=== PATIENT | male | born 2000 | race Caucasian/White ===

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

== ENCOUNTER 2018-03-25 11:08 | Emergency (ER) | END 2018-03-25 14:39 | disposition home or self-care (01) ==

== ENCOUNTER 2018-08-28 08:59 | Emergency (ER) | payer MEDICAID, OTHER ==
[~2018-08-28] VITALS: Wt 58.1 kg
[~2018-08-28 08:59] MED LIST changes: +LEVE750T70 PO
[2018-08-28] MEDS ORDERED: METR500T PO (11:04)
[2018-08-28] MEDS ORDERED: CIPR500T4 PO (11:04)
[2018-08-28] MEDS ORDERED: ACET500C5 PO (11:04)
[2018-08-28 11:38] VITALS: BP 132/75; PULSE 87; RESP 19
--- NOTE | 2018-08-28 14:23 | ERD ---
ER Documentation Chief Complaint Chief Complaint intermittent luq pain, nausea HPI 18-year-old male presenting with intermittent left lower quadrant pain for the last few days. He states it comes and goes however over the last day has progressively gotten worse. He denies any changes to bowel movements or urination. He has no fevers. Patient states the pain is worse with palpation of the area. He is never had this pain before. Medical history of seizures and is currently taking Keppra. Last seizure was May 2018. Denies medical problems. NKDA. Surgical history denies. Social history denies ROS All systems reviewed and are negative except as per history of present illness. Medications Home Meds Active Scripts Acetaminophen* (Tylophen*) 500 Mg Capsule, 1 CAP PO Q6H PRN for PAIN AND OR ELEVATED TEMP, #20 CAP Prov:MATT VIDAL PA-C 08/28/18 Metronidazole* (Flagyl*) 500 Mg Tablet, 500 MG PO TID for 7 Days, TAB Prov:MATT VIDAL PA-C 08/28/18 Ciprofloxacin Hcl* (Ciprofloxacin Hcl*) 500 Mg Tablet, 500 MG PO BID for 7 Days, TAB Prov:MATT VIDAL PA-C 08/28/18 Levetiracetam* (Keppra*) 750 Mg Tablet, 750 MG PO BID, #60 TAB Prov:SPRING BATISTA DO 07/15/16 Levetiracetam* (Keppra*) 500 Mg Tablet, 500 MG PO BID for 60 Days, TAB Prov:ALHAJI SEPULVEDA DO 12/24/15 Allergies Allergies: Coded Allergies: No Known Allergy (Unverified , 07/15/16) PMhx/Soc History of Surgery: No Anesthesia Reaction: No Hx Neurological Disorder: Yes (seizure) Hx Respiratory Disorders: No Hx Cardiac Disorders: No Hx Psychiatric Problems: No Hx Miscellaneous Medical Probl: No Hx Alcohol Use: No Hx Substance Use: No (MARIJUANA ) Hx Tobacco Use: No Smoking Status: Never smoker FmHx Family History: No diabetes, No coronary disease, No other Physical Exam Vitals Vital Signs Date Temp Pulse Resp B/P (MAP) Pulse Ox O2 O2 Flow FiO2 Time Delivery Rate 08/28/18 97.9 87 19 132/75 98 Room Air 11:38 (94) 08/28/18 97.7 96 20 135/59 99 09:03 (84) Physical Exam GENERAL: The patient is well-appearing, well-nourished, in no acute distress HEENT: Atraumatic. Conjunctivae are pink. Pupils equal, round, and reactive to light. There is no scleral icterus. Tympanic membranes clear bilaterally. Oropharynx clear. NECK: C-spine is soft and supple. There is no meningismus. There is no cervical lymphadenopathy. CHEST: Clear to auscultation bilaterally. There are no rales, wheezes or rhonchi. HEART: Regular rate and rhythm. No murmurs, clicks, rubs or gallops. ABDOMEN: Normal active bowel sounds. No distention. No organomegaly. Mild tenderness palpation the left lower quadrant with no rebound tenderness. Result Diagram: 08/28/1895808/28/18958 Results 24 hrs Laboratory Tests Test 08/28/18 09:47 08/28/18 09:59 Urine Color STRAW Urine Clarity CLEAR Urine pH 7.0 Urine Specific [place] 1.002 Urine Ketones NEGATIVE mg/dL Urine Nitrite NEGATIVE mg/dL Urine Bilirubin NEGATIVE mg/dL Urine Urobilinogen NEGATIVE mg/dL Urine Leukocyte Esterase NEGATIVE Manohar/ul Urine Hemoglobin NEGATIVE mg/dL Urine Glucose NEGATIVE mg/dL Urine Total Protein NEGATIVE mg/dl White Blood Count 5.5 10^3/ul Red Blood Count 5.61 10^6/ul Hemoglobin 16.3 g/dl Hematocrit 47.8 % Mean Corpuscular Volume 85.2 fl Mean Corpuscular Hemoglobin 29.1 pg Mean Corpuscular Hemoglobin Concent 34.1 g/dl Red Cell Distribution Width 12.8 % Platelet Count 292 10^3/UL Mean Platelet Volume 8.5 fl Immature Granulocytes % 0.400 % Neutrophils % 73.8 % Lymphocytes % 14.6 % Monocytes % 10.3 % Eosinophils % 0.5 % Basophils % 0.4 % Nucleated Red Blood Cells % 0.0 /100WBC Immature Granulocytes # 0.020 10^3/ul Neutrophils # 4.1 10^3/ul Lymphocytes # 0.8 10^3/ul Monocytes # 0.6 10^3/ul Eosinophils # 0.0 10^3/ul Basophils # 0.0 10^3/ul Nucleated Red Blood Cells # 0.0 10^3/ul Sodium Level 143 mmol/L Potassium Level 3.8 mmol/L Chloride Level 103 mmol/L Carbon Dioxide Level 28 mmol/L Anion Gap 12 Blood Urea Nitrogen 6 mg/dl Creatinine 0.69 mg/dl Est Glomerular Filtrat Rate mL/min > 60 mL/min Glucose Level 95 mg/dl Calcium Level 9.7 mg/dl Total Bilirubin 0.5 mg/dl Direct Bilirubin 0.00 mg/dl Indirect Bilirubin 0.5 mg/dl Aspartate Amino Transf (AST/SGOT) 41 IU/L Alanine Aminotransferase (ALT/SGPT) 55 IU/L Alkaline Phosphatase 89 IU/L Total Protein 8.5 g/dl Albumin 4.9 g/dl Globulin 3.60 g/dl Albumin/Globulin Ratio 1.36 Lipase 48 U/L Monoscreen Negative Procedures/MDM DIAGNOSTIC IMAGING REPORT Patient: JOAN WATSON : 2000 Age: 18 Sex: M MR #: [id number] DOS: 08/28/18 0931 Ordering MD: MEGHANN VIDAL PA-C Location: [facility] Room/Bed: PROCEDURE: CT Abdomen and pelvis without contrast. CLINICAL INDICATION: Left upper quadrant pain and nausea TECHNIQUE: CT scan of the abdomen and pelvis without contrast was performed on a multidetector high-resolution CT scan. . Coronal and sagittal reformatted images were obtained from the axial source images. Standard CT scan of the a bdomen pelvis without contrast protocols were performed. The total exam CTDI equals 4.77 mGy and the total exam DLP equals 269.46 mGy-cm. One or more of the following dose reduction techniques were used: - Automated exposure control. - Adjustment of the mA and/or kV according to patient size. Use of iterative reconstruction technique. Dicom images are available COMPARISON: None. FINDINGS: Moderate to heavy stool burden throughout the colon consistent with constipation. No evidence of diverticulitis or colitis. Prominent fluid filled nondilated mid to distal small bowel may represent ileus or possibly enteritis. Remainder the small bowel is unremarkable. No evidence of bowel obstruction. Stomach and appendix are unremarkable. No evidence of intra-abdominal free air, free fluid, abscesses or lymphadenopathy. Kidneys are normal in size without calcified calculi hydronephrosis or intra renal masses bilaterally. No evidence ureteral calcified calculi or dilatation. Contracted otherwise unremarkable urinary bladder. Prostate unremarkable. Liver spleen pancreas adrenal glands and gallbladder are unremarkable. No evidence biliary ductal dilation. Lung bases unremarkable. Aorta unremarkable. Abdominal pelvic wall unremarkable. Osseous structures unremarkable. IMPRESSION: 1. Moderate to heavy stool burden throughout the colon consistent constipation. No bowel obstruction. 2. Prominent nondilated fluid filled loops of mid to distal small bowel may re present ileus or possible enteritis. No diverticulitis or appendicitis. 3. No calcified urinary calculi or obstructive uropathy. MDM: 18-year-old male presenting with abdominal pain. Patient has findings consistent with colitis and I will treat with antibiotics. I have low suspicion for perforated ulcer formation. Patient's vitals are stable and exam is non- concerning. I have low suspicion for GI abnormality or UTI. Patient is told if symptoms change or worsen to return immediately to the ER. All questions answered at discharge Departure Diagnosis: Primary Impression: Abdominal pain Condition: Stable Patient Instructions: Abdominal Pain Additional Instructions: FOLLOW UP WITH YOUR PRIMARY CARE PHYSICIAN TOMORROW.Return to this facility if you are not improving as expected. MATT VIDAL PA-C Aug 28, 2018 14:23
== END 2018-08-28 11:39 | disposition home or self-care (01) ==
LOC: FTE 08:59
DX: R10.32 Left lower quadrant pain (principal)
CPT/HCPCS: 36415; 74176; 80053; 81003; 83690; 85025; 86308; Z7502

== ENCOUNTER 2018-12-18 13:11 | Inpatient (IN) | payer MEDICAID, OTHER ==
[~2018-12-18] VITALS: Ht 180.3 cm; Wt 57.0 kg
[~2018-12-18 13:11] MED LIST changes: +ACET500C5 PO; +CIPR500T4 PO; +METR500T PO
[2018-12-18] MEDS ORDERED: SULF1TAB31 PO (13:52)
[2018-12-18] MEDS ORDERED: AMOX1TAB10 PO (13:52)
[2018-12-18] MEDS ORDERED: ERYT1OIN6 RIGHT EYE (13:52)
[2018-12-18] MEDS ORDERED: NPH10OT RIGHT EAR (13:52)
[2018-12-18] MEDS ORDERED: SOD CHLORIDE 0.9% 100 ML ONE (15:41)
[2018-12-18] MEDS ORDERED: IOHEXOL 100 ML ONE (15:41)
[2018-12-18] MEDS ORDERED: LEVE-5 PO (15:46)
--- NOTE | 2018-12-18 16:12 | ERD ---
ER Documentation Chief Complaint Chief Complaint night sweats, unable to sleep, losses lots of weights; cough x 1 month HPI This is a very pleasant 18-year-old male with no past mental history. The patient presents to the emergency department with a nonproductive cough for over 1 month. The patient indicates for the past month he has been having night sweats making it difficult for him to sleep. He also indicates since the beg inning of the year roughly August 2018 he started to develop a significant amount of weight loss of roughly 30 pounds. The patient had no recent travel or prolonged immobilization. He does notice that he has had a pinkish color to his cough and sputum over the past several days. He denies any abdominal pain. He has no chest pain. ROS All systems reviewed and are negative except as per history of present illness. Medications Home Meds Reported Medications Levetiracetam* (Keppra*) 500 Mg Tablet, 500 MG PO BID, TAB 12/18/18 Discontinued Scripts Acetaminophen* (Tylophen*) 500 Mg Capsule, 1 CAP PO Q6H PRN for PAIN AND OR ELEVATED TEMP, #20 CAP Prov:MATT VIDAL PA-C 08/28/18 Metronidazole* (Flagyl*) 500 Mg Tablet, 500 MG PO TID for 7 Days, TAB Prov:MATT VIDAL PA-C 08/28/18 Ciprofloxacin Hcl* (Ciprofloxacin Hcl*) 500 Mg Tablet, 500 MG PO BID for 7 Days, TAB Prov:MATT VIDAL PA-C 08/28/18 Levetiracetam* (Keppra*) 750 Mg Tablet, 750 MG PO BID, #60 TAB Prov:SPRING BATISTA DO 07/15/16 Levetiracetam* (Keppra*) 500 Mg Tablet, 500 MG PO BID for 60 Days, TAB Prov:ALHAJI SEPULVEDA DO 12/24/15 Allergies Allergies: Coded Allergies: No Known Allergy (Unverified , 12/18/18) PMhx/Soc History of Surgery: No Anesthesia Reaction: No Hx Neurological Disorder: Yes (seizure) Hx Respiratory Disorders: No Hx Cardiac Disorders: No Hx Psychiatric Problems: No Hx Miscellaneous Medical Probl: No Hx Alcohol Use: No Hx Substance Use: No (MARIJUANA ) Hx Tobacco Use: No Physical Exam Vitals Vital Signs Date Temp Pulse Resp B/P (MAP) Pulse Ox O2 O2 Flow FiO2 Time Delivery Rate 12/18/18 124 16 118/62 99 Room Air 22:00 (80) 12/18/18 122 16 122/64 100 Room Air 20:00 (83) 12/18/18 124 16 118/68 99 Room Air 18:00 (85) 12/18/18 99.2 130 24 145/70 97 13:17 (95) Physical Exam Constitutional:Well-developed. Well-nourished. Very thin HEENT:Normocephalic. Atraumatic.Pupils were equal round reactive to light. Moist mucous membranes.No tonsillar exudates. Neck: No nuchal rigidity. No lymphadenopathy. No posterior cervical spine tenderness or step-offs. Respiratory: Not using accessory muscles of respiration. Diminished breath sounds bilaterally more prominent in the lower lung bases. No rhonchi. No rales. No wheezing. Cardiovascular: Regular rate regular rhythm.No murmurs. No rubs were appreciated.S1, S2 normal. Distal pulses are palpable 2+ bilaterally. GI: Abdomen was soft. Nontender. Non Distended. No pulsatile abdominal masses or bruits. No rebound. No guarding. Bowel sounds were present and normal. Muscle skeletal: Full range of motion of both the upper and lower extremities bilaterally.Normal muscle tone.No assymetrical calf tenderness or swelling. Skin: No petechia, no purpura. No lesions on the palms or the soles of the feet. No maculopapular rash. NEURO: Patient was alert, awake, orientated x3.No facial droop. Gait observed and normal with no ataxia.Speech had regular rate and rhythm. No focal neurological deficits. Result Diagram: 12/19/18 0557 12/19/18 0557 Results 24 hrs Laboratory Tests Test 12/18/18 14:05 12/18/18 14:51 12/18/18 15:15 White Blood Count 17.0 10^3/ul Red Blood Count 4.72 10^6/ul Hemoglobin 12.1 g/dl Hematocrit 38.6 % Mean Corpuscular Volume 81.8 fl Mean Corpuscular 25.6 pg Hemoglobin Mean Corpuscular 31.3 g/dl Hemoglobin Concent Red Cell Distribution 12.4 % Width Platelet Count 888 10^3/UL Mean Platelet Volume 7.8 fl Immature Granulocytes % 1.100 % Neutrophils % 79.3 % Lymphocytes % 11.1 % Monocytes % 8.1 % Eosinophils % 0.2 % Basophils % 0.2 % Nucleated Red Blood 0.0 /100WBC Cells % Immature Granulocytes # 0.190 10^3/ul Neutrophils # 13.5 10^3/ul Lymphocytes # 1.9 10^3/ul Monocytes # 1.4 10^3/ul Eosinophils # 0.0 10^3/ul Basophils # 0.0 10^3/ul Nucleated Red Blood 0.0 10^3/ul Cells # Pathologist YES Review (Hematology) Urine Color YELLOW Urine Clarity CLEAR Urine pH 6.0 Urine Specific [place] 1.010 Urine Ketones NEGATIVE mg/dL Urine Nitrite NEGATIVE mg/dL Urine Bilirubin NEGATIVE mg/dL Urine Urobilinogen 1+ mg/dL Urine Leukocyte NEGATIVE Manohar/ul Esterase Urine Hemoglobin NEGATIVE mg/dL Urine Glucose NEGATIVE mg/dL Urine Total Protein NEGATIVE mg/dl Path Consult JANNY ABEBE MD Signing Pathologist Sodium Level 137 mmol/L Potassium Level 4.3 mmol/L Chloride Level 96 mmol/L Carbon Dioxide Level 29 mmol/L Anion Gap 12 Blood Urea Nitrogen 7 mg/dl Creatinine 0.70 mg/dl Est Glomerular Filtrat > 60 mL/min Rate mL/min Glucose Level 113 mg/dl Calcium Level 8.6 mg/dl Total Bilirubin 0.8 mg/dl Direct Bilirubin 0.00 mg/dl Indirect Bilirubin 0.8 mg/dl Aspartate Amino 28 IU/L Transf (AST/SGOT) Alanine 32 IU/L Aminotransferase (ALT/S GPT) Alkaline Phosphatase 102 IU/L Creatine Kinase 43 IU/L Creatine Kinase Index 1.1 Creatinine Kinase MB 0.47 ng/ml (Mass) Troponin I < 0.012 ng/ml Total Protein 8.0 g/dl Albumin 3.6 g/dl Globulin 4.40 g/dl Albumin/Globulin Ratio 0.81 Free Thyroxine Index 3.14 ug/ml Thyroxine (T4) 7.7 ug/dl Triiodothyronine (T3) 40.8 % Uptake HIV (1&2) Antibody NEGATIVE Blood Gas Specimen Blood arterial Source Arterial Blood Date 12/18/2018 4:20:02 PM Drawn Arterial Blood pH 7.451 (Temp corrected) Arterial Blood pCO2 35.2 mmhg (Temp correct) Arterial Blood pO2 81.9 mmHG (Temp corrected) Arterial Blood HCO3 24.0 mmol/L Arterial Blood Base 0.4 mmol/L Excess Arterial Blood 96.1 mmHG Oxygen Saturation Reed Test N/A Arterial Blood Gas LB Puncture Site Arterial 0.3 % Blood Carboxyhemoglobin Arterial Blood 0.3 % Methemoglobin Blood Gas A-a O2 25.7 mmHg Differential Oxyhemoglobin Percent 95.5 % Blood Gas Temperature 37.0 C Blood Gas Modality ROOM AIR FiO2 21.0 % Blood Gas Notified Whom [place] Blood Gas Notified 12/18/2018 4:27:54 PM Time Prothrombin Time 14.5 Sec Prothrombin Time Ratio 1.1 INR International 1.12 Normalized Ratio Activated 33.4 Sec Partial Thromboplast Time Current Medications Medications Dose Sig/Eduardo Start Time Status Last (Trade) Ordered Route PRN Stop Time Admin Dose Reason Admin IV Flush 10 ml STK-MED 12/18/18 DC 12/18/18 (NS 10 ml) ONCE .ROUTE 15:41 16:10 12/18/18 15:42 Sodium 100 ml @ STK-MED 12/18/18 DC 12/18/18 Chloride ONCE .ROUTE 15:41 16:10 12/18/18 15:42 Iohexol 100 ml @ ud STK-MED 12/18/18 DC 12/18/18 ONCE .ROUTE 15:41 16:10 12/18/18 15:42 Ondansetron 4 mg BRIDGE ORDER 12/18/18 DC HCl (Zofran PRN IV 16:30 Inj) NAUSEA/VOMITI 12/18/18 17:02 NG 650 mg ER BRIDGE 12/18/18 DC Acetaminophen PRN PO 16:30 (Tylenol .MILD PAIN 12/18/18 17:02 Tab) 1-3 OR TEMP IV Flush 3 ml PER 12/18/18 (NS 3 ml) PROTOCOL IV 17:00 Ondansetron 4 mg Q6H PRN 12/18/18 HCl (Zofran IV 17:00 Inj) NAUSEA/VOMITI NG 650 mg Q6H PRN 12/18/18 12/19/18 Acetaminophen PO .PAIN 1-3 17:00 04:54 (Tylenol OR TEMP Tab) 1 tab Q6H PRN 12/18/18 Acetaminophen PO .MOD PAIN 17:00 / 4-6 Hydrocodone Bitart ([place] (5/325)) Morphine 2 mg Q4H PRN 12/18/18 Sulfate IV .SEVERE 17:00 (morphine) PAIN 7-10 Zolpidem 5 mg QHS PRN 12/18/18 Tartrate PO .INSOMNIA 17:00 (Ambien) Vancomycin VANCOMYCIN PER 12/18/18 HCl (Vanco PER PHARMACY PROTOCOL XX 17:00 Iv Per Pharmacy) Piperacillin 100 ml @ Q6 IVPB 12/18/18 12/19/18 Sod/ 200 mls/hr 18:00 13:49 Tazobactam Sod Fluconazole 400 mg DAILY PO 12/18/18 12/19/18 (Diflucan) 17:00 09:29 500 mg BID PO 12/18/18 12/19/18 Levetiracetam 21:00 09:29 (Keppra) Vancomycin 250 ml @ Q8H IVPB 12/18/18 DC 12/19/18 HCl 125 mls/hr 18:00 11:23 12/19/18 11:26 Procedures/MDM This is a very pleasant 19-year-old male with no past medical history that presents to the emergency department with night sweats weight loss and abnormal chest radiograph. The chest radiograph reviewed by myself and the radiologist indicate the following: INTERVAL DEVELOPMENT OF LARGE BULKY BILATERAL MASS LIKE DENSITIES, WHICH MAY REPRESENT MARKED LYMPHADENOPATHY. MALIGNANCY IS NOT EXCLUDED. RECOMMEND FOLLOW- UP CT SCAN OF THE CHEST WITH IV CONTRAST. The patient had leukocytosis of 17,000. The patient's platelet count was 888,000. I did not feel the patient's leukocytosis was a result of sepsis or infectious process. I was more concerned about a neoplastic process however blood cultures were obtained. Antibiotics will be held at this time until foll ow-up with the blood cultures and infectious disease consult. The patient had no TB risk factors but it TB analysis is currently pending with a quantiferon test. I obtained a CT scan of the patient's chest that was reviewed by the radiologist and indicated the followin. Large heterogeneous anterior mediastinal mass. The differential diagnosis includes a germ cell tumor, thymic neoplasm, or lymphoma. 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 Correlation with tissue diagnosis and a PET CT scan is recommended. 2. 7 mm nodule right lower lobe worrisome for pulmonary metastasis. 3. Limited examination for a pulmonary embolus. A large or central filling defect in the pulmonary system. I have obtained a thyroid panel. He will be admitted to the hospitalist in serious condition. The patient did not require supplemental oxygen however did have mild hypoxia. Therefore I obtained an arterial blood gas. There is no evidence of respiratory acidosis. 12 Lead EKG tracing ordered and reviewed by myself showed: Normal sinus rhythm of 66 bpm and no arrhythmia. CO interval normal. QRS duration normal. No ST segment elevation No ST segment depression. No changes consistent with acute ischemia. Critical Care: Time: 45 minutes Treatments/Evaluations: Close monitoring and treatment of unstable vital signs, cardiorespiratory, and neurologic status, while maintaining tight balance of fluid, respiratory, and cardiac interventions. Time does not include performing any of the above billable procedures. Departure Diagnosis: Primary Impression: Lung mass Condition: Serious JAEL CORRAL MD Dec 18, 2018 16:07
[2018-12-18] MEDS ORDERED: ACETAMINOPHEN 325 MG TAB PO PRN (16:30)
[2018-12-18] MEDS ORDERED: ONDANSETRON 4 MG INJ IV PRN ×2 (16:30→17:00)
--- NOTE | 2018-12-18 16:38 | HP ---
Date/Time of Note Date/Time of Note DATE: 12/18/18 TIME: 16:31 Assessment/Plan VTE Prophylaxis Pharmacological prophylaxis: NA/contraindicated Pharm contraindication: low risk/ambulating Lines/Catheters [facility] Saline Lock Assessment/Plan Hospital Course 1. Chronic cough with weight loss Chest x-ray shows large bulky bilateral masslike densities Follow-up on CT chest Pulmonary and ID consultations obtained Follow-up on QuantiFERON, blood cultures and coccidiomycosis antigen HIV is negative Diflucan and antibiotics empirically 2. Leukocytosis secondary to above Antibiotics and antifungals to 3. Seizure disorder Continue home Keppra 4. Thrombocytosis Monitor for now Prophylaxis: Ambulation Result Diagram: 12/18/18 1405 12/18/18 1405 Results 24hrs Laboratory Tests Test 12/18/18 14:05 12/18/18 14:51 12/18/18 15:15 White Blood Count 17.0 #H Red Blood Count 4.72 Hemoglobin 12.1 #L Hematocrit 38.6 L Mean Corpuscular Volume 81.8 Mean Corpuscular Hemoglobin 25.6 L Mean Corpuscular 31.3 L Hemoglobin Concent Red Cell Distribution Width 12.4 Platelet Count 888 #H Mean Platelet Volume 7.8 Immature Granulocytes % 1.100 H Neutrophils % 79.3 H Lymphocytes % 11.1 L Monocytes % 8.1 Eosinophils % 0.2 Basophils % 0.2 Nucleated Red Blood Cells % 0.0 Immature Granulocytes # 0.190 H Neutrophils # 13.5 H Lymphocytes # 1.9 Monocytes # 1.4 H Eosinophils # 0.0 Basophils # 0.0 Nucleated Red Blood Cells # 0.0 Pathologist YES Review (Hematology) Urine Color YELLOW Urine Clarity CLEAR Urine pH 6.0 Urine Specific [place] 1.010 Urine Ketones NEGATIVE Urine Nitrite NEGATIVE Urine Bilirubin NEGATIVE Urine Urobilinogen 1+ H Urine Leukocyte Esterase NEGATIVE Urine Hemoglobin NEGATIVE Urine Glucose NEGATIVE Urine Total Protein NEGATIVE Sodium Level 137 Potassium Level 4.3 Chloride Level 96 L Carbon Dioxide Level 29 Anion Gap 12 Blood Urea Nitrogen 7 Creatinine 0.70 Est Glomerular Filtrat > 60 Rate mL/min Glucose Level 113 Calcium Level 8.6 Total Bilirubin 0.8 Direct Bilirubin 0.00 Indirect Bilirubin 0.8 Aspartate Amino 28 Transf (AST/SGOT) Alanine 32 Aminotransferase (ALT/SGPT) Alkaline Phosphatase 102 Creatine Kinase 43 Creatine Kinase Index 1.1 Creatinine Kinase MB (Mass) 0.47 Troponin I < 0.012 Total Protein 8.0 Albumin 3.6 Globulin 4.40 H Albumin/Globulin Ratio 0.81 HIV (1&2) Antibody NEGATIVE Blood Gas Specimen Source Blood arterial Arterial Blood Date Drawn 12/18/2018 4:20:02 PM Arterial Blood pH 7.451 H (Temp corrected) Arterial Blood pCO2 35.2 (Temp correct) Arterial Blood pO2 81.9 (Temp corrected) Arterial Blood HCO3 24.0 Arterial Blood Base Excess 0.4 Arterial Blood 96.1 Oxygen Saturation Reed Test N/A Arterial Blood Gas LB Puncture Site Arterial 0.3 Blood Carboxyhemoglobin Arterial Blood Methemoglobin 0.3 Blood Gas A-a O2 25.7 H Differential Oxyhemoglobin Percent 95.5 Blood Gas Temperature 37.0 Blood Gas Modality ROOM AIR FiO2 21.0 Blood Gas Notified Whom [place] Blood Gas Notified Time 12/18/2018 4:27:54 PM Prothrombin Time 14.5 Prothrombin Time Ratio 1.1 INR International 1.12 Normalized Ratio Activated 33.4 Partial Thromboplast Time HPI/ROS Admit Date/Time Admit Date/Time December 18, 2018 Hx of Present Illness Patient is a 18-year-old male with history of seizure disorder on Keppra, patient reports fevers and chills with night sweats for the past 4 months, patient also reports 30 pound weight loss during that time. Patient does report recent history of cough with pink sputum, patient denies any history of incarceration, travel outside of the country or TB contacts. Patient is not currently working and has not gone to college but did go to high school locally and denies any travel history to the [facility]. When asked about sexual orientation patient preferred not to answer. In the ER chest x-ray showed large bulky bilateral mass densities. Patient continues to report dry cough otherwise has no complaints. ROS Weight loss Constitutional: chills, febrile, weight change (Weight loss of 30 pounds over 4 months) Eyes: no complaints ENT: no complaints Respiratory: cough Cardiovascular: no complaints Gastrointestinal: no complaints Genitourinary: no complaints Musculoskeletal: no complaints Skin: no complaints Neurologic: no complaints Endocrine: no complaints Lymphatic: no complaints Psychological: no complaints, nl mood/affect Immunologic: no complaints PMH/Family/Social Past Medical History As per HPI Medications Current Medications Ondansetron HCl (Zofran Inj) 4 mg BRIDGE ORDER PRN IV NAUSEA/VOMITING; Start 12/18/18 at 16:30; Stop 12/19/18 at 16:29 Acetaminophen (Tylenol Tab) 650 mg ER BRIDGE PRN PO .MILD PAIN 1-3 OR TEMP; Start 12/18/18 at 16:30; Stop 12/19/18 at 16:29 Coded Allergies: No Known Allergy (Unverified , 12/18/18) Past Surgical History Past Surgical Hx: no surgical history Family History Significant Family History: no pertinent family hx Social History Alcohol Use: rarely Smoking Status: Never smoker Drug Use: marijuana Exam/Review of Systems Vital Signs Vitals Vital Signs Date Temp Pulse Resp B/P (MAP) Pulse Ox O2 O2 Flow FiO2 Time Delivery Rate 12/18/18 99.2 130 24 145/70 97 13:17 (95) Exam Constitutional: alert, oriented Respiratory: clear to auscultation Cardiovascular: regular rate and rhythm Gastrointestinal: soft; No distended Musculoskeletal: nl extremities to inspection JAMIN INFANTE Dec 18, 2018 16:38
[2018-12-18] MEDS ORDERED: VANCOMYCIN IV PER PHARMACY XX SCH (17:00)
[2018-12-18] MEDS ORDERED: morphine 2 MG INJ IV PRN (17:00)
[2018-12-18] MEDS ORDERED: ZOLPIDEM 5 MG TAB PO PRN (17:00)
[2018-12-18] MEDS ORDERED: NACL 0.9% 3 ML SYG IV SCH (17:00)
[2018-12-18] MEDS: VANCOMYCIN 1 GM 250 ML IVPB SCH (18:00)
[2018-12-18] MEDS: PIPER-TAZO 3.375 GM IV (PMX) 100 ML IVPB SCH (19:03)
[2018-12-18] MEDS: FLUCONAZOLE 200 MG TAB PO SCH (19:03)
[2018-12-18] MEDS: LEVETIRACETAM 500 MG TAB PO SCH (20:07)
[2018-12-18] MEDS ORDERED: SOD CHLORIDE 0.9% 1,000 ML IV ONE (22:30)
[2018-12-19] VITALS (11 sets, daily range): BP systolic 94–116; BP diastolic 52–60; PULSE 93–166; RESP 17–19; Ht 180.3 cm; Wt 57.0 kg
[2018-12-19] MEDS: ACETAMINOPHEN 325 MG TAB PO PRN ×2 (04:54→23:05)
[2018-12-19] MEDS: VANCOMYCIN 1 GM 250 ML IVPB SCH ×2 (08:17→11:23)
[2018-12-19] MEDS: PIPER-TAZO 3.375 GM IV (PMX) 100 ML IVPB SCH ×4 (09:28→17:46)
[2018-12-19] MEDS: LEVETIRACETAM 500 MG TAB PO SCH ×2 (09:29→20:54)
[2018-12-19] MEDS: FLUCONAZOLE 200 MG TAB PO SCH (09:29)
--- NOTE | 2018-12-19 11:40 | CONS ---
Assessment/Plan Assessment/Plan Assessment/Plan (Daily) Assessment and recommendations; 1. Patient admitted with history of cough as well as significant weight loss over the last few weeks with a very large anterior mediastinal mass concerning for either lymphoma versus giant cell tumor. Continue current supportive care. Patient will need to have a biopsy done. May likely need mediastinoscopy performed. Findings discussed with primary physician. Consultation Date/Type/Reason Admit Date/Time December 18, 2018 Date of Consultation: Dec 19, 2018 Type of Consult Pulmonary Patient is a pleasant 18-year-old gentleman who came into the hospital with a few weeks history of cough with significant weight loss around 30 to 40 pounds. Upon evaluation a chest x-ray was done which is showing very large bilateral hilar masses. CT chest was done subsequently which is negative for pulmonary embolism but is showing a very large anterior mediastinal mass which is concerning for lymphoma versus germ cell tumor. Patient denies any fever, chills, dysphagia, shortness of breath, complete very scant cough without any sputum production or hemoptysis. Past medical history; 1. History of seizures. Medications; reviewed. Patient uses marijuana as an outpatient. Allergies; none. Socially; marijuana use. Family history; patient is single, has 3 siblings. No show any malignancy in the family. 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 Review of systems; denies any headache, seizures, visual changes. Any dysphagia, chest pain, angina, wheezing, sputum production or hemoptysis. Complains of cough for the last few weeks. Complains of weight loss. Denies any abdominal pain, nausea, vomiting, any lumps in the body. Denies any melena hematochezia urinary symptoms any skin changes or any arthritis symptoms. Denies any orthopnea. General exam; young male, awake alert, currently in no distress. Date/Time of Note DATE: 12/19/18 TIME: 11:36 Past Medical History Home Meds Reported Medications Levetiracetam* (Keppra*) 500 Mg Tablet, 500 MG PO BID, TAB 12/18/18 Discontinued Scripts Acetaminophen* (Tylophen*) 500 Mg Capsule, 1 CAP PO Q6H PRN for PAIN AND OR ELEVATED TEMP, #20 CAP Prov:MATT VIDAL PA-C 08/28/18 Metronidazole* (Flagyl*) 500 Mg Tablet, 500 MG PO TID for 7 Days, TAB Prov:MATT VIDAL PA-C 08/28/18 Ciprofloxacin Hcl* (Ciprofloxacin Hcl*) 500 Mg Tablet, 500 MG PO BID for 7 Days, TAB Prov:MATT VIDAL PA-C 08/28/18 Levetiracetam* (Keppra*) 750 Mg Tablet, 750 MG PO BID, #60 TAB Prov:SPRING BATISTA DO 07/15/16 Levetiracetam* (Keppra*) 500 Mg Tablet, 500 MG PO BID for 60 Days, TAB Prov:ALHAJI SEPULVEDA 12/24/15 Medications Current Medications IV Flush (NS 3 ml) 3 ml PER PROTOCOL IV ; Start 12/18/18 at 17:00 Ondansetron HCl (Zofran Inj) 4 mg Q6H PRN IV NAUSEA/VOMITING; Start 12/18/18 at 17:00 Acetaminophen (Tylenol Tab) 650 mg Q6H PRN PO .PAIN 1-3 OR TEMP Last administered on 12/19/18at 04:54; Admin Dose 650 MG; Start 12/18/18 at 17:00 Acetaminophen/ Hydrocodone Bitart ([place] (5/325)) 1 tab Q6H PRN PO .MOD PAIN 4- 6; Start 12/18/18 at 17:00 Morphine Sulfate (morphine) 2 mg Q4H PRN IV .SEVERE PAIN 7-10; Start 12/18/18 at 17:00 Zolpidem Tartrate (Ambien) 5 mg QHS PRN PO .INSOMNIA; Start 12/18/18 at 17:00 Vancomycin HCl (Vanco Iv Per Pharmacy) VANCOMYCIN PER PHARMACY PER PROTOCOL XX ; Start 12/18/18 at 17:00 Piperacillin Sod/ Tazobactam Sod 100 ml @ 200 mls/hr Q6 IVPB Last administered on 12/19/18at 09:28; Admin Dose 200 MLS/HR; Start 12/18/18 at 18:00 Fluconazole (Diflucan) 400 mg DAILY PO Last administered on 12/19/18at 09:29; Admin Dose 400 MG; Start 12/18/18 at 17:00 Levetiracetam (Keppra) 500 mg BID PO Last administered on 12/19/18at 09:29; Admin Dose 500 MG; Start 12/18/18 at 21:00 Miscellaneous Information (*Rx Drug Level Order Reminder*) VANCOMYCIN TROUGH ONCE ONCE XX ; Start 12/19/18 at 17:00; Stop 12/19/18 at 17:01 Vancomycin HCl 250 ml @ 125 mls/hr Q8H IVPB ; Start 12/19/18 at 22:00; Status UNV Allergies: Coded Allergies: No Known Allergy (Unverified , 12/18/18) Past Surgical History Past Surgical Hx: no surgical history Social History Alcohol Use: rarely Smoking Status: Current some day smoker Drug Use: marijuana Exam/Review of Systems Exam Vitals Vital Signs Date Temp Pulse Resp B/P (MAP) Pulse Ox O2 O2 Flow FiO2 Time Delivery Rate 12/19/18 98.7 106 19 107/57 96 Room Air 11:04 (74) Exam H EENT exam; supple neck, no JVD. No lymphadenopathy. Midline trachea. No thyromegaly. No neck masses. Patient has good dentition. Pupils are midsize. Chest exam; clear to auscultation. S1-S2 audible, no murmurs. Regular rhythm. Abdomen exam; soft, no organomegaly. Bowel sounds audible. No testicular mass. Extremity exam; no peripheral edema clubbing. 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 Results Result Diagram: 12/19/18 0557 12/19/18 0557 Results 24hrs Laboratory Tests Test 12/18/18 14:05 12/18/18 14:51 12/18/18 15:15 12/19/18 05:57 White Blood Count 17.0 #H 17.4 H Red Blood Count 4.72 4.31 L Hemoglobin 12.1 #L 11.1 L Hematocrit 38.6 L 34.6 L Mean Corpuscular 81.8 80.3 Volume Mean Corpuscular 25.6 L 25.8 L Hemoglobin Mean Corpuscular 31.3 L 32.1 Hemoglobin Concen t Red Cell 12.4 12.6 Distribution Width Platelet Count 888 #H 841 H Mean Platelet 7.8 8.0 Volume Immature 1.100 H 0.900 H Granulocytes % Neutrophils % 79.3 H 77.6 H Lymphocytes % 11.1 L 12.9 L Monocytes % 8.1 8.2 Eosinophils % 0.2 0.2 Basophils % 0.2 0.2 Nucleated Red 0.0 0.0 Blood Cells % Immature 0.190 H 0.150 H Granulocytes # Neutrophils # 13.5 H 13.5 H Lymphocytes # 1.9 2.3 Monocytes # 1.4 H 1.4 H Eosinophils # 0.0 0.0 Basophils # 0.0 0.0 Nucleated Red 0.0 0.0 Blood Cells # Pathologist YES Review (Hematolog y) Urine Color YELLOW Urine Clarity CLEAR Urine pH 6.0 Urine Specific 1.010 [place] Urine Ketones NEGATIVE Urine Nitrite NEGATIVE Urine Bilirubin NEGATIVE Urine 1+ H Urobilinogen Urine Leukocyte NEGATIVE Esterase Urine Hemoglobin NEGATIVE Urine Glucose NEGATIVE Urine Total NEGATIVE Protein Sodium Level 137 139 Potassium Level 4.3 3.6 Chloride Level 96 L 102 Carbon Dioxide 29 26 Level Anion Gap 12 11 Blood Urea 7 7 Nitrogen Creatinine 0.70 0.75 Est Glomerular > 60 > 60 Filtrat Rate mL/min Glucose Level 113 121 Calcium Level 8.6 8.2 L Total Bilirubin 0.8 Direct Bilirubin 0.00 Indirect 0.8 Bilirubin Aspartate Amino 28 Transf (AST/SGOT) Alanine 32 Aminotransferase (ALT/SGPT) Alkaline 102 Phosphatase Creatine Kinase 43 Creatine Kinase 1.1 Index Creatinine Kinase 0.47 MB (Mass) Troponin I < 0.012 Total Protein 8.0 Albumin 3.6 Globulin 4.40 H Albumin/Globulin 0.81 Ratio Free Thyroxine 3.14 Index Thyroxine (T4) 7.7 Triiodothyronine 40.8 H (T3) Uptake HIV (1&2) NEGATIVE Antibody Blood Gas Blood arterial Specimen Source Arterial Blood 12/18/2018 4:20:0 Date Drawn 2 PM Arterial Blood pH 7.451 H (Temp corrected) Arterial Blood 35.2 pCO2 (Temp correct) Arterial Blood 81.9 pO2 (Temp corrected) Arterial Blood 24.0 HCO3 Arterial Blood 0.4 Base Excess Arterial Blood 96.1 Oxygen Saturation Reed Test N/A Arterial Blood LB Gas Puncture Site Arterial 0.3 Blood Carboxyhemo globin Arterial Blood 0.3 Methemoglobin Blood Gas A-a O2 25.7 H Differential Oxyhemoglobin 95.5 Percent Blood Gas 37.0 Temperature Blood Gas ROOM AIR Modality FiO2 21.0 Blood Gas MT Notified Whom Blood Gas 12/18/2018 4:27:5 Notified Time 4 PM Prothrombin Time 14.5 Prothrombin Time 1.1 Ratio INR International 1.12 Normalized Ratio Activated 33.4 Partial Thrombopl ast Time Hemoglobin A1c 5.5 Phosphorus Level 4.7 Magnesium Level 2.2 Medications Medication Current Medications IV Flush (NS 3 ml) 3 ml PER PROTOCOL IV ; Start 12/18/18 at 17:00 Ondansetron HCl (Zofran Inj) 4 mg Q6H PRN IV NAUSEA/VOMITING; Start 12/18/18 at 17:00 Acetaminophen (Tylenol Tab) 650 mg Q6H PRN PO .PAIN 1-3 OR TEMP Last administered on 12/19/18at 04:54; Admin Dose 650 MG; Start 12/18/18 at 17:00 Acetaminophen/ Hydrocodone Bitart ([place] (5/325)) 1 tab Q6H PRN PO .MOD PAIN 4- 6; Start 12/18/18 at 17:00 Morphine Sulfate (morphine) 2 mg Q4H PRN IV .SEVERE PAIN 7-10; Start 12/18/18 at 17:00 Zolpidem Tartrate (Ambien) 5 mg QHS PRN PO .INSOMNIA; Start 12/18/18 at 17:00 Vancomycin HCl (Vanco Iv Per Pharmacy) VANCOMYCIN PER PHARMACY PER PROTOCOL XX ; Start 12/18/18 at 17:00 Piperacillin Sod/ Tazobactam Sod 100 ml @ 200 mls/hr Q6 IVPB Last administered on 12/19/18at 09:28; Admin Dose 200 MLS/HR; Start 12/18/18 at 18:00 Fluconazole (Diflucan) 400 mg DAILY PO Last administered on 12/19/18at 09:29; Admin Dose 400 MG; Start 12/18/18 at 17:00 Levetiracetam (Keppra) 500 mg BID PO Last administered on 12/19/18at 09:29; Admin Dose 500 MG; Start 12/18/18 at 21:00 Miscellaneous Information (*Rx Drug Level Order Reminder*) VANCOMYCIN TROUGH ONCE ONCE XX ; Start 12/19/18 at 17:00; Stop 12/19/18 at 17:01 Vancomycin HCl 250 ml @ 125 mls/hr Q8H IVPB ; Start 12/19/18 at 22:00; Status MICA AVITIA Dec 19, 2018 11:40
--- NOTE | 2018-12-19 15:29 | PN ---
Date/Time of Note Date/Time of Note DATE: 12/19/18 TIME: 15:20 Assessment/Plan VTE Prophylaxis SCD applied (from Nsg): Yes Pharmacological prophylaxis: NA/contraindicated Pharm contraindication: low risk/ambulating Lines/Catheters IV Catheter Type (from Nrsg): Saline Lock Assessment/Plan Hospital Course 1. Chronic cough with weight loss Chest x-ray shows large bulky bilateral masslike densities CT chest shows large heterogeneous anterior mediastinal mass. The differential diagnosis includes a germ cell tumor, thymic neoplasm, or lymphoma. 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 Correlation with tissue diagnosis and a PET CT scan is recommended CT surgery consultation with Dr. Sanchez obtained, recommendation is for CT-guided tissue biopsy Oncology consultation with Dr Avelar obtained Pulmonary and ID consultations obtained Follow-up on QuantiFERON, blood cultures and coccidiomycosis antigen HIV is negative Diflucan and antibiotics empirically 2. Leukocytosis likely secondary to underlying malignancy versus infection Antibiotics and antifungals 3. Seizure disorder Continue home Keppra 4. Thrombocytosis Monitor for now Prophylaxis: SCDs Result Diagram: 12/19/18 0557 12/19/18 0557 Results 24hrs Laboratory Tests Test 12/19/18 05:57 White Blood Count 17.4 H Red Blood Count 4.31 L Hemoglobin 11.1 L Hematocrit 34.6 L Mean Corpuscular Volume 80.3 Mean Corpuscular Hemoglobin 25.8 L Mean Corpuscular Hemoglobin Concent 32.1 Red Cell Distribution Width 12.6 Platelet Count 841 H Mean Platelet Volume 8.0 Immature Granulocytes % 0.900 H Neutrophils % 77.6 H Lymphocytes % 12.9 L Monocytes % 8.2 Eosinophils % 0.2 Basophils % 0.2 Nucleated Red Blood Cells % 0.0 Immature Granulocytes # 0.150 H Neutrophils # 13.5 H Lymphocytes # 2.3 Monocytes # 1.4 H Eosinophils # 0.0 Basophils # 0.0 Nucleated Red Blood Cells # 0.0 Sodium Level 139 Potassium Level 3.6 Chloride Level 102 Carbon Dioxide Level 26 Anion Gap 11 Blood Urea Nitrogen 7 Creatinine 0.75 Est Glomerular Filtrat Rate mL/min > 60 Glucose Level 121 Hemoglobin A1c 5.5 Calcium Level 8.2 L Phosphorus Level 4.7 Magnesium Level 2.2 Subjective 24 Hr Interval Summary Constitutional: no complaints Exam/Review of Systems Exam Vitals Vital Signs Date Temp Pulse Resp B/P (MAP) Pulse Ox O2 O2 Flow FiO2 Time Delivery Rate 12/19/18 Room Air 12:30 12/19/18 107 12:00 12/19/18 98.7 19 107/57 96 11:04 (74) Constitutional: alert, oriented Respiratory: clear to auscultation Cardiovascular: regular rate and rhythm Gastrointestinal: soft; No distended Musculoskeletal: nl extremities to inspection Results Results 24hrs Laboratory Tests Test 12/19/18 05:57 White Blood Count 17.4 H Red Blood Count 4.31 L Hemoglobin 11.1 L Hematocrit 34.6 L Mean Corpuscular Volume 80.3 Mean Corpuscular Hemoglobin 25.8 L Mean Corpuscular Hemoglobin Concent 32.1 Red Cell Distribution Width 12.6 Platelet Count 841 H Mean Platelet Volume 8.0 Immature Granulocytes % 0.900 H Neutrophils % 77.6 H Lymphocytes % 12.9 L Monocytes % 8.2 Eosinophils % 0.2 Basophils % 0.2 Nucleated Red Blood Cells % 0.0 Immature Granulocytes # 0.150 H Neutrophils # 13.5 H Lymphocytes # 2.3 Monocytes # 1.4 H Eosinophils # 0.0 Basophils # 0.0 Nucleated Red Blood Cells # 0.0 Sodium Level 139 Potassium Level 3.6 Chloride Level 102 Carbon Dioxide Level 26 Anion Gap 11 Blood Urea Nitrogen 7 Creatinine 0.75 Est Glomerular Filtrat Rate mL/min > 60 Glucose Level 121 Hemoglobin A1c 5.5 Calcium Level 8.2 L Phosphorus Level 4.7 Magnesium Level 2.2 Medications Medication Current Medications IV Flush (NS 3 ml) 3 ml PER PROTOCOL IV ; Start 12/18/18 at 17:00 Ondansetron HCl (Zofran Inj) 4 mg Q6H PRN IV NAUSEA/VOMITING; Start 12/18/18 at 17:00 Acetaminophen (Tylenol Tab) 650 mg Q6H PRN PO .PAIN 1-3 OR TEMP Last administered on 12/19/18at 04:54; Admin Dose 650 MG; Start 12/18/18 at 17:00 Acetaminophen/ Hydrocodone Bitart ([place] (5/325)) 1 tab Q6H PRN PO .MOD PAIN 4- 6; Start 12/18/18 at 17:00 Morphine Sulfate (morphine) 2 mg Q4H PRN IV .SEVERE PAIN 7-10; Start 12/18/18 at 17:00 Zolpidem Tartrate (Ambien) 5 mg QHS PRN PO .INSOMNIA; Start 12/18/18 at 17:00 Vancomycin HCl (Vanco Iv Per Pharmacy) VANCOMYCIN PER PHARMACY PER PROTOCOL XX ; Start 12/18/18 at 17:00 Piperacillin Sod/ Tazobactam Sod 100 ml @ 200 mls/hr Q6 IVPB Last administered on 12/19/18at 13:49; Admin Dose 200 MLS/HR; Start 12/18/18 at 18:00 Fluconazole (Diflucan) 400 mg DAILY PO Last administered on 12/19/18at 09:29; Admin Dose 400 MG; Start 12/18/18 at 17:00 Levetiracetam (Keppra) 500 mg BID PO Last administered on 12/19/18at 09:29; Admin Dose 500 MG; Start 12/18/18 at 21:00 Miscellaneous Information (*Rx Drug Level Order Reminder*) VANCOMYCIN TROUGH ONCE ONCE XX ; Start 12/19/18 at 17:00; Stop 12/19/18 at 17:01 Vancomycin HCl 250 ml @ 125 mls/hr Q8H IVPB ; Start 12/19/18 at 18:00 JAMIN INFANTE Dec 19, 2018 15:28
--- NOTE | 2018-12-19 15:55 | CONS ---
DATE OF ADMISSION: 12/18/2018 DATE OF CONSULTATION: 12/19/2018 TYPE OF CONSULTATION: Infectious disease. REASON FOR CONSULTATION: Antibiotic management. HISTORY OF PRESENT ILLNESS: Good [place] is a 18-year-old male who came to the emergency room on 12/18/2018 with night sweats, loss of weight and cough for 1 month. The patie nt has no past medical history. He presents to the emergency room with nonproductive cough for over a month. He has been having night sweats. He also notes that in the beginning of the year in , he started to develop significant amount of weight loss of roughly 30 pounds. The patient has no recent travel or prolonged immobilization. He does notice that he has had a pinkish color to his co ugh and sputum over the past several days. PAST MEDICAL HISTORY: He has history of seizures in the past. No surgeries. FAMILY HISTORY: Noncontributory. SOCIAL HISTORY: He does not smoke, drink or abuse drugs. He does use actually marijuana. PHYSICAL EXAMINATION: GENERAL: He is a well-developed, well-nourished thin male who is alert, responsive, in no acute dist ress. VITAL SIGNS: Stable. He is afebrile. SKIN: Without generalized rash. HEENT: Within normal limits. NECK: Supple. LYMPH NODES: None palpable. CHEST: Decreased breath sounds at the bases. HEART: Without murmur or gallop. ABDOMEN: Soft, nontender without organosplenomegaly or masses. EXTREMITIES: Without cyanosis, clubbing or edema. RECTAL AND GENITAL: Deferred. NEUROLOGICAL: No focal neurological abnormality. HOSPITAL COURSE: White count 17,000, H and H of 12.1 and 38.6, platelet count 888,000. BUN and crea tinine is 7/0.7, glucose of 113. With 79% neutrophils. Urinalysis: Negative for leukocytes and nit rites. The patient was started on vancomycin and Zosyn. Chest x-ray shows interval development of l arge bulky bilateral mass-like densities which may represent marked lymphadenopathy. Malignancy is n ot excluded. I recommend followup CT scan of the chest with IV contrast. CT scan of the chest shows large heterogeneous anterior mediastinal mass. Differential diagnosis includes germ cell tumor, thy gaby neoplasm or lymphoma. This is suspicious for germ cell tumor. Correlation with tissue diagnosis and PET scan were recommended. A 7 mm nodule in right lower lobe is worrisome for pulmonary metasta sis, limited examination for pulmonary embolus. The patient was seen by Dr. Chang, who notes cough a s well as significant weight loss, very large anterior mediastinal mass with lymphoma or giant cell t umor. He may likely need mediastinoscopy performed. Findings were discussed with primary physician. The patient will need to have a biopsy done. Presently, he is only on vancomycin and Zosyn, but it appears that this does not constitute an infectious disease process. Certainly when you think about fever and weight loss, you think of TB, but with the mediastinal mass that he has, it looks like we are dealing with tumor. I will be happy to follow along in his care. I will dictate to the hospital ist and to Dr. Chang. Dictated By: ALEX SANTANA MD, JD/NTS Conf#: [id number] DID#: [id number] CC: RADHA HEBERT MD;*EndCC*
[2018-12-19] MEDS ORDERED: VANCOMYCIN TROUGH XX ONE (17:00)
[2018-12-19] MEDS: VANCOMYCIN 1 GM (PMX) 250 ML IVPB SCH (19:20)
[2018-12-19] MEDS: HYDROCODONE/APAP (5/325) TAB PO PRN (22:08)
[2018-12-20] VITALS (11 sets, daily range): BP systolic 96–110; BP diastolic 56–60; PULSE 94–156; RESP 18–20
[2018-12-20] MEDS: PIPER-TAZO 3.375 GM IV (PMX) 100 ML IVPB SCH ×4 (00:06→17:53)
[2018-12-20] MEDS: VANCOMYCIN 1 GM (PMX) 250 ML IVPB SCH (05:13)
[2018-12-20] MEDS: LEVETIRACETAM 500 MG TAB PO SCH ×2 (09:45→20:59)
[2018-12-20] MEDS: FLUCONAZOLE 200 MG TAB PO SCH (09:45)
[2018-12-20] MEDS ORDERED: FENTAnyl 50 MCG/ML VIAL ONE (11:18)
[2018-12-20] MEDS ORDERED: LIDOCAINE 1% (MDV) 20 ML INJ ONE (11:18)
[2018-12-20] MEDS ORDERED: MIDAZOLAM 1 MG/ML 2 ML INJ ONE (11:18)
[2018-12-20] MEDS ORDERED: VANCOMYCIN HCL 1.5 GM in SOD CHLORIDE 0.9% 250 ML IVPB SCH (13:00)
--- NOTE | 2018-12-20 13:13 | CONS ---
Assessment/Plan Assessment/Plan Hospital Course (Demo Recall) 18 yo with large anteriod mediastinal mass #mediastinal mass -ddx include thymoma, lymphoblastic lymphoma, germ cell tumor, primary mediastinal B cell lymphoma -check BHCG, AFP, LDH, CEA -check CT AP -check scrotal US -he had biopsy today, depending on results we will determine if he will need bone marrow biopsy as well #leukocytosis and thrombocytosis suspect this is most likely reactive due to underlying malignancy check iron studies and ferritin Consultation Date/Type/Reason Admit Date/Time December 18, 2018 Date/Time of Note DATE: 12/20/18 TIME: 13:12 Hx of Present Illness Patient is a 18-year-old male with history of seizure disorder on Keppra, patient reports fevers and chills with night sweats for the past 4 months, patient also reports 30 pound weight loss during that time. Patient does report recent history of cough with pink sputum, patient denies any history of incarceration, travel outside of the country or TB contacts. Patient is not currently working and has not gone to college but did go to high school locally and denies any travel history to the [facility]. When asked about s exual orientation patient preferred not to answer. In the ER chest x-ray showed large bulky bilateral mass densities. Patient continues to report dry cough otherwise has no complaints. CT chest: 1. Large heterogeneous anterior mediastinal mass. The differential diagnosis includes a germ cell tumor, thymic neoplasm, or lymphoma. 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 Correlation with tissue diagnosis and a PET CT scan is recommended. 2. 7 mm nodule right lower lobe worrisome for pulmonary metastasis. 3. Limited examination for a pulmonary embolus. A large or central filling defe ct in the pulmonary system. . he is s/p mediastinal mass biopsy Constitutional: no complaints, improved Eyes: no complaints ENT: no complaints Respiratory: no complaints Cardiovascular: no complaints Gastrointestinal: no complaints Genitourinary: no complaints Musculoskeletal: no complaints Skin: no complaints Neurologic: no complaints Endocrine: no complaints Lymphatic: no complaints Psychological: no complaints, nl mood/affect Past Medical History Home Meds Reported Medications Levetiracetam* (Keppra*) 500 Mg Tablet, 500 MG PO BID, TAB 12/18/18 Discontinued Scripts Acetaminophen* (Tylophen*) 500 Mg Capsule, 1 CAP PO Q6H PRN for PAIN AND OR ELEVATED TEMP, #20 CAP Prov:MATT VIDAL PA-C 08/28/18 Metronidazole* (Flagyl*) 500 Mg Tablet, 500 MG PO TID for 7 Days, TAB Prov:MATT VIDAL PA-C 08/28/18 Ciprofloxacin Hcl* (Ciprofloxacin Hcl*) 500 Mg Tablet, 500 MG PO BID for 7 Days, TAB Prov:MATT VIDAL PA-C 08/28/18 Levetiracetam* (Keppra*) 750 Mg Tablet, 750 MG PO BID, #60 TAB Prov:SPRING BATISTA DO 07/15/16 Levetiracetam* (Keppra*) 500 Mg Tablet, 500 MG PO BID for 60 Days, TAB Prov:ALHAJI SEPULVEDA DO 12/24/15 Medications Current Medications IV Flush (NS 3 ml) 3 ml PER PROTOCOL IV ; Start 12/18/18 at 17:00 Ondansetron HCl (Zofran Inj) 4 mg Q6H PRN IV NAUSEA/VOMITING; Start 12/18/18 at 17:00 Acetaminophen (Tylenol Tab) 650 mg Q6H PRN PO .PAIN 1-3 OR TEMP Last administered on 12/19/18at 23:05; Admin Dose 650 MG; Start 12/18/18 at 17:00 Acetaminophen/ Hydrocodone Bitart ([place] (5/325)) 1 tab Q6H PRN PO .MOD PAIN 4- 6 Last administered on 12/19/18at 22:08; Admin Dose 1 TAB; Start 12/18/18 at 17:00 Morphine Sulfate (morphine) 2 mg Q4H PRN IV .SEVERE PAIN 7-10; Start 12/18/18 at 17:00 Zolpidem Tartrate (Ambien) 5 mg QHS PRN PO .INSOMNIA; Start 12/18/18 at 17:00 Vancomycin HCl (Vanco Iv Per Pharmacy) VANCOMYCIN PER PHARMACY PER PROTOCOL XX ; Start 12/18/18 at 17:00 Piperacillin Sod/ Tazobactam Sod 100 ml @ 200 mls/hr Q6 IVPB Last administered on 12/20/18at 12:30; Admin Dose 200 MLS/HR; Start 12/18/18 at 18:00 Fluconazole (Diflucan) 400 mg DAILY PO Last administered on 12/20/18at 09:45; Admin Dose 400 MG; Start 12/18/18 at 17:00 Levetiracetam (Keppra) 500 mg BID PO Last administered on 12/20/18at 09:45; Admin Dose 500 MG; Start 12/18/18 at 21:00 Miscellaneous Information (*Rx Drug Level Order Reminder*) VANCOMYCIN TROUGH LEVEL 1200 ONCE XX ; Start 12/21/18 at 12:00; Stop 12/21/18 at 12:01 Vancomycin HCl 1.25 gm/Sodium Chloride 250 ml @ 83.333 mls/ hr Q8H IVPB ; Start 12/20/18 at 13:00 Allergies: Coded Allergies: No Known Allergy (Unverified , 12/18/18) Past Surgical History Past Surgical Hx: no surgical history Social History Alcohol Use: rarely Smoking Status: Current some day smoker Drug Use: marijuana Exam/Review of Systems Exam Vitals Vital Signs Date Temp Pulse Resp B/P (MAP) Pulse Ox O2 O2 Flow FiO2 Time Delivery Rate 12/20/18 Room Air 13:02 12/20/18 106 12:20 12/20/18 98.8 20 105/ 96 07:28 Intake and Output 12/19/18 12/19/18 12/20/18 1515:00 23:00 07:00 IntakeIntake Total 350 ml 3100 ml 1350 ml OutputOutput Total 800 ml BalanceBalance 350 ml 3100 ml 550 ml Constitutional: alert, oriented, well developed Psych: no complaints, nl mood/affect Head: normocephalic, atraumatic Eyes: nl conjunctiva, EOMI, nl lids, nl sclera, PERRL Neck: supple, non-tender Gastrointestinal: soft, nl liver, spleen, non-tender 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, nl mental status, nl speech, nl strength Results Result Diagram: 12/19/18 0557 12/19/18 0557 Results 24hrs Laboratory Tests Test 12/20/18 04:00 Vancomycin Level Trough < 5.0 L Medications Medication Current Medications IV Flush (NS 3 ml) 3 ml PER PROTOCOL IV ; Start 12/18/18 at 17:00 Ondansetron HCl (Zofran Inj) 4 mg Q6H PRN IV NAUSEA/VOMITING; Start 12/18/18 at 17:00 Acetaminophen (Tylenol Tab) 650 mg Q6H PRN PO .PAIN 1-3 OR TEMP Last administered on 12/19/18at 23:05; Admin Dose 650 MG; Start 12/18/18 at 17:00 Acetaminophen/ Hydrocodone Bitart ([place] (5/325)) 1 tab Q6H PRN PO .MOD PAIN 4- 6 Last administered on 12/19/18at 22:08; Admin Dose 1 TAB; Start 12/18/18 at 17:00 Morphine Sulfate (morphine) 2 mg Q4H PRN IV .SEVERE PAIN 7-10; Start 12/18/18 at 17:00 Zolpidem Tartrate (Ambien) 5 mg QHS PRN PO .INSOMNIA; Start 12/18/18 at 17:00 Vancomycin HCl (Vanco Iv Per Pharmacy) VANCOMYCIN PER PHARMACY PER PROTOCOL XX ; Start 12/18/18 at 17:00 Piperacillin Sod/ Tazobactam Sod 100 ml @ 200 mls/hr Q6 IVPB Last administered on 12/20/18at 12:30; Admin Dose 200 MLS/HR; Start 12/18/18 at 18:00 Fluconazole (Diflucan) 400 mg DAILY PO Last administered on 12/20/18at 09:45; Admin Dose 400 MG; Start 12/18/18 at 17:00 Levetiracetam (Keppra) 500 mg BID PO Last administered on 12/20/18at 09:45; Admin Dose 500 MG; Start 12/18/18 at 21:00 Miscellaneous Information (*Rx Drug Level Order Reminder*) VANCOMYCIN TROUGH LEVEL 1200 ONCE XX ; Start 12/21/18 at 12:00; Stop 12/21/18 at 12:01 Vancomycin HCl 1.25 gm/Sodium Chloride 250 ml @ 83.333 mls/ hr Q8H IVPB ; Start 12/20/18 at 13:00 JESÚS SPICER Dec 20, 2018 13:13
--- NOTE | 2018-12-20 13:25 | CONS ---
Assessment/Plan Assessment/Plan Hospital Course (Demo Recall) Patient is awake eating lunch looks comfortable complaining of pain at the biopsy site no fevers T-max yesterday 100.9 WBCs yesterday was 17.4 no labs this morning Antimicrobials: Vancomycin, Zosyn fluconazole Physical examination: This is a well-developed cachectic young man who is alert in no distress head atraumatic normocephalic neck is supple chest rise symmetrical breath sounds diminished bases heart S1-S2 abdomen soft bowel sounds present extremities without cyanosis Assessment: 1. Large anterior mediastinal mass possible neoplastic QFT neg, HIV neg 2. Cachexia 3. Seizure disorder Plan: Pending final work-up, patient is status post biopsy of the mass, he is being followed by multiple consultants, continue on current antibiotics for now Consultation Date/Type/Reason Admit Date/Time Dec 18, 2018 at 22:05 Initial Consult Date 12/19/18 Type of Consult id Date/Time of Note DATE: 12/20/18 TIME: 13:24 Exam/Review of Systems Exam Vitals Vital Signs Date Temp Pulse Resp B/P (MAP) Pulse Ox O2 O2 Flow FiO2 Time Delivery Rate 12/20/18 Room Air 13:02 12/20/18 106 12:20 12/20/18 98.8 20 105/ 96 07:28 Intake and Output 12/19/18 12/19/18 12/20/18 1515:00 23:00 07:00 IntakeIntake Total 350 ml 3100 ml 1350 ml OutputOutput Total 800 ml BalanceBalance 350 ml 3100 ml 550 ml Results Result Diagram: 12/19/18 0557 12/19/18 0557 Results 24hrs Laboratory Tests Test 12/20/18 04:00 Vancomycin Level Trough < 5.0 L Medications Medication Current Medications IV Flush (NS 3 ml) 3 ml PER PROTOCOL IV ; Start 12/18/18 at 17:00 Ondansetron HCl (Zofran Inj) 4 mg Q6H PRN IV NAUSEA/VOMITING; Start 12/18/18 at 17:00 Acetaminophen (Tylenol Tab) 650 mg Q6H PRN PO .PAIN 1-3 OR TEMP Last administered on 12/19/18at 23:05; Admin Dose 650 MG; Start 12/18/18 at 17:00 Acetaminophen/ Hydrocodone Bitart ([place] (5/325)) 1 tab Q6H PRN PO .MOD PAIN 4- 6 Last administered on 12/19/18at 22:08; Admin Dose 1 TAB; Start 12/18/18 at 17:00 Morphine Sulfate (morphine) 2 mg Q4H PRN IV .SEVERE PAIN 7-10; Start 12/18/18 at 17:00 Zolpidem Tartrate (Ambien) 5 mg QHS PRN PO .INSOMNIA; Start 12/18/18 at 17:00 Vancomycin HCl (Vanco Iv Per Pharmacy) VANCOMYCIN PER PHARMACY PER PROTOCOL XX ; Start 12/18/18 at 17:00 Piperacillin Sod/ Tazobactam Sod 100 ml @ 200 mls/hr Q6 IVPB Last administered on 12/20/18at 12:30; Admin Dose 200 MLS/HR; Start 12/18/18 at 18:00 Fluconazole (Diflucan) 400 mg DAILY PO Last administered on 12/20/18at 09:45; Admin Dose 400 MG; Start 12/18/18 at 17:00 Levetiracetam (Keppra) 500 mg BID PO Last administered on 12/20/18at 09:45; Admin Dose 500 MG; Start 12/18/18 at 21:00 Miscellaneous Information (*Rx Drug Level Order Reminder*) VANCOMYCIN TROUGH LEVEL 1200 ONCE XX ; Start 12/21/18 at 12:00; Stop 12/21/18 at 12:01 Vancomycin HCl 1.25 gm/Sodium Chloride 250 ml @ 83.333 mls/ hr Q8H IVPB ; Start 12/20/18 at 13:00 Barium Sulfate (Readi-Cat 2 ( [employer] )) 900 ml GIVE PRIOR TO CT ONCE PO ; Start 12/20/18 at 13:30; Stop 12/20/18 at 13:31 COSTA ZAZUETA NP Dec 20, 2018 13:25
[2018-12-20] MEDS ORDERED: BARIUM SULF 2% 450 ML BTL (BERRY SMOOTHIE) PO ONE (13:30)
[2018-12-20] MEDS: VANCOMYCIN HCL 1.25 GM in SOD CHLORIDE 0.9% 250 ML IVPB SCH ×2 (13:43→20:59)
--- NOTE | 2018-12-20 16:14 | PN ---
Date/Time of Note Date/Time of Note DATE: 12/20/18 TIME: 16:11 Assessment/Plan VTE Prophylaxis Risk score (from Ns)>0 risk: 1 SCD applied (from Ns): Yes Pharmacological prophylaxis: NA/contraindicated Pharm contraindication: low risk/ambulating Lines/Catheters IV [facility] Saline Lock Assessment/Plan Hospital Course 1. Mediastinal mass with chronic cough and weight loss CT chest shows large heterogeneous anterior mediastinal mass. The differential diagnosis includes a germ cell tumor, thymic neoplasm, or lymphoma. 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 Correlation with tissue diagnosis and a PET CT scan is recommended CT surgery consultation with Dr. Sanchez obtained, recommendation is for CT-guided tissue biopsy which has been done today Oncology consultation with Dr Avelar appreciated, follow-up on path Pulmonary and ID consultations appreciated Negative blood cultures and QuantiFERON, follow-up on coccidiomycosis antigen HIV is negative Diflucan and antibiotics empirically 2. Leukocytosis likely secondary to underlying malignancy versus infection Antibiotics and antifungals for now, consider discontinuation in the coming days 3. Seizure disorder Continue home [place] 4. Thrombocytosis Monitor for now Prophylaxis: SCDs DC planning: Follow-up on pathology from biopsy Result Diagram: 12/19/18 0557 12/19/18 0557 Results 24hrs Laboratory Tests Test 12/20/18 04:00 12/20/18 13:35 Vancomycin Level Trough < 5.0 L Iron Level 27 L Total Iron Binding Capacity Pending Percent Iron Saturation Pending Lactate Dehydrogenase 1334 H Carcinoembryonic Antigen 5.2 H Beta HCG, Quantitative < 2.4 Subjective 24 Hr Interval Summary Constitutional: no complaints Exam/Review of Systems Exam Vitals Vital Signs Date Temp Pulse Resp B/P (MAP) Pulse Ox O2 O2 Flow FiO2 Time Delivery Rate 12/20/18 99.8 117 20 110/60 99 Room Air 15:47 (77) Intake and Output 12/19/18 12/19/18 12/20/18 1515:00 23:00 07:00 IntakeIntake Total 350 ml 3100 ml 1350 ml OutputOutput Total 800 ml BalanceBalance 350 ml 3100 ml 550 ml Constitutional: alert, oriented Respiratory: clear to auscultation Cardiovascular: regular rate and rhythm Gastrointestinal: soft Musculoskeletal: nl extremities to inspection Results Results 24hrs Laboratory Tests Test 12/20/18 04:00 12/20/18 13:35 Vancomycin Level Trough < 5.0 L Iron Level 27 L Total Iron Binding Capacity Pending Percent Iron Saturation Pending Lactate Dehydrogenase 1334 H Carcinoembryonic Antigen 5.2 H Beta HCG, Quantitative < 2.4 Medications Medication Current Medications IV Flush (NS 3 ml) 3 ml PER PROTOCOL IV ; Start 12/18/18 at 17:00 Ondansetron HCl (Zofran Inj) 4 mg Q6H PRN IV NAUSEA/VOMITING; Start 12/18/18 at 17:00 Acetaminophen (Tylenol Tab) 650 mg Q6H PRN PO .PAIN 1-3 OR TEMP Last administered on 12/19/18at 23:05; Admin Dose 650 MG; Start 12/18/18 at 17:00 Acetaminophen/ Hydrocodone Bitart ([place] (5/325)) 1 tab Q6H PRN PO .MOD PAIN 4- 6 Last administered on 12/19/18at 22:08; Admin Dose 1 TAB; Start 12/18/18 at 17:00 Morphine Sulfate (morphine) 2 mg Q4H PRN IV .SEVERE PAIN 7-10; Start 12/18/18 at 17:00 Zolpidem Tartrate (Ambien) 5 mg QHS PRN PO .INSOMNIA; Start 12/18/18 at 17:00 Vancomycin HCl (Vanco Iv Per Pharmacy) VANCOMYCIN PER PHARMACY PER PROTOCOL XX ; Start 12/18/18 at 17:00 Piperacillin Sod/ Tazobactam Sod 100 ml @ 200 mls/hr Q6 IVPB Last administered on 12/20/18at 12:30; Admin Dose 200 MLS/HR; Start 12/18/18 at 18:00 Fluconazole (Diflucan) 400 mg DAILY PO Last administered on 12/20/18at 09:45; A dmin Dose 400 MG; Start 12/18/18 at 17:00 Levetiracetam (Keppra) 500 mg BID PO Last administered on 12/20/18at 09:45; Admin Dose 500 MG; Start 12/18/18 at 21:00 Miscellaneous Information (*Rx Drug Level Order Reminder*) VANCOMYCIN TROUGH LEVEL 1200 ONCE XX ; Start 12/21/18 at 12:00; Stop 12/21/18 at 12:01 Vancomycin HCl 1.25 gm/Sodium Chloride 250 ml @ 83.333 mls/ hr Q8H IVPB Last administered on 12/20/18at 13:43; Admin Dose 83.333 MLS/HR; Start 12/20/18 at 13:00 JAMIN INFANTE Dec 20, 2018 16:14
[2018-12-20] MEDS: ACETAMINOPHEN 325 MG TAB PO PRN (20:59)
[2018-12-20] MEDS ORDERED: SOD CHLORIDE 0.9% 100 ML ONE (21:13)
[2018-12-20] MEDS ORDERED: IOHEXOL 300MG/ML 150 ML BTL ONE (21:13)
[2018-12-21] VITALS (11 sets, daily range): BP systolic 95–114; BP diastolic 50–60; PULSE 96–130; RESP 17–19
[2018-12-21] MEDS: PIPER-TAZO 3.375 GM IV (PMX) 100 ML IVPB SCH ×5 (00:47→23:47)
[2018-12-21] MEDS: VANCOMYCIN HCL 1.25 GM in SOD CHLORIDE 0.9% 250 ML IVPB SCH (05:14)
[2018-12-21] MEDS: ACETAMINOPHEN 325 MG TAB PO PRN ×2 (06:55→21:52)
[2018-12-21] MEDS: FLUCONAZOLE 200 MG TAB PO SCH (09:09)
[2018-12-21] MEDS: LEVETIRACETAM 500 MG TAB PO SCH ×2 (09:09→21:50)
--- NOTE | 2018-12-21 11:04 | CONS ---
Assessment/Plan Assessment/Plan Hospital Course (Demo Recall) ID PROGRESS NOTE CURRENT ABX: DAY # =>Vancomycin, Zosyn fluconazole 12/19/18 0557 12/19/18 0557 24H INTERVAL SUMMARY * 18 yo cachectic M, VSS, (+)low grade temps 99.3 - 99.8, no new issues, nor complaints * POD #1 -> S/P 12/20/[address] guided mediastinal mass biopsy. 2. No complications occurred. * 12/18/18 BCX (-) * QFT neg, HIV neg DIAGNOSTIC IMAGING * 12/20/18 CT A-P: IMPRESSION:No evidence of abdominal or pelvic mass or CT evidence for metastatic disease. Trace pleural fluid. No evidence of bowel obstruction or inflammation. Prominent fecal distension of the colon is kim ggestive for constipation. * 12/20/18 testicular us: 1. Benign cysts in the left epididymis, without concerning features. No evidence of epididymitis. 2. Normal sonographic findings of the bilateral testicles. No evidence of testicular mass or torsion. PHYSICAL EXAMINATION: GENERAL: VSS, NAD HEENT: AT, NC, NECK: Supple, CHEST: Rise symmetrical without dyspnea on observation HEART: Pulse RRR ABDOMEN: Benign EXTREMITIES: Warm, dry SKIN: No rash, no diaphoresis ID ASSESSMENT 18 yo M admit with: 1. SIRS w/fevers, leukocytosis 2. Large anterior mediastinal mass possible neoplastic with chronic cough and weight loss * Elevated tumor markers * CT chest shows large heterogeneous anterior mediastinal mass. The differential diagnosis includes a germ cell tumor, thymic neoplasm, or ly mphoma. 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 Correlation with tissue diagnosis and a PET CT scan is recommended 3. Seizure disorder 4. Fecal constipation 5. Thrombocytosis ABX ALLERGIES: KNDA INVASIVES: PIV CURRENT ABX: DAY # Vancomycin, Zosyn fluconazole ID RECOMMENDATIONS/PLAN: 1. Continue current ABX over the weekend 2. Pending final work-up, patient is status post biopsy of the mass, he is being followed by multiple consultants . Consultation Date/Type/Reason Admit Date/Time Dec 18, 2018 at 22:05 Initial Consult Date 12/19/18 Date/Time of Note DATE: 12/21/18 TIME: 11:03 Exam/Review of Systems Exam Vitals Vital Signs Date Temp Pulse Resp B/P (MAP) Pulse Ox O2 O2 Flow FiO2 Time Delivery Rate 12/21/18 97 08:00 12/21/18 99.4 07:40 12/21/18 17 95/50 (65) 96 07:24 12/20/18 Room Air 20:15 Intake and Output 12/20/18 12/20/18 12/21/18 1515:00 23:00 07:00 IntakeIntake Total 650 ml 2350 ml 450 ml BalanceBalance 650 ml 2350 ml 450 ml Results Result Diagram: 12/19/18 0557 12/19/18 0557 Results 24hrs Laboratory Tests Test 12/20/18 13:35 Iron Level 27 L Total Iron Binding Capacity 184 L Percent Iron Saturation 15 L Ferritin 762.0 H Lactate Dehydrogenase 1334 H Alpha Fetoprotein 18953.00 H Carcinoembryonic Antigen 5.2 H Beta HCG, Quantitative < 2.4 Medications Medication Current Medications IV Flush (NS 3 ml) 3 ml PER PROTOCOL IV ; Start 12/18/18 at 17:00 Ondansetron HCl (Zofran Inj) 4 mg Q6H PRN IV NAUSEA/VOMITING; Start 12/18/18 at 17:00 Acetaminophen (Tylenol Tab) 650 mg Q6H PRN PO .PAIN 1-3 OR TEMP Last administered on 12/21/18at 06:55; Admin Dose 650 MG; Start 12/18/18 at 17:00 Acetaminophen/ Hydrocodone Bitart ([place] (5/325)) 1 tab Q6H PRN PO .MOD PAIN 4- 6 Last administered on 12/19/18at 22:08; Admin Dose 1 TAB; Start 12/18/18 at 17:00 Morphine Sulfate (morphine) 2 mg Q4H PRN IV .SEVERE PAIN 7-10; Start 12/18/18 at 17:00 Zolpidem Tartrate (Ambien) 5 mg QHS PRN PO .INSOMNIA; Start 12/18/18 at 17:00 Vancomycin HCl (Vanco Iv Per Pharmacy) VANCOMYCIN PER PHARMACY PER PROTOCOL XX ; Start 12/18/18 at 17:00 Piperacillin Sod/ Tazobactam Sod 100 ml @ 200 mls/hr Q6 IVPB Last administered on 12/21/18at 06:05; Admin Dose 200 MLS/HR; Start 12/18/18 at 18:00 Fluconazole (Diflucan) 400 mg DAILY PO Last administered on 12/21/18at 09:09; Admin Dose 400 MG; Start 12/18/18 at 17:00 Levetiracetam (Keppra) 500 mg BID PO Last administered on 12/21/18at 09:09; Admin Dose 500 MG; Start 12/18/18 at 21:00 Miscellaneous Information (*Rx Drug Level Order Reminder*) VANCOMYCIN TROUGH LEVEL 1200 ONCE XX ; Start 12/21/18 at 12:00; Stop 12/21/18 at 12:01 Vancomycin HCl 1.25 gm/Sodium Chloride 250 ml @ 83.333 mls/ hr Q8H IVPB Last administered on 12/21/18at 05:14; Admin Dose 83.333 MLS/HR; Start 12/20/18 at 13:00 DELTA TAYLOR NP Dec 21, 2018 11:04
--- NOTE | 2018-12-21 16:37 | PN ---
Date/Time of Note Date/Time of Note DATE: 12/21/18 TIME: 16:35 Assessment/Plan VTE Prophylaxis Risk score (from Nsg)>0 risk: 1 SCD applied (from Nsg): Yes Pharmacological prophylaxis: heparin Lines/Catheters IV Catheter Type (from Nrsg): Saline Lock Urinary Cath still in place: No Assessment/Plan Hospital Course 18 yo male with h/o epilepsy who presents with months of fevers, night sweats, weight loss and cough found to have anterior mediastinal mass with high AFP - Suggests NSGCT - Fevers likely noninfectious - I would favor dc abx and monitor. No need for vanco at least - Management of malignancy per hematology Epilepsy: - Present for years, says had MRI at the time which was normal - Continue kera Result Diagram: 12/19/18 0557 12/19/18 0557 Results 24hrs Laboratory Tests Test 12/21/18 12:03 Vancomycin Level Trough 15.5 Subjective 24 Hr Interval Summary Free Text/Dictation Feels well, requests discharge Fevers asymptomatic Night sweats is major symptoms Exam/Review of Systems Exam Vitals Vital Signs Date Temp Pulse Resp B/P (MAP) Pulse Ox O2 O2 Flow FiO2 Time Delivery Rate 12/21/18 99.6 117 19 112/55 97 15:45 (74) 12/20/18 Room Air 20:15 Intake and Output 12/20/18 12/20/18 12/21/18 1515:00 23:00 07:00 IntakeIntake Total 650 ml 2350 ml 450 ml BalanceBalance 650 ml 2350 ml 450 ml Constitutional: alert, oriented, well developed Psych: no complaints, nl mood/affect Head: normocephalic, atraumatic Eyes: nl conjunctiva, EOMI, nl lids, nl sclera, PERRL ENMT: nl external ears & nose, nl lips & teeth, nl nasal mucosa & septum Neck: supple, non-tender Respiratory: clear to auscultation, normal air movement Cardiovascular: regular rate and rhythm, nl pulses Gastrointestinal: soft, nl liver, spleen, non-tender Musculoskeletal: nl extremities to inspection, nl gait and stance Extremities: normal pulses Neurological: 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, nl mental status, nl speech, nl strength Skin: nl turgor; No rash or lesions Lymph: nl lymph nodes Results Results 24hrs Laboratory Tests Test 12/21/18 12:03 Vancomycin Level Trough 15.5 Medications Medication Current Medications IV Flush (NS 3 ml) 3 ml PER PROTOCOL IV ; Start 12/18/18 at 17:00 Ondansetron HCl (Zofran Inj) 4 mg Q6H PRN IV NAUSEA/VOMITING; Start 12/18/18 at 17:00 Acetaminophen (Tylenol Tab) 650 mg Q6H PRN PO .PAIN 1-3 OR TEMP Last administered on 12/21/18at 06:55; Admin Dose 650 MG; Start 12/18/18 at 17:00 Acetaminophen/ Hydrocodone Bitart ([place] (5/325)) 1 tab Q6H PRN PO .MOD PAIN 4- 6 Last administered on 12/19/18 22:08; Admin Dose 1 TAB; Start 12/18/18 at 17: 00 Morphine Sulfate (morphine) 2 mg Q4H PRN IV .SEVERE PAIN 7-10; Start 12/18/18 at 17:00 Zolpidem Tartrate (Ambien) 5 mg QHS PRN PO .INSOMNIA; Start 12/18/18 at 17:00 Piperacillin Sod/ Tazobactam Sod 100 ml @ 200 mls/hr Q6 IVPB Last administered on 12/21/18 11:44; Admin Dose 200 MLS/HR; Start 12/18/18 at 18:00 Fluconazole (Diflucan) 400 mg DAILY PO Last administered on 12/21/18 09:09; Admin Dose 400 MG; Start 12/18/18 at 17:00 Levetiracetam (Keppra) 500 mg BID PO Last administered on 12/21/18 09:09; Admin Dose 500 MG; Start 12/18/18 at 21:00 BERRY AMBROSE MD Dec 21, 2018 16:37
[2018-12-22] VITALS (11 sets, daily range): BP systolic 102–120; BP diastolic 58–67; PULSE 98–123; RESP 18–20
[2018-12-22] MEDS: PIPER-TAZO 3.375 GM IV (PMX) 100 ML IVPB SCH ×3 (05:31→17:22)
[2018-12-22] MEDS: LEVETIRACETAM 500 MG TAB PO SCH ×2 (08:25→21:14)
[2018-12-22] MEDS: FLUCONAZOLE 200 MG TAB PO SCH (08:25)
--- NOTE | 2018-12-22 14:57 | PN ---
Date/Time of Note Date/Time of Note DATE: 12/22/18 TIME: 14:56 Assessment/Plan VTE Prophylaxis Risk score (from Nsg)>0 risk: 1 SCD applied (from Nsg): Yes Pharmacological prophylaxis: heparin Lines/Catheters IV Catheter Type (from Nrsg): Saline Lock Urinary Cath still in place: No Assessment/Plan Hospital Course 18 yo male with h/o epilepsy who presents with months of fevers, night sweats, weight loss and cough found to have anterior mediastinal mass with high AFP - Suggests NSGCT - Await biopsy results - Fevers likely noninfectious - I would favor dc abx and monitor. No need for vanco at least - Management of malignancy per hematology Epilepsy: - Present for years, says had MRI at the time which was normal - Continue kera Result Diagram: 12/19/18 0557 12/19/18 0557 Subjective 24 Hr Interval Summary Free Text/Dictation No change to status Fevers resolved Exam/Review of Systems Exam Vitals Vital Signs Date Temp Pulse Resp B/P (MAP) Pulse Ox O2 O2 Flow FiO2 Time Delivery Rate 12/22/18 109 12:00 12/22/18 99.6 18 110/67 99 11:36 (81) 12/20/18 Room Air 20:15 Intake and Output 12/21/18 12/21/18 12/22/18 1515:00 23:00 07:00 IntakeIntake Total 240 ml 480 ml 100 ml BalanceBalance 240 ml 480 ml 100 ml Constitutional: alert, oriented, well developed Psych: no complaints, nl mood/affect Head: normocephalic, atraumatic Eyes: nl conjunctiva, EOMI, nl lids, nl sclera, PERRL ENMT: nl external ears & nose, nl lips & teeth, nl nasal mucosa & septum Neck: supple, non-tender Respiratory: clear to auscultation, normal air movement Cardiovascular: regular rate and rhythm, nl pulses Gastrointestinal: soft, nl liver, spleen, non-tender Musculoskeletal: nl extremities to inspection, nl gait and stance Extremities: normal pulses 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, nl mental status, nl speech, nl strength Skin: nl turgor; No rash or lesions Lymph: nl lymph nodes Medications Medication Current Medications IV Flush (NS 3 ml) 3 ml PER PROTOCOL IV ; Start 12/18/18 at 17:00 Ondansetron HCl (Zofran Inj) 4 mg Q6H PRN IV NAUSEA/VOMITING; Start 12/18/18 at 17:00 Acetaminophen (Tylenol Tab) 650 mg Q6H PRN PO .PAIN 1-3 OR TEMP Last administered on 12/21/18 21:52; Admin Dose 650 MG; Start 12/18/18 at 17:00 Acetaminophen/ Hydrocodone Bitart ([place] (5/325)) 1 tab Q6H PRN PO .MOD PAIN 4- 6 Last administered on 12/19/18 22:08; Admin Dose 1 TAB; Start 12/18/18 at 17:00 Morphine Sulfate (morphine) 2 mg Q4H PRN IV .SEVERE PAIN 7-10; Start 12/18/18 a t 17:00 Zolpidem Tartrate (Ambien) 5 mg QHS PRN PO .INSOMNIA; Start 12/18/18 at 17:00 Piperacillin Sod/ Tazobactam Sod 100 ml @ 200 mls/hr Q6 IVPB Last administered on 12/22/18 11:54; Admin Dose 200 MLS/HR; Start 12/18/18 at 18:00 Fluconazole (Diflucan) 400 mg DAILY PO Last administered on 12/22/18 08:25; Admin Dose 400 MG; Start 12/18/18 at 17:00 Levetiracetam (Keppra) 500 mg BID PO Last administered on 12/22/18 08:25; Admin Dose 500 MG; Start 12/18/18 at 21:00 BERRY AMBROSE MD Dec 22, 2018 14:57
--- NOTE | 2018-12-22 19:27 | CONS ---
Assessment/Plan Assessment/Plan Hospital Course (Demo Recall) ID PROGRESS NOTE CURRENT ABX: DAY # => Zosyn fluconazole s/p Vancomycin, 24H INTERVAL SUMMARY * 18 yo cachectic M, VSS, without productive sputum - without dyspnea - -no evidence of hypoxia * (+)low grade temps 99.3 - 99.8, no new issues, nor complaints * POD #2-> S/P 12/20/[address] guided mediastinal mass biopsy. 2. No complications occurred. * 12/18/18 BCX (-) * QFT neg, HIV neg DIAGNOSTIC IMAGING * 12/20/18 CT A-P: IMPRESSION:No evidence of abdominal or pelvic mass or CT evidence for metastatic disease. Trace pleural fluid. No evidence of bowel obstruction or inflammation. Prominent fecal distension of the colon is suggestive for constipation. * 12/20/18 testicular us: 1. Benign cysts in the left epididymis, without concerning features. No evidence of epididymitis. 2. Normal sonographic findings of the bilateral testicles. No evidence of testicular mass or torsion. PHYSICAL EXAMINATION: GENERAL: VSS, NAD HEENT: AT, NC, NECK: Supple, CHEST: Rise symmetrical without dyspnea on observation HEART: Pulse RRR ABDOMEN: Benign EXTREMITIES: Warm, dry SKIN: No rash, no diaphoresis ID ASSESSMENT 18 yo M admit with: 1. SIRS w/fevers, leukocytosis 2. Large anterior mediastinal mass possible neoplastic with chronic cough and weight loss * Elevated tumor markers * CT chest shows large heterogeneous anterior mediastinal mass. The dif ferential diagnosis includes a germ cell tumor, thymic neoplasm, or lymphoma. 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 Correlation with tissue diagnosis and a PET CT scan is recommended 3. Seizure disorder 4. Fecal constipation 5. Thrombocytosis ABX ALLERGIES: KNDA INVASIVES: PIV CURRENT ABX: DAY # Zosyn fluconazole s/p Vancomycin, ID RECOMMENDATIONS/PLAN: 1. No compelling evidence of true obstructive PNA process -- VSS, without productive sputum - without dyspnea - -no evidence of hypoxia * D/W Dr. Peck and Dr. Ruiz == Plan is to DC the ABX * [facility]. Pending final work-up, patient is status post biopsy of the mass, he is being followed by multiple consultants 3. Both Dr. Peck and myself discussed plan to DC ABX with patient who expresses understanding, agreement . Consultation Date/Type/Reason Admit Date/Time Dec 18, 2018 at 22:05 Initial Consult Date 12/19/18 Date/Time of Note DATE: 12/22/18 TIME: :23 Exam/Review of Systems Exam Vitals Vital Signs Date Temp Pulse Resp B/P (MAP) Pulse Ox O2 O2 Flow FiO2 Time Delivery Rate 12/22/18 99.0 106 20 114/66 100 17:00 (82) 12/20/18 Room Air 20:15 Intake and Output 12/21/18 12/21/18 12/22/18 1515:00 23:00 07:00 IntakeIntake Total 240 ml 480 ml 100 ml BalanceBalance 240 ml 480 ml 100 ml Results Result Diagram: 12/19/18 0557 12/19/18 0557 Medications Medication Current Medications IV Flush (NS 3 ml) 3 ml PER PROTOCOL IV ; Start 12/18/18 at 17:00 Ondansetron HCl (Zofran Inj) 4 mg Q6H PRN IV NAUSEA/VOMITING; Start 12/18/18 at 17:00 Acetaminophen (Tylenol Tab) 650 mg Q6H PRN PO .PAIN 1-3 OR TEMP Last administered on 12/21/18at 21:52; Admin Dose 650 MG; Start 12/18/18 at 17:00 Acetaminophen/ Hydrocodone Bitart ([place] (5/325)) 1 tab Q6H PRN PO .MOD PAIN 4- 6 Last administered on 12/19/18at 22:08; Admin Dose 1 TAB; Start 12/18/18 at 17:00 Morphine Sulfate (morphine) 2 mg Q4H PRN IV .SEVERE PAIN 7-10; Start 12/18/18 at 17:00 Zolpidem Tartrate (Ambien) 5 mg QHS PRN PO .INSOMNIA; Start 12/18/18 at 17:00 Piperacillin Sod/ Tazobactam Sod 100 ml @ 200 mls/hr Q6 IVPB Last administered on 12/22/18at 17:22; Admin Dose 200 MLS/HR; Start 12/18/18 at 18:00 Fluconazole (Diflucan) 400 mg DAILY PO Last administered on 12/22/18at 08:25; Admin Dose 400 MG; Start 12/18/18 at 17:00 Levetiracetam (Keppra) 500 mg BID PO Last administered on 12/22/18at 08:25; Admin Dose 500 MG; Start 12/18/18 at 21:00 DELTA TAYLOR NP Dec 22, 2018 19:27
[2018-12-23 02:21] VITALS: BP 108/59; PULSE 109; RESP 16
[2018-12-23 07:52] VITALS: BP 101/58; PULSE 104; RESP 17
[2018-12-23] MEDS: LEVETIRACETAM 500 MG TAB PO SCH ×2 (09:14→20:06)
--- NOTE | 2018-12-23 12:05 | CONS ---
Assessment/Plan Assessment/Plan Hospital Course (Demo Recall) 18 yo with large anterior mediastinal mass, CT chest angio: A large heterogeneous anterior mediastinal mass 13.5 x 15.8 x 9.3 cm in size. A 7 mm nodule in the right lower lobe . Multiple enlarged mediastinal and hilar lymph nodes are seen with the largest seen in the right hilum measuring approximately 1.6 x 8 1.7 cm in size. 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 IF OLDER THAN 3-4 MOS WE WILL DO IN HOSPITAL -in preparation for chemo: 2 D ECHO, mediport and PFTs -given how large this mass is and concern for airway will recommend chemo in hospital, await final path before ordering chemo. ONE CAVEAT IS IF THIS IS NON SEMINOMATOUS GERM CELL TUMOR CHEMO THAT IS RECOMMENDED CARRIES RISK OF STERILITY SO HE WILL NEED SPERM BANKING AND HE HAS TO DO THAT AB OUTPT #leukocytosis and thrombocytosis suspect this is most likely reactive due to underlying malignancy check iron studies and ferritin Consultation Date/Type/Reason Admit Date/Time Dec 18, 2018 at 22:05 Initial Consult Date 12/19/18 Date/Time of Note DATE: 12/23/18 TIME: 11:58 24 HR Interval Summary Free Text/Dictation CT AP and US testicular showed no lesions AFP [address] LDH 1334 CEA 5.2 Bhcg 2.4 Exam/Review of Systems Exam Vitals Vital Signs Date Temp Pulse Resp B/P (MAP) Pulse Ox O2 O2 Flow FiO2 Time Delivery Rate 12/23/18 99.9 104 17 101/58 99 Room Air 07:52 (72) Intake and Output 12/22/18 12/22/18 12/23/18 1515:00 23:00 07:00 IntakeIntake Total 340 ml 500 ml BalanceBalance 340 ml 500 ml Constitutional: alert, oriented, frail Psych: no complaints, nl mood/affect Eyes: nl conjunctiva, EOMI, nl lids, nl sclera, PERRL Respiratory: clear to auscultation, normal air movement Cardiovascular: regular rate and rhythm, nl pulses Gastrointestinal: soft, nl liver, spleen, non-tender Musculoskeletal: nl extremities to inspection, nl gait and stance Results Result Diagram: 12/23/18 0444 12/23/18 0443 Results 24hrs Laboratory Tests Test 12/23/18 04:43 12/23/18 04:44 Sodium Level 141 Potassium Level 4.0 Chloride Level 105 Carbon Dioxide Level 26 Anion Gap 10 Blood Urea Nitrogen 4 L Creatinine 0.68 Est Glomerular Filtrat Rate mL/min > 60 Glucose Level 109 Calcium Level 8.3 L Total Bilirubin 0.4 Direct Bilirubin 0.00 Indirect Bilirubin 0.4 Aspartate Amino Transf (AST/SGOT) 45 Alanine Aminotransferase (ALT/SGPT) 37 Alkaline Phosphatase 82 Total Protein 7.0 Albumin 3.1 L Globulin 3.90 H Albumin/Globulin Ratio 0.79 White Blood Count 14.8 H Red Blood Count 4.35 L Hemoglobin 10.9 L Hematocrit 35.0 L Mean Corpuscular Volume 80.5 Mean Corpuscular Hemoglobin 25.1 L Mean Corpuscular Hemoglobin Concent 31.1 L Red Cell Distribution Width 13.0 Platelet Count 822 H Mean Platelet Volume 8.0 Immature Granulocytes % 1.100 H Neutrophils % 71.7 Lymphocytes % 18.7 Monocytes % 7.3 Eosinophils % 0.9 Basophils % 0.3 Nucleated Red Blood Cells % 0.0 Immature Granulocytes # 0.160 H Neutrophils # 10.6 H Lymphocytes # 2.8 Monocytes # 1.1 H Eosinophils # 0.1 Basophils # 0.1 Nucleated Red Blood Cells # 0.0 Medications Medication Current Medications IV Flush (NS 3 ml) 3 ml PER PROTOCOL IV ; Start 12/18/18 at 17:00 Ondansetron HCl (Zofran Inj) 4 mg Q6H PRN IV NAUSEA/VOMITING; Start 12/18/18 at 17:00 Acetaminophen (Tylenol Tab) 650 mg Q6H PRN PO .PAIN 1-3 OR TEMP Last administered on 12/21/18at 21:52; Admin Dose 650 MG; Start 12/18/18 at 17:00 Acetaminophen/ Hydrocodone Bitart ([place] (5/325)) 1 tab Q6H PRN PO .MOD PAIN 4- 6 Last administered on 12/19/18at 22:08; Admin Dose 1 TAB; Start 12/18/18 at 17:00 Morphine Sulfate (morphine) 2 mg Q4H PRN IV .SEVERE PAIN 7-10; Start 12/18/18 at 17:00 Zolpidem Tartrate (Ambien) 5 mg QHS PRN PO .INSOMNIA; Start 12/18/18 at 17:00 Levetiracetam (Keppra) 500 mg BID PO Last administered on 12/23/18at 09:14; Admin Dose 500 MG; Start 12/18/18 at 21:00 JESÚS SPICER Dec 23, 2018 12:05
--- NOTE | 2018-12-23 12:27 | PN ---
Date/Time of Note Date/Time of Note DATE: 12/23/18 TIME: 12:26 Assessment/Plan VTE Prophylaxis Risk score (from Ns)>0 risk: 1 SCD applied (from Ns): Yes Pharmacological prophylaxis: heparin Lines/Catheters IV C[facility] Type (from [facility]): Saline Lock Urinary Cath still in place: No Assessment/Plan Hospital Course 18 yo male with h/o epilepsy who presents with months of fevers, night sweats, weight loss and cough found to have anterior mediastinal mass with high AFP - Suggests NSGCT - Await biopsy results - Fevers likely noninfectious - I would favor dc abx and monitor - Management of malignancy per hematology -> plan for port placement and chemo initiation as inpatient Thrombocytosis: - Likely reactive in setting of malignancy Epilepsy: - Present for years, says had MRI at the time which was normal - Continue [facility] Result Diagram: 12/23/184 12/23/18 0443 Results 24hrs Laboratory Tests Test 12/23/18 04:43 12/23/18 04:44 Sodium Level 141 Potassium Level 4.0 Chloride Level 105 Carbon Dioxide Level 26 Anion Gap 10 Blood Urea Nitrogen 4 L Creatinine 0.68 Est Glomerular Filtrat Rate mL/min > 60 Glucose Level 109 Calcium Level 8.3 L Total Bilirubin 0.4 Direct Bilirubin 0.00 Indirect Bilirubin 0.4 Aspartate Amino Transf (AST/SGOT) 45 Alanine Aminotransferase (ALT/SGPT) 37 Alkaline Phosphatase 82 Total Protein 7.0 Albumin 3.1 L Globulin 3.90 H Albumin/Globulin Ratio 0.79 White Blood Count 14.8 H Red Blood Count 4.35 L Hemoglobin 10.9 L Hematocrit 35.0 L Mean Corpuscular Volume 80.5 Mean Corpuscular Hemoglobin 25.1 L Mean Corpuscular Hemoglobin Concent 31.1 L Red Cell Distribution Width 13.0 Platelet Count 822 H Mean Platelet Volume 8.0 Immature Granulocytes % 1.100 H Neutrophils % 71.7 Lymphocytes % 18.7 Monocytes % 7.3 Eosinophils % 0.9 Basophils % 0.3 Nucleated Red Blood Cells % 0.0 Immature Granulocytes # 0.160 H Neutrophils # 10.6 H Lymphocytes # 2.8 Monocytes # 1.1 H Eosinophils # 0.1 Basophils # 0.1 Nucleated Red Blood Cells # 0.0 Subjective 24 Hr Interval Summary Free Text/Dictation Doing well No complaints Aware of need for chemo, port placement etc. Eagerly awaiting oncologic plan Exam/Review of Systems Exam Vitals Vital Signs Date Temp Pulse Resp B/P (MAP) Pulse Ox O2 O2 Flow FiO2 Time Delivery Rate 12/23/18 99.9 104 17 101/58 99 Room Air 07:52 (72) Intake and Output 12/22/18 12/22/18 12/23/18 1515:00 23:00 07:00 IntakeIntake Total 340 ml 500 ml BalanceBalance 340 ml 500 ml Constitutional: alert, oriented, well developed Psych: no complaints, nl mood/affect Head: normocephalic, atraumatic Eyes: nl conjunctiva, EOMI, nl lids, nl sclera, PERRL ENMT: nl external ears & nose, nl lips & teeth, nl nasal mucosa & septum Neck: supple, non-tender Respiratory: clear to auscultation, normal air movement Cardiovascular: regular rate and rhythm, nl pulses Gastrointestinal: soft, nl liver, spleen, non-tender Musculoskeletal: nl extremities to inspection, nl gait and stance Extremities: normal pulses 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, nl mental status, nl speech, nl strength Skin: nl turgor; No rash or lesions Lymph: nl lymph nodes Results Results 24hrs Laboratory Tests Test 12/23/18 04:43 12/23/18 04:44 Sodium Level 141 Potassium Level 4.0 Chloride Level 105 Carbon Dioxide Level 26 Anion Gap 10 Blood Urea Nitrogen 4 L Creatinine 0.68 Est Glomerular Filtrat Rate mL/min > 60 Glucose Level 109 Calcium Level 8.3 L Total Bilirubin 0.4 Direct Bilirubin 0.00 Indirect Bilirubin 0.4 Aspartate Amino Transf (AST/SGOT) 45 Alanine Aminotransferase (ALT/SGPT) 37 Alkaline Phosphatase 82 Total Protein 7.0 Albumin 3.1 L Globulin 3.90 H Albumin/Globulin Ratio 0.79 White Blood Count 14.8 H Red Blood Count 4.35 L Hemoglobin 10.9 L Hematocrit 35.0 L Mean Corpuscular Volume 80.5 Mean Corpuscular Hemoglobin 25.1 L Mean Corpuscular Hemoglobin Concent 31.1 L Red Cell Distribution Width 13.0 Platelet Count 822 H Mean Platelet Volume 8.0 Immature Granulocytes % 1.100 H Neutrophils % 71.7 Lymphocytes % 18.7 Monocytes % 7.3 Eosinophils % 0.9 Basophils % 0.3 Nucleated Red Blood Cells % 0.0 Immature Granulocytes # 0.160 H Neutrophils # 10.6 H Lymphocytes # 2.8 Monocytes # 1.1 H Eosinophils # 0.1 Basophils # 0.1 Nucleated Red Blood Cells # 0.0 Medications Medication Current Medications IV Flush (NS 3 ml) 3 ml PER PROTOCOL IV ; Start 12/18/18 at 17:00 Ondansetron HCl (Zofran Inj) 4 mg Q6H PRN IV NAUSEA/VOMITING; Start 12/18/18 at 17:00 Acetaminophen (Tylenol Tab) 650 mg Q6H PRN PO .PAIN 1-3 OR TEMP Last administered on 12/21/18at 21:52; Admin Dose 650 MG; Start 12/18/18 at 17:00 Acetaminophen/ Hydrocodone Bitart ([place] (5/325)) 1 tab Q6H PRN PO .MOD PAIN 4- 6 Last administered on 12/19/18at 22:08; Admin Dose 1 TAB; Start 12/18/18 at 17:00 Morphine Sulfate (morphine) 2 mg Q4H PRN IV .SEVERE PAIN 7-10; Start 12/18/18 at 17:00 Zolpidem Tartrate (Ambien) 5 mg QHS PRN PO .INSOMNIA; Start 12/18/18 at 17:00 Levetiracetam (Keppra) 500 mg BID PO Last administered on 12/23/18at 09:14; Admin Dose 500 MG; Start 12/18/18 at 21:00 BERRY AMBROSE MD Dec 23, 2018 12:27
--- NOTE | 2018-12-23 15:20 | CONS ---
Assessment/Plan Assessment/Plan Hospital Course (Demo Recall) no events Physical examination: This is a well-developed cachectic young man who is alert in no distress head atraumatic normocephalic neck is supple chest rise symmetrical breath sounds diminished bases heart S1-S2 abdomen soft bowel sounds present extremities without cyanosis Assessment: 1. Large anterior mediastinal mass possible neoplastic QFT neg, HIV neg 2. Cachexia 3. Seizure disorder Plan: Pending final work-up, pt is off abx, stable Consultation Date/Type/Reason Admit Date/Time Dec 18, 2018 at 22:05 Initial Consult Date 12/19/18 Type of Consult id Date/Time of Note DATE: 12/23/18 TIME: 15:19 Exam/Review of Systems Exam Vitals Vital Signs Date Temp Pulse Resp B/P (MAP) Pulse Ox O2 O2 Flow FiO2 Time Delivery Rate 12/23/18 99.9 104 17 101/58 99 Room Air 07:52 (72) Intake and Output 12/22/18 12/22/18 12/23/18 1515:00 23:00 07:00 IntakeIntake Total 340 ml 500 ml BalanceBalance 340 ml 500 ml Results Result Diagram: 12/23/18 0444 12/23/18 0443 Results 24hrs Laboratory Tests Test 12/23/18 04:43 12/23/18 04:44 Sodium Level 141 Potassium Level 4.0 Chloride Level 105 Carbon Dioxide Level 26 Anion Gap 10 Blood Urea Nitrogen 4 L Creatinine 0.68 Est Glomerular Filtrat Rate mL/min > 60 Glucose Level 109 Calcium Level 8.3 L Total Bilirubin 0.4 Direct Bilirubin 0.00 Indirect Bilirubin 0.4 Aspartate Amino Transf (AST/SGOT) 45 Alanine Aminotransferase (ALT/SGPT) 37 Alkaline Phosphatase 82 Total Protein 7.0 Albumin 3.1 L Globulin 3.90 H Albumin/Globulin Ratio 0.79 White Blood Count 14.8 H Red Blood Count 4.35 L Hemoglobin 10.9 L Hematocrit 35.0 L Mean Corpuscular Volume 80.5 Mean Corpuscular Hemoglobin 25.1 L Mean Corpuscular Hemoglobin Concent 31.1 L Red Cell Distribution Width 13.0 Platelet Count 822 H Mean Platelet Volume 8.0 Immature Granulocytes % 1.100 H Neutrophils % 71.7 Lymphocytes % 18.7 Monocytes % 7.3 Eosinophils % 0.9 Basophils % 0.3 Nucleated Red Blood Cells % 0.0 Immature Granulocytes # 0.160 H Neutrophils # 10.6 H Lymphocytes # 2.8 Monocytes # 1.1 H Eosinophils # 0.1 Basophils # 0.1 Nucleated Red Blood Cells # 0.0 Medications Medication Current Medications IV Flush (NS 3 ml) 3 ml PER PROTOCOL IV ; Start 12/18/18 at 17:00 Ondansetron HCl (Zofran Inj) 4 mg Q6H PRN IV NAUSEA/VOMITING; Start 12/18/18 at 17:00 Acetaminophen (Tylenol Tab) 650 mg Q6H PRN PO .PAIN 1-3 OR TEMP Last administered on 12/21/18at 21:52; Admin Dose 650 MG; Start 12/18/18 at 17:00 Acetaminophen/ Hydrocodone Bitart ([place] (5/325)) 1 tab Q6H PRN PO .MOD PAIN 4- 6 Last administered on 12/19/18at 22:08; Admin Dose 1 TAB; Start 12/18/18 at 17:00 Morphine Sulfate (morphine) 2 mg Q4H PRN IV .SEVERE PAIN 7-10; Start 12/18/18 at 17:00 Zolpidem Tartrate (Ambien) 5 mg QHS PRN PO .INSOMNIA; Start 12/18/18 at 17:00 Levetiracetam (Keppra) 500 mg BID PO Last administered on 12/23/18at 09:14; Admin Dose 500 MG; Start 12/18/18 at 21:00 COSTA ZAZUETA NP Dec 23, 2018 15:20
--- NOTE | 2018-12-23 17:03 | RADRPT ---
Echocardiogram Report Patient Name: Theodore WATSONnt ID: [id number] : 2000 (18y 6m)Study Date: 12/23/2018 11:24:39 AM Gender: MAccession #: [id number] Tech: Ene Watters [facility] Location: 2247 Ref.Physician: JESÚS SPICER Height(Cm): BSA: Weight(Kg): Quality: AdequateOrder Physician: JESÚS SPICER Account #: Procedures: Echocardiographic Report: Transthoracic echocardiogram with complete 2D, M-Mode, and doppler examination. Indications: Pre chemo eval. Measurements: 2D/M Mode Doppler Measurement Value Normal Range Measurement Value Normal Range LVIDd 2D 4.1 [ 4.2 - 5.8 ] cm AV Peak Kana 1.6 [ 100.0 - 170.0 ] cm/sec LVIDs 2D 2.2 [ 2.5 - 4.0 ] cm AV Peak PG 10.0 [ 2.0 - 9.0 ] mmHg LVPWd 2D 1.0 [ 0.6 - 1.0 ] cm LVOT Peak Kana 1.1 [ 70.0 - 110.0 ] cm/sec IVSd 2D 0.9 [ 0.6 - 1.0 ] cm LVOT Peak PG 5.0 [ 2.0 - 6.0 ] mmHg IVS/LVPW 2D 0.9 ratio Lat E` Kana 0.1 [ 10.0 - 15.0 ] cm/sec AoR Diam 2D 2.6 [ 2.6 - 3.4 ] cm TR Peak Kana 3.7 [ 100.0 - 280.0 ] cm/sec LA/Ao 2D 1 ratio TR Peak PG 54.0 mmHg LA Dimen 2D 2.2 [ 3.0 - 4.0 ] cm PV Peak Kana 2.3 [ 40.0 - 80.0 ] cm/sec PV Peak PG 21.0 mmHg RVSP 57.0 [ 10.0 - 36.0 ] mmHg RA Pressure 3.0 mmHg Findings: Left Ventricle: Normal left ventricular systolic function. Normal left ventricular cavity size. Normal left ventricular wall thickness. Ejection fraction is visually estimated at 55 %. Tissue Doppler/Mitral Doppler indices are within normal limits. Right Ventricle: Normal right ventricular size. Normal right ventricular systolic function. Left Atrium: The left atrium is normal in size. Right Atrium: The right atrium is normal in size. Mitral Valve: Normal appearance and function of the mitral valve with trace physiologic regurgitation. Aortic Valve: Normal appearance of the aortic valve. No significant aortic stenosis or insufficiency. Tricuspid Valve: Normal appearance of the tricuspid valve. The estimated Peak RVSP is 57 mmHg. There is mild to moderate tricuspid regurgitation. Pulmonic Valve: Normal pulmonic valve appearance. Pericardium: Small to moderate pericardial effusion. Pleural effusion seen. Aorta: Normal aortic root. IVC: Normal size and normal respiratory collapse consistent with normal right atrial pressure. Conclusions: Normal left ventricular systolic function. Normal left ventricular cavity size. Normal left ventricular wall thickness. Ejection fraction is visually estimated at 55 %. Tissue Doppler/Mitral Doppler indices are within normal limits. Normal appearance and function of the mitral valve with trace physiologic regurgitation. Normal appearance of the aortic valve. No significant aortic stenosis or insufficiency. Normal appearance of the tricuspid valve. The estimated Peak RVSP is 57 mmHg. There is mild to moderate tricuspid regurgitation. Small to moderate pericardial effusion. Pleural effusion seen. Electronically Signed By: Ean Whyte 2018-12-23 17:03:02 PDT
[2018-12-23 20:00] VITALS: BP 106/58; PULSE 121; RESP 18
[2018-12-23] MEDS: ACETAMINOPHEN 325 MG TAB PO PRN (20:06)
[2018-12-24 02:00] VITALS: BP 107/57; PULSE 101; RESP 18
[2018-12-24 08:48] VITALS: BP 116/62; PULSE 124; RESP 18
[2018-12-24] MEDS: LEVETIRACETAM 500 MG TAB PO SCH (09:45)
[2018-12-24] MEDS ORDERED: POLYMYXIN/BACITRACIN 1L IRRIG ONE (10:39)
[2018-12-24] MEDS ORDERED: MIDAZOLAM 1 MG/ML 2 ML INJ ONE (10:57)
[2018-12-24] MEDS ORDERED: FENTAnyl 50 MCG/ML VIAL ONE (10:57)
[2018-12-24] MEDS ORDERED: CEFAZOLIN 1 GM/50 ML (PMX) 50 ML IVPB ONE (11:12)
[2018-12-24] MEDS ORDERED: LIDOCAINE 1%/EPI 30 ML INJ INJ ONE (11:30)
[2018-12-24] MEDS ORDERED: LIDOCAINE 1% (MDV) 20 ML INJ ONE (12:39)
[2018-12-24] MEDS ORDERED: GUAIFENESIN/CODEINE 5ML CUP PO PRN (14:30)
[2018-12-24 15:06] VITALS: BP 110/64; PULSE 116; RESP 24
--- NOTE | 2018-12-24 15:59 | CONS ---
Assessment/Plan Assessment/Plan Hospital Course (Demo Recall) no events, + low grade temps Patho + germ cell tumor Physical examination: This is a well-developed cachectic young man who is alert in no distress head atraumatic normocephalic neck is supple chest rise symmetrical breath sounds diminished bases heart S1-S2 abdomen soft bowel sounds present extremities without cyanosis Assessment: 1. 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 Cachexia 3. Seizure disorder Plan: Continue present care, f/u oncology rec-s Consultation Date/Type/Reason Admit Date/Time Dec 18, 2018 at 22:05 Initial Consult Date 12/19/18 Type of Consult id Date/Time of Note DATE: 12/24/18 TIME: 15:58 Exam/Review of Systems Exam Vitals Vital Signs Date Temp Pulse Resp B/P (MAP) Pulse Ox O2 O2 Flow FiO2 Time Delivery Rate 12/24/18 98.1 116 24 110/64 98 15:06 (79) 12/23/18 Room Air 07:52 Results Result Diagram: 12/23/18 0444 12/23/183 Results 24hrs Laboratory Tests Test 12/24/18 07:04 Lab Scanned Report REFERENCE LAB Medications Medication Current Medications IV Flush (NS 3 ml) 3 ml PER PROTOCOL IV ; Start 12/18/18 at 17:00 Ondansetron HCl (Zofran Inj) 4 mg Q6H PRN IV NAUSEA/VOMITING; Start 12/18/18 at 17:00 Acetaminophen (Tylenol Tab) 650 mg Q6H PRN PO .PAIN 1-3 OR TEMP Last administered on 12/23/18at 20:06; Admin Dose 650 MG; Start 12/18/18 at 17:00 Acetaminophen/ Hydrocodone Bitart (Mcguffey (5/325)) 1 tab Q6H PRN PO .MOD PAIN 4- 6 Last administered on 12/19/18at 22:08; Admin Dose 1 TAB; Start 12/18/18 at 17:00 Morphine Sulfate (morphine) 2 mg Q4H PRN IV .SEVERE PAIN 7-10; Start 12/18/18 at 17:00 Zolpidem Tartrate (Ambien) 5 mg QHS PRN PO .INSOMNIA; Start 12/18/18 at 17:00 Levetiracetam (Keppra) 500 mg BID PO Last administered on 12/24/18at 09:45; Admin Dose 500 MG; Start 12/18/18 at 21:00 Guaifenesin/ Codeine Phosphate (Robitussin Ac Liquid Cup) 5 ml Q4H PRN PO COUGH Last administered on 12/24/18at 14:47; Admin Dose 5 ML; Start 12/24/18 at 14:30 COSTA ZAZUETA NP Dec 24, 2018 15:59
[2018-12-24] MEDS: HYDROCODONE/APAP (5/325) TAB PO PRN (16:10)
--- NOTE | 2018-12-24 17:25 | PDOCDIS ---
Discharge Instructions DIAGNOSIS Discharge Diagnosis Germ cell tumor CONDITION [id number] Patient Condition: [id number] Stable FOLLOW UP/APPOINTMENTS Follow-up Plan Make an appointment to see Dr Smith to start chemotherapy You also need to make an appointment for sperm banking through Dr Smith's office prior to starting chemo BERRY AMBROSE MD Dec 24, 2018 17:25
--- NOTE | 2018-12-24 17:29 | DS ---
Date/Time of Note Date/Time of Note DATE: 12/24/18 TIME: 17:26 Discharge Summary Admission/Discharge Info Admit Date/Time Dec 18, 2018 at 22:05 Discharge Date/Time Discharge Diagnosis Germ cell tumor Patient Condition: Stable Hospital Course 18 yo male with h/o epilepsy who presented with months of fevers, night sweats, weight loss and cough. He was found on imaging to have anterior mediastinal mass. Labs showed very high AFP. The mass was biopsied and was consistent with a germ cell tumor. A chest port was placed for chemotherapy access. He had recurring fevers which were treated with antibiotics but these were held as fevers were thought to be likely related to cancer rather than infection He was followed by Dr Smith from oncology who recommended the patient be discharged to perform sperm banking prior to initiating chemotherapy as an o utpatinet in her clinic Home Meds Reported Medications Levetiracetam* (Keppra*) 500 Mg Tablet, 500 MG PO BID, TAB 12/18/18 Discontinued Scripts Acetaminophen* (Tylophen*) 500 Mg Capsule, 1 CAP PO Q6H PRN for PAIN AND OR ELEVATED TEMP, #20 CAP Prov:MATT VIDAL PA-C 08/28/18 Metronidazole* (Flagyl*) 500 Mg Tablet, 500 MG PO TID for 7 Days, TAB Prov:MATT VIDAL PA-C 08/28/18 Ciprofloxacin Hcl* (Ciprofloxacin Hcl*) 500 Mg Tablet, 500 MG PO BID for 7 Days, TAB Prov:MATT VIDAL PA-C 08/28/18 Levetiracetam* (Keppra*) 750 Mg Tablet, 750 MG PO BID, #60 TAB Prov:SPRING BATISTA DO 07/15/16 Levetiracetam* (Keppra*) 500 Mg Tablet, 500 MG PO BID for 60 Days, TAB Prov:ALHAJI SEPULVEDA DO 12/24/15 Follow-up Plan Make an appointment to see Dr Smith to start chemotherapy You also need to make an appointment for sperm banking through Dr Smith's office prior to starting chemo Primary Care Provider Viral Ramirez MD Pending Labs Laboratory Tests Test 12/24/18 07:04 Lab Scanned Report REFERENCE LAB [id number] BERRY AMBROSE MD Dec 24, 2018 17:29
--- NOTE | 2018-12-30 10:59 | CONS ---
Assessment/Plan Assessment/Plan Hospital Course (Demo Recall) 18 yo with large anterior mediastinal mass, CT chest angio: A large heterogeneous anterior mediastinal mass 13.5 x 15.8 x 9.3 cm in size. A 7 mm nodule in the right lower lobe . Multiple enlarged mediastinal and hilar lymph nodes are seen with the largest seen in the right hilum measuring approximately 1.6 x 8 1.7 cm in size. 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 - CARRIES RISK OF STERILITY SO HE WILL NEED SPERM BANKING AND HE HAS TO DO THAT AN OUTPT I CALLED PT LAST WEEK AND EMPHASIZED HE DO THIS LOBITO #leukocytosis and thrombocytosis AND FEVERS suspect this is most likely reactive due to underlying malignancy EMPIRIC ABX PER PRIMARY TEAM Consultation Date/Type/Reason Admit Date/Time Dec 18, 2018 at 22:05 Date/Time of Note DATE: 12/30/18 TIME: 10:57 Past Medical History Home Meds Reported Medications Levetiracetam* (Keppra*) 500 Mg Tablet, 500 MG PO BID, TAB 12/18/18 Allergies: Coded Allergies: No Known Allergy (Unverified , 12/18/18) Past Surgical History Past Surgical Hx: no surgical history Social History Alcohol Use: rarely Smoking Status: Current some day smoker Drug Use: marijuana JESÚS SPICER Dec 30, 2018 10:59
== END 2018-12-24 18:48 | disposition home or self-care (01) | DRG 981 ==
LOC: FTE 13:11 → CANRESERV 20:48 → TEL 22:05 → EDBEDREQ 12-19 00:31 → EDBEDREQSVC 12-19 00:31 → PP2 12-22 19:21
PROVIDERS: ADMIT Family Medicine; ATTEND Internal Medicine
PROC: 0WBC3ZX Excision of Mediastinum, Percutaneous Approach, Diagnostic (ICD-10-PCS; principal; 2018-12-20)
PROC: 0JH60WZ Insertion of Totally Implantable Vascular Access Device into Chest Subcutaneous Tissue and Fascia, Open Approach (ICD-10-PCS; 2018-12-24)
PROC: 05HM33Z Insertion of Infusion Device into Right Internal Jugular Vein, Percutaneous Approach (ICD-10-PCS; 2018-12-24)
PROC: B5131ZA Fluoroscopy of Right Jugular Veins using Low Osmolar Contrast, Guidance (ICD-10-PCS; 2018-12-24)
DX: C38.1 Malignant neoplasm of anterior mediastinum (principal); E43 Unspecified severe protein-calorie malnutrition; Z68.1 Body mass index [BMI] 19.9 or less, adult; R64 Cachexia; R65.10 Systemic inflammatory response syndrome (SIRS) of non-infectious origin without acute organ dysfunction; R59.1 Generalized enlarged lymph nodes; G40.909 Epilepsy, unspecified, not intractable, without status epilepticus; D47.3 Essential (hemorrhagic) thrombocythemia; Z72.0 Tobacco use; K59.00 Constipation, unspecified
CPT/HCPCS: 36415; 36561; 36600; 71045; 71275; 74178; 76870; 77012; 80048; 80053; 80202; 81003; 82105; 82378; 82550; 82553; 82728; 82803; 83036; 83540; 83615; 83735; 84100; 84436; 84479; 84484; 84702; 85025; 85610; 85730; 86480; 86635; 86703; 88307; 88313; 88341; 88342; 93005; 93306; 94010; 94726; 94729; C1788; J0690; J1644; J2250; J2543; J3010; J3370; J7030; J7050; Q9967

== ENCOUNTER 2018-12-30 01:43 | Inpatient (IN) | payer OTHER ==
[~2018-12-30] VITALS: Ht 180.3 cm; Wt 68.6 kg
[~2018-12-30 01:43] MED LIST changes: -ACET500C5 PO; -CIPR500T4 PO; -LEVE750T70 PO; -METR500T PO
[2018-12-30] MEDS ORDERED: ALBUTEROL 0.5% (NEB) 2.5 MG/0.5 ML AMP INH STA (01:55)
[2018-12-30] MEDS ORDERED: SODIUM CHLORIDE 0.9% 1L BAG IV* STA (01:56)
--- NOTE | 2018-12-30 01:58 | ERD ---
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 The diagnosis was made a couple of weeks ago and he was having fevers at the time as well and was treated with antibiotics although ultimately fevers were thought to be due to his tumor. He denies chest pain, no vomiting or diarrhea, no headache or blurry vision. He complains of pain to the left chest, severe, not controlled with oral analgesics at home. Patient has yet to begin chemotherapy. ROS All systems reviewed and are negative except as per history of present illness. Medications Home Meds Reported Medications Levetiracetam* (Keppra*) 500 Mg Tablet, 500 MG PO BID, TAB 12/18/18 Allergies Allergies: Coded Allergies: No Known Allergy (Unverified , 12/18/18) PMhx/Soc History of Surgery: No Anesthesia Reaction: No Hx Neurological Disorder: Yes (Seizures) Hx Respiratory Disorders: No Hx Cardiac Disorders: No Hx Psychiatric Problems: No Hx Miscellaneous Medical Probl: No Hx Alcohol Use: No Hx Substance Use: Yes (Marijuana) Hx Tobacco Use: No FmHx Family History: No diabetes Physical Exam Vitals Vital Signs Date Temp Pulse Resp B/P (MAP) Pulse Ox O2 O2 Flow FiO2 Time Delivery Rate 12/30/18 98.7 132 16 105/60 98 Nasal 2.0 03:53 (75) Cannula 12/30/18 141 16 104/60 100 Nasal 02:28 (75) Cannula 12/30/18 Nasal 2.0 02:28 Cannula 12/30/18 Nasal 2 02:28 Cannula 12/30/18 97 2.0 02:18 12/30/18 147 46 98 Nasal 2.0 02:18 Cannula 12/30/18 102.4 163 22 126/68 96 01:48 (87) Physical Exam GENERAL: Well-developed, well-nourished, dyspneic, afebrile HEENT: Positive JVD, moist mucous membranes, pink conjunctiva, no cervical spine tenderness or step-off deformities, no goiter, no jaundice or icterus, extraocular movements intact without pain. NEURO: Alert and oriented 3, cranial nerves II through XII intact bilaterally, pupils equal round reactive to light, no focal deficits or facial asymmetry, sensation intact distally Strength 5/5 in upper and lower extremities bilaterally CARDIAC: Tachycardic and regular, no murmurs rubs or gallops LUNGS: Clear bilaterally no wheezing crackles or stridor SKIN: Warm and dry to touch, no abrasions, contusions, or hematomas, no lacerations, no ecchymosis, no target lesions, and without ulcers EXTREMITIES: No clubbing cyanosis or edema, calves are bilaterally symmetrical, no Homans sign, no popliteal cord sign. Distal pulses equal and bilateral PSYCH: Normal affect without agitation or irritability Result Diagram: 12/30/18 0204 12/30/18 0204 Results 24 hrs Laboratory Tests Test 12/30/18 01:56 12/30/18 02:03 12/30/18 02:04 12/30/18 03:15 Blood Gas Blood arterial Specimen Source Arterial Blood 12/30/2018 3:17:2 Date Drawn 0 AM Arterial Blood 7.441 pH (Temp corrected) Arterial Blood 30.8 mmhg pCO2 (Temp correct) Arterial Blood 85.2 mmHG pO2 (Temp corrected) Arterial Blood 20.5 mmol/L HCO3 Arterial Blood -2.8 mmol/L Base Excess Arterial Blood 96.2 mmHG Oxygen Saturatio n Reed Test ACCEPTAB Arterial Blood Left Radial Gas Puncture Site Arterial 0.1 % Blood Carboxyhem oglobin Arterial Blood 0.5 % Methemoglobin Blood Gas A-a O2 27.6 mmHg Differential Oxyhemoglobin 95.6 % Percent Blood Gas 37.0 C Temperature Blood Gas ROOM AIR Modality FiO2 21.0 % Blood Gas ASURENDRANAT Notified Whom Blood Gas 12/30/2018 3:29:0 Notified Time 4 AM POC Venous 2.0 mmol/L Lactate White Blood 24.3 10^3/ul Count Red Blood Count 4.25 10^6/ul Hemoglobin 10.7 g/dl Hematocrit 33.0 % Mean Corpuscular 77.6 fl Volume Mean Corpuscular 25.2 pg Hemoglobin Mean Corpuscular 32.4 g/dl Hemoglobin Carin nt Red Cell 13.3 % Distribution Width Platelet Count 736 10^3/UL Mean Platelet 7.6 fl Volume Immature 1.000 % Granulocytes % Neutrophils % 85.9 % Lymphocytes % 7.8 % Monocytes % 5.1 % Eosinophils % 0.0 % Basophils % 0.2 % Nucleated Red 0.0 /100WBC Blood Cells % Immature 0.240 10^3/ul Granulocytes # Neutrophils # 20.9 10^3/ul Lymphocytes # 1.9 10^3/ul Monocytes # 1.3 10^3/ul Eosinophils # 0.0 10^3/ul Basophils # 0.0 10^3/ul Nucleated Red 0.0 10^3/ul Blood Cells # Sodium Level 135 mmol/L Potassium Level 4.4 mmol/L Chloride Level 97 mmol/L Carbon Dioxide 24 mmol/L Level Anion Gap 14 Blood Urea 8 mg/dl Nitrogen Creatinine 0.77 mg/dl Est Glomerular > 60 mL/min Filtrat Rate mL/min Glucose Level 145 mg/dl Calcium Level 8.4 mg/dl Total Bilirubin 0.6 mg/dl Direct Bilirubin 0.00 mg/dl Indirect 0.6 mg/dl Bilirubin Aspartate Amino 38 IU/L Transf (AST/SGOT ) Alanine 38 IU/L Aminotransferase (ALT/SGPT) Alkaline 99 IU/L Phosphatase Troponin I < 0.012 ng/ml Total Protein 7.5 g/dl Albumin 3.3 g/dl Globulin 4.20 g/dl Albumin/Globulin 0.78 Ratio Lipase 30 U/L Urine Color STRAW Urine Clarity CLEAR Urine pH 7.0 Urine Specific 1.003 [place] Urine Ketones NEGATIVE mg/dL Urine Nitrite NEGATIVE mg/dL Urine Bilirubin NEGATIVE mg/dL Urine NEGATIVE mg/dL Urobilinogen Urine Leukocyte NEGATIVE Manohar/ul Esterase Urine Hemoglobin NEGATIVE mg/dL Urine Glucose NEGATIVE mg/dL Urine Total NEGATIVE mg/dl Protein Current Medications Medications Dose Sig/Eduardo Start Time Status Last (Trade) Ordered Route PRN Stop Time Admin Dose Reason Admin Albuterol 10 mg ONCE STAT 12/30/18 DC 12/30/18 (Proventil INH 01:55 12/30/18 02:17 0.5% (Neb)) 01:57 Sodium 2,000 ml BOLUS OVER 2 12/30/18 DC 12/30/18 Chloride HOURS STAT 01:56 12/30/18 02:16 (NS) IV* 02:00 Ibuprofen 600 mg ONCE ONCE 12/30/18 DC 12/30/18 (Motrin) PO 02:00 12/30/18 02:14 02:01 Ceftriaxone 50 ml @ ONCE ONCE 12/30/18 DC 12/30/18 Sodium 100 mls/hr IVPB 02:00 12/30/18 02:15 02:29 Azithromycin 250 ml @ ONCE ONCE 12/30/18 DC 12/30/18 250 mls/hr IVPB 03:00 12/30/18 03:15 03:59 Lactated 1,000 ml @ Q1H STAT 12/30/18 12/30/18 Ringer's 1,000 mls/hr IV 03:11 12/30/18 03:46 04:10 1 mg ONCE STAT 12/30/18 DC 12/30/18 Hydromorphone IV 03:11 12/30/18 03:26 HCl 03:12 (Dilaudid) Sodium 1,000 ml @ [id number] IV 12/30/18 Chloride 70 mls/hr 03:44 12/30/18 18:01 IV Flush 3 ml PER 12/30/18 (NS 3 ml) PROTOCOL IV 04:00 Ondansetron 4 mg Q6H PRN 12/30/18 HCl (Zofran IV 04:00 Inj) NAUSEA/VOMITI NG 650 mg Q6H PRN 12/30/18 Acetaminophen PO .PAIN 1-3 04:00 (Tylenol OR TEMP Tab) 1 mg Q4H PRN 12/30/18 Hydromorphone IV .PAIN 04:00 HCl 7-10 (Dilaudid) Docusate 100 mg Q12H PRN 12/30/18 Sodium PO 04:00 (Colace) .CONSTIPATION Bisacodyl 5 mg DAILY PRN 12/30/18 (Dulcolax) PO 04:00 .CONSTIPATION Enoxaparin 40 mg DAILY SC 12/30/18 Sodium 09:00 (Lovenox) Vancomycin VANCOMYCIN PER 12/30/18 UNV HCl (Vanco PER PHARMACY PROTOCOL XX 04:00 Iv Per Pharmacy) Piperacillin 100 ml @ Q6 IVPB 12/30/18 Sod/ 200 mls/hr 06:00 Tazobactam Sod 1.25 mg Q4H RESP 12/30/18 Levalbuterol THERAPY PRN 04:00 (Xopenex HHN Neb) SHORTNESS OF BREATH 500 mg BID PO 12/30/18 Levetiracetam 09:00 (Keppra) Procedures/MDM IV line was established patient was placed on patient monitor rhythm strip revealed a narrow complex tachycardia at 160 bpm with upright P and T waves. Patient was febrile, blood and urine cultures have been ordered results are pending I will follow-up. CTA of the chest performed 10 days ago, IMPRESSION: 1. Large heterogeneous anterior mediastinal mass. The differential diagnosis includes a germ cell tumor, thymic neoplasm, or lymphoma. 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 Correlation with tissue diagnosis and a PET CT scan is recommended. 2. 7 mm nodule right lower lobe worrisome for pulmonary metastasis. 3. Limited examination for a pulmonary embolus. A large or central filling defect in the pulmonary system. EKG performed, read by me revealed a sinus tachycardia at 161 bpm, normal axis, narrow QRS complex, no concerning ST elevations or depressions noted 1 view chest x-ray performed, read by me reveals left lower lobe infiltrate and mediastinal mass, small left pleural effusion is well, no pneumothorax I administered 2 L normal saline IV, ibuprofen 600 mg p.o., ceftriaxone 1 g IV, albuterol 10 mg via nebulizer CBC reveals leukocytosis at 24, electrolytes were normal, liver function test normal, troponin negative, urinalysis negative for infection. ABG revealed a pH of 7.44, PCO2 31, PO2 85. Mild respiratory alkalosis Patient's infectious symptoms have not stabilized and the patient is at risk of rapid decompensation. The patient will be admitted for careful hydration, antibiotic therapy, and infectious source control. SEVERE SEPSIS CRITERIA: Infectious source: Pulmonary (pneumonia) End organ damage indicated by: None SEPSIS MANAGEMENT Time of recognition of sepsis: Upon arrival. Time of recognition of severe sepsis: No severe sepsis at this time. Time of recognition of septic shock: No septic shock at this time. 3 HOUR BUNDLE Blood cultures x 2 before broad-spectrum antibiotics: Yes 30 ml/kg NS bolus completed Initial lactate 2.0 Repeat lactate pending SEPTIC SHOCK ASSESSMENT: No lactic acid > 4.0 No persistent hypotension (SBP < 90 or 40 mmHg drop, MAP < 65) despite 30 mL/kg IV fluid bolus VOLUME REASSESSMENT FOR SEPTIC SHOCK: Reevaluation Time: 3 AM Temp 99 F, BP 140/70, heart rate 120 respiratory rate 30 breaths/min, Heart tachycardic and regular Lungs poor breath sounds bilaterally Skin warm & dry Cap Refill less than 2 seconds Peripheral pulses radially present PERSISTENT HYPOTENSION TREATMENT: Comfort care no Central line not Required Vasopressor started not required I considered further perfusion assessment with CVP measurement, SCVO2, bedside ultrasound volume assessment, passive leg raise, trial of further fluid bolus. And proceeded with 30 ml/kg fluid bolus of NSS, broad spectrum antibiotics, and admission. CRITICAL CARE: Critical care time 35 minutes, this was time separate from other billable procedures. Emergent fluid management while maintaining close respiratory support. Provision of immediate and broad-spectrum antibiotic therapy. Simultaneous assessment for possible sources in order to direct targeted therapy. Consideration for invasive and chemical support to prevent cardiopulmonary collapse. Critical care time is independent of procedures performed. Accepting Care Team: Current data and ongoing care discussed. Time: Time of admission Primary Provider: Hospitalist Consulting: Hematology oncology, infectious disease Outstanding Data: none Departure Diagnosis: Primary Impression: Sepsis Sepsis type: sepsis due to unspecified organism Qualified Codes: A41.9 - Sepsis, unspecified organism Additional Impressions: Carcinoma of anterior mediastinum Pneumonia Pneumonia type: due to unspecified organism Laterality: left Lung location: lower lobe of lung Qualified Codes: J18.1 - Lobar pneumonia, unspecified organism Condition: Serious AUSTIN OLMSTEAD MD Dec 30, 2018 01:58
[2018-12-30] MEDS ORDERED: IBUPROFEN 600 MG TAB PO ONE (02:00)
[2018-12-30] MEDS ORDERED: CEFTRIAXONE 1 GM/50 ML (PMX) 50 ML IVPB ONE (02:00)
[2018-12-30] MEDS ORDERED: AZITHROMYCIN 500MG/NS (PMX) 250 ML IVPB ONE (03:00)
[2018-12-30] MEDS ORDERED: HYDROmorphONE 1 MG/ML SYG IV STA (03:11)
[2018-12-30] MEDS ORDERED: LACTATED RINGER'S 1,000 ML IV STA (03:11)
--- NOTE | 2018-12-30 03:56 | HP ---
Date/Time of Note Date/Time of Note DATE: 12/30/18 TIME: 03:41 Assessment/Plan VTE Prophylaxis Pharmacological prophylaxis: LMWH Lines/Catheters IV [facility]from [facility] Saline Lock Assessment/Plan Hospital Course This is a 18-year-old male being admitted to the telemetry floor for: #1 sepsis: Secondary to underlying healthcare associated pneumonia. Patient was recently hospitalized. He does though have a history of fevers as related likely to his underlying cancer, however on the chest x-ray does appear to be signs of left-sided infiltrates. Broad-spectrum robotics of vancomycin and Zosyn. Cultures are pending. Initial lactate was 2.0. Will repeat lactic acid. Consult infectious disease Dr. Ruiz #2 germ cell tumor: Patient has an anterior mediastinal mass that was positive for germ cell tumor. He is dealing with pain in his chest. Dilaudid 1 mg every 4 hours. Zofran for nausea. 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 PRN Xopenex. #3 protein calorie malnutrition: Secondary to underlying cancer. Encourage diet. Nutrition consult if indicated. #4 Epilepsy: Continue Keppra 500 mg twice daily #5 iron deficiency anemia: No signs of bleeding. Monitor closely. Consider iron supplementation at discharge. #6 DVT GI prophylaxis: Lovenox, GI prophylaxis indicated Further treatment strategy will be implemented as per the clinical course. Result Diagram: 12/30/18 0204 12/30/18 0204 Results 24hrs Laboratory Tests Test 12/30/18 01:56 12/30/18 02:03 12/30/18 02:04 Blood Gas Specimen Source Blood arterial Arterial Blood Date Drawn 12/30/2018 3:17:20 AM Arterial Blood pH 7.441 (Temp corrected) Arterial Blood pCO2 30.8 L (Temp correct) Arterial Blood pO2 85.2 (Temp corrected) Arterial Blood HCO3 20.5 L Arterial Blood Base Excess -2.8 Arterial Blood 96.2 Oxygen Saturation Reed Test ACCEPTAB Arterial Blood Gas Left Radial Puncture Site Arterial 0.1 Blood Carboxyhemoglobin Arterial Blood Methemoglobin 0.5 Blood Gas A-a O2 Differential 27.6 H Oxyhemoglobin Percent 95.6 Blood Gas Temperature 37.0 Blood Gas Modality ROOM AIR FiO2 21.0 Blood Gas Notified Whom ASURENDRANATH Blood Gas Notified Time 12/30/2018 3:29:04 AM POC Venous Lactate 2.0 White Blood Count 24.3 #H Red Blood Count 4.25 L Hemoglobin 10.7 L Hematocrit 33.0 L Mean Corpuscular Volume 77.6 Mean Corpuscular Hemoglobin 25.2 L Mean Corpuscular 32.4 Hemoglobin Concent Red Cell Distribution Width 13.3 Platelet Count 736 H Mean Platelet Volume 7.6 Immature Granulocytes % 1.000 H Neutrophils % 85.9 H Lymphocytes % 7.8 L Monocytes % 5.1 Eosinophils % 0.0 Basophils % 0.2 Nucleated Red Blood Cells % 0.0 Immature Granulocytes # 0.240 H Neutrophils # 20.9 H Lymphocytes # 1.9 Monocytes # 1.3 H Eosinophils # 0.0 Basophils # 0.0 Nucleated Red Blood Cells # 0.0 Sodium Level 135 Potassium Level 4.4 Chloride Level 97 Carbon Dioxide Level 24 Anion Gap 14 H Blood Urea Nitrogen 8 Creatinine 0.77 Est Glomerular Filtrat > 60 Rate mL/min Glucose Level 145 Calcium Level 8.4 Total Bilirubin 0.6 Direct Bilirubin 0.00 Indirect Bilirubin 0.6 Aspartate Amino 38 Transf (AST/SGOT) Alanine 38 Aminotransferase (ALT/SGPT) Alkaline Phosphatase 99 Troponin I < 0.012 Total Protein 7.5 Albumin 3.3 Globulin 4.20 H Albumin/Globulin Ratio 0.78 Lipase 30 HPI/ROS Admit Date/Time Admit Date/Time Hx of Present Illness Chief complaint: Shortness of breath, fevers This is a 18-year-old male who has a history of a anterior mediastinal mass that was biopsied showing germ cell tumor who presents to the emergency department complaining of fever and cough. Patient reports that he has been having on and off fevers for the last few weeks. He does have night sweats. He has been coughing more as of lately. He does report that he has had a 30 pound weight loss since August. He is supposed to follow-up with his oncologist in the coming weeks in regards to further treatment for his cancer. He does report on deep respiration left-sided pleuritic pain. Allergies: NKDA medications: Keppra 500 mg twice daily ROS Const: As per HPI Eyes : No pain discharge or redness or change in visual acuity ENT: No pain, sore throat, congestion, congestion, dysphagia or discharge Respiratory: As per HPI no shortness of breath, cough, sputum, wheezing, or pleuritic pain Cardiovascular: No chest pain, palpitation, PND, or edema GI : no change in appetite, abdominal pain, nausea, vomiting, diarrhea, constipation, or change in the color his stool Genitourinary: No dysuria, hematuria, flank pain , discharge or CVA tenderness Musculoskeletal: As per HPI Skin: No rash, bruising or hives Neuro: No headache, dizziness, syncope, seizure, focal weakness Endocrine: No polyuria, polydipsia, temperature intolerance Psych: No hallucination, depression, anxiety or suicidal ideation PMH/Family/Social Past Medical History Anterior mediastinal mass positive for germ cell tumor biopsy, epilepsy Medications Current Medications Azithromycin 250 ml @ 250 mls/hr ONCE ONCE IVPB Last administered on 12/30/18at 03:15; Admin Dose 250 MLS/HR; Start 12/30/18 at 03:00; Stop 12/30/18 at 03:59 Lactated Ringer's 1,000 ml @ 1,000 mls/hr Q1H STAT IV ; Start 12/30/18 at 03:11; Stop 12/30/18 at 04:10 Coded Allergies: No Known Allergy (Unverified , 12/18/18) Past Surgical History Right-sided Port-A-Cath placement, lung biopsy Family History Significant Family History: no pertinent family hx Social History Alcohol Use: none Smoking Status: Never smoker Drug Use: marijuana Exam/Review of Systems Vital Signs Vitals Vital Signs Date Temp Pulse Resp B/P (MAP) Pulse Ox O2 O2 Flow FiO2 Time Delivery Rate 12/30/18 141 16 104/60 100 Nasal 02:28 (75) Cannula 12/30/18 2.0 02:28 12/30/18 102.4 01:48 Exam Exam General: Patient is a pleasant male currently sitting upright in bed he does appear to be in moderate distress from pain, thin appearing HEENT: Atraumatic, normocephalic. The pupils are equal, round and reactive. Extraocular motor are intact Neck: Supple with full range of motion. No rigidity or meningismus Chest: Tenderness palpation over the left anterior chest wall Lungs: Diminished breath sounds bilaterally Heart: Sinus tachycardia Abdomen: Soft , nontender, nondistended , bowel sounds are present. No guarding no rebound tenderness , No masses or organomegaly. No costovertebral temporal angle mass Extremities: Normal to inspection, no edema no cyanosis Neurologic: Normal mental status, speech normal, cranial nerves II through XII are intact, motor and sensory are intact, Additional Comments PROCEDURE: Chest x-ray CLINICAL INDICATION: Possible sepsis. TECHNIQUE: VIEWS: AP semiupright COMPARISON: CT 12/18/2018; CR CHEST 12/24/2015; CR CHEST 10/28/2015 FINDINGS: SUPPORT DEVICES: A right-sided Port-A-Cath tip overlies the cavoatrial junction. CARDIAC AND MEDIASTINAL SILHOUETTES: Obscured cardiac borders by a known large anterior mediastinal mass . LUNGS AND PLEURAL SPACE: There is interval development of left lower lobe atelectasis / consolidation with a small pleural effusion . The right lung is unchanged. PNEUMOTHORAX: None. OSSEOUS STRUCTURES: Unremarkable. IMPRESSION: 1. Interval development of left lower lobe atelectasis / consolidation with a small pleural effusion. 2. Known large anterior mediastinal mass which obscures the cardiac borders. 3. Stable position of a right Port-A-Cath with tip overlying the cavoatrial junction. RPTAT: HRSR Physician Luis A Date Time Electronically viewed and signed by Amparo Aruajo Physician on 12/30/2018 03:09 RR/ CC: AUSTIN OLMSTEAD MD [id number] RADHA HEBERT Dec 30, 2018 03:55
[2018-12-30] MEDS ORDERED: DOCUSATE SODIUM 100 MG CAP PO PRN (04:00)
[2018-12-30] MEDS ORDERED: VANCOMYCIN IV PER PHARMACY XX SCH (04:00)
[2018-12-30] MEDS ORDERED: BISACODYL (EC) 5 MG TAB PO PRN (04:00)
[2018-12-30] MEDS ORDERED: NACL 0.9% 3 ML SYG IV SCH (04:00)
[2018-12-30] MEDS: SOD CHLORIDE 0.9% 1,000 ML IV SCH ×2 (05:12→17:16)
[2018-12-30] MEDS: VANCOMYCIN HCL 1.25 GM in SOD CHLORIDE 0.9% 250 ML IVPB SCH ×3 (05:40→20:26)
[2018-12-30] MEDS: PIPER-TAZO 3.375 GM IV (PMX) 100 ML IVPB SCH ×3 (06:00→17:15)
[2018-12-30] MEDS: HYDROmorphONE 0.5 MG/0.5 ML SYG IV PRN ×4 (08:50→22:11)
[2018-12-30 09:15] VITALS: BP 112/60; PULSE 209; RESP 17
[2018-12-30] MEDS: LEVETIRACETAM 500 MG TAB PO SCH ×2 (09:31→20:25)
[2018-12-30] MEDS: ENOXAPARIN 40 MG/0.4 ML SYG SC SCH (09:39)
[2018-12-30 11:00] VITALS: Ht 180.3 cm; Wt 68.6 kg
--- NOTE | 2018-12-30 11:02 | QN ---
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 Patient was recently discharged from the hospital. Patient is on empiric abx- Add azithromycin for atypical coverage. Add urine legionella. Follow-up respiratory cultures. Patient's respiratory status is stable. He is supposed to have chemo next Sunday. We will try to optimize his medical status prior to that. ID consult Patient was seen in collaboration with . NAVID RIZVI NP Dec 30, 2018 11:02
[2018-12-30 12:10] VITALS: BP 115/70; PULSE 102; RESP 10
[2018-12-30] MEDS: IPRATROPIUM (NEB) 0.5 MG/2.5 ML AMP HHN SCH ×3 (13:00→20:21)
--- NOTE | 2018-12-30 13:28 | CONS ---
Assessment/Plan Assessment/Plan Hospital Course (Demo Recall) Hospital Course (Demo Recall) 18 yo with large anterior mediastinal mass 13.5 x 15.8 x 9.3 cm in size. 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 there is no standardized staging for yolk sac tumor unfortunately these are more aggressive types of non seminomatous germ cell tumors -given how high AFP will check MRI brain (pt had MRI brain in September 2018 at outside facility for h/o seizures, he is bringing the disc) -HE HAS MEDIPORT AND HAD 2 D ECHO IN PREPARATION FOR CHEMO -given how large this mass is and concern for airway will recommend chemo in hospital - CARRIES RISK OF STERILITY SO HE WILL NEED SPERM BANKING AND HE HAS TO DO THAT AN OUTPT I CALLED PT LAST WEEK AND EMPHASIZED HE DO THIS LOBITO chemo: Cisplatin 20 mg/m2 IV per day Days 1 to 5 Etoposide* 75 mg/m2 IV per day Days 1 to 5 Ifosfamide* 1200 mg/m2 per day IV infusion Days 1 to 5 [place] 120 mg/m2 IV Day 1 [place] 1200 mg/m2 per day continuous IV infusion, Days 1 to 5 GCSF 300mcg daily starting day 6-12 if pt discharged with po abx, he needs to get sperm banking and will request chemo auth LOBITO discussed with pt after 2 cycles chemo, restage. after 4 cycles he will be restaged and referred to tertiary care cardiothoracic surgeon for resection of residual mass #leukocytosis and thrombocytosis AND FEVERS suspect this is most likely reactive due to underlying malignancy EMPIRIC ABX PER PRIMARY TEAM Consultation Date/Type/Reason Admit Date/Time Date/Time of Note DATE: 12/30/18 TIME: 13:28 Hx of Present Illness 18-year-old male who was diagnosed with yolk sac tumor when he presented last week with cough and was found to have a large anterior mediastinal mass. Patient reports that he has been having on and off fevers for the last few weeks. He does have night sweats. I called him last week to emphasize he needs to have sperm banking LOBITO, he has appt tomorrow for thus but unfortunately presented to ER as above and is now admittted for tx of pneumonia Constitutional: chills, febrile, poor po Eyes: no complaints ENT: no complaints Respiratory: cough, pleuritic pain, shortness of breath Cardiovascular: no complaints Gastrointestinal: no complaints Genitourinary: no complaints Musculoskeletal: no complaints Skin: no complaints Neurologic: no complaints Endocrine: no complaints Lymphatic: no complaints Past Medical History Home Meds Reported Medications Levetiracetam* (Keppra*) 500 Mg Tablet, 500 MG PO BID, TAB 12/18/18 Medications Current Medications Sodium Chloride 1,000 ml @ 70 mls/hr [id number] IV Last administered on 12/30/18at 05:12; Admin Dose 70 MLS/HR; Start 12/30/18 at 03:44; Stop 12/30/18 at 18:01 IV Flush (NS 3 ml) 3 ml PER PROTOCOL IV ; Start 12/30/18 at 04:00 Ondansetron HCl (Zofran Inj) 4 mg Q6H PRN IV NAUSEA/VOMITING; Start 12/30/18 at 04:00 Acetaminophen (Tylenol Tab) 650 mg Q6H PRN PO .PAIN 1-3 OR TEMP; Start 12/30/18 at 04:00 Hydromorphone HCl (Dilaudid) 1 mg Q4H PRN IV .PAIN 7-10 Last administered on 12/30/18at 13:25; Admin Dose 1 MG; Start 12/30/18 at 04:00 Docusate Sodium (Colace) 100 mg Q12H PRN PO .CONSTIPATION; Start 12/30/18 at 04:00 Bisacodyl (Dulcolax) 5 mg DAILY PRN PO .CONSTIPATION; Start 12/30/18 at 04:00 Enoxaparin Sodium (Lovenox) 40 mg DAILY SC Last administered on 12/30/18at 09:39; Admin Dose 40 MG; Start 12/30/18 at 09:00 Vancomycin HCl (Vanco Iv Per Pharmacy) VANCOMYCIN PER PHARMACY PER PROTOCOL XX ; Start 12/30/18 at 04:00 Piperacillin Sod/ Tazobactam Sod 100 ml @ 200 mls/hr Q6 IVPB Last administered on 12/30/18at 11:35; Admin Dose 200 MLS/HR; Start 12/30/18 at 06:00 Levalbuterol (Xopenex Neb) 1.25 mg Q4H RESP THERAPY PRN HHN SHORTNESS OF BREATH; Start 12/30/18 at 04:00 Levetiracetam (Keppra) 500 mg BID PO Last administered on 12/30/18at 09:31; Admin Dose 500 MG; Start 12/30/18 at 09:00 Vancomycin HCl 1.25 gm/Sodium Chloride 250 ml @ 83.333 mls/ hr Q8H IVPB Last administered on 12/30/18at 05:40; Admin Dose 83.333 MLS/HR; Start 12/30/18 at 05:00 Miscellaneous Information (*Rx Drug Level Order Reminder*) VANCO TROUGH 0400 ONCE XX ; Start 12/31/18 at 04:00; Stop 12/31/18 at 04:01 Azithromycin 250 ml @ 250 mls/hr Q24H IVPB ; Start 12/31/18 at 03:00 Ipratropium [place] (Atrovent 0.02% (Neb)) 0.5 mg Q4HWA RESP THERAPY HHN ; Start 12/30/18 at 13:00 Allergies: Coded Allergies: No Known Allergy (Unverified , 12/18/18) Social History Alcohol Use: none Smoking Status: Never smoker Drug Use: marijuana Exam/Review of Systems Exam Vitals Vital Signs Date Temp Pulse Resp B/P (MAP) Pulse Ox O2 O2 Flow FiO2 Time Delivery Rate 12/30/18 98.0 102 10 115/70 98 12:10 (85) 12/30/18 Nasal 2.0 07:50 Cannula Constitutional: frail Psych: no complaints, nl mood/affect Head: normocephalic, atraumatic Eyes: nl conjunctiva, EOMI, nl lids, nl sclera, PERRL ENMT: nl external ears & nose, nl lips & teeth, nl nasal mucosa & septum Neck: supple, non-tender Respiratory: congested cough Gastrointestinal: soft, nl liver, spleen, non-tender Results Result Diagram: 12/30/18 0204 12/30/18 0204 Results 24hrs Laboratory Tests Test 12/30/18 01:56 12/30/18 02:03 12/30/18 02:04 12/30/18 03:15 Blood Gas Specimen Blood arterial Source Arterial Blood 12/30/2018 3:17:20 Date Drawn AM Arterial Blood pH 7.441 (Temp corrected) Arterial Blood 30.8 L pCO2 (Temp correct) Arterial Blood pO2 85.2 (Temp corrected) Arterial Blood 20.5 L HCO3 Arterial Blood -2.8 Base Excess Arterial Blood 96.2 Oxygen Saturation Reed Test ACCEPTAB Arterial Blood Gas Left Radial Puncture Site Arterial 0.1 Blood Carboxyhemog lobin Arterial Blood 0.5 Methemoglobin Blood Gas A-a O2 27.6 H Differential Oxyhemoglobin 95.6 Percent Blood Gas 37.0 Temperature Blood Gas Modality ROOM AIR FiO2 21.0 Blood Gas Notified ASALISHA Whom Blood Gas Notified 12/30/2018 3:29:04 Time AM POC Venous Lactate 2.0 White Blood Count 24.3 #H Red Blood Count 4.25 L Hemoglobin 10.7 L Hematocrit 33.0 L Mean Corpuscular 77.6 Volume Mean Corpuscular 25.2 L Hemoglobin Mean Corpuscular 32.4 Hemoglobin Concent Red Cell 13.3 Distribution Width Platelet Count 736 H Mean Platelet 7.6 Volume Immature 1.000 H Granulocytes % Neutrophils % 85.9 H Lymphocytes % 7.8 L Monocytes % 5.1 Eosinophils % 0.0 Basophils % 0.2 Nucleated Red 0.0 Blood Cells % Immature 0.240 H Granulocytes # Neutrophils # 20.9 H Lymphocytes # 1.9 Monocytes # 1.3 H Eosinophils # 0.0 Basophils # 0.0 Nucleated Red 0.0 Blood Cells # Prothrombin Time 14.5 Prothrombin Time 1.1 Ratio INR International 1.12 Normalized Ratio Activated 34.[address] Time Sodium Level 135 Potassium Level 4.4 Chloride Level 97 Carbon Dioxide 24 Level Anion Gap 14 H Blood Urea 8 Nitrogen Creatinine 0.77 Est Glomerular > 60 Filtrat Rate mL/min Glucose Level 145 Calcium Level 8.4 Total Bilirubin 0.6 Direct Bilirubin 0.00 Indirect Bilirubin 0.6 Aspartate Amino 38 Transf (AST/SGOT) Alanine 38 Aminotransferase ( ALT/SGPT) Alkaline 99 Phosphatase Troponin I < 0.012 Total Protein 7.5 Albumin 3.3 Globulin 4.20 H Albumin/Globulin 0.78 Ratio Lipase 30 Urine Color STRAW Urine Clarity CLEAR Urine pH 7.0 Urine Specific 1.003 [place] Urine Ketones NEGATIVE Urine Nitrite NEGATIVE Urine Bilirubin NEGATIVE Urine Urobilinogen NEGATIVE Urine Leukocyte NEGATIVE Esterase Urine Hemoglobin NEGATIVE Urine Glucose NEGATIVE Urine Total NEGATIVE Protein Test 12/30/18 04:22 12/30/18 05:29 Lactic Acid Level 2.2 *H 1.4 Medications Medication Current Medications Sodium Chloride 1,000 ml @ 70 mls/hr [id number] IV Last administered on 12/30/18at 05:12; Admin Dose 70 MLS/HR; Start 12/30/18 at 03:44; Stop 12/30/18 at 18:01 IV Flush (NS 3 ml) 3 ml PER PROTOCOL IV ; Start 12/30/18 at 04:00 Ondansetron HCl (Zofran Inj) 4 mg Q6H PRN IV NAUSEA/VOMITING; Start 12/30/18 at 04:00 Acetaminophen (Tylenol Tab) 650 mg Q6H PRN PO .PAIN 1-3 OR TEMP; Start 12/30/18 at 04:00 Hydromorphone HCl (Dilaudid) 1 mg Q4H PRN IV .PAIN 7-10 Last administered on 12/30/18at 13:25; Admin Dose 1 MG; Start 12/30/18 at 04:00 Docusate Sodium (Colace) 100 mg Q12H PRN PO .CONSTIPATION; Start 12/30/18 at 04:00 Bisacodyl (Dulcolax) 5 mg DAILY PRN PO .CONSTIPATION; Start 12/30/18 at 04:00 Enoxaparin Sodium (Lovenox) 40 mg DAILY SC Last administered on 12/30/18at 09:39; Admin Dose 40 MG; Start 12/30/18 at 09:00 Vancomycin HCl (Vanco Iv Per Pharmacy) VANCOMYCIN PER PHARMACY PER PROTOCOL XX ; Start 12/30/18 at 04:00 Piperacillin Sod/ Tazobactam Sod 100 ml @ 200 mls/hr Q6 IVPB Last administered on 12/30/18at 11:35; Admin Dose 200 MLS/HR; Start 12/30/18 at 06:00 Levalbuterol (Xopenex Neb) 1.25 mg Q4H RESP THERAPY PRN HHN SHORTNESS OF BREATH; Start 12/30/18 at 04:00 Levetiracetam (Keppra) 500 mg BID PO Last administered on 12/30/18at 09:31; Admin Dose 500 MG; Start 12/30/18 at 09:00 Vancomycin HCl 1.25 gm/Sodium Chloride 250 ml @ 83.333 mls/ hr Q8H IVPB Last administered on 12/30/18at 05:40; Admin Dose 83.333 MLS/HR; Start 12/30/18 at 05:00 Miscellaneous Information (*Rx Drug Level Order Reminder*) VANCO TROUGH 0400 ONCE XX ; Start 12/31/18 at 04:00; Stop 12/31/18 at 04:01 Azithromycin 250 ml @ 250 mls/hr Q24H IVPB ; Start 12/31/18 at 03:00 Ipratropium [place] (Atrovent 0.02% (Neb)) 0.5 mg Q4HWA RESP THERAPY N ; Start 12/30/18 at 13:00 JESÚS SPIECR Dec 30, 2018 13:28
--- NOTE | 2018-12-30 15:31 | CONS ---
Assessment/Plan Assessment/Plan Hospital Course (Demo Recall) Patient was recently discharged home readmitted with fever cough and left-sided pleuritic chest pain. Temperature was 102.4 in ER WBC 24.3 H&H 10.7 and 33 platelets 736 neutrophils 85.9 BUN 8 creatinine 0.77 lactic acid 2.2 urinalysis was essentially negative influenza swab negative Chest x-ray revealed interval development of left lower lobe atelectasis/consolidation with a small left pleural effusion. Antimicrobials: Zithromax, Zosyn, vancomycin Physical examination: Well-developed well-nourished young man who is alert in no distress. Head atraumatic normocephalic sclera nonicteric. Neck is supple. Chest rise symmetrical breath sounds diminished, of note patient is un able to make a deep breath. Heart: S1-S2. Abdomen soft bowel sounds present. Extremities without cyanosis edema. Assessment: 1. Sepsis, present on admission 2. Healthcare associated pneumonia, likely postobstructive 3. Recently diagnosed germ cell tumor Plan: Clinically stable, continue present care and antibiotics, await for final cultures and follow oncology recommendations Consultation Date/Type/Reason Admit Date/Time Dec 30, 2018 at 03:30 Initial Consult Date Type of Consult id Date/Time of Note DATE: 12/30/18 TIME: 15:30 Exam/Review of Systems Exam Vitals Vital Signs Date Temp Pulse Resp B/P (MAP) Pulse Ox O2 O2 Flow FiO2 Time Delivery Rate 12/30/18 129 16 92 Nasal 2.0 13:35 Cannula 12/30/18 98.0 115/70 12:10 (85) Results Result Diagram: 12/30/18 0204 12/30/18 0204 Results 24hrs Laboratory Tests Test 12/30/18 01:56 12/30/18 02:03 12/30/18 02:04 12/30/18 03:15 Blood Gas Specimen Blood arterial Source Arterial Blood 12/30/2018 3:17:20 Date Drawn AM Arterial Blood pH 7.441 (Temp corrected) Arterial Blood 30.8 L pCO2 (Temp correct) Arterial Blood pO2 85.2 (Temp corrected) Arterial Blood 20.5 L HCO3 Arterial Blood -2.8 Base Excess Arterial Blood 96.2 Oxygen Saturation Reed Test ACCEPTAB Arterial Blood Gas Left Radial Puncture Site Arterial 0.1 Blood Carboxyhemog lobin Arterial Blood 0.5 Methemoglobin Blood Gas A-a O2 27.6 H Differential Oxyhemoglobin 95.6 Percent Blood Gas 37.0 Temperature Blood Gas Modality ROOM AIR FiO2 21.0 Blood Gas Notified ASALISHA Nguyen Blood Gas Notified 12/30/2018 3:29:04 Time AM POC Venous Lactate 2.0 White Blood Count 24.3 #H Red Blood Count 4.25 L Hemoglobin 10.7 L Hematocrit 33.0 L Mean Corpuscular 77.6 Volume Mean Corpuscular 25.2 L Hemoglobin Mean Corpuscular 32.4 Hemoglobin Concent Red Cell 13.3 Distribution Width Platelet Count 736 H Mean Platelet 7.6 Volume Immature 1.000 H Granulocytes % Neutrophils % 85.9 H Lymphocytes % 7.8 L Monocytes % 5.1 Eosinophils % 0.0 Basophils % 0.2 Nucleated Red 0.0 Blood Cells % Immature 0.240 H Granulocytes # Neutrophils # 20.9 H Lymphocytes # 1.9 Monocytes # 1.3 H Eosinophils # 0.0 Basophils # 0.0 Nucleated Red 0.0 Blood Cells # Prothrombin Time 14.5 Prothrombin Time 1.1 Ratio INR International 1.12 Normalized Ratio Activated 34.[address] Time Sodium Level 135 Potassium Level 4.4 Chloride Level 97 Carbon Dioxide 24 Level Anion Gap 14 H Blood Urea 8 Nitrogen Creatinine 0.77 Est Glomerular > 60 Filtrat Rate mL/min Glucose Level 145 Calcium Level 8.4 Total Bilirubin 0.6 Direct Bilirubin 0.00 Indirect Bilirubin 0.6 Aspartate Amino 38 Transf (AST/SGOT) Alanine 38 Aminotransferase ( ALT/SGPT) Alkaline 99 Phosphatase Troponin I < 0.012 Total Protein 7.5 Albumin 3.3 Globulin 4.20 H Albumin/Globulin 0.78 Ratio Lipase 30 Urine Color STRAW Urine Clarity CLEAR Urine pH 7.0 Urine Specific 1.003 [place] Urine Ketones NEGATIVE Urine Nitrite NEGATIVE Urine Bilirubin NEGATIVE Urine Urobilinogen NEGATIVE Urine Leukocyte NEGATIVE Esterase Urine Hemoglobin NEGATIVE Urine Glucose NEGATIVE Urine Total NEGATIVE Protein Test 12/30/18 04:22 12/30/18 05:29 Lactic Acid Level 2.2 *H 1.4 Medications Medication Current Medications Sodium Chloride 1,000 ml @ 70 mls/hr [id number] IV Last administered on 12/30/18at 05:12; Admin Dose 70 MLS/HR; Start 12/30/18 at 03:44; Stop 12/30/18 at 18:01 IV Flush (NS 3 ml) 3 ml PER PROTOCOL IV ; Start 12/30/18 at 04:00 Ondansetron HCl (Zofran Inj) 4 mg Q6H PRN IV NAUSEA/VOMITING; Start 12/30/18 at 04:00 Acetaminophen (Tylenol Tab) 650 mg Q6H PRN PO .PAIN 1-3 OR TEMP; Start 12/30/18 at 04:00 Hydromorphone HCl (Dilaudid) 1 mg Q4H PRN IV .PAIN 7-10 Last administered on 12/30/18at 13:25; Admin Dose 1 MG; Start 12/30/18 at 04:00 Docusate Sodium (Colace) 100 mg Q12H PRN PO .CONSTIPATION; Start 12/30/18 at 04:00 Bisacodyl (Dulcolax) 5 mg DAILY PRN PO .CONSTIPATION; Start 12/30/18 at 04:00 Enoxaparin Sodium (Lovenox) 40 mg DAILY SC Last administered on 12/30/18at 09:39; Admin Dose 40 MG; Start 12/30/18 at 09:00 Vancomycin HCl (Vanco Iv Per Pharmacy) VANCOMYCIN PER PHARMACY PER PROTOCOL XX ; Start 12/30/18 at 04:00 Piperacillin Sod/ Tazobactam Sod 100 ml @ 200 mls/hr Q6 IVPB Last administered on 12/30/18at 11:35; Admin Dose 200 MLS/HR; Start 12/30/18 at 06:00 Levalbuterol (Xopenex Neb) 1.25 mg Q4H RESP THERAPY PRN HHN SHORTNESS OF BREATH; Start 12/30/18 at 04:00 Levetiracetam (Keppra) 500 mg BID PO Last administered on 12/30/18at 09:31; Admin Dose 500 MG; Start 12/30/18 at 09:00 Vancomycin HCl 1.25 gm/Sodium Chloride 250 ml @ 83.333 mls/ hr Q8H IVPB Last administered on 12/30/18at 15:03; Admin Dose 83.333 MLS/HR; Start 12/30/18 at 05:00 Miscellaneous Information (*Rx Drug Level Order Reminder*) VANCO TROUGH 0400 ONCE XX ; Start 12/31/18 at 04:00; Stop 12/31/18 at 04:01 Azithromycin 250 ml @ 250 mls/hr Q24H IVPB ; Start 12/31/18 at 03:00 Ipratropium [place] (Atrovent 0.02% (Neb)) 0.5 mg Q4HWA RESP THERAPY HHN ; Start 12/30/18 at 13:00 COSTA ZAZUETA NP Dec 30, 2018 15:31
[2018-12-30 15:59] VITALS: BP 98/60; PULSE 132; RESP 18
[2018-12-30] MEDS: ACETAMINOPHEN 325 MG TAB PO PRN (17:08)
--- NOTE | 2018-12-30 17:10 | HP ---
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 Patient is presenting with respiratory symptoms including hypoxia and chest pain. In the emergency room, chest x-ray showed revealed interval development of left lower lobe atelectasis versus consolidation with small pleural effusion. Although it is possible the patient has left lower lobe atelectasis secondary to pain and splinting, it is also possible the patient has pneumonia, which could be considered hospital-acquired given his recent hospitalization. White blood cell count 24.3, hemoglobin 10.7, platelets of 736. Chem-7 panel was unremarkable. Initial lactate 2.2, but the repeat was 1.4. Transaminases are normal. Lipase is negative. Analysis is negative. Possible pneumonia: Appreciate involvement of infectious disease. Patient is on broad-spectrum antibiotics at this time with vancomycin, Zosyn, Zithromax. May be worthwhile to check a procalcitonin in this patient tomorrow as well as a CRP. 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 Given large size of mass and concern for airway, chemo should begin in hospital. Current plan is 2 cycles of chemo, restaging, and after 4 cycles restaging and transferred to tertiary care cardiothoracic surgeon for section of residual mass. Seizures: Continue Keppra. FEN: Regular diet and intravenous fluids until good p.o. is established. Pain control: Patient would benefit from multidisciplinary approach to pain management. Current receiving intravenous Dilaudid for pain, still with significant pain issues. Would consider oxycodone [id number] with an adjunctive therapy. Could consider [id number] Tylenol or nonsteroidal. VTE prophylaxis: Lovenox HPI/ROS Peds Admit Date/Time Admit Date/Time Dec 30, 2018 at 03:30 Hx of Present Illness Free Text/Dictation Chief Complaint: Chest pain and increased work of breathing. HPI: 18-year-old male presenting with chest pain and increased work of breathing. 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 Tumor is compatible with mediastinal primary. Patient was recently admitted from December 18 to December 24, 2018. Initially was doing okay at home, but still had pain issues. His girlfriend states that he h as difficulty with ambulation, and suffers from chest pain with some occasional neck pain. In the day prior to admission he had difficulty with breathing, and fevers. Per history, patient had 4 months of fevers and chills with night sweats. He had a 30 pound weight loss in about 4 months. The history of cough with pink sputum. In the emergency room on December 18, x-ray showed large bulky bilateral mass densities. Constitutional: fever; No trauma, No sick contacts, No travel Eyes: No discharge, No redness ENT: other (neck pain on left); No congestion, No sore throat Respiratory: cough Cardiovascular: chest pain Hematology: No easy bruising, No easy bleeding Gastrointestinal: No diarrhea, No vomiting Genitourinary: no complaints; No dysuria Musculoskeletal: neck pain; No swelling Skin: No rash Neurologic: headache (slight. now resolved. ) Endocrine: weight change (weight loss noted ) PMH/Family/Social Past Medical History Primary Care Provider Viral Ramirez MD History: term, Developmental History: appropriate Diet History: regular for age Past Surgical History: none Allergies: Coded Allergies: No Known Allergy (Unverified , 12/18/18) Home Meds Reported Medications Levetiracetam* (Keppra*) 500 Mg Tablet, 500 MG PO BID, TAB 12/18/18 Medication Current Medications Sodium Chloride 1,000 ml @ 70 mls/hr [id number] IV Last administered on 12/30/18at 05:12; Admin Dose 70 MLS/HR; Start 12/30/18 at 03:44; Stop 12/30/18 at 18:01 IV Flush (NS 3 ml) 3 ml PER PROTOCOL IV ; Start 12/30/18 at 04:00 Ondansetron HCl (Zofran Inj) 4 mg Q6H PRN IV NAUSEA/VOMITING; Start 12/30/18 at 04:00 Acetaminophen (Tylenol Tab) 650 mg Q6H PRN PO .PAIN 1-3 OR TEMP; Start 12/30/18 at 04:00 Hydromorphone HCl (Dilaudid) 1 mg Q4H PRN IV .PAIN 7-10 Last administered on 12/30/18at 13:25; Admin Dose 1 MG; Start 12/30/18 at 04:00 Docusate Sodium (Colace) 100 mg Q12H PRN PO .CONSTIPATION; Start 12/30/18 at 04:00 Bisacodyl (Dulcolax) 5 mg DAILY PRN PO .CONSTIPATION; Start 12/30/18 at 04:00 Enoxaparin Sodium (Lovenox) 40 mg DAILY SC Last administered on 12/30/18at 09:39; Admin Dose 40 MG; Start 12/30/18 at 09:00 Vancomycin HCl (Vanco Iv Per Pharmacy) VANCOMYCIN PER PHARMACY PER PROTOCOL XX ; Start 12/30/18 at 04:00 Piperacillin Sod/ Tazobactam Sod 100 ml @ 200 mls/hr Q6 IVPB Last administered on 12/30/18at 11:35; Admin Dose 200 MLS/HR; Start 12/30/18 at 06:00 Levalbuterol (Xopenex Neb) 1.25 mg Q4H RESP THERAPY PRN HHN SHORTNESS OF BREATH; Start 12/30/18 at 04:00 Levetiracetam (Keppra) 500 mg BID PO Last administered on 12/30/18at 09:31; Admin Dose 500 MG; Start 12/30/18 at 09:00 Vancomycin HCl 1.25 gm/Sodium Chloride 250 ml @ 83.333 mls/ hr Q8H IVPB Last administered on 12/30/18at 15:03; Admin Dose 83.333 MLS/HR; Start 12/30/18 at 05:00 Miscellaneous Information (*Rx Drug Level Order Reminder*) VANCO TROUGH 0400 ONCE XX ; Start 12/31/18 at 04:00; Stop 12/31/18 at 04:01 Azithromycin 250 ml @ 250 mls/hr Q24H IVPB ; Start 12/31/18 at 03:00 Ipratropium [place] (Atrovent 0.02% (Neb)) 0.5 mg Q4HWA RESP THERAPY HHN ; Start 12/30/18 at 13:00 Problems: (1) Carcinoma of anterior mediastinum Status: Acute (2) Pneumonia Status: Acute Family History Significant Family History: no pertinent family hx Social History Lives with family and girlfriend. Exam/Review of Systems Exam Vitals Vital Signs Date Temp Pulse Resp B/P (MAP) Pulse Ox O2 O2 Flow FiO2 Time Delivery Rate 12/30/18 102.0 132 18 98/60 (73) 98 15:59 12/30/18 Nasal 2.0 13:35 Cannula General: other (ill appearing and thin. On oxygen. Uncomfortable ) Skin: nl Head: NC/AT Chest: symmetrical, other (incision noted on right chest in area of POrt insertion ) Respiratory: decreased BS, tachypnea; No retractions Cardiovascular: RRR, nl S1 & S2, <2 sec cap refill; No murmur Gastrointestinal: soft, ND, NT, +BS Neurological: nl muscle tone Musculoskeletal: nl development Extremities: warm, well-perfused, tubing tester <2 sec Results Result Diagram: 12/30/18 0204 12/30/18 0204 Results 24hrs Laboratory Tests Test 12/30/18 01:56 12/30/18 02:03 12/30/18 02:04 12/30/18 03:15 Blood Gas Specimen Blood arterial Source Arterial Blood 12/30/2018 3:17:20 Date Drawn AM Arterial Blood pH 7.441 (Temp corrected) Arterial Blood 30.8 L pCO2 (Temp correct) Arterial Blood pO2 85.2 (Temp corrected) Arterial Blood 20.5 L HCO3 Arterial Blood -2.8 Base Excess Arterial Blood 96.2 Oxygen Saturation Reed Test ACCEPTAB Arterial Blood Gas Left Radial Puncture Site Arterial 0.1 Blood Carboxyhemog lobin Arterial Blood 0.5 Methemoglobin Blood Gas A-a O2 27.6 H Differential Oxyhemoglobin 95.6 Percent Blood Gas 37.0 Temperature Blood Gas Modality ROOM AIR FiO2 21.0 Blood Gas Notified ASALISHA Whom Blood Gas Notified 12/30/2018 3:29:04 Time AM POC Venous Lactate 2.0 White Blood Count 24.3 #H Red Blood Count 4.25 L Hemoglobin 10.7 L Hematocrit 33.0 L Mean Corpuscular 77.6 Volume Mean Corpuscular 25.2 L Hemoglobin Mean Corpuscular 32.4 Hemoglobin Concent Red Cell 13.3 Distribution Width Platelet Count 736 H Mean Platelet 7.6 Volume Immature 1.000 H Granulocytes % Neutrophils % 85.9 H Lymphocytes % 7.8 L Monocytes % 5.1 Eosinophils % 0.0 Basophils % 0.2 Nucleated Red 0.0 Blood Cells % Immature 0.240 H Granulocytes # Neutrophils # 20.9 H Lymphocytes # 1.9 Monocytes # 1.3 H Eosinophils # 0.0 Basophils # 0.0 Nucleated Red 0.0 Blood Cells # Prothrombin Time 14.5 Prothrombin Time 1.1 Ratio INR International 1.12 Normalized Ratio Activated 34.[address] Time Sodium Level 135 Potassium Level 4.4 Chloride Level 97 Carbon Dioxide 24 Level Anion Gap 14 H Blood Urea 8 Nitrogen Creatinine 0.77 Est Glomerular > 60 Filtrat Rate mL/min Glucose Level 145 Calcium Level 8.4 Total Bilirubin 0.6 Direct Bilirubin 0.00 Indirect Bilirubin 0.6 Aspartate Amino 38 Transf (AST/SGOT) Alanine 38 Aminotransferase ( ALT/SGPT) Alkaline 99 Phosphatase Troponin I < 0.012 Total Protein 7.5 Albumin 3.3 Globulin 4.20 H Albumin/Globulin 0.78 Ratio Lipase 30 Urine Color STRAW Urine Clarity CLEAR Urine pH 7.0 Urine Specific 1.003 [place] Urine Ketones NEGATIVE Urine Nitrite NEGATIVE Urine Bilirubin NEGATIVE Urine Urobilinogen NEGATIVE Urine Leukocyte NEGATIVE Esterase Urine Hemoglobin NEGATIVE Urine Glucose NEGATIVE Urine Total NEGATIVE Protein Test 12/30/18 04:22 12/30/18 05:29 Lactic Acid Level 2.2 *H 1.4 ALICIA BRITTON Dec 30, 2018 17:09
[2018-12-30 19:45] VITALS: BP 116/68; PULSE 126; RESP 18
[2018-12-31] VITALS (25 sets, daily range): BP systolic 110–148; BP diastolic 60–128; PULSE 120–157; RESP 16–44
[2018-12-31] MEDS: PIPER-TAZO 3.375 GM IV (PMX) 100 ML IVPB SCH ×4 (00:59→17:45)
[2018-12-31] MEDS: ACETAMINOPHEN 325 MG TAB PO PRN ×3 (00:59→20:25)
[2018-12-31] MEDS: HYDROmorphONE 0.5 MG/0.5 ML SYG IV PRN ×3 (02:05→11:46)
[2018-12-31] MEDS: AZITHROMYCIN 500MG/NS (PMX) 250 ML IVPB SCH (02:21)
[2018-12-31] MEDS: VANCOMYCIN HCL 1.25 GM in SOD CHLORIDE 0.9% 250 ML IVPB SCH ×3 (04:50→20:26)
[2018-12-31] MEDS: IPRATROPIUM (NEB) 0.5 MG/2.5 ML AMP HHN SCH ×4 (08:13→20:48)
[2018-12-31] MEDS: LEVETIRACETAM 500 MG TAB PO SCH ×2 (08:25→20:25)
[2018-12-31] MEDS: ENOXAPARIN 40 MG/0.4 ML SYG SC SCH (08:45)
--- NOTE | 2018-12-31 11:10 | CONS ---
Assessment/Plan Assessment/Plan Hospital Course (Demo Recall) 18 yo with large anterior mediastinal mass 13.5 x 15.8 x 9.3 cm in size. 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 there is no standardized staging for yolk sac tumor unfortunately these are more aggressive types of non seminomatous germ cell tumors -given how high AFP will check MRI brain (pt had MRI brain in September 2018 at outside facility for h/o seizures, he is bringing the disc) -HE HAS MEDIPORT AND HAD 2 D ECHO IN PREPARATION FOR CHEMO -given how large this mass is and concern for airway will recommend chemo in hospital - CARRIES RISK OF STERILITY SO HE WILL NEED SPERM BANKING AND HE HAS TO DO THAT AN OUTPT I CALLED PT LAST WEEK AND EMPHASIZED HE DO THIS LOBITO chemo: Cisplatin 20 mg/m2 IV per day Days 1 to 5 Etoposide* 75 mg/m2 IV per day Days 1 to 5 Ifosfamide* 1200 mg/m2 per day IV infusion Days 1 to 5 [place] 120 mg/m2 IV Day 1 [place] 1200 mg/m2 per day continuous IV infusion, Days 1 to 5 GCSF 300mcg daily starting day 6-12 #Pneumonia -continue antibiotics if pt discharged with po abx, he needs to get sperm banking and will request chemo auth LOBITO discussed with pt after 2 cycles chemo, restage. after 4 cycles he will be restaged and referred to tertiary care cardiothoracic surgeon for resection of residual mass Consultation Date/Type/Reason Admit Date/Time Dec 30, 2018 at 03:30 Initial Consult Date December 30 Type of Consult oncology Reason for Consultation testicular cancer Requesting Provider: RADHA HEBERT Date/Time of Note DATE: 12/31/18 TIME: 11:04 24 HR Interval Summary Free Text/Dictation patient's breathing is better after starting antibiotics Exam/Review of Systems Exam Vitals Vital Signs Date Temp Pulse Resp B/P (MAP) Pulse Ox O2 O2 Flow FiO2 Time Delivery Rate 12/31/18 Nasal 2.0 09:17 Cannula 12/31/18 125 20 93 08:13 12/31/18 98.0 116/78 07:57 (91) Intake and Output 12/30/18 12/30/18 12/31/18 1515:00 23:00 07:00 IntakeIntake Total 240 ml 610 ml 850 ml OutputOutput Total 900 ml BalanceBalance 240 ml 610 ml -50 ml Constitutional: alert, oriented, distress, frail Psych: anxiety, depression Head: normocephalic Eyes: nl conjunctiva ENMT: nl external ears & nose Neck: supple Respiratory: congested cough, crackles/rales, diminished breath sounds, labored breathing, respirations Cardiovascular: regular rate and rhythm Gastrointestinal: soft, nl liver, spleen Musculoskeletal: nl extremities to inspection Extremities: normal pulses Results Result Diagram: 12/31/18 0346 12/31/18 0346 Results 24hrs Laboratory Tests Test 12/31/18 03:46 White Blood Count 21.8 H Red Blood Count 3.64 L Hemoglobin 9.3 L Hematocrit 29.1 L Mean Corpuscular Volume 79.9 Mean Corpuscular Hemoglobin 25.5 L Mean Corpuscular Hemoglobin Concent 32.0 Red Cell Distribution Width 13.6 Platelet Count 552 #H Mean Platelet Volume 7.7 Immature Granulocytes % 1.100 H Neutrophils % 81.0 H Lymphocytes % 9.7 L Monocytes % 7.7 Eosinophils % 0.2 Basophils % 0.3 Nucleated Red Blood Cells % 0.0 Immature Granulocytes # 0.250 H Neutrophils # 17.6 H Lymphocytes # 2.1 Monocytes # 1.7 H Eosinophils # 0.1 Basophils # 0.1 Nucleated Red Blood Cells # 0.0 Sodium Level 137 Potassium Level 4.4 Chloride Level 103 Carbon Dioxide Level 27 Anion Gap 7 Blood Urea Nitrogen 5 L Creatinine 0.82 Est Glomerular Filtrat Rate mL/min > 60 Glucose Level 112 Calcium Level 8.0 L Magnesium Level 2.1 Total Bilirubin 0.6 Direct Bilirubin 0.00 Indirect Bilirubin 0.6 Aspartate Amino Transf (AST/SGOT) 28 Alanine Aminotransferase (ALT/SGPT) 28 Alkaline Phosphatase 76 Total Protein 6.2 # Albumin 2.7 L Globulin 3.50 H Albumin/Globulin Ratio 0.77 Vancomycin Level Trough 11.6 Medications Medication Current Medications IV Flush (NS 3 ml) 3 ml PER PROTOCOL IV ; Start 12/30/18 at 04:00 Ondansetron HCl (Zofran Inj) 4 mg Q6H PRN IV NAUSEA/VOMITING; Start 12/30/18 at 04:00 Acetaminophen (Tylenol Tab) 650 mg Q6H PRN PO .PAIN 1-3 OR TEMP Last administered on 12/31/18 00:59; Admin Dose 650 MG; Start 12/30/18 at 04:00 Hydromorphone HCl (Dilaudid) 1 mg Q4H PRN IV .PAIN 7-10 Last administered on 12/31/18 07:00; Admin Dose 1 MG; Start 12/30/18 at 04:00 Docusate Sodium (Colace) 100 mg Q12H PRN PO .CONSTIPATION; Start 12/30/18 at 04:00 Bisacodyl (Dulcolax) 5 mg DAILY PRN PO .CONSTIPATION; Start 12/30/18 at 04:00 Enoxaparin Sodium (Lovenox) 40 mg DAILY SC Last administered on 12/31/18 08:45; Admin Dose 40 MG; Start 12/30/18 at 09:00 Vancomycin HCl (Vanco Iv Per Pharmacy) VANCOMYCIN PER PHARMACY PER PROTOCOL XX ; Start 12/30/18 at 04:00 Piperacillin Sod/ Tazobactam Sod 100 ml @ 200 mls/hr Q6 IVPB Last administered on 12/31/18 06:13; Admin Dose 200 MLS/HR; Start 12/30/18 at 06:00 Levalbuterol (Xopenex Neb) 1.25 mg Q4H RESP THERAPY PRN HHN SHORTNESS OF BREATH; Start 12/30/18 at 04:00 Levetiracetam (Keppra) 500 mg BID PO Last administered on 12/31/18 08:25; Admin Dose 500 MG; Start 12/30/18 at 09:00 Vancomycin HCl 1.25 gm/Sodium Chloride 250 ml @ 83.333 mls/ hr Q8H IVPB Last administered on 12/31/18 04:50; Admin Dose 83.333 MLS/HR; Start 12/30/18 at 05:00 Azithromycin 250 ml @ 250 mls/hr Q24H IVPB Last administered on 12/31/18 02:21; Admin Dose 250 MLS/HR; Start 12/31/18 at 03:00 Ipratropium [place] (Atrovent 0.02% (Neb)) 0.5 mg Q4HWA RESP THERAPY HHN Last administered on 12/31/18 08:13; Admin Dose 0.5 MG; Start 12/30/18 at 13:00 IVY HOSKINS M.D. Dec 31, 2018 11:10
--- NOTE | 2018-12-31 12:04 | CONS ---
Assessment/Plan Assessment/Plan Hospital Course (Demo Recall) Ongoing fevers w/tachycardia, nad Chest x-ray revealed interval development of left lower lobe atelectasis/consolidation with a small left pleural effusion. Antimicrobials: Zithromax, Zosyn, Vancomycin Physical examination: Well-developed well-nourished young man who is alert in no distress. Head atraumatic normocephalic sclera nonicteric. Neck is supple. Chest rise symmetrical breath sounds diminished, of note patient is unable to make a deep breath. Heart: S1-S2. Abdomen soft bowel sounds present. Extremities without cyanosis edema. Assessment: 1. Sepsis 2. Healthcare associated pneumonia, likely postobstructive 3. Recently diagnosed yolk sac tumor 4. Hx sz 5. P-cath Plan: Oncology rec-s noted, continue antibiotics, plan for brain MRI. Pt needs OP sperm banking Consultation Date/Type/Reason Admit Date/Time Dec 30, 2018 at 03:30 Initial Consult Date Type of Consult id Requesting Provider: RADHA HEBERT Date/Time of Note DATE: 12/31/18 TIME: 12:00 Exam/Review of Systems Exam Vitals Vital Signs Date Temp Pulse Resp B/P (MAP) Pulse Ox O2 O2 Flow FiO2 Time Delivery Rate 12/31/18 Nasal 2.0 09:17 Cannula 12/31/18 125 20 93 08:13 12/31/18 98.0 116/78 07:57 (91) Intake and Output 12/30/18 12/30/18 12/31/18 1515:00 23:00 07:00 IntakeIntake Total 240 ml 610 ml 850 ml OutputOutput Total 900 ml BalanceBalance 240 ml 610 ml -50 ml Results Result Diagram: 12/31/18 0346 12/31/18 0346 Results 24hrs Laboratory Tests Test 12/31/18 03:46 White Blood Count 21.8 H Red Blood Count 3.64 L Hemoglobin 9.3 L Hematocrit 29.1 L Mean Corpuscular Volume 79.9 Mean Corpuscular Hemoglobin 25.5 L Mean Corpuscular Hemoglobin Concent 32.0 Red Cell Distribution Width 13.6 Platelet Count 552 #H Mean Platelet Volume 7.7 Immature Granulocytes % 1.100 H Neutrophils % 81.0 H Lymphocytes % 9.7 L Monocytes % 7.7 Eosinophils % 0.2 Basophils % 0.3 Nucleated Red Blood Cells % 0.0 Immature Granulocytes # 0.250 H Neutrophils # 17.6 H Lymphocytes # 2.1 Monocytes # 1.7 H Eosinophils # 0.1 Basophils # 0.1 Nucleated Red Blood Cells # 0.0 Sodium Level 137 Potassium Level 4.4 Chloride Level 103 Carbon Dioxide Level 27 Anion Gap 7 Blood Urea Nitrogen 5 L Creatinine 0.82 Est Glomerular Filtrat Rate mL/min > 60 Glucose Level 112 Calcium Level 8.0 L Magnesium Level 2.1 Total Bilirubin 0.6 Direct Bilirubin 0.00 Indirect Bilirubin 0.6 Aspartate Amino Transf (AST/SGOT) 28 Alanine Aminotransferase (ALT/SGPT) 28 Alkaline Phosphatase 76 Total Protein 6.2 # Albumin 2.7 L Globulin 3.50 H Albumin/Globulin Ratio 0.77 Vancomycin Level Trough 11.6 Medications Medication Current Medications IV Flush (NS 3 ml) 3 ml PER PROTOCOL IV ; Start 12/30/18 at 04:00 Ondansetron HCl (Zofran Inj) 4 mg Q6H PRN IV NAUSEA/VOMITING; Start 12/30/18 at 04:00 Acetaminophen (Tylenol Tab) 650 mg Q6H PRN PO .PAIN 1-3 OR TEMP Last administered on 12/31/18at 11:48; Admin Dose 650 MG; Start 12/30/18 at 04:00 Hydromorphone HCl (Dilaudid) 1 mg Q4H PRN IV .PAIN 7-10 Last administered on 12/31/18at 11:46; Admin Dose 1 MG; Start 12/30/18 at 04:00 Docusate Sodium (Colace) 100 mg Q12H PRN PO .CONSTIPATION; Start 12/30/18 at 04:00 Bisacodyl (Dulcolax) 5 mg DAILY PRN PO .CONSTIPATION; Start 12/30/18 at 04:00 Enoxaparin Sodium (Lovenox) 40 mg DAILY SC Last administered on 12/31/18at 08:45; Admin Dose 40 MG; Start 12/30/18 at 09:00 Vancomycin HCl (Vanco Iv Per Pharmacy) VANCOMYCIN PER PHARMACY PER PROTOCOL XX ; Start 12/30/18 at 04:00 Piperacillin Sod/ Tazobactam Sod 100 ml @ 200 mls/hr Q6 IVPB Last administered on 12/31/18at 06:13; Admin Dose 200 MLS/HR; Start 12/30/18 at 06:00 Levalbuterol (Xopenex Neb) 1.25 mg Q4H RESP THERAPY PRN HHN SHORTNESS OF BREATH; Start 12/30/18 at 04:00 Levetiracetam (Keppra) 500 mg BID PO Last administered on 12/31/18at 08:25; Admin Dose 500 MG; Start 12/30/18 at 09:00 Vancomycin HCl 1.25 gm/Sodium Chloride 250 ml @ 83.333 mls/ hr Q8H IVPB Last administered on 12/31/18at 04:50; Admin Dose 83.333 MLS/HR; Start 12/30/18 at 05:00 Azithromycin 250 ml @ 250 mls/hr Q24H IVPB Last administered on 12/31/18at 02:21; Admin Dose 250 MLS/HR; Start 12/31/18 at 03:00 Ipratropium [place] (Atrovent 0.02% (Neb)) 0.5 mg Q4HWA RESP THERAPY HHN Last administered on 12/31/18at 08:13; Admin Dose 0.5 MG; Start 12/30/18 at 13:00 COSTA ZAZUETA NP Dec 31, 2018 12:04
--- NOTE | 2018-12-31 12:14 | PN ---
Date/Time of Note Date/Time of Note DATE: 12/31/18 TIME: 12:14 Assessment/Plan VTE Prophylaxis Risk score (from Nsg)>0 risk: 6 SCD applied (from Nsg): Yes Pharmacological prophylaxis: LMWH Lines/Catheters IV Catheter Type (from Nrsg): Peripheral IV Assessment/Plan Hospital Course SUBJECTIVE: Had fevers early this morning. Patient has been tachycardic, heart rate ranging up to 170. He is also in a lot of pain. OBJECTIVE: Vital signs-see below PHYSICAL EXAM: Constitutional: Frail looking young male,not in acute distress. HEENT: Head atraumatic and normocephalic. Eyes: Extraocular muscles intact. An icteric sclerae. Pupils equal bilaterally, reactive to light. NECK: Supple without lymph node. CHEST: Breath sounds coarse on right side. Diminished left No wheezing. HEART: Tachycardic+.S1, S2. Regular rhythm. ABDOMEN: Soft/non tender with no rebound tenderness. Bowel sounds were present. EXTREMITIES: No cyanosis, clubbing or edema. NEUROLOGIC: Alert and oriented x3. No focal deficit. No sensory deficit. PSYCHOSOCIAL: No signs of depression. INTEGUMENTARY: No open wounds. 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 Severe sepsis Source: Pneumonia -Continue empiric antimicrobial regimen -Follow-up cultures. -IV fluids Pneumonia likely healthcare acquired -Continue current antimicrobial regimen. White count improved. Sinus tachycardia, likely sepsis induced/pain induced -Give fluid bolus. Redraw lactate -Reviewed latest 2D echo with preserved EF. -If heart rate cannot be controlled, we will move patient to ICU for monitoring. -We will also consider cardiology evaluation if rate is not controlled. 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 Patient would also need sperm banking prior to starting chemotherapy. -f/u oncology recommendations. -Pain control-increase Dilaudid to 2 mg with addition of Percocet. Epilepsy disorders -Continue Keppra Chronic anemia -Patient is stable. Continue to monitor. DVT prophylaxis: Lovenox Disposition: Continue current management. Await for further clinical improvement. Patient was seen in collaboration with Dr. Fuller. Result Diagram: 12/31/18 0346 12/31/18 0346 Results 24hrs Laboratory Tests Test 12/31/18 03:46 White Blood Count 21.8 H Red Blood Count 3.64 L Hemoglobin 9.3 L Hematocrit 29.1 L Mean Corpuscular Volume 79.9 Mean Corpuscular Hemoglobin 25.5 L Mean Corpuscular Hemoglobin Concent 32.0 Red Cell Distribution Width 13.6 Platelet Count 552 #H Mean Platelet Volume 7.7 Immature Granulocytes % 1.100 H Neutrophils % 81.0 H Lymphocytes % 9.7 L Monocytes % 7.7 Eosinophils % 0.2 Basophils % 0.3 Nucleated Red Blood Cells % 0.0 Immature Granulocytes # 0.250 H Neutrophils # 17.6 H Lymphocytes # 2.1 Monocytes # 1.7 H Eosinophils # 0.1 Basophils # 0.1 Nucleated Red Blood Cells # 0.0 Sodium Level 137 Potassium Level 4.4 Chloride Level 103 Carbon Dioxide Level 27 Anion Gap 7 Blood Urea Nitrogen 5 L Creatinine 0.82 Est Glomerular Filtrat Rate mL/min > 60 Glucose Level 112 Calcium Level 8.0 L Magnesium Level 2.1 Total Bilirubin 0.6 Direct Bilirubin 0.00 Indirect Bilirubin 0.6 Aspartate Amino Transf (AST/SGOT) 28 Alanine Aminotransferase (ALT/SGPT) 28 Alkaline Phosphatase 76 Total Protein 6.2 # Albumin 2.7 L Globulin 3.50 H Albumin/Globulin Ratio 0.77 Vancomycin Level Trough 11.6 Exam/Review of Systems Exam Vitals Vital Signs Date Temp Pulse Resp B/P (MAP) Pulse Ox O2 O2 Flow FiO2 Time Delivery Rate 12/31/18 Nasal 2.0 09:17 Cannula 12/31/18 125 20 93 08:13 12/31/18 98.0 116/78 07:57 (91) Intake and Output 12/30/18 12/30/18 12/31/18 1515:00 23:00 07:00 IntakeIntake Total 240 ml 610 ml 850 ml OutputOutput Total 900 ml BalanceBalance 240 ml 610 ml -50 ml Results Results 24hrs Laboratory Tests Test 12/31/18 03:46 White Blood Count 21.8 H Red Blood Count 3.64 L Hemoglobin 9.3 L Hematocrit 29.1 L Mean Corpuscular Volume 79.9 Mean Corpuscular Hemoglobin 25.5 L Mean Corpuscular Hemoglobin Concent 32.0 Red Cell Distribution Width 13.6 Platelet Count 552 #H Mean Platelet Volume 7.7 Immature Granulocytes % 1.100 H Neutrophils % 81.0 H Lymphocytes % 9.7 L Monocytes % 7.7 Eosinophils % 0.2 Basophils % 0.3 Nucleated Red Blood Cells % 0.0 Immature Granulocytes # 0.250 H Neutrophils # 17.6 H Lymphocytes # 2.1 Monocytes # 1.7 H Eosinophils # 0.1 Basophils # 0.1 Nucleated Red Blood Cells # 0.0 Sodium Level 137 Potassium Level 4.4 Chloride Level 103 Carbon Dioxide Level 27 Anion Gap 7 Blood Urea Nitrogen 5 L Creatinine 0.82 Est Glomerular Filtrat Rate mL/min > 60 Glucose Level 112 Calcium Level 8.0 L Magnesium Level 2.1 Total Bilirubin 0.6 Direct Bilirubin 0.00 Indirect Bilirubin 0.6 Aspartate Amino Transf (AST/SGOT) 28 Alanine Aminotransferase (ALT/SGPT) 28 Alkaline Phosphatase 76 Total Protein 6.2 # Albumin 2.7 L Globulin 3.50 H Albumin/Globulin Ratio 0.77 Vancomycin Level Trough 11.6 Medications Medication Current Medications IV Flush (NS 3 ml) 3 ml PER PROTOCOL IV ; Start 12/30/18 at 04:00 Ondansetron HCl (Zofran Inj) 4 mg Q6H PRN IV NAUSEA/VOMITING; Start 12/30/18 at 04:00 Acetaminophen (Tylenol Tab) 650 mg Q6H PRN PO .PAIN 1-3 OR TEMP Last administered on 12/31/18at 11:48; Admin Dose 650 MG; Start 12/30/18 at 04:00 Hydromorphone HCl (Dilaudid) 1 mg Q4H PRN IV .PAIN 7-10 Last administered on 12/31/18at 11:46; Admin Dose 1 MG; Start 12/30/18 at 04:00 Docusate Sodium (Colace) 100 mg Q12H PRN PO .CONSTIPATION; Start 12/30/18 at 04:00 Bisacodyl (Dulcolax) 5 mg DAILY PRN PO .CONSTIPATION; Start 12/30/18 at 04:00 Enoxaparin Sodium (Lovenox) 40 mg DAILY SC Last administered on 12/31/18at 08:45; Admin Dose 40 MG; Start 12/30/18 at 09:00 Vancomycin HCl (Vanco Iv Per Pharmacy) VANCOMYCIN PER PHARMACY PER PROTOCOL XX ; Start 12/30/18 at 04:00 Piperacillin Sod/ Tazobactam Sod 100 ml @ 200 mls/hr Q6 IVPB Last administered on 12/31/18 06:13; Admin Dose 200 MLS/HR; Start 12/30/18 at 06:00 Levalbuterol (Xopenex Neb) 1.25 mg Q4H RESP THERAPY PRN HHN SHORTNESS OF BREATH; Start 12/30/18 at 04:00 Levetiracetam (Keppra) 500 mg BID PO Last administered on 12/31/18 08:25; Admin Dose 500 MG; Start 12/30/18 at 09:00 Vancomycin HCl 1.25 gm/Sodium Chloride 250 ml @ 83.333 mls/ hr Q8H IVPB Last administered on 12/31/18 04:50; Admin Dose 83.333 MLS/HR; Start 12/30/18 at 05:00 Azithromycin 250 ml @ 250 mls/hr Q24H IVPB Last administered on 12/31/18at 02:21; Admin Dose 250 MLS/HR; Start 12/31/18 at 03:00 Ipratropium [place] (Atrovent 0.02% (Neb)) 0.5 mg Q4HWA RESP THERAPY HHN Last administered on 12/31/18at 08:13; Admin Dose 0.5 MG; Start 12/30/18 at 13:00 NAVID RIZVI NP Dec 31, 2018 12:14
[2018-12-31] MEDS ORDERED: SOD CHLORIDE 0.9% 1,000 ML IV SCH (12:30)
[2018-12-31] MEDS ORDERED: OXYCODONE/ACETAMINOPHEN (5/325) TAB PO PRN (12:30)
[2018-12-31] MEDS ORDERED: HYDROmorphONE 2 MG/ML SYG IV PRN (12:30)
[2018-12-31] MEDS ORDERED: DIPHENHYDRAMINE 50 MG INJ IV PRN (14:30)
[2018-12-31] MEDS: SOD CHLORIDE 0.9% 1,000 ML IV SCH ×2 (14:33→22:03)
[2018-12-31] MEDS ORDERED: NALOXONE (0.4 MG/ML) INJ IV PRN (15:00)
[2018-12-31] MEDS: HYDROmorphONE 0.2 MG/ML PCA IV SCH (15:45)
--- NOTE | 2018-12-31 15:49 | PN ---
Date/Time of Note Date/Time of Note DATE: 12/31/18 TIME: 14:39 Assessment/Plan Lines/Catheters IV Catheter Type: Peripheral IV Assessment/Plan Hospital Course 18-year-old male with history of epilepsy, stable on Keppra, recently discharged after admit 12/18, diagnosed with large mediastinal yolk sac tumor tumor with plans for sperm banking followed by chemotherapy.Patient is now presenting with new respiratory symptoms including cough and chest pain. In the emergency room, chest x-ray showed revealed interval development of left lower lobe atelectasis versus consolidation with small pleural effusion. Although it is possible the patient has left lower lobe atelectasis related to the tumor, it is also possible the patient has pneumonia. Fevers and tachycardia have been present throughout the prior admission, and continue. At admission, white blood cell count 24.3, hemoglobin 10.7, platelets of 736. Chem-7 panel was unremarkable. Initial lactate 2.2, but the repeat was 1.4. Liver enzymes are normal. Renal function is good. Albumin is low. LDH, beta-HCG and AFP are elevated consistent with his neoplasm. Hospital course: Patient has had ill appearance with tachycardia, still with fevers, and is experiencing moderate to severe chest pain that returns when Dilaudid wears off. Dose increased to 2 mg, tolerated although patient appears mildly sedated and has mild nausea now. Clinically meets criteria for severe sepsis and is on Vancomycin, Zosyn, and azithromycin as suggested by ID. Respiratory status has been fairly stable, not currently requiring O2. Primary team is considering ICU transfer, however. 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 No obvious metastases. He has Mediport in place and 2D echo done in preparation for chemo. Given large size of mass and concern for airway compression, per oncologist chemo should begin in hospital. Current plan is 2 cycles of chemo, restaging, and after 4 cycles restaging and transferred to tertiary care cardiothoracic surgeon for section of residual mass. VIP planned by oncology for 1 week from now following banking of sperm. I am, however, recommending oncologist consider initiation of chemother apy as soon as feasible given his ill appearance and apparently deteriorating condition. Investigating possible banking of sperm (he insists upon) either after first round or prior if able to collect in hospital. Neuro: Seizures: Continue Keppra. Stable. Resp: Stable on room air currently, decreased breath sounds with LLL consolidation vs. airway compression. Cough. Repeat CXR ordered given changes from 12/18 to now, possibility of worsening effusion. FEN/GI: Regular diet and intravenous fluids until good p.o. is established. Electrolytes stable. Has Zofran prn, recommend using with caution with azithromycin; ordered Benadryl prn nausea as well; may consider starting olanzapine for management of nausea as needed, especially when VIP started. Hypoalbuminemia. CV: Tachycardia, partly pain related, BP stable. IV access. Pain control: Currently receiving intravenous Dilaudid for pain, still with significant pain issues. Starting SOCIAL WORK ASSISTANT dilaudid for better control and likely less total opiate / side effect exposure. Heme: VTE prophylaxis: Lovenox. Anemia, thrombocytosis, leukocytosis. See heme/onc recommendations. ID: Being treated for pneumonia and sepsis as per ID recommendations. Broad spectrum coverage with Vanco, Zosym, zithromax. Will send procalcitonin and CRP to help assess the need for this. Fevers likely related to neoplasm. We will continue to follow as [facility] consultants while in hospital. Problems: (1) Nonseminomatous germ cell neoplasm Status: Acute (2) Seizure disorder Status: Chronic (3) Pneumonia Status: Acute Qualifiers: Pneumonia type: due to unspecified organism Laterality: left Lung location: lower lobe of lung Qualified Codes: J18.1 - Lobar pneumonia, unspecified organism Subjective 24 Hr Interval Summary Pain in left chest 8/10 "when medication wears off." Some nausea now. Pain radiates to L shoulder. Constitutional: febrile, weight loss; No requiring O2 Pain Control: moderate (with interrupted episodes of control) Skin: no complaints Eyes: no complaints HENT: no complaints Respiratory: cough (painful), other (dyspnea) Cardiovascular: chest pain (Left) Gastrointestinal: nausea, other (poor appetite) Genitourinary: no complaints Neurologic: no complaints Musculoskeletal: no complaints Objective Vital Signs Vitals Vital Signs Date Temp Pulse Resp B/P (MAP) Pulse Ox O2 O2 Flow FiO2 Time Delivery Rate 12/31/18 97.8 120 29 121/75 98 Room Air 16:15 (90) 12/31/18 2.0 09:17 Intake and Output 7/07/2012/30/18 12/31/18 1515:00 23:00 07:00 IntakeIntake Total 240 ml 610 ml 850 ml OutputOutput Total 900 ml BalanceBalance 240 ml 610 ml -50 ml Exam General: other (thin, low muscle mass. Mildly sedated) Skin: nl Head: NC/AT Eyes: conjunctivitis ENT: nl nasal mucosa/septum, nl oropharynx Lymphatic: nl lymph nodes Neck: supple, non-tender Chest: symmetrical Respiratory: easy WOB, crackles (mild lower lung leiva), decreased BS (bilate rally poor air entry at bases); No wheezing Cardiovascular: RRR, nl S1 & S2, <2 sec cap refill Gastrointestinal: soft, ND, NT, +BS; No HSM, No masses Neurological: nl muscle tone Musculoskeletal: No nl muscle bulk Extremities: warm, well-perfused, medical safety director <2 sec Results Result Diagram: 12/31/18 0346 12/31/18 0346 Results 24 hrs Laboratory Tests Test 12/31/18 03:46 12/31/18 12:21 White Blood Count 21.8 H Red Blood Count 3.64 L Hemoglobin 9.3 L Hematocrit 29.1 L Mean Corpuscular Volume 79.9 Mean Corpuscular Hemoglobin 25.5 L Mean Corpuscular Hemoglobin Concent 32.0 Red Cell Distribution Width 13.6 Platelet Count 552 #H Mean Platelet Volume 7.7 Immature Granulocytes % 1.100 H Neutrophils % 81.0 H Lymphocytes % 9.7 L Monocytes % 7.7 Eosinophils % 0.2 Basophils % 0.3 Nucleated Red Blood Cells % 0.0 Immature Granulocytes # 0.250 H Neutrophils # 17.6 H Lymphocytes # 2.1 Monocytes # 1.7 H Eosinophils # 0.1 Basophils # 0.1 Nucleated Red Blood Cells # 0.0 Sodium Level 137 Potassium Level 4.4 Chloride Level 103 Carbon Dioxide Level 27 Anion Gap 7 Blood Urea Nitrogen 5 L Creatinine 0.82 Est Glomerular Filtrat Rate mL/min > 60 Glucose Level 112 Calcium Level 8.0 L Magnesium Level 2.1 Total Bilirubin 0.6 Direct Bilirubin 0.00 Indirect Bilirubin 0.6 Aspartate Amino Transf (AST/SGOT) 28 Alanine Aminotransferase (ALT/SGPT) 28 Alkaline Phosphatase 76 Total Protein 6.2 # Albumin 2.7 L Globulin 3.50 H Albumin/Globulin Ratio 0.77 Vancomycin Level Trough 11.6 Lactic Acid Level 2.0 Medications Medications Current Medications IV Flush (NS 3 ml) 3 ml PER PROTOCOL IV ; Start 12/30/18 at 04:00 Ondansetron HCl (Zofran Inj) 4 mg Q6H PRN IV NAUSEA/VOMITING; Start 12/30/18 at 04:00 Acetaminophen (Tylenol Tab) 650 mg Q6H PRN PO .PAIN 1-3 OR TEMP Last admin istered on 12/31/18at 11:48; Admin Dose 650 MG; Start 12/30/18 at 04:00 Docusate Sodium (Colace) 100 mg Q12H PRN PO .CONSTIPATION; Start 12/30/18 at 04:00 Bisacodyl (Dulcolax) 5 mg DAILY PRN PO .CONSTIPATION; Start 12/30/18 at 04:00 Enoxaparin Sodium (Lovenox) 40 mg DAILY SC Last administered on 12/31/18at 08:45; Admin Dose 40 MG; Start 12/30/18 at 09:00 Vancomycin HCl (Vanco Iv Per Pharmacy) VANCOMYCIN PER PHARMACY PER PROTOCOL XX ; Start 12/30/18 at 04:00 Piperacillin Sod/ Tazobactam Sod 100 ml @ 200 mls/hr Q6 IVPB Last administered on 12/31/18at 12:30; Admin Dose 200 MLS/HR; Start 12/30/18 at 06:00 Levalbuterol (Xopenex Neb) 1.25 mg Q4H RESP THERAPY PRN HHN SHORTNESS OF BREATH; Start 12/30/18 at 04:00 Levetiracetam (Keppra) 500 mg BID PO Last administered on 12/31/18at 08:25; Admin Dose 500 MG; Start 12/30/18 at 09:00 Vancomycin HCl 1.25 gm/Sodium Chloride 250 ml @ 83.333 mls/ hr Q8H IVPB Last administered on 12/31/18at 13:09; Admin Dose 83.333 MLS/HR; Start 12/30/18 at 05:00 Azithromycin 250 ml @ 250 mls/hr Q24H IVPB Last administered on 12/31/18at 02:21; Admin Dose 250 MLS/HR; Start 12/31/18 at 03:00 Ipratropium [place] (Atrovent 0.02% (Neb)) 0.5 mg Q4HWA RESP THERAPY HHN Last administered on 12/31/18at 08:13; Admin Dose 0.5 MG; Start 12/30/18 at 13:00 Oxycodone/ Acetaminophen (Percocet (5/ 325)) 1 tab Q4H PRN PO MODERATE PAIN LEVEL 4-6; Start 12/31/18 at 12:30 Sodium Chloride 1,000 ml @ 80 mls/hr [id number] IV Last administered on 12/31/18at 14:33; Admin Dose 80 MLS/HR; Start 12/31/18 at 14:00 Naloxone HCl (Narcan) 0.2 mg Q2M PRN IV RR 8 BREATHS/MIN OR LESS; Start 12/31/18 at 15:00 Hydromorphone HCl (Dilaudid SOCIAL WORK ASSISTANT) See protocol, below. Q4PCA IV Last administered on 12/31/18at 15:45; Admin Dose 6 MG; Start 12/31/18 at 15:00 Diphenhydramine HCl (Benadryl) 25 mg Q6H PRN IV Nausea or itching; Start 12/31/18 at 20:30 HEATH KOLB MD Dec 31, 2018 15:18
[2019-01-01] VITALS (25 sets, daily range): BP systolic 53–151; BP diastolic 25–81; PULSE 118–153; RESP 13–36
[2019-01-01] MEDS: PIPER-TAZO 3.375 GM IV (PMX) 100 ML IVPB SCH ×5 (00:15→23:46)
[2019-01-01] MEDS: HYDROmorphONE 0.2 MG/ML PCA IV SCH ×3 (02:21→23:54)
[2019-01-01] MEDS: AZITHROMYCIN 500MG/NS (PMX) 250 ML IVPB SCH (02:55)
[2019-01-01] MEDS: VANCOMYCIN HCL 1.25 GM in SOD CHLORIDE 0.9% 250 ML IVPB SCH ×3 (05:22→21:23)
[2019-01-01] MEDS: IPRATROPIUM (NEB) 0.5 MG/2.5 ML AMP HHN SCH ×4 (09:00→21:00)
[2019-01-01] MEDS: LEVETIRACETAM 500 MG TAB PO SCH ×2 (09:31→21:23)
[2019-01-01] MEDS: ENOXAPARIN 40 MG/0.4 ML SYG SC SCH (09:36)
[2019-01-01] MEDS: SOD CHLORIDE 0.9% 1,000 ML IV SCH ×3 (10:28→21:45)
[2019-01-01] MEDS ORDERED: PROMETHAZINE/CODEINE 5ML CUP PO PRN (12:00)
--- NOTE | 2019-01-01 12:13 | CONS ---
Assessment/Plan Assessment/Plan Hospital Course (Demo Recall) Patient was transferred to ICU secondary to tachycardia he is currently sleeping in no distress has a WINDOWS ADMIN no fevers since this morning T-max yesterday 101.3 WBC 24.7 platelets 600 neutrophils 84.2 BUN 4 creatinine 0.70 Microbiology: Sputum culture growing staph aureus preliminary Antimicrobials: Zithromax, Zosyn, Vancomycin Physical examination: Well-developed well-nourished young man who is alert in no distress. Head atraumatic normocephalic sclera nonicteric. Neck is supple. Chest rise symmetrical breath sounds diminished, of note patient is unable to make a deep breath. Heart: S1-S2. Abdomen soft bowel sounds present. Extremities without cyanosis edema. Assessment: 1. Sepsis 2. Healthcare associated pneumonia, likely postobstructive 3. Recently diagnosed yolk sac tumor 4. Hx sz 5. P-cath Plan: Patient is doing poorly remains tachycardic, final cultures pending, oncology rec-s noted, continue antibiotics, plan for brain MRI. Pt needs OP sperm banking. Possible transfer to tertiary care facility Consultation Date/Type/Reason Admit Date/Time Dec 30, 2018 at 03:30 Initial Consult Date Type of Consult id Requesting Provider: RADHA HEBERT Date/Time of Note DATE: 01/01/19 TIME: 12:12 Exam/Review of Systems Exam Vitals Vital Signs Date Temp Pulse Resp B/P (MAP) Pulse Ox O2 O2 Flow FiO2 Time Delivery Rate 01/01/19 130 20 143/75 95 Nasal 4.0 10:00 (97) Cannula 01/01/19 98.5 08:15 Intake and Output 12/31/18 12/31/18 01/01/19 1515:00 23:00 07:00 IntakeIntake Total 1320 ml 1707.916 ml 1193.334 ml OutputOutput Total 1900 ml 2400 ml BalanceBalance 1320 ml -192.084 ml -1206.666 ml Results Result Diagram: 01/01/19 0426 01/01/19 0426 Results 24hrs Laboratory Tests Test 12/31/18 12:21 12/31/18 14:30 12/31/18 19:39 01/01/19 04:26 Lactic Acid Level 2.0 2.0 Uric Acid 2.5 L Lactate Dehydrogenase 1631 H C-Reactive Protein 24.0 H Procalcitonin 0.45 H White Blood Count 24.7 H Red Blood Count 3.92 L Hemoglobin 9.7 L Hematocrit 30.9 L Mean Corpuscular Volume 78.8 Mean Corpuscular 24.7 L Hemoglobin Mean Corpuscular 31.4 L Hemoglobin Concent Red Cell Distribution 13.8 Width Platelet Count 600 H Mean Platelet Volume 8.0 Immature Granulocytes % 1.100 H Neutrophils % 84.2 H Lymphocytes % 6.9 L Monocytes % 7.2 Eosinophils % 0.4 Basophils % 0.2 Nucleated Red Blood 0.0 Cells % Immature Granulocytes # 0.270 H Neutrophils # 20.8 H Lymphocytes # 1.7 Monocytes # 1.8 H Eosinophils # 0.1 Basophils # 0.1 Nucleated Red Blood 0.0 Cells # Sodium Level 136 Potassium Level 4.0 Chloride Level 101 Carbon Dioxide Level 28 Anion Gap 7 Blood Urea Nitrogen 4 L Creatinine 0.70 Est Glomerular Filtrat > 60 Rate mL/min Glucose Level 109 Calcium Level 8.1 L Magnesium Level 2.0 Medications Medication Current Medications IV Flush (NS 3 ml) 3 ml PER PROTOCOL IV ; Start 12/30/18 at 04:00 Ondansetron HCl (Zofran Inj) 4 mg Q6H PRN IV NAUSEA/VOMITING; Start 12/30/18 at 04:00 Acetaminophen (Tylenol Tab) 650 mg Q6H PRN PO .PAIN 1-3 OR TEMP Last administered on 12/31/18at 20:25; Admin Dose 650 MG; Start 12/30/18 at 04:00 Docusate Sodium (Colace) 100 mg Q12H PRN PO .CONSTIPATION; Start 12/30/18 at 04:00 Bisacodyl (Dulcolax) 5 mg DAILY PRN PO .CONSTIPATION; Start 12/30/18 at 04:00 Enoxaparin Sodium (Lovenox) 40 mg DAILY SC Last administered on 01/01/19at 09:36; Admin Dose 40 MG; Start 12/30/18 at 09:00 Vancomycin HCl (Vanco Iv Per Pharmacy) VANCOMYCIN PER PHARMACY PER PROTOCOL XX ; Start 12/30/18 at 04:00 Piperacillin Sod/ Tazobactam Sod 100 ml @ 200 mls/hr Q6 IVPB Last administered on 01/01/19at 06:46; Admin Dose 200 MLS/HR; Start 12/30/18 at 06:00 Levalbuterol (Xopenex Neb) 1.25 mg Q4H RESP THERAPY PRN HHN SHORTNESS OF BREATH; Start 12/30/18 at 04:00 Levetiracetam (Keppra) 500 mg BID PO Last administered on 01/01/19at 09:31; Admin Dose 500 MG; Start 12/30/18 at 09:00 Vancomycin HCl 1.25 gm/Sodium Chloride 250 ml @ 83.333 mls/ hr Q8H IVPB Last administered on 01/01/19at 05:22; Admin Dose 83.333 MLS/HR; Start 12/30/18 at 05:00 Azithromycin 250 ml @ 250 mls/hr Q24H IVPB Last administered on 01/01/19at 02:55; Admin Dose 250 MLS/HR; Start 12/31/18 at 03:00 Ipratropium [place] (Atrovent 0.02% (Neb)) 0.5 mg Q4HWA RESP THERAPY HHN Last administered on 12/31/18at 08:13; Admin Dose 0.5 MG; Start 12/30/18 at 13:00 Oxycodone/ Acetaminophen (Percocet (5/ 325)) 1 tab Q4H PRN PO MODERATE PAIN LEVEL 4-6; Start 12/31/18 at 12:30; Status Hold Sodium Chloride 1,000 ml @ 100 mls/hr Q10H IV Last administered on 01/01/19at 10:28; Admin Dose 80 MLS/HR; Start 12/31/18 at 14:00 Naloxone HCl (Narcan) 0.2 mg Q2M PRN IV RR 8 BREATHS/MIN OR LESS; Start 12/31/18 at 15:00 Hydromorphone HCl (Dilaudid WINDOWS ADMIN) See protocol, below. Q4PCA IV Last administered on 01/01/19at 02:21; Admin Dose 6 MG; Start 12/31/18 at 15:00 Diphenhydramine HCl (Benadryl) 25 mg Q6H PRN IV Nausea or itching; Start 12/31/18 at 20:30 Promethazine HCl/ Codeine (Phenergan/ Codeine) 5 ml Q4H PRN PO COUGH; Start 01/01/19 at 12:00 COSTA ZAZUETA NP Jan 01, 2019 12:13
--- NOTE | 2019-01-01 12:17 | CONS ---
Assessment/Plan Assessment/Plan Hospital Course (Demo Recall) Hospital Course (Demo Recall) 18 yo with large anterior mediastinal mass 13.5 x 15.8 x 9.3 cm in size. 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 -given how high AFP will check MRI brain (pt had MRI brain in September 2018 at outside facility for h/o seizures, he is bringing the disc) -HE HAS MEDIPORT AND HAD 2 D ECHO IN PREPARATION FOR CHEMO -given how large this mass is and concern for airway will recommend chemo in hospital - CARRIES RISK OF STERILITY SO HE WILL NEED SPERM BANKING given that he has deteriorated hdemodynamically, Pulm is looking into possible transfer to tertiary care center, await input from case managers chemo: Cisplatin 20 mg/m2 IV per day Days 1 to 5 Etoposide* 75 mg/m2 IV per day Days 1 to 5 Ifosfamide* 1200 mg/m2 per day IV infusion Days 1 to 5 [place] 120 mg/m2 IV Day 1 [place] 1200 mg/m2 per day continuous IV infusion, Days 1 to 5 GCSF 300mcg daily starting day 6-12 discussed with pt after 2 cycles chemo, restage. 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 and need to be resected #leukocytosis and thrombocytosis AND FEVERS suspect this is most likely reactive due to underlying malignancy vs pneumonia EMPIRIC ABX PER PRIMARY TEAM Consultation Date/Type/Reason Admit Date/Time Dec 30, 2018 at 03:30 Initial Consult Date Requesting Provider: RADHA HEBERT Date/Time of Note DATE: 01/01/19 TIME: 12:17 24 HR Interval Summary Free Text/Dictation coughing fatigued SOB Exam/Review of Systems Exam Vitals Vital Signs Date Temp Pulse Resp B/P (MAP) Pulse Ox O2 O2 Flow FiO2 Time Delivery Rate 01/01/19 130 20 143/75 95 Nasal 4.0 10:00 (97) Cannula 01/01/19 98.5 08:15 Intake and Output 7/212/31/18 01/01/19 1515:00 23:00 07:00 IntakeIntake Total 1320 ml 1707.916 ml 1193.334 ml OutputOutput Total 1900 ml 2400 ml BalanceBalance 1320 ml -192.084 ml -1206.666 ml Constitutional: distress, frail Head: normocephalic, atraumatic Eyes: nl conjunctiva, EOMI, nl lids, nl sclera, PERRL Respiratory: diminished breath sounds Results Result Diagram: 01/01/19 0426 01/01/19 0426 Results 24hrs Laboratory Tests Test 12/31/18 12:21 12/31/18 14:30 12/31/18 19:39 01/01/19 04:26 Lactic Acid Level 2.0 2.0 Uric Acid 2.5 L Lactate Dehydrogenase 1631 H C-Reactive Protein 24.0 H Procalcitonin 0.45 H White Blood Count 24.7 H Red Blood Count 3.92 L Hemoglobin 9.7 L Hematocrit 30.9 L Mean Corpuscular Volume 78.8 Mean Corpuscular 24.7 L Hemoglobin Mean Corpuscular 31.4 L Hemoglobin Concent Red Cell Distribution 13.8 Width Platelet Count 600 H Mean Platelet Volume 8.0 Immature Granulocytes % 1.100 H Neutrophils % 84.2 H Lymphocytes % 6.9 L Monocytes % 7.2 Eosinophils % 0.4 Basophils % 0.2 Nucleated Red Blood 0.0 Cells % Immature Granulocytes # 0.270 H Neutrophils # 20.8 H Lymphocytes # 1.7 Monocytes # 1.8 H Eosinophils # 0.1 Basophils # 0.1 Nucleated Red Blood 0.0 Cells # Sodium Level 136 Potassium Level 4.0 Chloride Level 101 Carbon Dioxide Level 28 Anion Gap 7 Blood Urea Nitrogen 4 L Creatinine 0.70 Est Glomerular Filtrat > 60 Rate mL/min Glucose Level 109 Calcium Level 8.1 L Magnesium Level 2.0 Medications Medication Current Medications IV Flush (NS 3 ml) 3 ml PER PROTOCOL IV ; Start 12/30/18 at 04:00 Ondansetron HCl (Zofran Inj) 4 mg Q6H PRN IV NAUSEA/VOMITING; Start 12/30/18 at 04:00 Acetaminophen (Tylenol Tab) 650 mg Q6H PRN PO .PAIN 1-3 OR TEMP Last admini stered on 12/31/18at 20:25; Admin Dose 650 MG; Start 12/30/18 at 04:00 Docusate Sodium (Colace) 100 mg Q12H PRN PO .CONSTIPATION; Start 12/30/18 at 04:00 Bisacodyl (Dulcolax) 5 mg DAILY PRN PO .CONSTIPATION; Start 12/30/18 at 04:00 Enoxaparin Sodium (Lovenox) 40 mg DAILY SC Last administered on 01/01/19at 09:36; Admin Dose 40 MG; Start 12/30/18 at 09:00 Vancomycin HCl (Vanco Iv Per Pharmacy) VANCOMYCIN PER PHARMACY PER PROTOCOL XX ; Start 12/30/18 at 04:00 Piperacillin Sod/ Tazobactam Sod 100 ml @ 200 mls/hr Q6 IVPB Last administered on 01/01/19at 06:46; Admin Dose 200 MLS/HR; Start 12/30/18 at 06:00 Levalbuterol (Xopenex Neb) 1.25 mg Q4H RESP THERAPY PRN HHN SHORTNESS OF BREATH; Start 12/30/18 at 04:00 Levetiracetam (Keppra) 500 mg BID PO Last administered on 01/01/19at 09:31; Admin Dose 500 MG; Start 12/30/18 at 09:00 Vancomycin HCl 1.25 gm/Sodium Chloride 250 ml @ 83.333 mls/ hr Q8H IVPB Last administered on 01/01/19 05:22; Admin Dose 83.333 MLS/HR; Start 12/30/18 at 05:00 Azithromycin 250 ml @ 250 mls/hr Q24H IVPB Last administered on 01/01/19at 02:55; Admin Dose 250 MLS/HR; Start 12/31/18 at 03:00 Ipratropium [place] (Atrovent 0.02% (Neb)) 0.5 mg Q4HWA RESP THERAPY HHN Last administered on 12/31/18at 08:13; Admin Dose 0.5 MG; Start 12/30/18 at 13:00 Oxycodone/ Acetaminophen (Percocet (5/ 325)) 1 tab Q4H PRN PO MODERATE PAIN LEVEL 4-6; Start 12/31/18 at 12:30; Status Hold Sodium Chloride 1,000 ml @ 100 mls/hr Q10H IV Last administered on 01/01/19at 10:28; Admin Dose 80 MLS/HR; Start 12/31/18 at 14:00 Naloxone HCl (Narcan) 0.2 mg Q2M PRN IV RR 8 BREATHS/MIN OR LESS; Start 12/31/18 at 15:00 Hydromorphone HCl (Dilaudid CLOCK MAKER) See protocol, below. Q4PCA IV Last administered on 01/01/19at 02:21; Admin Dose 6 MG; Start 12/31/18 at 15:00 Diphenhydramine HCl (Benadryl) 25 mg Q6H PRN IV Nausea or itching; Start 12/31/18 at 20:30 Promethazine HCl/ Codeine (Phenergan/ Codeine) 5 ml Q4H PRN PO COUGH; Start 01/01/19 at 12:00 JESÚS SPICER Jan 01, 2019 12:17
[2019-01-01] MEDS: LEVALBUTEROL (NEB) 1.25 MG/0.5 ML AMP HHN PRN ×2 (13:00→16:57)
[2019-01-01] MEDS: ACETAMINOPHEN 325 MG TAB PO PRN (13:59)
--- NOTE | 2019-01-01 14:38 | PN ---
Date/Time of Note Date/Time of Note DATE: 01/01/19 TIME: 14:30 Assessment/Plan VTE Prophylaxis Risk score (from Nsg)>0 risk: 6 Pharmacological prophylaxis: LMWH Lines/Catheters IV Catheter Type (from Nrsg): Peripheral IV Assessment/Plan Hospital Course 1. 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 Sepsis secondary to pneumonia Continue broad-spectrum antibiotics 3. Anemia of chronic disease Monitor 4. Tachycardia secondary to sepsis and/or tamponade Follow-up on 2D echo Cardiology consultation obtained Prophylaxis: Lovenox Result Diagram: 01/01/19 0426 01/01/19 0426 Results 24hrs Laboratory Tests Test 12/31/18 19:39 01/01/19 04:26 Lactic Acid Level 2.0 White Blood Count 24.7 H Red Blood Count 3.92 L Hemoglobin 9.7 L Hematocrit 30.9 L Mean Corpuscular Volume 78.8 Mean Corpuscular Hemoglobin 24.7 L Mean Corpuscular Hemoglobin Concent 31.4 L Red Cell Distribution Width 13.8 Platelet Count 600 H Mean Platelet Volume 8.0 Immature Granulocytes % 1.100 H Neutrophils % 84.2 H Lymphocytes % 6.9 L Monocytes % 7.2 Eosinophils % 0.4 Basophils % 0.2 Nucleated Red Blood Cells % 0.0 Immature Granulocytes # 0.270 H Neutrophils # 20.8 H Lymphocytes # 1.7 Monocytes # 1.8 H Eosinophils # 0.1 Basophils # 0.1 Nucleated Red Blood Cells # 0.0 Sodium Level 136 Potassium Level 4.0 Chloride Level 101 Carbon Dioxide Level 28 Anion Gap 7 Blood Urea Nitrogen 4 L Creatinine 0.70 Est Glomerular Filtrat Rate mL/min > 60 Glucose Level 109 Calcium Level 8.1 L Magnesium Level 2.0 Subjective 24 Hr Interval Summary Respiratory: shortness of breath Exam/Review of Systems Exam Vitals Vital Signs Date Temp Pulse Resp B/P (MAP) Pulse Ox O2 O2 Flow FiO2 Time Delivery Rate 01/01/19 101.6 13:59 01/01/19 137 28 94 Nasal 5.0 12:48 Cannula 01/01/19 143/75 10:00 (97) Intake and Output 7/212/31/18 01/01/19 1414:59 22:59 06:59 IntakeIntake Total 1320 ml 1544.583 ml 1356.667 ml OutputOutput Total 1900 ml 2400 ml BalanceBalance 1320 ml -355.417 ml -1043.333 ml Constitutional: alert, oriented Respiratory: clear to auscultation Cardiovascular: gallop Gastrointestinal: soft; No distended Musculoskeletal: nl extremities to inspection Results Results 24hrs Laboratory Tests Test 12/31/18 19:39 01/01/19 04:26 Lactic Acid Level 2.0 White Blood Count 24.7 H Red Blood Count 3.92 L Hemoglobin 9.7 L Hematocrit 30.9 L Mean Corpuscular Volume 78.8 Mean Corpuscular Hemoglobin 24.7 L Mean Corpuscular Hemoglobin Concent 31.4 L Red Cell Distribution Width 13.8 Platelet Count 600 H Mean Platelet Volume 8.0 Immature Granulocytes % 1.100 H Neutrophils % 84.2 H Lymphocytes % 6.9 L Monocytes % 7.2 Eosinophils % 0.4 Basophils % 0.2 Nucleated Red Blood Cells % 0.0 Immature Granulocytes # 0.270 H Neutrophils # 20.8 H Lymphocytes # 1.7 Monocytes # 1.8 H Eosinophils # 0.1 Basophils # 0.1 Nucleated Red Blood Cells # 0.0 Sodium Level 136 Potassium Level 4.0 Chloride Level 101 Carbon Dioxide Level 28 Anion Gap 7 Blood Urea Nitrogen 4 L Creatinine 0.70 Est Glomerular Filtrat Rate mL/min > 60 Glucose Level 109 Calcium Level 8.1 L Magnesium Level 2.0 Medications Medication Current Medications IV Flush (NS 3 ml) 3 ml PER PROTOCOL IV ; Start 12/30/18 at 04:00 Ondansetron HCl (Zofran Inj) 4 mg Q6H PRN IV NAUSEA/VOMITING; Start 12/30/18 at 04:00 Acetaminophen (Tylenol Tab) 650 mg Q6H PRN PO .PAIN 1-3 OR TEMP Last administered on 01/01/19at 13:59; Admin Dose 650 MG; Start 12/30/18 at 04:00 Docusate Sodium (Colace) 100 mg Q12H PRN PO .CONSTIPATION; Start 12/30/18 at 04:00 Bisacodyl (Dulcolax) 5 mg DAILY PRN PO .CONSTIPATION; Start 12/30/18 at 04:00 Enoxaparin Sodium (Lovenox) 40 mg DAILY SC Last administered on 01/01/19 09:36; Admin Dose 40 MG; Start 12/30/18 at 09:00 Vancomycin HCl (Vanco Iv Per Pharmacy) VANCOMYCIN PER PHARMACY PER PROTOCOL XX ; Start 12/30/18 at 04:00 Piperacillin Sod/ Tazobactam Sod 100 ml @ 200 mls/hr Q6 IVPB Last administered on 01/01/19 12:44; Admin Dose 200 MLS/HR; Start 12/30/18 at 06:00 Levalbuterol (Xopenex Neb) 1.25 mg Q4H RESP THERAPY PRN HHN SHORTNESS OF BREATH Last administered on 01/01/19 13:00; Admin Dose 1.25 MG; Start 12/30/18 at 04:00 Levetiracetam (Keppra) 500 mg BID PO Last administered on 01/01/19 09:31; Admin Dose 500 MG; Start 12/30/18 at 09:00 Vancomycin HCl 1.25 gm/Sodium Chloride 250 ml @ 83.333 mls/ hr Q8H IVPB Last administered on 01/01/19 13:59; Admin Dose 83.333 MLS/HR; Start 12/30/18 at 05:00 Azithromycin 250 ml @ 250 mls/hr Q24H IVPB Last administered on 01/01/19 02:55; Admin Dose 250 MLS/HR; Start 12/31/18 at 03:00 Ipratropium [place] (Atrovent 0.02% (Neb)) 0.5 mg Q4HWA RESP THERAPY HHN Last administered on 01/01/19 12:51; Admin Dose 0.5 MG; Start 12/30/18 at 13:00 Oxycodone/ Acetaminophen (Percocet (5/ 325)) 1 tab Q4H PRN PO MODERATE PAIN LEVEL 4-6; Start 12/31/18 at 12:30; Status Hold Sodium Chloride 1,000 ml @ 100 mls/hr Q10H IV Last administered on 01/01/19 14:13; Admin Dose 100 MLS/HR; Start 12/31/18 at 14:00 Naloxone HCl (Narcan) 0.2 mg Q2M PRN IV RR 8 BREATHS/MIN OR LESS; Start 12/31/18 at 15:00 Hydromorphone HCl (Dilaudid MANAGER MAIL) See protocol, below. Q4PCA IV Last administered on 01/01/19at 12:35; Admin Dose 6 MG; Start 12/31/18 at 15:00 Diphenhydramine HCl (Benadryl) 25 mg Q6H PRN IV Nausea or itching; Start 12/31/18 at 20:30 Promethazine HCl/ Codeine (Phenergan/ Codeine) 5 ml Q4H PRN PO COUGH; Start 01/01/19 at 12:00 JAMIN INFANTE Jan 01, 2019 14:38
--- NOTE | 2019-01-01 14:42 | PN ---
Date/Time of Note Date/Time of Note DATE: 01/01/19 TIME: 14:09 Assessment/Plan Lines/Catheters IV Catheter Type: Peripheral IV Assessment/Plan Hospital Course 18-year-old male with history of epilepsy, stable on Keppra, recently discharged after admit 12/18, diagnosed with large mediastinal yolk sac tumor tumor with plans for sperm banking followed by chemotherapy.Patient is now presenting with new respiratory symptoms including cough and chest pain. In the emergency room, chest x-ray showed revealed interval development of left lower lobe atelectasis versus consolidation with small pleural effusion. Although it is possible the patient has left lower lobe atelectasis related to the tumor, it is also possible the patient has pneumonia. Fevers and tachycardia have been present throughout the prior admission, and continue. At admission, white blood cell count 24.3, hemoglobin 10.7, platelets of 736. Chem-7 panel was unremarkable. Initial lactate 2.2, but the repeat was 1.4. Liver enzymes are normal. Renal function is good. Albumin is low. LDH, beta-HCG and AFP are elevated consistent with his neoplasm. Hospital course: Patient has had ill appearance with tachycardia, fevers, and is experiencing moderate chest pain, now better controlled on Dilaudid AEROBICS INSTRUCTOR. Doreen ates some food, limited by nausea. Clinically meets criteria for severe sepsis and is on Vancomycin, Zosyn, and azithromycin as suggested by ID. Transferred to ICU 12/31. Repeat CXR revealed worsening L effusion. Now has O2 requirement. Sputum growing staph aureus. 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 No obvious metastases. He has Mediport in place and 2D echo done in preparation for chemo. Given large size of mass and concern for airway compression, per oncologist Dr. Smith chemo should begin in hospital. Current plan is 2 cycles of chemo, restaging, and after 4 cycles restaging and transferred to tertiary care cardiothoracic surgeon for section of residual mass. VIP planned by oncology for 1 week from now following banking of sperm, which social work has helped to arrange for LOBITO in the hospital. Neuro: Seizures: Continue Keppra. Stable. Pain control: Currently receiving AEROBICS INSTRUCTOR dilaudid, fairly well controlled. Consider NSAID if needed. Resp: Worsening L effusion, decreased breath sounds on L, requiring 4L O2 by n.c. Likely staph pneumonia, postobstructive. Effusion however could be infectious, malignant, or both. CT chest and u/s guided thoracentesis pending today. FEN/GI: Regular diet and intravenous fluids. Electrolytes stable. Has Zofran prn, recommend using with caution with azithromycin; ordered Benadryl prn nausea as well; may consider starting olanzapine for management of nausea as needed, especially when VIP started. Hypoalbuminemia. Weight gain 5 kg noted 12/31-01/01 related apparently to fluid retention. CV: Tachycardia persists, partly pain related, BP stable. Heme: VTE prophylaxis: Lovenox. Anemia, thrombocytosis, leukocytosis. See heme/onc recommendations. L forearm edema appears to be related to s.c. hematoma from blood draws. Watch carefully and avoid further draws there. ID: Pneumonia and sepsis, antibiotics as per ID recommendations. Likely staph aureus; final ID on sputum cx pending. Blood cultures negative to date. Broad spectrum coverage currently with Vanco, Zosyn, zithromax; consider tailoring therapy to culture results now if ID agrees. CRP quite elevated consistent with this; procalcitonin intermediate consistent with bacterial infection modified by effective antibiotics. Fevers likely also related to neoplasm, cannot rely on this measure for evaluation of control. Renal: good renal function and UOP. 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 Body habitus does not appear to be suggestive but this can be misleading. Sperm banking pending; may be a consideration in light of that as most males do not produce viable spermatozoa. Will order karyotype. We will continue to follow as [facility] consultants while in hospital. Primary team has requested transfer to higher level of care institution; I certainly support that decision if best surgical/oncological treatment deemed beyond the capabilities available here. Agree with current management from our very capable adult hospitalist team. Problems: (1) Pleural effusion Status: Acute (2) Seizure disorder Status: Chronic (3) Nonseminomatous germ cell neoplasm Status: Acute (4) Pneumonia Status: Acute Qualifiers: Pneumonia type: due to unspecified organism Laterality: left Lung location: lower lobe of lung Qualified Codes: J18.1 - Lobar pneumonia, unspecified organism (5) Sepsis Status: Acute Qualifiers: Sepsis type: sepsis due to unspecified organism Qualified Codes: A41.9 - Sepsis, unspecified organism Subjective 24 Hr Interval Summary Pain better controlled he says on AEROBICS INSTRUCTOR, overall feels similar to yesterday, sometimes now hiccoughs, L chest pain radiating to both shoulders. Transferred to ICU yesterday, now requiring O2 but says difficulty with breathing is unchanged. Tolerated some food. Constitutional: febrile (intermittently), requiring O2 Pain Control: well controlled, moderate Skin: no complaints Eyes: no complaints HENT: no complaints Respiratory: cough Cardiovascular: chest pain Gastrointestinal: nausea; No vomiting Genitourinary: no complaints Neurologic: no complaints Musculoskeletal: edema (L forearm, some pain there) Objective Vital Signs Vitals Vital Signs Date Temp Pulse Resp B/P (MAP) Pulse Ox O2 O2 Flow FiO2 Time Delivery Rate 01/01/19 101.6 13:59 01/01/19 137 28 94 Nasal 5.0 12:48 Cannula 01/01/19 143/75 10:00 (97) Intake and Output 12/31/18 12/31/18 01/01/19 1414:59 22:59 06:59 IntakeIntake Total 1320 ml 1544.583 ml 1356.667 ml OutputOutput Total 1900 ml 2400 ml BalanceBalance 1320 ml -355.417 ml -1043.333 ml Exam General: other (thin, shifts weight uncomfortably, partially sitting up.) Skin: nl (but pale) Head: NC/AT Eyes: No conjunctivitis ENT: nl nasal mucosa/septum Lymphatic: nl lymph nodes Neck: supple, non-tender Chest: symmetrical Respiratory: other (Decreased breath sounds L hemithorax, dullenss to percussion.) Cardiovascular: RRR, nl S1 & S2, <2 sec cap refill Gastrointestinal: soft, ND, NT; No HSM Neurological: nl muscle tone Musculoskeletal: other (low muscle mass); No joint erythema Extremities: warm, well-perfused, senior accounting manager <2 sec, edema (L forearm, with antecubital tenderness.) Results Result Diagram: 01/01/196 01/01/19425 Results 24 hrs Laboratory Tests Test 12/31/18 14:30 12/31/18 19:39 01/01/19 04:26 Uric Acid 2.5 L Lactate Dehydrogenase 1631 H C-Reactive Protein 24.0 H Procalcitonin 0.45 H Lactic Acid Level 2.0 White Blood Count 24.7 H Red Blood Count 3.92 L Hemoglobin 9.7 L Hematocrit 30.9 L Mean Corpuscular Volume 78.8 Mean Corpuscular Hemoglobin 24.7 L Mean Corpuscular Hemoglobin Concent 31.4 L Red Cell Distribution Width 13.8 Platelet Count 600 H Mean Platelet Volume 8.0 Immature Granulocytes % 1.100 H Neutrophils % 84.2 H Lymphocytes % 6.9 L Monocytes % 7.2 Eosinophils % 0.4 Basophils % 0.2 Nucleated Red Blood Cells % 0.0 Immature Granulocytes # 0.270 H Neutrophils # 20.8 H Lymphocytes # 1.7 Monocytes # 1.8 H Eosinophils # 0.1 Basophils # 0.1 Nucleated Red Blood Cells # 0.0 Sodium Level 136 Potassium Level 4.0 Chloride Level 101 Carbon Dioxide Level 28 Anion Gap 7 Blood Urea Nitrogen 4 L Creatinine 0.70 Est Glomerular Filtrat Rate mL/min > 60 Glucose Level 109 Calcium Level 8.1 L Magnesium Level 2.0 Medications Medications Current Medications IV Flush (NS 3 ml) 3 ml PER PROTOCOL IV ; Start 12/30/18 at 04:00 Ondansetron HCl (Zofran Inj) 4 mg Q6H PRN IV NAUSEA/VOMITING; Start 12/30/18 at 04:00 Acetaminophen (Tylenol Tab) 650 mg Q6H PRN PO .PAIN 1-3 OR TEMP Last administered on 01/01/19at 13:59; Admin Dose 650 MG; Start 12/30/18 at 04:00 Docusate Sodium (Colace) 100 mg Q12H PRN PO .CONSTIPATION; Start 12/30/18 at 04:00 Bisacodyl (Dulcolax) 5 mg DAILY PRN PO .CONSTIPATION; Start 12/30/18 at 04:00 Enoxaparin Sodium (Lovenox) 40 mg DAILY SC Last administered on 01/01/19at 09:36; Admin Dose 40 MG; Start 12/30/18 at 09:00 Vancomycin HCl (Vanco Iv Per Pharmacy) VANCOMYCIN PER PHARMACY PER PROTOCOL XX ; Start 12/30/18 at 04:00 Piperacillin Sod/ Tazobactam Sod 100 ml @ 200 mls/hr Q6 IVPB Last administered on 01/01/19at 12:44; Admin Dose 200 MLS/HR; Start 12/30/18 at 06:00 Levalbuterol (Xopenex Neb) 1.25 mg Q4H RESP THERAPY PRN HHN SHORTNESS OF BREATH Last administered on 01/01/19 13:00; Admin Dose 1.25 MG; Start 12/30/18 at 04:00 Levetiracetam (Keppra) 500 mg BID PO Last administered on 01/01/19 09:31; Admin Dose 500 MG; Start 12/30/18 at 09:00 Vancomycin HCl 1.25 gm/Sodium Chloride 250 ml @ 83.333 mls/ hr Q8H IVPB Last administered on 01/01/19 13:59; Admin Dose 83.333 MLS/HR; Start 12/30/18 at 05:00 Azithromycin 250 ml @ 250 mls/hr Q24H IVPB Last administered on 01/01/19 02:55; Admin Dose 250 MLS/HR; Start 12/31/18 at 03:00 Ipratropium [place] (Atrovent 0.02% (Neb)) 0.5 mg Q4HWA RESP THERAPY HHN Last administered on 01/01/19 12:51; Admin Dose 0.5 MG; Start 12/30/18 at 13:00 Oxycodone/ Acetaminophen (Percocet (5/ 325)) 1 tab Q4H PRN PO MODERATE PAIN LEVEL 4-6; Start 12/31/18 at 12:30; Status Hold Sodium Chloride 1,000 ml @ 100 mls/hr Q10H IV Last administered on 01/01/19 10:28; Admin Dose 80 MLS/HR; Start 12/31/18 at 14:00 Naloxone HCl (Narcan) 0.2 mg Q2M PRN IV RR 8 BREATHS/MIN OR LESS; Start 12/31/18 at 15:00 Hydromorphone HCl (Dilaudid AEROBICS INSTRUCTOR) See protocol, below. Q4PCA IV Last administered on 01/01/19 12:35; Admin Dose 6 MG; Start 12/31/18 at 15:00 Diphenhydramine HCl (Benadryl) 25 mg Q6H PRN IV Nausea or itching; Start 12/31/18 at 20:30 Promethazine HCl/ Codeine (Phenergan/ Codeine) 5 ml Q4H PRN PO COUGH; Start 01/01/19 at 12:00 HEATH KOLB MD Jan 01, 2019 14:33
--- NOTE | 2019-01-01 15:34 | RADRPT ---
Echocardiogram Report Patient Name: Carlene WATSON ID: [id number] : 2000 (18y 7m)Study Date: 01/01/2019 1:40:12 PM Gender: MAccession #: [id number] Tech: Hernan Red [facility] Location: [address] Ref.Physician: ANGIE LANDEROS Height(Cm): BSA: Weight(Kg): Quality: AdequateOrder Physician: ANGIE LANDEROS Account #: Procedures: Echocardiographic Report: Transthoracic echocardiogram examination. Indications: Pericardial Effusion, R/o tamponade. Measurements: 2D/M Mode Doppler Measurement Value Normal Range Measurement Value Normal Range LVIDd 2D 4.7 [ 4.2 - 5.8 ] cm TR Peak Kana 2.9 [ 100.0 - 280.0 ] cm/sec LVIDs 2D 3.3 [ 2.5 - 4.0 ] cm TR Peak PG 33.0 mmHg IVSd 2D 0.8 [ 0.6 - 1.0 ] cm AoR Diam 2D 2.6 [ 2.6 - 3.4 ] cm LA Dimen 2D 2.0 [ 3.0 - 4.0 ] cm Findings: Left Ventricle: Normal left ventricular cavity size. Lower limits of normal left ventricular systolic function. Normal left ventricular wall thickness. The left ventricular ejection fraction is visually estimated at 55 %. Right Ventricle: Moderate enlargement of right ventricle. Moderate right ventricular hypokinesis. Abnormal (paradoxical) septal motion consistent with RV volume overload and/or elevated RV end-diastolic pressure. Left Atrium: The left atrium is normal in size and appearance. Right Atrium: Mild RA enlargement (40mm-45mm). Mitral Valve: Mild mitral annular calcification. Calcified Leaflets Mitral valve leaflet appear mildly clacified. Trivial mitral regurgitation. Aortic Valve: Aortic cusps appear mildly calcified. Tricuspid Valve: Normal appearance of the tricuspid valve. The estimated Peak RVSP is 33 mmHg. There is mild tricuspid regurgitation. Pericardium: Moderate pericardial effusion. Possible early onset of Tamponade. Left pleural effusion seen. IVC: Inferior vena cava without collapse, however, insufficient diaphragm movement. Conclusions: Normal left ventricular cavity size. Lower limits of normal left ventricular systolic function. Normal left ventricular wall thickness. The left ventricular ejection fraction is visually estimated at 55 %. Moderate enlargement of right ventricle. Moderate right ventricular hypokinesis. Abnormal (paradoxical) septal motion consistent with RV volume overload and/or elevated RV end-diastolic pressure. Mild RA enlargement (40mm-45mm). Normal appearance of the tricuspid valve. The estimated Peak RVSP is 33 mmHg. There is mild tricuspid regurgitation. Mild mitral annular calcification. Calcified Leaflets Mitral valve leaflet appear mildly clacified. Trivial mitral regurgitation. Electronically Signed By: Sheldon Barrera 2019-01-01 15:33:23 PDT
[2019-01-01] MEDS ORDERED: COLCHICINE 0.6 MG CAP PO ONE (16:30)
--- NOTE | 2019-01-01 16:47 | CONS ---
DATE OF ADMISSION: 12/30/2018 DATE OF CONSULTATION: 01/01/2019 TYPE OF CONSULTATION: Pulmonary. Thank you, Dr. Hebert, for this consultation. 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 The pat ient was discharged home, but readmitted several days later with increasing shortness of breath, orth opnea, PND, tachycardia, significant leukocytosis with concern for possible postobstructive pneumonia . The patient also has a history of epilepsy which apparently is stable at present. MEDICATIONS: Per chart. ALLERGIES: NONE. SOCIAL HISTORY: Nonsmoker, no alcohol, no history of drug use. FAMILY HISTORY: Noncontributory. SYSTEMS REVIEW: A 12-point review of systems was negative other than that mentioned above. PHYSICAL EXAMINATION: GENERAL: Thin young gentleman, appears comfortable at rest, in no acute distress. VITAL SIGNS: Currently afebrile, pulse is 130, T-max was 100, blood pressure 143/74, O2 saturation 9 6% on 4 liters. NECK: Supple. No JVD or lymphadenopathy. CARDIAC: S1, S2. No added sounds or murmurs. CHEST: Diminished air entry both bases. ABDOMEN: Soft, nontender. No guarding or rebound. EXTREMITIES: No cyanosis, clubbing, 1+ edema. NEUROLOGIC: Grossly intact. No focal deficits. LABORATORY DATA: White count 24.7, hemoglobin 9.7, platelets of 600. BUN 4, creatinine 0.7. ABG: pH 7.44, pCO2 of 38, pO2 of 85. DIAGNOSTIC DATA: Chest x-ray demonstrates large left pleural effusion and consolidation in the left lung with surrounding anterior mediastinal mass. IMPRESSION AND PLAN: Nonseminomatous germ cell tumor with subsequent hypoxemia, possible postobstruc tive pneumonia, left pleural effusion, complicated by tachycardia and probable underlying sepsis. The patient will require: 1. Continued broad spectrum antibiotics per infectious diseases. 2. CT chest with possible thoracentesis of left pleural effusion. 3. Aggressive volume resuscitation. 4. DVT and GI prophylaxis. 5. Echocardiogram to evaluate and exclude tamponade physiology. Dictated By: ANGIE TIDWELL/[place] Conf#: [id number] DID#: [id number] CC: ALEX SANTANA MD; JAMIN INFANTE MD; RADHA HEBERT MD;*EndCC*
[2019-01-01] MEDS ORDERED: LIDOCAINE 1% (MPF) 5 ML VIAL ONE (17:08)
[2019-01-01] MEDS: IBUPROFEN 600 MG TAB PO SCH ×2 (18:28→23:00)
--- NOTE | 2019-01-01 20:45 | CONS ---
DATE OF ADMISSION: 12/30/2018 DATE OF CONSULTATION: 01/01/2019 REASON FOR CONSULTATION: Pericardial effusion. REQUESTING PHYSICIAN: Uyen Fuller MD, from the hospitalist service. HISTORY OF PRESENT ILLNESS: Mr. Rodriguez is a 18-year-old male with history of epilepsies, on Keppra, a recent diagnosis of large mediastinal yolk sac tumor who had been discharged to outpatient followup and now represents with complaints of cough, pleuritic chest pain. Upon arrival in the [facility] room, temperature of 102.4, blood pressure of 127/68, pulse 163, respiratory rate 22, satting 96%. The patient's labs were notable for a white count of 24.3, hemoglobin 10.7, a platelet count of 736. Sodium of 135, potassium 4.4, creatinine 0.7, BUN 8. Lactic acid 2.2. Troponin negative. IN R 1.1. Tox screen with vancomycin level 11.6. UA negative. The patient underwent a chest x-ray rev ealing interval development of left lower lobe atelectasis consolidation with small pleural effusion, known large anterior mediastinal mass which obscures the cardiac border, stable position of right Po rt-A-Cath with tip overlying the cavoatrial junction with a followup chest x-ray revealing a larger l eft pleural effusion. The patient's electrocardiogram revealed sinus tachycardia, rate of 161, radha l axis, normal intervals, nonspecific ST-T wave abnormalities. The patient was then admitted to the ICU and at this time is undergoing a thoracentesis and has had recurrent fever of 101.6 at 2:00. The patient at this time states that he has chest pain with coughing, deep inspiration, not necessarily positional. PAST MEDICAL HISTORY: As above in HPI. MEDICATIONS CURRENTLY IN HOSPITAL: 1. Phenergan. 2. Narcan. 3. Dilaudid. 4. IV fluid hydration 100 mL an hour. 5. Lovenox 40 mg subQ daily. 6. Keppra 500 mg b.i.d. 7. Zosyn. 8. Vancomycin. 9. Tylenol p.r.n. 10. Colace p.r.n. ALLERGIES: NO KNOWN DRUG ALLERGIES. SOCIAL HISTORY: No current tobacco, ETOH, occasional marijuana usage. FAMILY HISTORY: No history of sudden cardiac or early CAD. REVIEW OF SYSTEMS: As above in the HPI. CONSTITUTIONAL: Positive fevers. PULMONARY: Positive shortness of breath. CARDIOVASCULAR: Tachycardia. GASTROINTESTINAL: No vomiting. GENITOURINARY: No hematuria. MUSCULOSKELETAL: Degenerative joint disease. PSYCHIATRIC: The patient denies depression. NEUROLOGIC: No documented history of CVA. ENDOCRINE: No documented history of diabetes mellitus or thyroid disease. PHYSICAL EXAMINATION: VITAL SIGNS: T-max of 101.6, T-current 99.6, blood pressure most recently of 143/75, respiratory rat e 20, satting 95% on 4 liters. GENERAL: The patient is alert, awake, complaining of shortness of breath. NECK: JVP approximately 8 to 9 cm of water. CHEST: Upper airway transmitted rhonchorous sounds. HEART: Tachycardic, regular rate and rhythm. Normal S1, S2, I/ systolic murmur. ABDOMEN: Positive bowel sounds, soft. EXTREMITIES: No significant pitting edema, 1+ pulses bilateral posterior tibial. LABORATORY DATA: Most recently from today, sodium 136, potassium 4.0, creatinine 0.7, BUN of 4 and m agnesium 2.0. White blood cell count 24.7, hemoglobin 9.7, platelet count of 600. IMAGING STUDIES: As above in the HPI. No further imaging studies for my review at this time. ELECTROCARDIOGRAM: From 12/30/2018 revealed as above, sinus tachycardia, rate of 161, normal axis, n ormal intervals, nonspecific ST-T wave abnormalities. ECHOCARDIOGRAM: I reviewed the patient's echocardiogram from today, and he has a moderate pericardia l effusion with questionable early changes for a tamponade physiology, but is not significantly stearns ed from the patient's 2D echo done on 12/23/2018 where he also had a moderate sized effusion, at that time called small to moderate. IMPRESSION: 1. Pericardial effusion with questionable early tamponade features. Currently, the patient with sta ble blood pressure, but is tachycardic, but he is also in respiratory distress, undergoing a thoracen tesis and having a high-grade fever at this time; therefore difficult to discern true clinical tampon dunia. 2. Tachycardia consistent with sinus tachycardia at this time, questionable due to pain, fever or ac tual pericardial effusion, or a combination of all these likely. 3. History of mediastinal mass, yolk sac tumor. 4. Lower lobe pneumonia. 5. Large pleural effusion, undergoing thoracentesis at this time. 6. Leukocytosis, severe. 7. Anemia. 8. Thrombocytopenia. RECOMMENDATIONS: 1. At this time, we would maintain patient in ICU on close monitoring. 2. We would likely check a repeat echo if the patient remains clinically stable in the morning to as sess for any significant increase and need for pericardiocentesis which the patient may need during t his index admission. 3. Continue the patient's thoracentesis to completion and send all the studies and cultures appropri ately. 4. Treat the patient's fevers. 5. Continue the patient's antibiotics and follow up all culture data. 6. Continue the patient's Keppra at this time for prevention of seizures. 7. We would consider NSAIDs in addition for possible treatment of a pericarditis which led to perica rdial effusion and/or colchicine. 8. We will follow this patient very closely and I wanted to be updated on any hemodynamic changes an d need for pericardiocentesis. Dictated By: TOM GIRALDO/[place] Conf#: [id number] DID#: [id number] CC: RADHA HEBERT MD; UYEN FULLER MD;*End*
[2019-01-02] VITALS (23 sets, daily range): BP systolic 54–141; BP diastolic 17–78; PULSE 112–155; RESP 15–33
[2019-01-02] MEDS: LEVALBUTEROL (NEB) 1.25 MG/0.5 ML AMP HHN PRN ×2 (02:51→11:13)
[2019-01-02] MEDS: AZITHROMYCIN 500MG/NS (PMX) 250 ML IVPB SCH (03:54)
[2019-01-02] MEDS: ONDANSETRON 4 MG INJ IV PRN ×3 (03:54→21:05)
[2019-01-02] MEDS: ACETAMINOPHEN 325 MG TAB PO PRN ×2 (04:04→19:31)
[2019-01-02] MEDS: VANCOMYCIN HCL 1.25 GM in SOD CHLORIDE 0.9% 250 ML IVPB SCH ×3 (06:18→20:40)
[2019-01-02] MEDS: IBUPROFEN 600 MG TAB PO SCH ×3 (06:18→21:12)
[2019-01-02] MEDS: PIPER-TAZO 3.375 GM IV (PMX) 100 ML IVPB SCH ×4 (06:18→23:50)
[2019-01-02] MEDS: IPRATROPIUM (NEB) 0.5 MG/2.5 ML AMP HHN SCH ×5 (09:00→21:35)
[2019-01-02] MEDS: ENOXAPARIN 40 MG/0.4 ML SYG SC SCH (09:00)
--- NOTE | 2019-01-02 09:46 | CONS ---
Assessment/Plan Assessment/Plan Hospital Course (Demo Recall) ID PROGRESS NOTE CURRENT ABX: DAY # 4 =>Vanco IV #4 + Zosyn #4 s/p Azith 01/02/19 0441 01/02/19 0441 24H INTERVAL SUMMARY * 18 yo cachectic M, VSS, without productive sputum - without dyspnea on supplemental O2 via NC * Mild tachycardia HR 116, (+)Intermittent fevers and low grade temps no new issues, nor complaints * POD #-> S/P 12/20/[address] guided mediastinal mass biopsy. 2. No complications occurred. 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 Clinical correlation is advised. * 12/18/18 BCX (-) * QFT neg, HIV neg MICRO * 12/31/18 (-)MRSA NARES * 12/31/18 RESP CX: RESPIRATORY CULTURE Preliminary Organism 1 STAPHYLOCOCCUS AUREUS QUANTITY SCANT GROWTH Organism 2 NORMAL RESPIRATORY ZOFIA QUANTITY 2+ * 12/30/18 BCX (-); Urine Cx (-) * 12/30/18 INFLUENZA A & B BY EIA Final INFLU A&B BY EIA INFLUENZA A NEGATIVE (Ref Range Neg) INFLUENZA B NEGATIVE (Ref Range Neg) DIAGNOSTIC IMAGING * 01/02/19 CXR: IMPRESSION:1. Large anterior mediastinal mass is again seen suggesting lymphoma or other lesion. Correlation with prior biopsy results is suggested. 2. Moderate left pleural effusion is again seen with presumed adjacent atelectasis. * 01/01/2019 CT CHEST: IMPRESSION:18.7 cm anterior mediastinal mass. Small right and small to moderate left pleural effusions. Extensive left lower lobe atelectasis. Patchy consolidative opacities in the right upper lobe, suspicious for pneumonia. The right lower lobe nodule seen in the prior CTA is not clearly visualized in this examination. Moderate pericardial effusion. * 12/20/18 CT A-P: IMPRESSION:No evidence of abdominal or pelvic mass or CT evidence for metastatic disease. Trace pleural fluid. No evidence of bowel ob struction or inflammation. Prominent fecal distension of the colon is suggestive for constipation. * 12/20/18 testicular us: 1. Benign cysts in the left epididymis, without concerning features. No evidence of epididymitis. 2. Normal sonographic findings of the bilateral testicles. No evidence of testicular mass or torsion. PHYSICAL EXAMINATION: GENERAL: VSS, NAD HEENT: AT, NC, NECK: Supple, CHEST: Rise symmetrical without dyspnea on observation HEART: Pulse RRR ABDOMEN: Benign EXTREMITIES: Warm, dry SKIN: No rash, no diaphoresis ID ASSESSMENT 18 yo M admit with: 1. 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 Seizure disorder 4. Fecal constipation prior admission 5. Thrombocytosis ABX ALLERGIES: KNDA INVASIVES: PIV CURRENT ABX: DAY # 4 =>Vanco IV #4 + Zosyn #4 s/p Azith ID RECOMMENDATIONS/PLAN: 1. Awaiting final results of preliminary STAPH AUREUS SPUTUM CX => Final pending 2. Will de-escalate ABX once final sputum Cx available . Consultation Date/Type/Reason Admit Date/Time Dec 30, 2018 at 03:30 Initial Consult Date Requesting Provider: RADHA HEBERT Date/Time of Note DATE: 01/02/19 TIME: 09:28 Exam/Review of Systems Exam Vitals Vital Signs Date Temp Pulse Resp B/P (MAP) Pulse Ox O2 O2 Flow FiO2 Time Delivery Rate 01/02/19 28 07:28 01/02/19 122 54/17 (29) 99 06:00 01/02/19 99.2 05:00 01/02/19 4.0 02:51 01/02/19 Nasal 02:51 Cannula Intake and Output 01/01/19 01/01/19 01/02/19 1515:00 23:00 07:00 IntakeIntake Total 810 ml 1900 ml 1150 ml OutputOutput Total 700 ml BalanceBalance 110 ml 1900 ml 1150 ml Results Result Diagram: 01/02/19 0441 01/02/19 0441 Results 24hrs Laboratory Tests Test 01/01/19 15:40 01/01/19 22:11 01/02/19 04:41 Body Fluid Type PLEURAL FLUID Body Fluid Volume 1075.0 Body Fluid Color CHE Body Fluid Appearance HAZY Body Fluid WBC 3495 Body Fluid RBC (Auto) 97575 Body Fluid Polynuclear WBCs (%) 89.4 Body Fluid Mononuclear Cells % Auto 10.6 Body Fluid Glucose 75 Body Fluid Total Protein 3.4 Body Fluid Lactate Dehydrogenase 7663 Troponin I 0.018 0.028 White Blood Count 20.0 H Red Blood Count 3.76 L Hemoglobin 9.4 L Hematocrit 29.7 L Mean Corpuscular Volume 79.0 Mean Corpuscular Hemoglobin 25.0 L Mean Corpuscular Hemoglobin Concent 31.6 L Red Cell Distribution Width 13.9 Platelet Count 536 H Mean Platelet Volume 7.9 Immature Granulocytes % 1.000 H Neutrophils % 85.3 H Lymphocytes % 6.0 L Monocytes % 6.9 Eosinophils % 0.6 Basophils % 0.2 Nucleated Red Blood Cells % 0.0 Immature Granulocytes # 0.190 H Neutrophils # 17.1 H Lymphocytes # 1.2 Monocytes # 1.4 H Eosinophils # 0.1 Basophils # 0.0 Nucleated Red Blood Cells # 0.0 Sodium Level 135 Potassium Level 4.0 Chloride Level 100 Carbon Dioxide Level 26 Anion Gap 9 Blood Urea Nitrogen 2 L Creatinine 0.55 L Est Glomerular Filtrat Rate mL/min > 60 Glucose Level 115 Calcium Level 7.8 L Phosphorus Level 4.0 Magnesium Level 2.0 Medications Medication Current Medications IV Flush (NS 3 ml) 3 ml PER PROTOCOL IV ; Start 12/30/18 at 04:00 Ondansetron HCl (Zofran Inj) 4 mg Q6H PRN IV NAUSEA/VOMITING Last administered on 01/02/19at 03:54; Admin Dose 4 MG; Start 12/30/18 at 04:00 Acetaminophen (Tylenol Tab) 650 mg Q6H PRN PO .PAIN 1-3 OR TEMP Last administered on 01/02/19at 04:04; Admin Dose 650 MG; Start 12/30/18 at 04:00 Docusate Sodium (Colace) 100 mg Q12H PRN PO .CONSTIPATION; Start 12/30/18 at 04:00 Bisacodyl (Dulcolax) 5 mg DAILY PRN PO .CONSTIPATION; Start 12/30/18 at 04:00 Enoxaparin Sodium (Lovenox) 40 mg DAILY SC Last administered on 01/01/19 09:36; Admin Dose 40 MG; Start 12/30/18 at 09:00 Vancomycin HCl (Vanco Iv Per Pharmacy) VANCOMYCIN PER PHARMACY PER PROTOCOL XX ; Start 12/30/18 at 04:00 Piperacillin Sod/ Tazobactam Sod 100 ml @ 200 mls/hr Q6 IVPB Last administered on 01/02/19 06:18; Admin Dose 200 MLS/HR; Start 12/30/18 at 06:00 Levalbuterol (Xopenex Neb) 1.25 mg Q4H RESP THERAPY PRN HHN SHORTNESS OF BREATH Last administered on 01/02/19 02:51; Admin Dose 1.25 MG; Start 12/30/18 at 04:00 Levetiracetam (Keppra) 500 mg BID PO Last administered on 01/01/19 21:23; Admin Dose 500 MG; Start 12/30/18 at 09:00 Vancomycin HCl 1.25 gm/Sodium Chloride 250 ml @ 83.333 mls/ hr Q8H IVPB Last administered on 01/02/19 06:18; Admin Dose 83.333 MLS/HR; Start 12/30/18 at 05:00 Azithromycin 250 ml @ 250 mls/hr Q24H IVPB Last administered on 01/02/19 03:54; Admin Dose 250 MLS/HR; Start 12/31/18 at 03:00 Ipratropium [place] (Atrovent 0.02% (Neb)) 0.5 mg Q4HWA RESP THERAPY HHN Last administered on 01/01/19 16:57; Admin Dose 0.5 MG; Start 12/30/18 at 13:00 Oxycodone/ Acetaminophen (Percocet (5/ 325)) 1 tab Q4H PRN PO MODERATE PAIN LEVEL 4-6; Start 12/31/18 at 12:30; Status Hold Sodium Chloride 1,000 ml @ 100 mls/hr Q10H IV Last administered on 01/01/19 21:45; Admin Dose 100 MLS/HR; Start 12/31/18 at 14:00 Naloxone HCl (Narcan) 0.2 mg Q2M PRN IV RR 8 BREATHS/MIN OR LESS; Start 12/31/18 at 15:00 Hydromorphone HCl (Dilaudid [employer]) See protocol, below. Q4PCA IV Last administered on 01/01/19at 23:54; Admin Dose 6 MG; Start 12/31/18 at 15:00 Diphenhydramine HCl (Benadryl) 25 mg Q6H PRN IV Nausea or itching; Start 12/31/18 at 20:30 Promethazine HCl/ Codeine (Phenergan/ Codeine) 5 ml Q4H PRN PO COUGH; Start 01/01/19 at 12:00 Ibuprofen (Motrin) 600 mg Q8 PO Last administered on 01/02/19at 06:18; Admin Dose 600 MG; Start 01/01/19 at 17:00 Colchicine (Colchicine) 0.6 mg DAILY PO ; Start 01/02/19 at 09:00 DELTA TAYLOR NP Jan 02, 2019 09:39
[2019-01-02] MEDS: LEVETIRACETAM 500 MG TAB PO SCH ×2 (10:49→20:40)
[2019-01-02] MEDS: COLCHICINE 0.6 MG CAP PO SCH (10:50)
[2019-01-02] MEDS ORDERED: LIDOCAINE 1% (MPF) 5 ML VIAL ONE (12:23)
[2019-01-02] MEDS: HYDROmorphONE 0.2 MG/ML PCA IV SCH ×2 (12:26→22:12)
--- NOTE | 2019-01-02 12:30 | PN ---
Date/Time of Note Date/Time of Note DATE: 01/02/19 TIME: 12:26 Assessment/Plan VTE Prophylaxis Risk score (from Nsg)>0 risk: 4 Pharmacological prophylaxis: LMWH Lines/Catheters IV Catheter Type (from Nrsg): Peripheral IV Assessment/Plan Hospital Course 1. 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 Sepsis secondary to pneumonia Continue broad-spectrum antibiotics 3. Anemia of chronic disease Monitor 4. Acute respiratory distress secondary to pneumonia and/or pleural effusions- improved Status post removal of 1 L, patient to have repeat thoracentesis today Pulmonology following 5. Tachycardia secondary to sepsis and/or mass-effect 2D echo with no evidence of tamponade Cardiology consultation obtained Prophylaxis: Lovenox Result Diagram: 01/02/19 0441 01/02/19 0441 Results 24hrs Laboratory Tests Test 01/01/19 15:40 01/01/19 22:11 01/02/19 04:41 Body Fluid Type PLEURAL FLUID Body Fluid Volume 1075.0 Body Fluid Color CHE Body Fluid Appearance HAZY Body Fluid WBC 3495 Body Fluid RBC (Auto) 44973 Body Fluid Polynuclear WBCs (%) 89.4 Body Fluid Mononuclear Cells % Auto 10.6 Body Fluid Glucose 75 Body Fluid Total Protein 3.4 Body Fluid Lactate Dehydrogenase 7663 Troponin I 0.018 0.028 White Blood Count 20.0 H Red Blood Count 3.76 L Hemoglobin 9.4 L Hematocrit 29.7 L Mean Corpuscular Volume 79.0 Mean Corpuscular Hemoglobin 25.0 L Mean Corpuscular Hemoglobin Concent 31.6 L Red Cell Distribution Width 13.9 Platelet Count 536 H Mean Platelet Volume 7.9 Immature Granulocytes % 1.000 H Neutrophils % 85.3 H Lymphocytes % 6.0 L Monocytes % 6.9 Eosinophils % 0.6 Basophils % 0.2 Nucleated Red Blood Cells % 0.0 Immature Granulocytes # 0.190 H Neutrophils # 17.1 H Lymphocytes # 1.2 Monocytes # 1.4 H Eosinophils # 0.1 Basophils # 0.0 Nucleated Red Blood Cells # 0.0 Sodium Level 135 Potassium Level 4.0 Chloride Level 100 Carbon Dioxide Level 26 Anion Gap 9 Blood Urea Nitrogen 2 L Creatinine 0.55 L Est Glomerular Filtrat Rate mL/min > 60 Glucose Level 115 Calcium Level 7.8 L Phosphorus Level 4.0 Magnesium Level 2.0 Subjective 24 Hr Interval Summary Constitutional: no complaints Exam/Review of Systems Exam Vitals Vital Signs Date Temp Pulse Resp B/P (MAP) Pulse Ox O2 O2 Flow FiO2 Time Delivery Rate 01/02/19 112 19 119/74 100 Room Air 10:53 (89) 01/02/19 98.0 08:04 01/02/19 4.0 02:51 Intake and Output 01/01/19 01/01/19 01/02/19 1515:00 23:00 07:00 IntakeIntake Total 890 ml 1900 ml 1150 ml OutputOutput Total 700 ml BalanceBalance 190 ml 1900 ml 1150 ml Constitutional: alert, oriented Respiratory: clear to auscultation Cardiovascular: regular rate and rhythm Gastrointestinal: soft; No distended Musculoskeletal: nl extremities to inspection Results Results 24hrs Laboratory Tests Test 01/01/19 15:40 01/01/19 22:11 01/02/19 04:41 Body Fluid Type PLEURAL FLUID Body Fluid Volume 1075.0 Body Fluid Color CHE Body Fluid Appearance HAZY Body Fluid WBC 3495 Body Fluid RBC (Auto) 22325 Body Fluid Polynuclear WBCs (%) 89.4 Body Fluid Mononuclear Cells % Auto 10.6 Body Fluid Glucose 75 Body Fluid Total Protein 3.4 Body Fluid Lactate Dehydrogenase 7663 Troponin I 0.018 0.028 White Blood Count 20.0 H Red Blood Count 3.76 L Hemoglobin 9.4 L Hematocrit 29.7 L Mean Corpuscular Volume 79.0 Mean Corpuscular Hemoglobin 25.0 L Mean Corpuscular Hemoglobin Concent 31.6 L Red Cell Distribution Width 13.9 Platelet Count 536 H Mean Platelet Volume 7.9 Immature Granulocytes % 1.000 H Neutrophils % 85.3 H Lymphocytes % 6.0 L Monocytes % 6.9 Eosinophils % 0.6 Basophils % 0.2 Nucleated Red Blood Cells % 0.0 Immature Granulocytes # 0.190 H Neutrophils # 17.1 H Lymphocytes # 1.2 Monocytes # 1.4 H Eosinophils # 0.1 Basophils # 0.0 Nucleated Red Blood Cells # 0.0 Sodium Level 135 Potassium Level 4.0 Chloride Level 100 Carbon Dioxide Level 26 Anion Gap 9 Blood Urea Nitrogen 2 L Creatinine 0.55 L Est Glomerular Filtrat Rate mL/min > 60 Glucose Level 115 Calcium Level 7.8 L Phosphorus Level 4.0 Magnesium Level 2.0 Medications Medication Current Medications IV Flush (NS 3 ml) 3 ml PER PROTOCOL IV ; Start 12/30/18 at 04:00 Ondansetron HCl (Zofran Inj) 4 mg Q6H PRN IV NAUSEA/VOMITING Last administered on 01/02/19 10:59; Admin Dose 4 MG; Start 12/30/18 at 04:00 Acetaminophen (Tylenol Tab) 650 mg Q6H PRN PO .PAIN 1-3 OR TEMP Last administered on 01/02/19 04:04; Admin Dose 650 MG; Start 12/30/18 at 04:00 Docusate Sodium (Colace) 100 mg Q12H PRN PO .CONSTIPATION; Start 12/30/18 at 04:00 Bisacodyl (Dulcolax) 5 mg DAILY PRN PO .CONSTIPATION; Start 12/30/18 at 04:00 Enoxaparin Sodium (Lovenox) 40 mg DAILY SC Last administered on 01/01/19 09:36; Admin Dose 40 MG; Start 12/30/18 at 09:00 Vancomycin HCl (Vanco Iv Per Pharmacy) VANCOMYCIN PER PHARMACY PER PROTOCOL XX ; Start 12/30/18 at 04:00 Piperacillin Sod/ Tazobactam Sod 100 ml @ 200 mls/hr Q6 IVPB Last administered on 01/02/19 06:18; Admin Dose 200 MLS/HR; Start 12/30/18 at 06:00 Levalbuterol (Xopenex Neb) 1.25 mg Q4H RESP THERAPY PRN HHN SHORTNESS OF BREATH Last administered on 01/02/19 11:13; Admin Dose 1.25 MG; Start 12/30/18 at 04:00 Levetiracetam (Keppra) 500 mg BID PO Last administered on 01/02/19 10:49; Admin Dose 500 MG; Start 12/30/18 at 09:00 Vancomycin HCl 1.25 gm/Sodium Chloride 250 ml @ 83.333 mls/ hr Q8H IVPB Last administered on 01/02/19 06:18; Admin Dose 83.333 MLS/HR; Start 12/30/18 at 05:00 Azithromycin 250 ml @ 250 mls/hr Q24H IVPB Last administered on 01/02/19at 03:54; Admin Dose 250 MLS/HR; Start 12/31/18 at 03:00 Ipratropium [place] (Atrovent 0.02% (Neb)) 0.5 mg Q4HWA RESP THERAPY HHN Last administered on 01/02/19at 11:13; Admin Dose 0.5 MG; Start 12/30/18 at 13:00 Oxycodone/ Acetaminophen (Percocet (5/ 325)) 1 tab Q4H PRN PO MODERATE PAIN LEVEL 4-6; Start 12/31/18 at 12:30; Status Hold Naloxone HCl (Narcan) 0.2 mg Q2M PRN IV RR 8 BREATHS/MIN OR LESS; Start 12/31/18 at 15:00 Hydromorphone HCl (Dilaudid FILENET ADMIN) See protocol, below. Q4PCA IV Last administered on 01/01/19at 23:54; Admin Dose 6 MG; Start 12/31/18 at 15:00 Diphenhydramine HCl (Benadryl) 25 mg Q6H PRN IV Nausea or itching; Start 12/31/18 at 20:30 Promethazine HCl/ Codeine (Phenergan/ Codeine) 5 ml Q4H PRN PO COUGH; Start 01/01/19 at 12:00 Ibuprofen (Motrin) 600 mg Q8 PO Last administered on 01/02/19at 06:18; Admin Dose 600 MG; Start 01/01/19 at 17:00 Colchicine (Colchicine) 0.6 mg DAILY PO Last administered on 01/02/19at 10:50; Admin Dose 0.6 MG; Start 01/02/19 at 09:00 Miscellaneous Information (*Rx Drug Level Order Reminder*) VANCO TROUGH @ 1,200 ON... 1200 ONCE XX ; Start 01/03/19 at 12:00; Stop 01/03/19 at 12:01 JAMIN INFANTE Jan 02, 2019 12:30
--- NOTE | 2019-01-02 12:46 | CONS ---
Consult Date/Type/Reason Admit Date/Time Dec 30, 2018 at 03:30 Initial Consult Date Type of Consultation: Pulm/CCM Requesting Provider: RADHA HEBERT Date/Time of Note DATE: 01/02/19 TIME: 12:41 Subjective s/p left thoracentesis x 2 ( each - 1 L). Respiratory status stable. Overall feels slightly better. Objective Vitals Vital Signs Date Temp Pulse Resp B/P (MAP) Pulse Ox O2 O2 Flow FiO2 Time Delivery Rate 01/02/19 12:28 01/02/19 118 12:00 01/02/19 119/74 100 Room Air 10:53 (89) 01/02/19 98.0 08:04 01/02/19 4.0 02:51 Intake and Output 01/01/19 01/01/19 01/02/19 1515:00 23:00 07:00 IntakeIntake Total 890 ml 1900 ml 1150 ml OutputOutput Total 700 ml BalanceBalance 190 ml 1900 ml 1150 ml Exam HEENT: Neck supple; no JVD; no LAD CVS: RRR, S1 and S2 CHEST: Decreased BS at bases b/l ABD: Soft, NT, + BS EXT: No c/c/e Results/Medications Result Diagram: 01/02/19 0441 01/02/19 0441 Results 24 hrs Laboratory Tests Test 01/01/19 15:40 01/01/19 22:11 01/02/19 04:41 Body Fluid Type PLEURAL FLUID Body Fluid Volume 1075.0 Body Fluid Color CHE Body Fluid Appearance HAZY Body Fluid WBC 3495 Body Fluid RBC (Auto) 55864 Body Fluid Polynuclear WBCs (%) 89.4 Body Fluid Mononuclear Cells % Auto 10.6 Body Fluid Glucose 75 Body Fluid Total Protein 3.4 Body Fluid Lactate Dehydrogenase 7663 Troponin I 0.018 0.028 White Blood Count 20.0 H Red Blood Count 3.76 L Hemoglobin 9.4 L Hematocrit 29.7 L Mean Corpuscular Volume 79.0 Mean Corpuscular Hemoglobin 25.0 L Mean Corpuscular Hemoglobin Concent 31.6 L Red Cell Distribution Width 13.9 Platelet Count 536 H Mean Platelet Volume 7.9 Immature Granulocytes % 1.000 H Neutrophils % 85.3 H Lymphocytes % 6.0 L Monocytes % 6.9 Eosinophils % 0.6 Basophils % 0.2 Nucleated Red Blood Cells % 0.0 Immature Granulocytes # 0.190 H Neutrophils # 17.1 H Lymphocytes # 1.2 Monocytes # 1.4 H Eosinophils # 0.1 Basophils # 0.0 Nucleated Red Blood Cells # 0.0 Sodium Level 135 Potassium Level 4.0 Chloride Level 100 Carbon Dioxide Level 26 Anion Gap 9 Blood Urea Nitrogen 2 L Creatinine 0.55 L Est Glomerular Filtrat Rate mL/min > 60 Glucose Level 115 Calcium Level 7.8 L Phosphorus Level 4.0 Magnesium Level 2.0 Home Meds Reported Medications Levetiracetam* (Keppra*) 500 Mg Tablet, 500 MG PO BID, TAB 12/18/18 Medications Current Medications IV Flush (NS 3 ml) 3 ml PER PROTOCOL IV ; Start 12/30/18 at 04:00 Ondansetron HCl (Zofran Inj) 4 mg Q6H PRN IV NAUSEA/VOMITING Last administered on 01/02/19at 10:59; Admin Dose 4 MG; Start 12/30/18 at 04:00 Acetaminophen (Tylenol Tab) 650 mg Q6H PRN PO .PAIN 1-3 OR TEMP Last administered on 01/02/19at 04:04; Admin Dose 650 MG; Start 12/30/18 at 04:00 Docusate Sodium (Colace) 100 mg Q12H PRN PO .CONSTIPATION; Start 12/30/18 at 04:00 Bisacodyl (Dulcolax) 5 mg DAILY PRN PO .CONSTIPATION; Start 12/30/18 at 04:00 Enoxaparin Sodium (Lovenox) 40 mg DAILY SC Last administered on 01/01/19at 09:36; Admin Dose 40 MG; Start 12/30/18 at 09:00 Vancomycin HCl (Vanco Iv Per Pharmacy) VANCOMYCIN PER PHARMACY PER PROTOCOL XX ; Start 12/30/18 at 04:00 Piperacillin Sod/ Tazobactam Sod 100 ml @ 200 mls/hr Q6 IVPB Last administered on 01/02/19at 12:35; Admin Dose 200 MLS/HR; Start 12/30/18 at 06:00 Levalbuterol (Xopenex Neb) 1.25 mg Q4H RESP THERAPY PRN HHN SHORTNESS OF BREATH Last administered on 01/02/19at 11:13; Admin Dose 1.25 MG; Start 12/30/18 at 04:00 Levetiracetam (Keppra) 500 mg BID PO Last administered on 01/02/19 10:49; Admin Dose 500 MG; Start 12/30/18 at 09:00 Vancomycin HCl 1.25 gm/Sodium Chloride 250 ml @ 83.333 mls/ hr Q8H IVPB Last administered on 01/02/19 06:18; Admin Dose 83.333 MLS/HR; Start 12/30/18 at 05:00 Azithromycin 250 ml @ 250 mls/hr Q24H IVPB Last administered on 01/02/19 03:54; Admin Dose 250 MLS/HR; Start 12/31/18 at 03:00 Ipratropium [place] (Atrovent 0.02% (Neb)) 0.5 mg Q4HWA RESP THERAPY HHN Last administered on 01/02/19 11:13; Admin Dose 0.5 MG; Start 12/30/18 at 13:00 Oxycodone/ Acetaminophen (Percocet (5/ 325)) 1 tab Q4H PRN PO MODERATE PAIN LEVEL 4-6; Start 12/31/18 at 12:30; Status Hold Naloxone HCl (Narcan) 0.2 mg Q2M PRN IV RR 8 BREATHS/MIN OR LESS; Start 12/31/18 at 15:00 Hydromorphone HCl (Dilaudid COMPOSING ROOM SUPERVISOR) See protocol, below. Q4PCA IV Last administered on 01/02/19 12:26; Admin Dose 6 MG; Start 12/31/18 at 15:00 Diphenhydramine HCl (Benadryl) 25 mg Q6H PRN IV Nausea or itching; Start 12/31/18 at 20:30 Promethazine HCl/ Codeine (Phenergan/ Codeine) 5 ml Q4H PRN PO COUGH; Start 01/01/19 at 12:00 Ibuprofen (Motrin) 600 mg Q8 PO Last administered on 01/02/19 06:18; Admin Dose 600 MG; Start 01/01/19 at 17:00 Colchicine (Colchicine) 0.6 mg DAILY PO Last administered on 01/02/19 10:50; Admin Dose 0.6 MG; Start 01/02/19 at 09:00 Miscellaneous Information (*Rx Drug Level Order Reminder*) VANCO TROUGH @ 1,200 ON... 1200 ONCE XX ; Start 01/03/19 at 12:00; Stop 01/03/19 at 12:01 Assessment/Plan Assessment/Plan (Daily) IMP: 1. Hypoxemic Respiratory Insufficiency--2/2 large mediastinal yolk sac tumor with associated mainstem bronchial compression, pleural effusions, and post- obstructive pna. 2. 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 Left pleural effusion--lymphocytic predominant exudate--awaiting cytology 4. Anemia 5. Tachycardia RECS: 1. Titrate FiO2 as tolerated 2. Abx per ID 3. Pleural fluid cytology 4. Await initiation of chemotherapy 5. Observe in ICU 6. Bronchodilators 40 min cc time ROBEL DAVID MD Jan 02, 2019 12:46
--- NOTE | 2019-01-02 15:00 | RADRPT ---
Vent Rate: 103 bpm RR Interval: 580 msec MN Interval: 146 msec QRS Duration: 59 msec QT Interval: 338 msec QTC Interval: 444 msec P-R-T [place]: 57 - 62 - 58 degrees Sinus tachycardia...rate> 99 Low voltage, precordial leads...precordial leads <1.0mV ST elev, probable normal early repol pattern...ST elevation, age<55 Lead(s) III were not used for morphology analysis Electronically Signed By: Severo Ponce
--- NOTE | 2019-01-02 15:01 | CONS ---
Consult Date/Type/Reason Admit Date/Time Dec 30, 2018 at 03:30 Initial Consult Date Type of Consultation: Pulm/CCM Requesting Provider: RADHA HEBERT Date/Time of Note DATE: 01/02/19 TIME: 14:59 Subjective Pt still in ICU - feels better today - s/p another thoracocentesis - ECHO done - will review - not in tamponade by exam. ROS: No fever, no chills, no nausea, no vomiting, no diarrhea/constipation No recent weight changes No chest pain, no PND, no orthopnea + MCKEON, + SOB No dizziness, blurred vision No thirst, no heat or cold intolerance Objective Vitals Vital Signs Date Temp Pulse Resp B/P (MAP) Pulse Ox O2 O2 Flow FiO2 Time Delivery Rate 01/02/19 97.7 12:45 01/02/19 22 12:28 01/02/19 121 111/64 98 Nasal 4.0 12:14 (80) Cannula Intake and Output 01/01/19 01/01/19 01/02/19 1414:59 22:59 06:59 IntakeIntake Total 910 ml 1610 ml 1500 ml OutputOutput Total 700 ml BalanceBalance 210 ml 1610 ml 1500 ml Exam General: WN/WD/NAD, AOx 3 HEENT: Unicetric/atraumatic/EOMI (follows commands) NECK: JVD elevated, no thyromegaly Lymph: no lymphadenopathy HEART: regular with no S3, II/ systolic murmur at apex, + rub LUNGS: Coarse sounds ABD: soft, NT, ND, +BS : Intact Neuro: non focal SKIN: chronic changes EXT: no edema Results/Medications Result Diagram: 01/02/1944001/02/19440 Results 24 hrs Laboratory Tests Test 01/01/19 15:40 01/01/19 22:11 01/02/19 04:41 Body Fluid Type PLEURAL FLUID Body Fluid Volume 1075.0 Body Fluid Color CHE Body Fluid Appearance HAZY Body Fluid WBC 3495 Body Fluid RBC (Auto) 31340 Body Fluid Polynuclear WBCs (%) 89.4 Body Fluid Mononuclear Cells % Auto 10.6 Body Fluid Glucose 75 Body Fluid Total Protein 3.4 Body Fluid Lactate Dehydrogenase 7663 Troponin I 0.018 0.028 White Blood Count 20.0 H Red Blood Count 3.76 L Hemoglobin 9.4 L Hematocrit 29.7 L Mean Corpuscular Volume 79.0 Mean Corpuscular Hemoglobin 25.0 L Mean Corpuscular Hemoglobin Concent 31.6 L Red Cell Distribution Width 13.9 Platelet Count 536 H Mean Platelet Volume 7.9 Immature Granulocytes % 1.000 H Neutrophils % 85.3 H Lymphocytes % 6.0 L Monocytes % 6.9 Eosinophils % 0.6 Basophils % 0.2 Nucleated Red Blood Cells % 0.0 Immature Granulocytes # 0.190 H Neutrophils # 17.1 H Lymphocytes # 1.2 Monocytes # 1.4 H Eosinophils # 0.1 Basophils # 0.0 Nucleated Red Blood Cells # 0.0 Sodium Level 135 Potassium Level 4.0 Chloride Level 100 Carbon Dioxide Level 26 Anion Gap 9 Blood Urea Nitrogen 2 L Creatinine 0.55 L Est Glomerular Filtrat Rate mL/min > 60 Glucose Level 115 Calcium Level 7.8 L Phosphorus Level 4.0 Magnesium Level 2.0 Home Meds Reported Medications Levetiracetam* (Keppra*) 500 Mg Tablet, 500 MG PO BID, TAB 12/18/18 Medications Current Medications IV Flush (NS 3 ml) 3 ml PER PROTOCOL IV ; Start 12/30/18 at 04:00 Ondansetron HCl (Zofran Inj) 4 mg Q6H PRN IV NAUSEA/VOMITING Last administered on 01/02/19at 10:59; Admin Dose 4 MG; Start 12/30/18 at 04:00 Acetaminophen (Tylenol Tab) 650 mg Q6H PRN PO .PAIN 1-3 OR TEMP Last administered on 01/02/19at 04:04; Admin Dose 650 MG; Start 12/30/18 at 04:00 Docusate Sodium (Colace) 100 mg Q12H PRN PO .CONSTIPATION; Start 12/30/18 at 04:00 Bisacodyl (Dulcolax) 5 mg DAILY PRN PO .CONSTIPATION; Start 12/30/18 at 04:00 Enoxaparin Sodium (Lovenox) 40 mg DAILY SC Last administered on 01/01/19at 09:36; Admin Dose 40 MG; Start 12/30/18 at 09:00 Vancomycin HCl (Vanco Iv Per Pharmacy) VANCOMYCIN PER PHARMACY PER PROTOCOL XX ; Start 12/30/18 at 04:00 Piperacillin Sod/ Tazobactam Sod 100 ml @ 200 mls/hr Q6 IVPB Last administered on 01/02/19 12:35; Admin Dose 200 MLS/HR; Start 12/30/18 at 06:00 Levalbuterol (Xopenex Neb) 1.25 mg Q4H RESP THERAPY PRN HHN SHORTNESS OF BREATH Last administered on 01/02/19 11:13; Admin Dose 1.25 MG; Start 12/30/18 at 04:00 Levetiracetam (Keppra) 500 mg BID PO Last administered on 01/02/19 10:49; Admin Dose 500 MG; Start 12/30/18 at 09:00 Vancomycin HCl 1.25 gm/Sodium Chloride 250 ml @ 83.333 mls/ hr Q8H IVPB Last administered on 01/02/19 06:18; Admin Dose 83.333 MLS/HR; Start 12/30/18 at 05:00 Azithromycin 250 ml @ 250 mls/hr Q24H IVPB Last administered on 01/02/19 03:54; Admin Dose 250 MLS/HR; Start 12/31/18 at 03:00 Ipratropium [place] (Atrovent 0.02% (Neb)) 0.5 mg Q4HWA RESP THERAPY HHN Last administered on 01/02/19 11:13; Admin Dose 0.5 MG; Start 12/30/18 at 13:00 Oxycodone/ Acetaminophen (Percocet (5/ 325)) 1 tab Q4H PRN PO MODERATE PAIN LEVEL 4-6; Start 12/31/18 at 12:30; Status Hold Naloxone HCl (Narcan) 0.2 mg Q2M PRN IV RR 8 BREATHS/MIN OR LESS; Start 12/31/18 at 15:00 Hydromorphone HCl (Dilaudid ROLL UP MACHINE OPERATOR) See protocol, below. Q4PCA IV Last administered on 01/02/19 12:26; Admin Dose 6 MG; Start 12/31/18 at 15:00 Diphenhydramine HCl (Benadryl) 25 mg Q6H PRN IV Nausea or itching; Start 12/31/18 at 20:30 Promethazine HCl/ Codeine (Phenergan/ Codeine) 5 ml Q4H PRN PO COUGH; Start 01/01/19 at 12:00 Ibuprofen (Motrin) 600 mg Q8 PO Last administered on 01/02/19at 06:18; Admin Dose 600 MG; Start 01/01/19 at 17:00 Colchicine (Colchicine) 0.6 mg DAILY PO Last administered on 01/02/19at 10:50; Admin Dose 0.6 MG; Start 01/02/19 at 09:00 Miscellaneous Information (*Rx Drug Level Order Reminder*) VANCO TROUGH @ 1,200 ON... 1200 ONCE XX ; Start 01/03/19 at 12:00; Stop 01/03/19 at 12:01 Assessment/Plan Hospital Course (Demo Recall) 1. Pericardial effusion with questionable early tamponade features. Currently, the patient with stable blood pressure, but is tachycardic, but he is also in respiratory distress, undergoing a thoracentesis and having a high-grade fever at this time; therefore difficult to discern true clinical tamponade. ECHO rep eat today - will review - not in tammponade by eaxm, feels better now. 2. Tachycardia consistent with sinus tachycardia at this time, questionable due to pain, fever or actual pericardial effusion, or a combination of all these likely. 3. History of mediastinal mass, yolk sac tumor - await path from pleural effusion. 4. Lower lobe pneumonia - con't anti-bx now. 5. Large pleural effusion, undergoing thoracentesis at this time x 2 already. 6. Leukocytosis, severe. 7. Anemia. 8. Thrombocytopenia. KHANG PAGE MD Jan 02, 2019 15:01
[2019-01-02] MEDS: SOD CHLORIDE 0.9% 1,000 ML IV SCH (19:04)
[2019-01-03] VITALS (24 sets, daily range): BP systolic 89–127; BP diastolic 60–116; PULSE 81–152; RESP 16–37
[2019-01-03] MEDS: AZITHROMYCIN 500MG/NS (PMX) 250 ML IVPB SCH (02:22)
[2019-01-03] MEDS: ACETAMINOPHEN 325 MG TAB PO PRN (04:13)
[2019-01-03] MEDS: SOD CHLORIDE 0.9% 1,000 ML IV SCH (04:16)
[2019-01-03] MEDS: VANCOMYCIN HCL 1.25 GM in SOD CHLORIDE 0.9% 250 ML IVPB SCH (05:18)
[2019-01-03] MEDS: PIPER-TAZO 3.375 GM IV (PMX) 100 ML IVPB SCH ×3 (05:18→18:25)
[2019-01-03] MEDS: IBUPROFEN 600 MG TAB PO SCH ×3 (06:00→22:00)
[2019-01-03] MEDS: IPRATROPIUM (NEB) 0.5 MG/2.5 ML AMP HHN SCH ×4 (09:00→21:00)
[2019-01-03] MEDS: LEVETIRACETAM 500 MG TAB PO SCH ×2 (09:05→20:46)
[2019-01-03] MEDS: COLCHICINE 0.6 MG CAP PO SCH (09:05)
[2019-01-03] MEDS: ENOXAPARIN 40 MG/0.4 ML SYG SC SCH ×2 (09:06→10:00)
--- NOTE | 2019-01-03 09:23 | CONS ---
Consult Date/Type/Reason Admit Date/Time Dec 30, 2018 at 03:30 Initial Consult Date Type of Consultation: Pulm/CCM Requesting Provider: RADHA HEBERT Date/Time of Note DATE: 01/03/19 TIME: 09:18 Subjective NO acute events - pt feels a little better today, but still tachy - his repeat echo with moderate effusion, but early tamponade signs - given these finding, I think that surgical evaluation for pericardial window and possible reresection might be reasonable - will discuss with primary team now. ROS: No fever, no chills, no nausea, no vomiting, no diarrhea/constipation No recent weight changes No chest pain, no PND, no orthopnea - mild SOB No dizziness, blurred vision No thirst, no heat or cold intolerance Objective Vitals Vital Signs Date Temp Pulse Resp B/P (MAP) Pulse Ox O2 O2 Flow FiO2 Time Delivery Rate 01/03/19 98.4 117 19 109/76 97 Nasal 3.0 08:00 (87) Cannula 01/02/19 33 21:40 Intake and Output 01/02/19 01/02/19 01/03/19 1414:59 22:59 06:59 IntakeIntake Total 620 ml 1720 ml OutputOutput Total 500 ml 2125 ml BalanceBalance 120 ml -405 ml Exam General: WN/WD/NAD, AOx 3 HEENT: Unicetric/atraumatic/EOMI (does not follow commands) NECK: JVD elevated to 9 cm , no thyromegaly - no pulsus paradoxus now Lymph: no lymphadenopathy HEART: regular with no S3, II/ systolic murmur at apex LUNGS: Coarse sounds ABD: soft, NT, ND, +BS : Intact Neuro: non focal SKIN: chronic changes EXT: trace edema Results/Medications Result Diagram: 01/03/19 0443 01/03/19 0450 Results 24 hrs Laboratory Tests Test 01/03/19 04:43 01/03/19 04:50 White Blood Count 18.5 H Red Blood Count 3.96 L Hemoglobin 9.8 L Hematocrit 31.1 L Mean Corpuscular Volume 78.5 Mean Corpuscular Hemoglobin 24.7 L Mean Corpuscular Hemoglobin Concent 31.5 L Red Cell Distribution Width 14.0 Platelet Count 586 H Mean Platelet Volume 7.8 Immature Granulocytes % 0.900 H Neutrophils % 80.6 H Lymphocytes % 10.6 L Monocytes % 6.9 Eosinophils % 0.8 Basophils % 0.2 Nucleated Red Blood Cells % 0.0 Immature Granulocytes # 0.170 H Neutrophils # 14.9 H Lymphocytes # 2.0 Monocytes # 1.3 H Eosinophils # 0.1 Basophils # 0.0 Nucleated Red Blood Cells # 0.0 Sodium Level 134 L Potassium Level 4.0 Chloride Level 99 Carbon Dioxide Level 26 Anion Gap 9 Blood Urea Nitrogen < 2 L Creatinine 0.66 Est Glomerular Filtrat Rate mL/min > 60 Glucose Level 99 Calcium Level 7.7 L Home Meds Reported Medications Levetiracetam* (Keppra*) 500 Mg Tablet, 500 MG PO BID, TAB 12/18/18 Medications Current Medications IV Flush (NS 3 ml) 3 ml PER PROTOCOL IV ; Start 12/30/18 at 04:00 Ondansetron HCl (Zofran Inj) 4 mg Q6H PRN IV NAUSEA/VOMITING Last administered on 01/02/19at 21:05; Admin Dose 4 MG; Start 12/30/18 at 04:00 Acetaminophen (Tylenol Tab) 650 mg Q6H PRN PO .PAIN 1-3 OR TEMP Last administered on 01/03/19at 04:13; Admin Dose 650 MG; Start 12/30/18 at 04:00 Docusate Sodium (Colace) 100 mg Q12H PRN PO .CONSTIPATION; Start 12/30/18 at 04:00 Bisacodyl (Dulcolax) 5 mg DAILY PRN PO .CONSTIPATION; Start 12/30/18 at 04:00 Enoxaparin Sodium (Lovenox) 40 mg DAILY SC Last administered on 01/03/19at 09:06; Admin Dose 40 MG; Start 12/30/18 at 09:00 Vancomycin HCl (Vanco Iv Per Pharmacy) VANCOMYCIN PER PHARMACY PER PROTOCOL XX ; Start 12/30/18 at 04:00 Piperacillin Sod/ Tazobactam Sod 100 ml @ 200 mls/hr Q6 IVPB Last administered on 01/03/19at 05:18; Admin Dose 200 MLS/HR; Start 12/30/18 at 06:00 Levalbuterol (Xopenex Neb) 1.25 mg Q4H RESP THERAPY PRN HHN SHORTNESS OF BREATH Last administered on 7/4/19at 11:13; Admin Dose 1.25 MG; Start 12/30/18 at 04:00 Levetiracetam (Keppra) 500 mg BID PO Last administered on 01/03/19 09:05; Admin Dose 500 MG; Start 12/30/18 at 09:00 Vancomycin HCl 1.25 gm/Sodium Chloride 250 ml @ 83.333 mls/ hr Q8H IVPB Last administered on 01/03/19 05:18; Admin Dose 83.333 MLS/HR; Start 12/30/18 at 05:00 Azithromycin 250 ml @ 250 mls/hr Q24H IVPB Last administered on 01/03/19 02:22; Admin Dose 250 MLS/HR; Start 12/31/18 at 03:00 Ipratropium [place] (Atrovent 0.02% (Neb)) 0.5 mg Q4HWA RESP THERAPY HHN Last administered on 01/02/19 21:35; Admin Dose 0.5 MG; Start 12/30/18 at 13:00 Oxycodone/ Acetaminophen (Percocet (5/ 325)) 1 tab Q4H PRN PO MODERATE PAIN LEVEL 4-6; Start 12/31/18 at 12:30; Status Hold Naloxone HCl (Narcan) 0.2 mg Q2M PRN IV RR 8 BREATHS/MIN OR LESS; Start 12/31/18 at 15:00 Hydromorphone HCl (Dilaudid MULTIFOCAL BUTTON GRINDER) See protocol, below. Q4PCA IV Last administered on 01/02/19at 22:12; Admin Dose 6 MG; Start 12/31/18 at 15:00 Diphenhydramine HCl (Benadryl) 25 mg Q6H PRN IV Nausea or itching; Start 12/31/18 at 20:30 Promethazine HCl/ Codeine (Phenergan/ Codeine) 5 ml Q4H PRN PO COUGH; Start 01/01/19 at 12:00 Ibuprofen (Motrin) 600 mg Q8 PO Last administered on 01/02/19 06:18; Admin Dose 600 MG; Start 01/01/19 at 17:00 Colchicine (Colchicine) 0.6 mg DAILY PO Last administered on 01/03/19 09:05; Admin Dose 0.6 MG; Start 01/02/19 at 09:00 Miscellaneous Information (*Rx Drug Level Order Reminder*) VANCO TROUGH @ 1,200 ON... 1200 ONCE XX ; Start 01/03/19 at 12:00; Stop 01/03/19 at 12:01 Sodium Chloride 1,000 ml @ 100 mls/hr Q10H IV Last administered on 01/03/19at 04:16; Admin Dose 100 MLS/HR; Start 01/02/19 at 18:30 Assessment/Plan Hospital Course (Demo Recall) 1. Pericardial effusion with questionable early tamponade features. Currently, the patient with stable blood pressure, but is tachycardic,pt feels a little better today, but still tachy - his repeat echo with moderate effusion, but early tamponade signs - given these finding, I think that surgical evaluation for pericardial window and possible reresection might be reasonable - will discuss with primary team now. Will repeat ECHO again today. 2. Tachycardia consistent with sinus tachycardia at this time, questionable due to pain, fever or actual pericardial effusion, or a combination of all these likely. Stable at 120s. 3. History of mediastinal mass, yolk sac tumor - await path from pleural effusion. 4. Lower lobe pneumonia - con't anti-bx now. 5. Large pleural effusion, undergoing thoracentesis at this time x 2 already. Feels better with drainage. 6. Leukocytosis, severe. 7. Anemia. 8. Thrombocytopenia plts at 99 now. KHANG PAGE MD Jan 03, 2019 09:23
--- NOTE | 2019-01-03 09:45 | CONS ---
Consult Date/Type/Reason Admit Date/Time Dec 30, 2018 at 03:30 Initial Consult Date Type of Consult Pulmonary Requesting Provider: RADHA HEBERT Date/Time of Note DATE: 01/03/19 TIME: 09:44 Subjective Patient continues to have mild dyspnea on 3 L O2 remains tachycardic although somewhat more stable. Objective Vital Signs Date Temp Pulse Resp B/P (MAP) Pulse Ox O2 O2 Flow FiO2 Time Delivery Rate 01/03/19 98.4 117 19 109/76 97 Nasal 3.0 08:00 (87) Cannula 01/02/19 33 21:40 Intake and Output 01/02/19 01/02/19 01/03/19 1414:59 22:59 06:59 IntakeIntake Total 620 ml 1720 ml OutputOutput Total 500 ml 2125 ml BalanceBalance 120 ml -405 ml Exam GENERAL: Young gentleman on nasal cannula O2 VITAL SIGNS: per chart NECK: Supple. No JVD or lymphadenopathy. CARDIAC EXAM: S1, S2. Tachycardia with distant heart sounds CHEST: Diminished air entry bilaterally ABDOMEN: Soft, nontender. No guarding or rebound. EXTREMITIES: No cyanosis, clubbing edema +1 NEUROLOGIC: Generalized weakness. No focal deficits. Vent Setting Fraction of Inspired Oxygen pe: 33 Results/Medications Result Diagram: 01/03/19 0443 01/03/19 0450 Results 24 hrs Laboratory Tests Test 01/03/19 04:43 01/03/19 04:50 White Blood Count 18.5 H Red Blood Count 3.96 L Hemoglobin 9.8 L Hematocrit 31.1 L Mean Corpuscular Volume 78.5 Mean Corpuscular Hemoglobin 24.7 L Mean Corpuscular Hemoglobin Concent 31.5 L Red Cell Distribution Width 14.0 Platelet Count 586 H Mean Platelet Volume 7.8 Immature Granulocytes % 0.900 H Neutrophils % 80.6 H Lymphocytes % 10.6 L Monocytes % 6.9 Eosinophils % 0.8 Basophils % 0.2 Nucleated Red Blood Cells % 0.0 Immature Granulocytes # 0.170 H Neutrophils # 14.9 H Lymphocytes # 2.0 Monocytes # 1.3 H Eosinophils # 0.1 Basophils # 0.0 Nucleated Red Blood Cells # 0.0 Sodium Level 134 L Potassium Level 4.0 Chloride Level 99 Carbon Dioxide Level 26 Anion Gap 9 Blood Urea Nitrogen < 2 L Creatinine 0.66 Est Glomerular Filtrat Rate mL/min > 60 Glucose Level 99 Calcium Level 7.7 L Medications Current Medications IV Flush (NS 3 ml) 3 ml PER PROTOCOL IV ; Start 12/30/18 at 04:00 Ondansetron HCl (Zofran Inj) 4 mg Q6H PRN IV NAUSEA/VOMITING Last administered on 01/02/19 21:05; Admin Dose 4 MG; Start 12/30/18 at 04:00 Acetaminophen (Tylenol Tab) 650 mg Q6H PRN PO .PAIN 1-3 OR TEMP Last administered on 01/03/19 04:13; Admin Dose 650 MG; Start 12/30/18 at 04:00 Docusate Sodium (Colace) 100 mg Q12H PRN PO .CONSTIPATION; Start 12/30/18 at 04:00 Bisacodyl (Dulcolax) 5 mg DAILY PRN PO .CONSTIPATION; Start 12/30/18 at 04:00 Enoxaparin Sodium (Lovenox) 40 mg DAILY SC Last administered on 01/03/19 09:06; Admin Dose 40 MG; Start 12/30/18 at 09:00 Vancomycin HCl (Vanco Iv Per Pharmacy) VANCOMYCIN PER PHARMACY PER PROTOCOL XX ; Start 12/30/18 at 04:00 Piperacillin Sod/ Tazobactam Sod 100 ml @ 200 mls/hr Q6 IVPB Last administered on 01/03/19 05:18; Admin Dose 200 MLS/HR; Start 12/30/18 at 06:00 Levalbuterol (Xopenex Neb) 1.25 mg Q4H RESP THERAPY PRN HHN SHORTNESS OF BREATH Last administered on 01/02/19at 11:13; Admin Dose 1.25 MG; Start 12/30/18 at 04:00 Levetiracetam (Keppra) 500 mg BID PO Last administered on 01/03/19 09:05; Admin Dose 500 MG; Start 12/30/18 at 09:00 Vancomycin HCl 1.25 gm/Sodium Chloride 250 ml @ 83.333 mls/ hr Q8H IVPB Last administered on 01/03/19 05:18; Admin Dose 83.333 MLS/HR; Start 12/30/18 at 05:00 Azithromycin 250 ml @ 250 mls/hr Q24H IVPB Last administered on 7/5/19at 02:22; Admin Dose 250 MLS/HR; Start 12/31/18 at 03:00 Ipratropium [place] (Atrovent 0.02% (Neb)) 0.5 mg Q4HWA RESP THERAPY HHN Last administered on 01/02/19at 21:35; Admin Dose 0.5 MG; Start 12/30/18 at 13:00 Oxycodone/ Acetaminophen (Percocet (5/ 325)) 1 tab Q4H PRN PO MODERATE PAIN LEVEL 4-6; Start 12/31/18 at 12:30; Status Hold Naloxone HCl (Narcan) 0.2 mg Q2M PRN IV RR 8 BREATHS/MIN OR LESS; Start 12/31/18 at 15:00 Hydromorphone HCl (Dilaudid SURGICAL INSTRUMENT MAKER) See protocol, below. Q4PCA IV Last administered on 01/02/19at 22:12; Admin Dose 6 MG; Start 12/31/18 at 15:00 Diphenhydramine HCl (Benadryl) 25 mg Q6H PRN IV Nausea or itching; Start 12/31/18 at 20:30 Promethazine HCl/ Codeine (Phenergan/ Codeine) 5 ml Q4H PRN PO COUGH; Start 01/01/19 at 12:00 Ibuprofen (Motrin) 600 mg Q8 PO Last administered on 01/02/19at 06:18; Admin Dose 600 MG; Start 01/01/19 at 17:00 Colchicine (Colchicine) 0.6 mg DAILY PO Last administered on 01/03/19at 09:05; Admin Dose 0.6 MG; Start 01/02/19 at 09:00 Miscellaneous Information (*Rx Drug Level Order Reminder*) VANCO TROUGH @ 1,200 ON... 1200 ONCE XX ; Start 01/03/19 at 12:00; Stop 01/03/19 at 12:01 Sodium Chloride 1,000 ml @ 100 mls/hr Q10H IV Last administered on 01/03/19at 04:16; Admin Dose 100 MLS/HR; Start 01/02/19 at 18:30 Assessment/Plan Hospital Course (Demo Recall) IMP: 1. Hypoxemic Respiratory Insufficiency--2/2 large mediastinal yolk sac tumor with associated mainstem bronchial compression, pleural effusions, and post- obstructive pna. 2. 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 Left pleural effusion--lymphocytic predominant exudate--awaiting cytology 4. Anemia 5. Tachycardia likely secondary to pericardial effusion with signs of tamponade. RECS: 1. Titrate FiO2 as tolerated 2. Abx per ID 3. Pleural fluid cytology 4. Cardiothoracic surgery evaluation for pericardial window. Case was discussed with cardiology at length appears to be worsening pericardial effusion concern for progressive tamponade 5. Continue ICU management 40 min cc time ANGIE LANDEROS MD, [facility] Jan 03, 2019 09:45
--- NOTE | 2019-01-03 09:51 | CONS ---
Assessment/Plan Assessment/Plan Hospital Course (Demo Recall) ID PROGRESS NOTE CURRENT ABX: DAY # 5=>Vanco IV #5+ Zosyn #5 + Azith #3 s/p Azith 01/03/19 0443 01/03/19 0450 24H INTERVAL SUMMARY * Awake, alert -- pain issues continue -- hypoxic requiring supplemental O2 via NC * s/p LEFT thoracentesis 01/02/19 w/removal 1L * Dr. Naik considering surgical placement of pericardial window for repeat ECHO showing pericardial effusion * Mild tachycardia HR 116, (+)Intermittent fevers and low grade temps -- spike temp yesterday > 102.+ * POD #-> S/P 12/20/[address] guided mediastinal mass biopsy. 2. No complications occurred. 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 Clinical correlation is advised. * 12/18/18 BCX (-) * QFT neg, HIV neg MICRO * 12/31/18 (-)MRSA NARES * 12/31/18 RESP CX:RESPIRATORY CULTURE Final Organism 1 STAPHYLOCOCCUS AUREUS QUANTITY 1+ Organism 2 NORMAL RESPIRATORY ZOFIA QUANTITY 2+ S AUREUS M.I.C. RX --------- --- CEFAZOLIN S CIPROFLOXACIN <=0.5 S CLINDAMYCIN R DOXYCYCLINE S ERYTHROMYCIN >=8 R LEVOFLOXACIN 0.25 S OXACILLIN 0.5 S PENICILLIN-G >=0.5 R RIFAMPIN <=0.5 S VANCOMYCIN 1 S TRIMETHOPRIM/SULFAMETHOXAZOLE <=10 S * 12/30/18 BCX (-); Urine Cx (-) * 12/30/18 INFLUENZA A & B BY EIA Final INFLU A&B BY EIA INFLUENZA A NEGATIVE (Ref Range Neg) INFLUENZA B NEGATIVE (Ref Range Neg) DIAGNOSTIC IMAGING * 01/02/19 CXR: IMPRESSION:1. Large anterior mediastinal mass is again seen suggesting lymphoma or other lesion. Correlation with prior biopsy results is suggested. 2. Moderate left pleural effusion is again seen with presumed adjacent atelectasis. * 01/01/2019 CT CHEST: IMPRESSION:18.7 cm anterior mediastinal mass. Small right and small to moderate left pleural effusions. Extensive left lower lobe atelectasis. Patchy consolidative opacities in the right upper lobe, suspicious for pneumonia. The right lower lobe nodule seen in the prior CTA is not clearly visualized in this examination. Moderate pericardial effusion. * 12/20/18 CT A-P: IMPRESSION:No evidence of abdominal or pelvic mass or CT evidence for metastatic disease. Trace pleural fluid. No evidence of bowel obstruction or inflammation. Prominent fecal distension of the colon is suggestive for constipation. * 12/20/18 testicular us: 1. Benign cysts in the left epididymis, without concerning features. No evidence of epididymitis. 2. Normal sonographic findings of the bilateral testicles. No evidence of testicular mass or torsion. PHYSICAL EXAMINATION: GENERAL: VSS, NAD - pain issues HEENT: AT, NC, (+)JVD NECK: Supple, CHEST: Rise symmetrica -- hypoxic on supplemental O2 HEART: Pulse RRR ABDOMEN: Benign EXTREMITIES: Warm, dry SKIN: No rash, no diaphoresis ID ASSESSMENT 18 yo M admit with: 1. 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 Pleural effusion -> s/p Left Thora 01/02/19 w/1L removed 4. Pericardial effusion 5. Seizure disorder Thrombocytosis ABX ALLERGIES: KNDA INVASIVES: PIV (-)MRSA nares CURRENT ABX: DAY # 5=>Vanco IV #5+ Zosyn #5 + Azith #5 s/p Azith ID RECOMMENDATIONS/PLAN: 1. UPDATE 1322: Spoke with Dr. Ruiz who got a call from consulting MD inquiring on indication for ABX de-escalation per Cx result (+)WESLY. * Dr. Ruiz reviewed ABX with me -> will DC Vanco IV at this time and continue Zosyn. * Patient also on AZITH (I must have missed this) -> Will DC Azith today 2. Plan -- possible pericardial window placement . Consultation Date/Type/Reason Admit Date/Time Dec 30, 2018 at 03:30 Initial Consult Date Requesting Provider: RADHA HEBERT Date/Time of Note DATE: 01/03/19 TIME: 09:42 Exam/Review of Systems Exam Vitals Vital Signs Date Temp Pulse Resp B/P (MAP) Pulse Ox O2 O2 Flow FiO2 Time Delivery Rate 01/03/19 98.4 117 19 109/76 97 Nasal 3.0 08:00 (87) Cannula 01/02/19 33 21:40 Intake and Output 01/02/19 01/02/19 01/03/19 1414:59 22:59 06:59 IntakeIntake Total 620 ml 1720 ml OutputOutput Total 500 ml 2125 ml BalanceBalance 120 ml -405 ml Results Result Diagram: 01/03/19 0443 01/03/19 0450 Results 24hrs Laboratory Tests Test 01/03/19 04:43 01/03/19 04:50 White Blood Count 18.5 H Red Blood Count 3.96 L Hemoglobin 9.8 L Hematocrit 31.1 L Mean Corpuscular Volume 78.5 Mean Corpuscular Hemoglobin 24.7 L Mean Corpuscular Hemoglobin Concent 31.5 L Red Cell Distribution Width 14.0 Platelet Count 586 H Mean Platelet Volume 7.8 Immature Granulocytes % 0.900 H Neutrophils % 80.6 H Lymphocytes % 10.6 L Monocytes % 6.9 Eosinophils % 0.8 Basophils % 0.2 Nucleated Red Blood Cells % 0.0 Immature Granulocytes # 0.170 H Neutrophils # 14.9 H Lymphocytes # 2.0 Monocytes # 1.3 H Eosinophils # 0.1 Basophils # 0.0 Nucleated Red Blood Cells # 0.0 Sodium Level 134 L Potassium Level 4.0 Chloride Level 99 Carbon Dioxide Level 26 Anion Gap 9 Blood Urea Nitrogen < 2 L Creatinine 0.66 Est Glomerular Filtrat Rate mL/min > 60 Glucose Level 99 Calcium Level 7.7 L Medications Medication Current Medications IV Flush (NS 3 ml) 3 ml PER PROTOCOL IV ; Start 12/30/18 at 04:00 Ondansetron HCl (Zofran Inj) 4 mg Q6H PRN IV NAUSEA/VOMITING Last administered on 01/02/19at 21:05; Admin Dose 4 MG; Start 12/30/18 at 04:00 Acetaminophen (Tylenol Tab) 650 mg Q6H PRN PO .PAIN 1-3 OR TEMP Last ad ministered on 01/03/19 04:13; Admin Dose 650 MG; Start 12/30/18 at 04:00 Docusate Sodium (Colace) 100 mg Q12H PRN PO .CONSTIPATION; Start 12/30/18 at 04:00 Bisacodyl (Dulcolax) 5 mg DAILY PRN PO .CONSTIPATION; Start 12/30/18 at 04:00 Enoxaparin Sodium (Lovenox) 40 mg DAILY SC Last administered on 01/03/19 09:06; Admin Dose 40 MG; Start 12/30/18 at 09:00 Vancomycin HCl (Vanco Iv Per Pharmacy) VANCOMYCIN PER PHARMACY PER PROTOCOL XX ; Start 12/30/18 at 04:00 Piperacillin Sod/ Tazobactam Sod 100 ml @ 200 mls/hr Q6 IVPB Last administered on 01/03/19 05:18; Admin Dose 200 MLS/HR; Start 12/30/18 at 06:00 Levalbuterol (Xopenex Neb) 1.25 mg Q4H RESP THERAPY PRN HHN SHORTNESS OF BREATH Last administered on 01/02/19 11:13; Admin Dose 1.25 MG; Start 12/30/18 at 04:00 Levetiracetam (Keppra) 500 mg BID PO Last administered on 01/03/19 09:05; Admin Dose 500 MG; Start 12/30/18 at 09:00 Vancomycin HCl 1.25 gm/Sodium Chloride 250 ml @ 83.333 mls/ hr Q8H IVPB Last administered on 01/03/19 05:18; Admin Dose 83.333 MLS/HR; Start 12/30/18 at 05:00 Azithromycin 250 ml @ 250 mls/hr Q24H IVPB Last administered on 01/03/19 02:22; Admin Dose 250 MLS/HR; Start 12/31/18 at 03:00 Ipratropium [place] (Atrovent 0.02% (Neb)) 0.5 mg Q4HWA RESP THERAPY HHN Last administered on 01/02/19 21:35; Admin Dose 0.5 MG; Start 12/30/18 at 13:00 Oxycodone/ Acetaminophen (Percocet (5/ 325)) 1 tab Q4H PRN PO MODERATE PAIN LEVEL 4-6; Start 12/31/18 at 12:30; Status Hold Naloxone HCl (Narcan) 0.2 mg Q2M PRN IV RR 8 BREATHS/MIN OR LESS; Start 12/31/18 at 15:00 Hydromorphone HCl (Dilaudid STERILE PROCESS COORDINATOR) See protocol, below. Q4PCA IV Last administered on 01/02/19at 22:12; Admin Dose 6 MG; Start 12/31/18 at 15:00 Diphenhydramine HCl (Benadryl) 25 mg Q6H PRN IV Nausea or itching; Start 12/31/18 at 20:30 Promethazine HCl/ Codeine (Phenergan/ Codeine) 5 ml Q4H PRN PO COUGH; Start 01/01/19 at 12:00 Ibuprofen (Motrin) 600 mg Q8 PO Last administered on 01/02/19at 06:18; Admin Dose 600 MG; Start 01/01/19 at 17:00 Colchicine (Colchicine) 0.6 mg DAILY PO Last administered on 01/03/19at 09:05; Admin Dose 0.6 MG; Start 01/02/19 at 09:00 Miscellaneous Information (*Rx Drug Level Order Reminder*) VANCO TROUGH @ 1,200 ON... 1200 ONCE XX ; Start 01/03/19 at 12:00; Stop 01/03/19 at 12:01 Sodium Chloride 1,000 ml @ 100 mls/hr Q10H IV Last administered on 01/03/19at 04:16; Admin Dose 100 MLS/HR; Start 01/02/19 at 18:30 DELTA TAYLOR NP Jan 03, 2019 09:51
[2019-01-03] MEDS: HYDROmorphONE 0.2 MG/ML PCA IV SCH ×2 (10:14→22:01)
--- NOTE | 2019-01-03 11:11 | RADRPT ---
Echocardiogram Report Patient Name: Theodore WATSONnt ID: [id number] : 2000 (18y 7m)Study Date: 01/02/2019 8:12:35 AM Gender: MAccession #: [id number] Tech: Beba Majano SHARIF Location: ICU 115-A Ref.Physician: TOM CARLSON Height(Cm): BSA: Weight(Kg): Quality: AdequateOrder Physician: TOM CARLSON Account #: Procedures: Echocardiographic Report: Transthoracic echocardiogram with complete 2D, M-Mode, and doppler examination. Indications: Pericardial Effusion. Measurements: 2D/M Mode Doppler Measurement Value Normal Range Measurement Value Normal Range LVIDd 2D 3.8 [ 4.2 - 5.8 ] cm AV Peak Kana 1.9 [ 100.0 - 170.0 ] cm/sec LVIDs 2D 2.8 [ 2.5 - 4.0 ] cm AV Peak PG 14.0 [ 2.0 - 9.0 ] mmHg IVSd 2D 0.9 [ 0.6 - 1.0 ] cm LVOT Peak Kana 1.1 [ 70.0 - 110.0 ] cm/sec AoR Diam 2D 2.4 [ 2.6 - 3.4 ] cm LVOT Peak PG 5.0 [ 2.0 - 6.0 ] mmHg LA Dimen 2D 1.2 [ 3.0 - 4.0 ] cm MV E Peak Kana 1.2 [ 60.0 - 130.0 ] cm/sec MV A Peak Kana 0.5 [ 100.0 - 120.0 ] cm/sec MV E/A 2.6 [ 0.8 - 1.5 ] ratio MV PHT 62.0 [ 20.0 - 100.0 ] msec MV Decel Time 211 [ 104 - 258 ] msec MV Decel [place] 6 Lat E` Kana 0.1 [ 10.0 - 15.0 ] cm/sec Med E` Kana 0.1 cm/sec MV E/A 2.6 [ 0.8 - 1.5 ] ratio MVA PHT 3.5 [ 2.0 - 4.0 ] cm2 TR Peak Kana 3.0 [ 100.0 - 280.0 ] cm/sec TR Peak PG 36.0 mmHg PV Peak Kana 2.2 [ 40.0 - 80.0 ] cm/sec PV Peak PG 19.0 mmHg RVSP 36.0 [ 10.0 - 36.0 ] mmHg RA Pressure 3.0 mmHg Findings: Left Ventricle: Normal left ventricular systolic function. Normal left ventricular cavity size. Normal left ventricular wall thickness. Ejection fraction is visually estimated at 50-55 %. Tissue Doppler/Mitral Doppler indices are within normal limits. Right Ventricle: Normal right ventricular size. Normal right ventricular systolic function. Left Atrium: The left atrium is normal in size. Right Atrium: The right atrium is normal in size. Atrial Septum: Normal atrial septum. Ventricular septum: Normal/intact ventricular septum. Mitral Valve: Normal appearance of the mitral valve. No mitral valve regurgitation is seen. Aortic Valve: Normal appearance of the aortic valve. No aortic regurgitation. Tricuspid Valve: Normal appearance of the tricuspid valve. The estimated Peak RVSP is 39 mmHg. There is trace to mild tricuspid regurgitation. Pulmonic Valve: Normal pulmonic valve appearance with increase flow acceleration acroos PV , 2.19 m/s. Pericardium: Moderate to large pericardial effusion. Aorta: Normal aortic root. IVC: Normal size and normal respiratory collapse consistent with normal right atrial pressure. Conclusions: Moderate to large pericardial effusion. Normal appearance of the tricuspid valve. The estimated Peak RVSP is 39 mmHg. There is trace to mild tricuspid regurgitation. Electronically Signed By: Ras Faulkner 2019-01-03 11:10:42 PDT
--- NOTE | 2019-01-03 11:15 | RADRPT ---
Echocardiogram Report Patient Name: Carlene WATSON ID: [id number] : 2000 (18y 7m)Study Date: 01/03/2019 9:30:48 AM Gender: MAccession #: [id number] Tech: SN Location: I Ref.Physician: JAMIN INFANTE Height(Cm): BSA: Weight(Kg): Quality: AdequateOrder Physician: JAMIN INFANTE Account #: Procedures: Echocardiographic Report: Transthoracic echocardiogram examination. Indications: Pericardial Effusion. Findings: Left Ventricle: Normal left ventricular cavity size. Normal left ventricular systolic function. Normal left ventricular wall thickness. The left ventricular ejection fraction is visually estimated at 55 %. Right Ventricle: Moderate enlargement of right ventricle. Mild right ventricular hypokinesis. Right Atrium: Mild RA enlargement (40mm-45mm). Mitral Valve: Mild mitral annular calcification. Calcified Leaflets Mitral valve leaflet appear mildly clacified. Trivial mitral regurgitation. Aortic Valve: Aortic cusps appear mildly calcified. Tricuspid Valve: Normal appearance and function of the tricuspid valve with trace physiologic regurgitation. Pericardium: Moderate pericardial effusion. Possible early onset of Tamponade. Left pleural effusion seen. IVC: Normal inferior vena cava appearance and respiratory collapse. Conclusions: Normal left ventricular cavity size. Normal left ventricular systolic function. Normal left ventricular wall thickness. The left ventricular ejection fraction is visually estimated at 55 %. Mild mitral annular calcification. Calcified Leaflets Mitral valve leaflet appear mildly clacified. Trivial mitral regurgitation. Aortic cusps appear mildly calcified. Normal appearance and function of the tricuspid valve with trace physiologic regurgitation. Electronically Signed By: Ras Faulkner 2019-01-03 11:14:13 PDT
[2019-01-03] MEDS: DIPHENHYDRAMINE 50 MG INJ IV PRN (11:33)
--- NOTE | 2019-01-03 11:41 | CONS ---
Assessment/Plan Assessment/Plan Hospital Course (Demo Recall) Hospital Course (Demo Recall) 18 yo with large anterior mediastinal mass 13.5 x 15.8 x 9.3 cm in size. 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 -given how high AFP will check MRI brain (pt had MRI brain in September 2018 at outside facility for h/o seizures, he is bringing the disc) being performed this afternoon -HE HAS MEDIPORT AND HAD 2 D ECHO IN PREPARATION FOR CHEMO -given how large this mass is and concern for airway will recommend chemo in hospital - CARRIES RISK OF STERILITY SO HE WILL NEED SPERM BANKING given that he has deteriorated hdemodynamically, Pulm is looking into possible transfer to tertiary care center, await input from manager case If he is not accepted at tertiary care center, needs to start chemo LOBITO HAS ALREADY BEEN ORDERED FOLLOWS AND DRUGS AVAILABLE chemo: Cisplatin 20 mg/m2 IV per day Days 1 to 5 Etoposide* 75 mg/m2 IV per day Days 1 to 5 Ifosfamide* 1200 mg/m2 per day IV infusion Days 1 to 5 [place] 120 mg/m2 IV Day 1 [place] 1200 mg/m2 per day continuous IV infusion, Days 1 to 5 GCSF 300mcg daily starting day 6-12 I spoke to the chemopharmacy and they will discuss with 4W in terms of chemo indira se availability to administer this regimen does carry a risk of sterility but given patient's tenuous status, pt understands this and has consented to chemo as above discussed with pt after 2 cycles chemo, restage. 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 and ne ed to be resected #leukocytosis and thrombocytosis AND FEVERS suspect this is most likely reactive due to underlying malignancy vs pneumonia EMPIRIC ABX PER PRIMARY TEAM Consultation Date/Type/Reason Admit Date/Time Dec 30, 2018 at 03:30 Initial Consult Date Requesting Provider: RADHA HEBERT Date/Time of Note DATE: 01/03/19 TIME: 11:39 24 HR Interval Summary Free Text/Dictation had 2D echo showing: Moderate pericardial effusion. Possible early onset of Tamponade. Left pleural effusion seen. -pt being evaluated by CT surgery Dr Sanchez also, new complaint of eye pain and burning no visual changes Subjective hx not possible: pt critical status Exam/Review of Systems Exam Vitals Vital Signs Date Temp Pulse Resp B/P (MAP) Pulse Ox O2 O2 Flow FiO2 Time Delivery Rate 01/03/19 98.4 117 19 109/76 97 Nasal 3.0 08:00 (87) Cannula 01/02/19 33 21:40 Intake and Output 01/02/19 01/02/19 01/03/19 1414:59 22:59 06:59 IntakeIntake Total 620 ml 1720 ml OutputOutput Total 500 ml 2125 ml BalanceBalance 120 ml -405 ml Constitutional: distress, frail Psych: anxiety Head: normocephalic, atraumatic Eyes: nl conjunctiva, EOMI, nl lids, nl sclera, PERRL ENMT: nl external ears & nose, nl lips & teeth, nl nasal mucosa & septum Respiratory: labored breathing Musculoskeletal: nl extremities to inspection Results Result Diagram: 01/03/19 1042 01/03/19 0450 Results 24hrs Laboratory Tests Test 01/03/19 04:43 01/03/19 04:50 01/03/19 10:42 White Blood Count 18.5 H Red Blood Count 3.96 L Hemoglobin 9.8 L Hematocrit 31.1 L Mean Corpuscular Volume 78.5 Mean Corpuscular Hemoglobin 24.7 L Mean Corpuscular Hemoglobin Concent 31.5 L Red Cell Distribution Width 14.0 Platelet Count 586 H 577 H Mean Platelet Volume 7.8 Immature Granulocytes % 0.900 H Neutrophils % 80.6 H Lymphocytes % 10.6 L Monocytes % 6.9 Eosinophils % 0.8 Basophils % 0.2 Nucleated Red Blood Cells % 0.0 Immature Granulocytes # 0.170 H Neutrophils # 14.9 H Lymphocytes # 2.0 Monocytes # 1.3 H Eosinophils # 0.1 Basophils # 0.0 Nucleated Red Blood Cells # 0.0 Sodium Level 134 L Potassium Level 4.0 Chloride Level 99 Carbon Dioxide Level 26 Anion Gap 9 Blood Urea Nitrogen < 2 L Creatinine 0.66 Est Glomerular Filtrat Rate mL/min > 60 Glucose Level 99 Calcium Level 7.7 L Prothrombin Time 14.7 Prothrombin Time Ratio 1.1 INR International Normalized Ratio 1.14 Activated Partial Thromboplast Time 37.9 H Thrombin Time 14.7 Medications Medication Current Medications IV Flush (NS 3 ml) 3 ml PER PROTOCOL IV ; Start 12/30/18 at 04:00 Ondansetron HCl (Zofran Inj) 4 mg Q6H PRN IV NAUSEA/VOMITING Last administered on 01/02/19 21:05; Admin Dose 4 MG; Start 12/30/18 at 04:00 Acetaminophen (Tylenol Tab) 650 mg Q6H PRN PO .PAIN 1-3 OR TEMP Last administered on 01/03/19 04:13; Admin Dose 650 MG; Start 12/30/18 at 04:00 Docusate Sodium (Colace) 100 mg Q12H PRN PO .CONSTIPATION; Start 12/30/18 at 04:00 Bisacodyl (Dulcolax) 5 mg DAILY PRN PO .CONSTIPATION; Start 12/30/18 at 04:00 Enoxaparin Sodium (Lovenox) 40 mg DAILY SC Last administered on 01/01/19 09:36; Admin Dose 40 MG; Start 12/30/18 at 09:00 Vancomycin HCl (Vanco Iv Per Pharmacy) VANCOMYCIN PER PHARMACY PER PROTOCOL XX ; Start 12/30/18 at 04:00 Piperacillin Sod/ Tazobactam Sod 100 ml @ 200 mls/hr Q6 IVPB Last administered on 01/03/19 11:34; Admin Dose 200 MLS/HR; Start 12/30/18 at 06:00 Levalbuterol (Xopenex Neb) 1.25 mg Q4H RESP THERAPY PRN HHN SHORTNESS OF BREATH Last administered on 01/02/19 11:13; Admin Dose 1.25 MG; Start 12/30/18 at 04:00 Levetiracetam (Keppra) 500 mg BID PO Last administered on 01/03/19 09:05; Admin Dose 500 MG; Start 12/30/18 at 09:00 Vancomycin HCl 1.25 gm/Sodium Chloride 250 ml @ 83.333 mls/ hr Q8H IVPB Last administered on 01/03/19 05:18; Admin Dose 83.333 MLS/HR; Start 12/30/18 at 05:00 Azithromycin 250 ml @ 250 mls/hr Q24H IVPB Last administered on 01/03/19at 02:22; Admin Dose 250 MLS/HR; Start 12/31/18 at 03:00 Ipratropium [place] (Atrovent 0.02% (Neb)) 0.5 mg Q4HWA RESP THERAPY HHN Last administered on 01/02/19at 21:35; Admin Dose 0.5 MG; Start 12/30/18 at 13:00 Oxycodone/ Acetaminophen (Percocet (5/ 325)) 1 tab Q4H PRN PO MODERATE PAIN LEVEL 4-6; Start 12/31/18 at 12:30; Status Hold Naloxone HCl (Narcan) 0.2 mg Q2M PRN IV RR 8 BREATHS/MIN OR LESS; Start 12/31/18 at 15:00 Hydromorphone HCl (Dilaudid WATCH COMMANDER) See protocol, below. Q4PCA IV Last administered on 01/03/19at 10:14; Admin Dose 0.1 MG; Start 12/31/18 at 15:00 Diphenhydramine HCl (Benadryl) 25 mg Q6H PRN IV Nausea or itching Last administered on 01/03/19at 11:33; Admin Dose 25 MG; Start 12/31/18 at 20:30 Promethazine HCl/ Codeine (Phenergan/ Codeine) 5 ml Q4H PRN PO COUGH; Start 01/01/19 at 12:00 Ibuprofen (Motrin) 600 mg Q8 PO Last administered on 01/02/19at 06:18; Admin Dose 600 MG; Start 01/01/19 at 17:00 Colchicine (Colchicine) 0.6 mg DAILY PO Last administered on 01/03/19at 09:05; Admin Dose 0.6 MG; Start 01/02/19 at 09:00 Miscellaneous Information (*Rx Drug Level Order Reminder*) VANCO TROUGH @ 1,200 ON... 1200 ONCE XX ; Start 01/03/19 at 12:00; Stop 01/03/19 at 12:01 Sodium Chloride 1,000 ml @ 100 mls/hr Q10H IV Last administered on 01/03/19at 04:16; Admin Dose 100 MLS/HR; Start 01/02/19 at 18:30; Status Hold JESÚS SPICER Jan 03, 2019 11:40
--- NOTE | 2019-01-03 13:21 | PN ---
Date/Time of Note Date/Time of Note DATE: 01/03/19 TIME: 13:18 Assessment/Plan VTE Prophylaxis Risk score (from Nsg)>0 risk: 2 Pharmacological prophylaxis: LMWH Lines/Catheters IV Catheter Type (from Nrsg): Peripheral IV Assessment/Plan Hospital Course 1. Large anterior mediastinal mass secondary to yolk sac tumor Oncology planning on initiation of chemotherapy today Patient to receive 2 cycles of chemo and then be restaged, after 4 cycles he will be restaged referred to tertiary care per cardiothoracic surgeon for resection of residual mass which may be a teratoma which is not chemo or radiosensitive and needs to be resected Patient will need sperm banking due to possibility of sterilization with chemotherapy 2. Sepsis secondary to pneumonia Continue broad-spectrum antibiotics 3. Anemia of chronic disease Monitor 4. Acute respiratory distress secondary to pneumonia and/or pleural effusions- improved Status post removal of 1 L with improvement in respiratory status Pulmonology following 5. Tachycardia secondary to sepsis and/or pericardial effusion with tamponade Repeat echo shows roughly developing pericardial effusion, cardiology has recommended for CT surgery consultation, consultation with Dr. Sanchez obtained Cardiology consultation appreciated Prophylaxis: Lovenox Result Diagram: 01/03/19 1042 01/03/19 0450 Results 24hrs Laboratory Tests Test 01/03/19 04:43 01/03/19 04:50 01/03/19 10:42 White Blood Count 18.5 H Red Blood Count 3.96 L Hemoglobin 9.8 L Hematocrit 31.1 L Mean Corpuscular Volume 78.5 Mean Corpuscular Hemoglobin 24.7 L Mean Corpuscular Hemoglobin Concent 31.5 L Red Cell Distribution Width 14.0 Platelet Count 586 H 577 H Mean Platelet Volume 7.8 Immature Granulocytes % 0.900 H Neutrophils % 80.6 H Lymphocytes % 10.6 L Monocytes % 6.9 Eosinophils % 0.8 Basophils % 0.2 Nucleated Red Blood Cells % 0.0 Immature Granulocytes # 0.170 H Neutrophils # 14.9 H Lymphocytes # 2.0 Monocytes # 1.3 H Eosinophils # 0.1 Basophils # 0.0 Nucleated Red Blood Cells # 0.0 Sodium Level 134 L Potassium Level 4.0 Chloride Level 99 Carbon Dioxide Level 26 Anion Gap 9 Blood Urea Nitrogen < 2 L Creatinine 0.66 Est Glomerular Filtrat Rate mL/min > 60 Glucose Level 99 Calcium Level 7.7 L Prothrombin Time 14.7 Prothrombin Time Ratio 1.1 INR International Normalized Ratio 1.14 Activated Partial Thromboplast Time 37.9 H Thrombin Time 14.7 Subjective 24 Hr Interval Summary Constitutional: no complaints Exam/Review of Systems Exam Vitals Vital Signs Date Temp Pulse Resp B/P (MAP) Pulse Ox O2 O2 Flow FiO2 Time Delivery Rate 01/03/19 Nasal 3.0 12:00 Cannula 01/03/19 150 19 116/96 97 12:00 (103) 01/03/19 98.4 08:00 01/02/19 33 21:40 Intake and Output 01/02/19 01/02/19 01/03/19 1414:59 22:59 06:59 IntakeIntake Total 620 ml 1720 ml OutputOutput Total 500 ml 2125 ml BalanceBalance 120 ml -405 ml Constitutional: alert, oriented Respiratory: clear to auscultation Cardiovascular: regular rate and rhythm Gastrointestinal: soft; No distended Musculoskeletal: nl extremities to inspection Results Results 24hrs Laboratory Tests Test 01/03/19 04:43 01/03/19 04:50 01/03/19 10:42 White Blood Count 18.5 H Red Blood Count 3.96 L Hemoglobin 9.8 L Hematocrit 31.1 L Mean Corpuscular Volume 78.5 Mean Corpuscular Hemoglobin 24.7 L Mean Corpuscular Hemoglobin Concent 31.5 L Red Cell Distribution Width 14.0 Platelet Count 586 H 577 H Mean Platelet Volume 7.8 Immature Granulocytes % 0.900 H Neutrophils % 80.6 H Lymphocytes % 10.6 L Monocytes % 6.9 Eosinophils % 0.8 Basophils % 0.2 Nucleated Red Blood Cells % 0.0 Immature Granulocytes # 0.170 H Neutrophils # 14.9 H Lymphocytes # 2.0 Monocytes # 1.3 H Eosinophils # 0.1 Basophils # 0.0 Nucleated Red Blood Cells # 0.0 Sodium Level 134 L Potassium Level 4.0 Chloride Level 99 Carbon Dioxide Level 26 Anion Gap 9 Blood Urea Nitrogen < 2 L Creatinine 0.66 Est Glomerular Filtrat Rate mL/min > 60 Glucose Level 99 Calcium Level 7.7 L Prothrombin Time 14.7 Prothrombin Time Ratio 1.1 INR International Normalized Ratio 1.14 Activated Partial Thromboplast Time 37.9 H Thrombin Time 14.7 Medications Medication Current Medications IV Flush (NS 3 ml) 3 ml PER PROTOCOL IV ; Start 12/30/18 at 04:00 Ondansetron HCl (Zofran Inj) 4 mg Q6H PRN IV NAUSEA/VOMITING Last administered on 01/02/19 21:05; Admin Dose 4 MG; Start 12/30/18 at 04:00 Acetaminophen (Tylenol Tab) 650 mg Q6H PRN PO .PAIN 1-3 OR TEMP Last administered on 01/03/19 04:13; Admin Dose 650 MG; Start 12/30/18 at 04:00 Docusate Sodium (Colace) 100 mg Q12H PRN PO .CONSTIPATION; Start 12/30/18 at 04:00 Bisacodyl (Dulcolax) 5 mg DAILY PRN PO .CONSTIPATION; Start 12/30/18 at 04:00 Enoxaparin Sodium (Lovenox) 40 mg DAILY SC Last administered on 01/01/19 09:36; Admin Dose 40 MG; Start 12/30/18 at 09:00 Vancomycin HCl (Vanco Iv Per Pharmacy) VANCOMYCIN PER PHARMACY PER PROTOCOL XX ; Start 12/30/18 at 04:00 Piperacillin Sod/ Tazobactam Sod 100 ml @ 200 mls/hr Q6 IVPB Last administered on 01/03/19 11:34; Admin Dose 200 MLS/HR; Start 12/30/18 at 06:00 Levalbuterol (Xopenex Neb) 1.25 mg Q4H RESP THERAPY PRN HHN SHORTNESS OF BREATH Last administered on 01/02/19 11:13; Admin Dose 1.25 MG; Start 12/30/18 at 04:00 Levetiracetam (Keppra) 500 mg BID PO Last administered on 01/03/19 09:05; Admin Dose 500 MG; Start 12/30/18 at 09:00 Vancomycin HCl 1.25 gm/Sodium Chloride 250 ml @ 83.333 mls/ hr Q8H IVPB Last administered on 01/03/19 05:18; Admin Dose 83.333 MLS/HR; Start 12/30/18 at 05:00 Azithromycin 250 ml @ 250 mls/hr Q24H IVPB Last administered on 01/03/19 02:22; Admin Dose 250 MLS/HR; Start 12/31/18 at 03:00 Ipratropium [place] (Atrovent 0.02% (Neb)) 0.5 mg Q4HWA RESP THERAPY HHN Last administered on 01/02/19 21:35; Admin Dose 0.5 MG; Start 12/30/18 at 13:00 Oxycodone/ Acetaminophen (Percocet (5/ 325)) 1 tab Q4H PRN PO MODERATE PAIN LEVEL 4-6; Start 12/31/18 at 12:30; Status Hold Naloxone HCl (Narcan) 0.2 mg Q2M PRN IV RR 8 BREATHS/MIN OR LESS; Start 12/31/18 at 15:00 Hydromorphone HCl (Dilaudid NEWSPAPER ILLUSTRATOR) See protocol, below. Q4PCA IV Last administered on 01/03/19 10:14; Admin Dose 0.1 MG; Start 12/31/18 at 15:00 Diphenhydramine HCl (Benadryl) 25 mg Q6H PRN IV Nausea or itching Last administered on 01/03/19 11:33; Admin Dose 25 MG; Start 12/31/18 at 20:30 Promethazine HCl/ Codeine (Phenergan/ Codeine) 5 ml Q4H PRN PO COUGH; Start 01/01/19 at 12:00 Ibuprofen (Motrin) 600 mg Q8 PO Last administered on 01/02/19 06:18; Admin Dose 600 MG; Start 01/01/19 at 17:00 Colchicine (Colchicine) 0.6 mg DAILY PO Last administered on 01/03/19 09:05; Admin Dose 0.6 MG; Start 01/02/19 at 09:00 Sodium Chloride 1,000 ml @ 100 mls/hr Q10H IV Last administered on 01/03/19 04:16; Admin Dose 100 MLS/HR; Start 01/02/19 at 18:30; Status Hold JAMIN INFANTE Jan 03, 2019 13:21
--- NOTE | 2019-01-03 13:52 | PN ---
Date/Time of Note Date/Time of Note DATE: 01/03/19 TIME: 13:22 Assessment/Plan Lines/Catheters IV Catheter Type: Peripheral IV Assessment/Plan Hospital Course 18-year-old male with history of epilepsy, stable on Keppra, recently discharged after admit 12/18 when diagnosed with large mediastinal yolk sac tumor tumor. Plans for sperm banking followed by chemotherapy. Patient presented with new respiratory symptoms including cough and chest pain. Interval development of left lower lobe atelectasis versus consolidation with initially small pleural effusion. Fevers and tachycardia have been present throughout the prior admission, and continue. At admission, white blood cell count 24.3, hemoglobin 10.7, platelets of 736. Elevated LDH, beta-HCG and AFP are elevated consistent w ith his neoplasm. Hospital course: Patient has had ill appearance with tachycardia, fevers, and is experiencing moderate chest pain, now fairly well controlled on Dilaudid TREATING INSPECTOR. Oral intake increasingly poor. Clinically met criteria for severe sepsis and placed on Vancomycin, Zosyn, and azithromycin as suggested by ID. Developed O2 requirement, transferred to ICU 12/31 with rapidly enlarging pleural effusions, s/p thoracentesis x 2. Pericardial fluid (moderate) also present. Sputum growing MSSA. 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 No obvious metastases. He has Mediport in place and 2D echo done in preparation for chemo. Given large size of mass and concern for airway compression, per oncologist Dr. Smith chemo should begin in hospital - timing not yet clear (seems like perhaps 01/08 if able?) - see Onc note. Current plan is 2 cycles of chemo, restaging, and after 4 cycles restaging and transferred to tertiary care cardiothoracic surgeon for section of residual mass. VIP planned by oncology for 1 week from now following banking of sperm, which social work has helped to arrange for LOBITO in the hospital. Neuro: Seizures: Continue Keppra. Stable. Pain control: Currently receiving TREATING INSPECTOR dilaudid, fairly well controlled. Ibuprofen also on board. Resp: Pleural effusion, exudative, s/p thoracentesis x 2 with reportedly 1L each time aspirated. O2 nasal canula. Likely has staph pneumonia, postobstructive due to tumor. Effusion however could be infectious, malignant, or both. Breath sounds seem better to me now, CXR pending. FEN/GI: Regular diet and intravenous fluids. Electrolytes stable. Hypoalbuminemia. CV: Pericardial effusion with possibility of impending tamponade. Recent BP's show diminishing pulse pressure - watch carefully. Repeat echo today with stable findings, however; CT surgery consult pending for evaluation for possible pericardial window. Tachycardia persists, partly also pain related? BP stable. Heme: VTE prophylaxis: Lovenox. Anemia, thrombocytosis, leukocytosis. See heme/onc recommendations. ID: Pneumonia and sepsis, antibiotics as per ID recommendations. MSSA in sputum. Blood cultures negative to date. Broad spectrum coverage currently with Vanco, Zosyn, zithromax; ID now tailoring therapy to Zosyn alone. Fevers likely also related to neoplasm, cannot rely on this measure for evaluation of ID control. Renal: good renal function and UOP. Urologic: He has been unable to produce ejaculate. May need to abandon sperm banking or obtain after 1st round chemo? [facility] would not be reimbursed. Dispo: Eventually home with parents if/when medically feasible. Worsening condition recently, however. We will continue to follow as CCS consultants while in hospital. Agree with current management from our very capable adult hospitalist team. Problems: (1) Pericardial effusion Status: Acute (2) Pleural effusion Status: Acute (3) Nonseminomatous germ cell neoplasm Status: Acute (4) Seizure disorder Status: Chronic Subjective 24 Hr Interval Summary Continues to have L chest pain. Breathing a little easier he says. Constitutional: febrile (at times), requiring O2, requiring IVF, weight loss Pain Control: moderate Skin: no complaints Eyes: no complaints HENT: no complaints Respiratory: cough Cardiovascular: chest pain (L) Gastrointestinal: nausea Genitourinary: other (unable to achieve ejaculation) Neurologic: no complaints Musculoskeletal: no complaints Objective Vital Signs Vitals Vital Signs Date Temp Pulse Resp B/P (MAP) Pulse Ox O2 O2 Flow FiO2 Time Delivery Rate 01/03/19 Nasal 3.0 12:00 Cannula 01/03/19 150 19 116/96 97 12:00 (103) 01/03/19 98.4 08:00 01/02/19 33 21:40 Intake and Output 01/02/19 01/02/19 01/03/19 1515:00 23:00 07:00 IntakeIntake Total 720 ml 2020 ml OutputOutput Total 900 ml 1725 ml BalanceBalance -180 ml 295 ml Exam General: other (Low muscle mass, thin, ill appearing) Skin: nl Head: NC/AT Eyes: No conjunctivitis ENT: nl nasal mucosa/septum Lymphatic: nl lymph nodes Neck: supple, non-tender Respiratory: easy WOB, other (decreased sounds at bases.); No crackles, No retractions, No wheezing Cardiovascular: RRR, nl S1 & S2, <2 sec cap refill, tachycardic; No murmur Gastrointestinal: soft, ND, NT Neurological: nl muscle tone Musculoskeletal: No nl muscle bulk Extremities: warm, well-perfused, global analytics head <2 sec Results Result Diagram: 01/03/19 1042 01/03/19 0450 Results 24 hrs Laboratory Tests Test 01/03/19 04:43 01/03/19 04:50 01/03/19 10:42 White Blood Count 18.5 H Red Blood Count 3.96 L Hemoglobin 9.8 L Hematocrit 31.1 L Mean Corpuscular Volume 78.5 Mean Corpuscular Hemoglobin 24.7 L Mean Corpuscular Hemoglobin Concent 31.5 L Red Cell Distribution Width 14.0 Platelet Count 586 H 577 H Mean Platelet Volume 7.8 Immature Granulocytes % 0.900 H Neutrophils % 80.6 H Lymphocytes % 10.6 L Monocytes % 6.9 Eosinophils % 0.8 Basophils % 0.2 Nucleated Red Blood Cells % 0.0 Immature Granulocytes # 0.170 H Neutrophils # 14.9 H Lymphocytes # 2.0 Monocytes # 1.3 H Eosinophils # 0.1 Basophils # 0.0 Nucleated Red Blood Cells # 0.0 Sodium Level 134 L Potassium Level 4.0 Chloride Level 99 Carbon Dioxide Level 26 Anion Gap 9 Blood Urea Nitrogen < 2 L Creatinine 0.66 Est Glomerular Filtrat Rate mL/min > 60 Glucose Level 99 Calcium Level 7.7 L Prothrombin Time 14.7 Prothrombin Time Ratio 1.1 INR International Normalized Ratio 1.14 Activated Partial Thromboplast Time 37.9 H Thrombin Time 14.7 Medications Medications Current Medications IV Flush (NS 3 ml) 3 ml PER PROTOCOL IV ; Start 12/30/18 at 04:00 Ondansetron HCl (Zofran Inj) 4 mg Q6H PRN IV NAUSEA/VOMITING Last administered on 01/02/19at 21:05; Admin Dose 4 MG; Start 12/30/18 at 04:00 Acetaminophen (Tylenol Tab) 650 mg Q6H PRN PO .PAIN 1-3 OR TEMP Last administe red on 01/03/19 04:13; Admin Dose 650 MG; Start 12/30/18 at 04:00 Docusate Sodium (Colace) 100 mg Q12H PRN PO .CONSTIPATION; Start 12/30/18 at 04:00 Bisacodyl (Dulcolax) 5 mg DAILY PRN PO .CONSTIPATION; Start 12/30/18 at 04:00 Enoxaparin Sodium (Lovenox) 40 mg DAILY SC Last administered on 01/01/19 09:36; Admin Dose 40 MG; Start 12/30/18 at 09:00 Vancomycin HCl (Vanco Iv Per Pharmacy) VANCOMYCIN PER PHARMACY PER PROTOCOL XX ; Start 12/30/18 at 04:00 Piperacillin Sod/ Tazobactam Sod 100 ml @ 200 mls/hr Q6 IVPB Last administered on 01/03/19 11:34; Admin Dose 200 MLS/HR; Start 12/30/18 at 06:00 Levalbuterol (Xopenex Neb) 1.25 mg Q4H RESP THERAPY PRN HHN SHORTNESS OF BREATH Last administered on 01/02/19 11:13; Admin Dose 1.25 MG; Start 12/30/18 at 04:00 Levetiracetam (Keppra) 500 mg BID PO Last administered on 01/03/19 09:05; Admin Dose 500 MG; Start 12/30/18 at 09:00 Vancomycin HCl 1.25 gm/Sodium Chloride 250 ml @ 83.333 mls/ hr Q8H IVPB Last administered on 01/03/19 05:18; Admin Dose 83.333 MLS/HR; Start 12/30/18 at 05:00 Azithromycin 250 ml @ 250 mls/hr Q24H IVPB Last administered on 01/03/19 02:22; Admin Dose 250 MLS/HR; Start 12/31/18 at 03:00 Ipratropium [place] (Atrovent 0.02% (Neb)) 0.5 mg Q4HWA RESP THERAPY HHN Last administered on 01/02/19 21:35; Admin Dose 0.5 MG; Start 12/30/18 at 13:00 Oxycodone/ Acetaminophen (Percocet (5/ 325)) 1 tab Q4H PRN PO MODERATE PAIN LEVEL 4-6; Start 12/31/18 at 12:30; Status Hold Naloxone HCl (Narcan) 0.2 mg Q2M PRN IV RR 8 BREATHS/MIN OR LESS; Start 12/31/18 at 15:00 Hydromorphone HCl (Dilaudid TREATING INSPECTOR) See protocol, below. Q4PCA IV Last administered on 01/03/19at 10:14; Admin Dose 0.1 MG; Start 12/31/18 at 15:00 Diphenhydramine HCl (Benadryl) 25 mg Q6H PRN IV Nausea or itching Last administered on 01/03/19at 11:33; Admin Dose 25 MG; Start 12/31/18 at 20:30 Promethazine HCl/ Codeine (Phenergan/ Codeine) 5 ml Q4H PRN PO COUGH; Start at 12:00 Ibuprofen (Motrin) 600 mg Q8 PO Last administered on 01/02/19at 06:18; Admin Dose 600 MG; Start 01/01/19 at 17:00 Colchicine (Colchicine) 0.6 mg DAILY PO Last administered on 01/03/19 09:05; Admin Dose 0.6 MG; Start 01/02/19 at 09:00 Sodium Chloride 1,000 ml @ 100 mls/hr Q10H IV Last administered on 01/03/19 04:16; Admin Dose 100 MLS/HR; Start 01/02/19 at 18:30; Status Hold HEATH KOLB MD Jan 03, 2019 13:33
[2019-01-03] MEDS ORDERED: LORAZEPAM 0.5 MG TAB PO PRN (14:30)
--- NOTE | 2019-01-03 14:34 | QN ---
Documentation Comment Reviewed CCS manual at https://www.[facility].id.gov/services/ccs/Documents/Ped Community.pdf and determined referral to a [facility] is applicable in this case based on section 3.3.2.H.1.l.5 based on the diagnosis of malignancy. Case management to refer as needed. HEATH KOLB MD Jan 03, 2019 14:34
--- NOTE | 2019-01-03 15:39 | PN ---
Date/Time of Note Date/Time of Note DATE: 01/03/19 TIME: 15:36 Assessment/Plan Lines/Catheters IV Catheter Type (from [facility]): Peripheral IV Assessment/Plan Assessment/Plan 18 year old male with large mediastinal mass biopsy proven yolk sac tumor compressing heart and SVC with moderate pericardial effusion. He is HD stable. Would not recommend subxyphoid pericardial window at this time due to risk of tracheal compression. Recommend proceeding with chemotherapy and monitoring pericardial effusion. Discussed with patient and mother who understand and agree. Exam/Review of Systems Vital Signs Vitals Vital Signs Date Temp Pulse Resp B/P (MAP) Pulse Ox O2 O2 Flow FiO2 Time Delivery Rate 01/03/19 152 12:00 01/03/19 Nasal 3.0 12:00 Cannula 01/03/19 19 116/96 97 12:00 (103) 01/03/19 98.4 08:00 01/02/19 33 21:40 Intake and Output 01/02/19 01/02/19 01/03/19 1515:00 23:00 07:00 IntakeIntake Total 720 ml 2020 ml OutputOutput Total 900 ml 1725 ml BalanceBalance -180 ml 295 ml Results Result Diagram: 01/03/19 1042 01/03/19 0450 NAHOMY LAWSON MD Jan 03, 2019 15:39
[2019-01-03] MEDS ORDERED: ARTIFICIAL TEARS 15 ML OPH BOTH EYES PRN (16:00)
--- NOTE | 2019-01-03 17:36 | QN ---
Documentation Comment Referral to [facility] tertiary care center: gave detailed verbal report to fellow Dr. Hardy at [facility]. Awaiting attending decision on transfer. HEATH KOLB MD Jan 03, 2019 17:35
[2019-01-03] MEDS: SOD CHLORIDE 0.45% 1,000 ML IV SCH (21:19)
[2019-01-03] MEDS ORDERED: APREPITANT 125 MG PO ONE (22:00)
[2019-01-03] MEDS: ONDANSETRON INJ 16 MG, DEXAMETHASONE 4 MG/ML 20 MG in DEXTROSE 5% 50 ML IV SCH (22:36)
[2019-01-03] MEDS ORDERED: PROCHLORPERAZINE 10 MG INJ IV PRN (23:00)
[2019-01-03] MEDS: SOD CHLORIDE 0.9% IV SCH (23:14)
[2019-01-03] MEDS: CISPLATIN IV SCH (23:14)
[2019-01-04] VITALS (29 sets, daily range): BP systolic 88–127; BP diastolic 60–96; PULSE 106–138; RESP 10–21
[2019-01-04] MEDS: ETOPOSIDE IV SCH (01:28)
[2019-01-04] MEDS: SOD CHLORIDE 0.9% IV SCH ×4 (01:28→23:11)
[2019-01-04] MEDS ORDERED: SOD CHLORIDE 0.9% IV SCH ×2 (02:00→23:00)
[2019-01-04] MEDS ORDERED: MESNA IV SCH (02:00)
[2019-01-04] MEDS: PIPER-TAZO 3.375 GM IV (PMX) 100 ML IVPB SCH ×5 (02:31→23:53)
[2019-01-04] MEDS: IFOSFAMIDE IV SCH (05:03)
[2019-01-04] MEDS: MESNA IV SCH (05:13)
[2019-01-04] MEDS: IBUPROFEN 600 MG TAB PO SCH ×3 (06:00→21:54)
[2019-01-04] MEDS: DIPHENHYDRAMINE 50 MG INJ IV PRN (06:19)
[2019-01-04] MEDS: IPRATROPIUM (NEB) 0.5 MG/2.5 ML AMP HHN SCH ×4 (08:31→21:00)
--- NOTE | 2019-01-04 08:53 | CONS ---
Consult Date/Type/Reason Admit Date/Time Dec 30, 2018 at 03:30 Initial Consult Date Type of Consult Pulmonary Requesting Provider: RADHA HEBERT Date/Time of Note DATE: 01/04/19 TIME: 08:50 Subjective Patient started on chemotherapy yesterday. Remains tachycardic this morning but no respiratory distress at present. Appreciate thoracic surgery evaluation. 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 Objective Vital Signs Date Temp Pulse Resp B/P (MAP) Pulse Ox O2 O2 Flow FiO2 Time Delivery Rate 01/04/19 16 07:48 01/04/19 98.2 119 92 3.0 06:00 01/03/19 Nasal 20:00 Cannula 01/02/19 33 21:40 Intake and Output 01/03/19 01/03/19 01/04/19 1414:59 22:59 06:59 IntakeIntake Total 860 ml 983 ml 1433 ml OutputOutput Total 1700 ml 800 ml 3325 ml BalanceBalance -840 ml 183 ml -1892 ml Exam GENERAL: Young gentleman on nasal cannula O2 VITAL SIGNS: per chart NECK: Supple. No JVD or lymphadenopathy. CARDIAC EXAM: S1, S2. Tachycardia with distant heart sounds CHEST: Diminished air entry bilaterally ABDOMEN: Soft, nontender. No guarding or rebound. EXTREMITIES: No cyanosis, clubbing edema +1 NEUROLOGIC: Generalized weakness. No focal deficits. Vent Setting Fraction of Inspired Oxygen pe: 33 Results/Medications Result Diagram: 01/04/19 0442 01/04/19 0442 Results 24 hrs Laboratory Tests Test 01/03/19 10:42 01/03/19 13:01 01/04/19 04:42 Platelet Count 577 H 548 H Prothrombin Time 14.7 Prothrombin Time Ratio 1.1 INR International Normalized Ratio 1.14 Activated Partial Thromboplast Time 37.9 H Thrombin Time 14.7 Vancomycin Level Trough 9.5 L Rapid Plasma Reagin NONREACTIVE Hepatitis B Surface Antigen NEGATIVE Hepatitis B Core Total Antibody NEGATIVE Hepatitis C Antibody NEGATIVE HIV (1&2) Antibody NEGATIVE White Blood Count 19.2 H Red Blood Count 4.15 L Hemoglobin 10.2 L Hematocrit 32.5 L Mean Corpuscular Volume 78.3 Mean Corpuscular Hemoglobin 24.6 L Mean Corpuscular Hemoglobin Concent 31.4 L Red Cell Distribution Width 14.1 Mean Platelet Volume 8.4 Immature Granulocytes % 0.800 H Neutrophils % 95.0 H Lymphocytes % 3.3 L Monocytes % 0.8 Eosinophils % 0.0 Basophils % 0.1 Nucleated Red Blood Cells % 0.0 Immature Granulocytes # 0.160 H Neutrophils # 18.3 H Lymphocytes # 0.6 L Monocytes # 0.2 L Eosinophils # 0.0 Basophils # 0.0 Nucleated Red Blood Cells # 0.0 Sodium Level 136 Potassium Level 4.2 Chloride Level 102 Carbon Dioxide Level 27 Anion Gap 7 Blood Urea Nitrogen 2 L Creatinine 0.50 L Est Glomerular Filtrat Rate mL/min > 60 Glucose Level 134 Calcium Level 8.3 L Phosphorus Level 4.4 Magnesium Level 2.2 Medications Current Medications IV Flush (NS 3 ml) 3 ml PER PROTOCOL IV ; Start 12/30/18 at 04:00 Ondansetron HCl (Zofran Inj) 4 mg Q6H PRN IV NAUSEA/VOMITING Last administered on 01/02/19 21:05; Admin Dose 4 MG; Start 12/30/18 at 04:00 Acetaminophen (Tylenol Tab) 650 mg Q6H PRN PO .PAIN 1-3 OR TEMP Last administered on 01/03/19 04:13; Admin Dose 650 MG; Start 12/30/18 at 04:00 Docusate Sodium (Colace) 100 mg Q12H PRN PO .CONSTIPATION; Start 12/30/18 at 04:00 Bisacodyl (Dulcolax) 5 mg DAILY PRN PO .CONSTIPATION; Start 12/30/18 at 04:00 Enoxaparin Sodium (Lovenox) 40 mg DAILY SC Last administered on 01/01/19 09:36; Admin Dose 40 MG; Start 12/30/18 at 09:00 Piperacillin Sod/ Tazobactam Sod 100 ml @ 200 mls/hr Q6 IVPB Last administered on 01/04/19 06:50; Admin Dose 200 MLS/HR; Start 12/30/18 at 06:00 Levalbuterol (Xopenex Neb) 1.25 mg Q4H RESP THERAPY PRN HHN SHORTNESS OF BREATH Last administered on 01/02/19 11:13; Admin Dose 1.25 MG; Start 12/30/18 at 04:00 Levetiracetam (Keppra) 500 mg BID PO Last administered on 01/03/19 20:46; Admin Dose 500 MG; Start 12/30/18 at 09:00 Ipratropium [place] (Atrovent 0.02% (Neb)) 0.5 mg Q4HWA RESP THERAPY HHN Last administered on 01/02/19 21:35; Admin Dose 0.5 MG; Start 12/30/18 at 13:00 Oxycodone/ Acetaminophen (Percocet (5/ 325)) 1 tab Q4H PRN PO MODERATE PAIN LEVEL 4-6; Start 12/31/18 at 12:30; Status Hold Naloxone HCl (Narcan) 0.2 mg Q2M PRN IV RR 8 BREATHS/MIN OR LESS; Start 12/31/18 at 15:00 Hydromorphone HCl (Dilaudid WATERPROOFING SUPERVISOR) See protocol, below. Q4PCA IV Last a dministered on 01/03/19 22:01; Admin Dose 6 MG; Start 12/31/18 at 15:00 Diphenhydramine HCl (Benadryl) 25 mg Q6H PRN IV Nausea or itching Last administered on 01/04/19 06:19; Admin Dose 25 MG; Start 12/31/18 at 20:30 Promethazine HCl/ Codeine (Phenergan/ Codeine) 5 ml Q4H PRN PO COUGH; Start 01/01/19 at 12:00 Ibuprofen (Motrin) 600 mg Q8 PO Last administered on 01/03/19at 14:42; Admin Dose 600 MG; Start 01/01/19 at 17:00 Colchicine (Colchicine) 0.6 mg DAILY PO Last administered on 01/03/19 09:05; Admin Dose 0.6 MG; Start 01/02/19 at 09:00 Sodium Chloride 1,000 ml @ 100 mls/hr Q10H IV Last administered on 01/03/19 04:16; Admin Dose 100 MLS/HR; Start 01/02/19 at 18:30; Status Hold Lorazepam (Ativan) 0.5 mg Q6H PRN PO ANXIETY Last administered on 01/03/19 14:43; Admin Dose 0.5 MG; Start 01/03/19 at 14:30 Eye Lubricant (Artificial Tears Oph) 2 drop Q6H PRN BOTH EYES DRY EYES; Start 01/03/19 at 16:00 Sodium Chloride 1,000 ml @ 75 mls/hr [id number] IV Last administered on 01/03/19at 21:19; Admin Dose 75 MLS/HR; Start 01/03/19 at 21:00; Stop 01/09/19 at 20:59 Aprepitant (Emend) 80 mg Q24H PO ; Start 01/04/19 at 22:00; Stop 01/05/19 at 22:01 Ondansetron HCl 16 mg/ Dexamethasone 20 mg/Dextrose 63 ml @ 252 mls/hr Q24H IV Last administered on 01/03/19at 22:36; Admin Dose 252 MLS/HR; Start 01/03/19 at 22:00; Stop 01/07/19 at 22:14 Prochlorperazine (Compazine Inj) 5 mg Q6H PRN IV NAUSEA; Start 01/03/19 at 23:00 Etoposide 125 mg/ Sodium Chloride 500 ml @ 500 mls/hr Q24H IV Last administered on 01/04/19at 01:28; Admin Dose 500 MLS/HR; Start 01/04/19 at 00:30; Stop 01/08/19 at 01:29 Ifosfamide 2 gm/ Sodium Chloride 250 ml @ 250 mls/hr Q24H IV Last administered on 01/04/19at 05:03; Admin Dose 250 MLS/HR; Start 01/04/19 at 02:00; Stop 01/08/19 at 02:59 [place] 2004 mg/ Sodium Chloride 500 ml @ 20.833 mls/ hr Q24H IV Last administered on 01/04/19at 05:13; Admin Dose 20.833 MLS/HR; Start 01/04/19 at 0 2:15; Stop 01/09/19 at 02:14 Cisplatin 33 mg/ Sodium Chloride 283 ml @ 250 mls/hr Q24H IV Last administered on 01/03/19at 23:14; Admin Dose 250 MLS/HR; Start 01/03/19 at 23:00; Stop 01/08/19 at 00:08 Lidocaine (Xylocaine 1% (Mpf)) 5 ml ONCE ONCE SC ; Start 01/04/19 at 09:00; Stop 01/04/19 at 09:01 Assessment/Plan Hospital Course (Demo Recall) IMP: 1. Hypoxemic Respiratory Insufficiency--2/2 large mediastinal yolk sac tumor with associated mainstem bronchial compression, pleural effusions, and post- obstructive pna. 2. 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 Left pleural effusion--lymphocytic predominant exudate--awaiting cytology 4. Anemia 5. Tachycardia likely secondary to pericardial effusion with signs of tamponade. Appreciate thoracic surgery evaluation for possible pericardiocentesis RECS: 1. Titrate FiO2 as tolerated 2. Abx per ID 3. Pleural fluid cytology pending. 4. Cardiothoracic surgery evaluation for pericardial window. All regarding 5. Continue ICU management 6. Continue chemotherapy per hematology oncology 7. PICC line placement 40 min cc time Possible transfer to tertiary care facility. ANGIE LANDEROS MD, [facility] Jan 04, 2019 08:53
[2019-01-04] MEDS ORDERED: LIDOCAINE 1% (MPF) 5 ML VIAL SC ONE (09:00)
[2019-01-04] MEDS: COLCHICINE 0.6 MG CAP PO SCH (09:21)
[2019-01-04] MEDS: LEVETIRACETAM 500 MG TAB PO SCH ×2 (09:21→21:03)
--- NOTE | 2019-01-04 09:49 | PN ---
Date/Time of Note Date/Time of Note DATE: 01/04/19 TIME: 09:46 Assessment/Plan Lines/Catheters IV Catheter Type (from Nrs): portacath Assessment/Plan Assessment/Plan After discussing with [facility] and further reviewing echo and ct I will proceed with pericardiocentesis, possible subxyphoid window in the operating room on Sunday. This was discussed with patient and his father. Exam/Review of Systems Vital Signs Vitals Vital Signs Date Temp Pulse Resp B/P (MAP) Pulse Ox O2 O2 Flow FiO2 Time Delivery Rate 01/04/19 98.3 129 16 127/86 98 Nasal 2.0 08:14 (100) Cannula 01/02/19 33 21:40 Intake and Output 01/03/19 01/03/19 01/04/19 1515:00 23:00 07:00 IntakeIntake Total 460 ml 983 ml 1433 ml OutputOutput Total 1700 ml 800 ml 3325 ml BalanceBalance -1240 ml 183 ml -1892 ml Results Result Diagram: 01/04/19 0442 01/04/19 0442 NAHOMY LAWSON MD Jan 04, 2019 09:49
[2019-01-04] MEDS: SOD CHLORIDE 0.45% 1,000 ML IV SCH ×2 (10:20→19:01)
[2019-01-04] MEDS: ENOXAPARIN 40 MG/0.4 ML SYG SC SCH (10:41)
[2019-01-04] MEDS: HYDROmorphONE 0.2 MG/ML PCA IV SCH ×2 (10:46→22:33)
--- NOTE | 2019-01-04 11:29 | CONS ---
Consult Date/Type/Reason Admit Date/Time Dec 30, 2018 at 03:30 Initial Consult Date Type of Consultation: Pulm/CCM Requesting Provider: RADHA HEBERT Date/Time of Note DATE: 01/04/19 TIME: 11:27 Subjective NO acute events - I spoke with CT team - planning for percardicentesis vs pericardial window, possibly Sunday - BP stable - chemo resumed - per DR. Schneider sun, transfer to higher level of care is also in place. ROS: No fever, no chills, no nausea, no vomiting, no diarrhea/constipation No recent weight changes No chest pain, no PND, no orthopnea - mild SOB, better No dizziness, blurred vision No thirst, no heat or cold intolerance Objective Vitals Vital Signs Date Temp Pulse Resp B/P (MAP) Pulse Ox O2 O2 Flow FiO2 Time Delivery Rate 01/04/19 15 10:45 01/04/19 98.3 129 127/86 98 Nasal 2.0 08:14 (100) Cannula 01/02/19 33 21:40 Intake and Output 01/03/19 01/03/19 01/04/19 1515:00 23:00 07:00 IntakeIntake Total 460 ml 983 ml 1433 ml OutputOutput Total 1700 ml 800 ml 3325 ml BalanceBalance -1240 ml 183 ml -1892 ml Exam General: WN/WD/NAD, AOx 3 HEENT: Unicetric/atraumatic/EOMI (follow commands) NECK: JVD elevated, no thyromegaly - no pulses paradoxes Lymph: no lymphadenopathy HEART: regular with no S3, II/ systolic murmur at apex LUNGS: Coarse sounds ABD: soft, NT, ND, +BS : Intact Neuro: non focal SKIN: chronic changes EXT: trace edema Results/Medications Result Diagram: 01/04/19 0442 01/04/19 0442 Results 24 hrs Laboratory Tests Test 01/03/19 13:01 01/04/19 04:42 Vancomycin Level Trough 9.5 L Rapid Plasma Reagin NONREACTIVE Hepatitis B Surface Antigen NEGATIVE Hepatitis B Core Total Antibody NEGATIVE Hepatitis C Antibody NEGATIVE HIV (1&2) Antibody NEGATIVE White Blood Count 19.2 H Red Blood Count 4.15 L Hemoglobin 10.2 L Hematocrit 32.5 L Mean Corpuscular Volume 78.3 Mean Corpuscular Hemoglobin 24.6 L Mean Corpuscular Hemoglobin Concent 31.4 L Red Cell Distribution Width 14.1 Platelet Count 548 H Mean Platelet Volume 8.4 Immature Granulocytes % 0.800 H Neutrophils % 95.0 H Lymphocytes % 3.3 L Monocytes % 0.8 Eosinophils % 0.0 Basophils % 0.1 Nucleated Red Blood Cells % 0.0 Immature Granulocytes # 0.160 H Neutrophils # 18.3 H Lymphocytes # 0.6 L Monocytes # 0.2 L Eosinophils # 0.0 Basophils # 0.0 Nucleated Red Blood Cells # 0.0 Sodium Level 136 Potassium Level 4.2 Chloride Level 102 Carbon Dioxide Level 27 Anion Gap 7 Blood Urea Nitrogen 2 L Creatinine 0.50 L Est Glomerular Filtrat Rate mL/min > 60 Glucose Level 134 Calcium Level 8.3 L Phosphorus Level 4.4 Magnesium Level 2.2 Home Meds Reported Medications Levetiracetam* (Keppra*) 500 Mg Tablet, 500 MG PO BID, TAB 12/18/18 Medications Current Medications IV Flush (NS 3 ml) 3 ml PER PROTOCOL IV ; Start 12/30/18 at 04:00 Ondansetron HCl (Zofran Inj) 4 mg Q6H PRN IV NAUSEA/VOMITING Last administered on 01/02/19at 21:05; Admin Dose 4 MG; Start 12/30/18 at 04:00 Acetaminophen (Tylenol Tab) 650 mg Q6H PRN PO .PAIN 1-3 OR TEMP Last administered on 01/03/19at 04:13; Admin Dose 650 MG; Start 12/30/18 at 04:00 Docusate Sodium (Colace) 100 mg Q12H PRN PO .CONSTIPATION; Start 12/30/18 at 04:00 Bisacodyl (Dulcolax) 5 mg DAILY PRN PO .CONSTIPATION; Start 12/30/18 at 04:00 Enoxaparin Sodium (Lovenox) 40 mg DAILY SC Last administered on 01/04/19at 10:41; Admin Dose 40 MG; Start 12/30/18 at 09:00 Piperacillin Sod/ Tazobactam Sod 100 ml @ 200 mls/hr Q6 IVPB Last administered on 01/04/19at 06:50; Admin Dose 200 MLS/HR; Start 12/30/18 at 06:00 Levalbuterol (Xopenex Neb) 1.25 mg Q4H RESP THERAPY PRN HHN SHORTNESS OF BREATH Last administered on 01/02/19 11:13; Admin Dose 1.25 MG; Start 12/30/18 at 04:00 Levetiracetam (Keppra) 500 mg BID PO Last administered on 01/04/19 09:21; Admin Dose 500 MG; Start 12/30/18 at 09:00 Ipratropium [place] (Atrovent 0.02% (Neb)) 0.5 mg Q4HWA RESP THERAPY HHN Last administered on 01/02/19 21:35; Admin Dose 0.5 MG; Start 12/30/18 at 13:00 Oxycodone/ Acetaminophen (Percocet (5/ 325)) 1 tab Q4H PRN PO MODERATE PAIN LEVEL 4-6; Start 12/31/18 at 12:30; Status Hold Naloxone HCl (Narcan) 0.2 mg Q2M PRN IV RR 8 BREATHS/MIN OR LESS; Start 12/31/18 at 15:00 Hydromorphone HCl (Dilaudid [employer]IVERY) See protocol, below. Q4PCA IV Last administered on 01/04/19 10:46; Admin Dose 6 MG; Start 12/31/18 at 15:00 Diphenhydramine HCl (Benadryl) 25 mg Q6H PRN IV Nausea or itching Last administered on 01/04/19 06:19; Admin Dose 25 MG; Start 12/31/18 at 20:30 Promethazine HCl/ Codeine (Phenergan/ Codeine) 5 ml Q4H PRN PO COUGH; Start 01/01/19 at 12:00 Ibuprofen (Motrin) 600 mg Q8 PO Last administered on 01/03/19 14:42; Admin Dose 600 MG; Start 01/01/19 at 17:00 Colchicine (Colchicine) 0.6 mg DAILY PO Last administered on 01/04/19 09:21; Admin Dose 0.6 MG; Start 01/02/19 at 09:00 Sodium Chloride 1,000 ml @ 100 mls/hr Q10H IV Last administered on 01/03/19 04:16; Admin Dose 100 MLS/HR; Start 01/02/19 at 18:30; Status Hold Lorazepam (Ativan) 0.5 mg Q6H PRN PO ANXIETY Last administered on 01/03/19at 14:43; Admin Dose 0.5 MG; Start 01/03/19 at 14:30 Eye Lubricant (Artificial Tears Oph) 2 drop Q6H PRN BOTH EYES DRY EYES; Start 01/03/19 at 16:00 Sodium Chloride 1,000 ml @ 75 mls/hr [id number] IV Last administered on 01/03/19at 21:19; Admin Dose 75 MLS/HR; Start 01/03/19 at 21:00; Stop 01/09/19 at 20:59 Aprepitant (Emend) 80 mg Q24H PO ; Start 01/04/19 at 22:00; Stop 01/05/19 at 22:01 Ondansetron HCl 16 mg/ Dexamethasone 20 mg/Dextrose 63 ml @ 252 mls/hr Q24H IV Last administered on 01/03/19at 22:36; Admin Dose 252 MLS/HR; Start 01/03/19 at 22:00; Stop 01/07/19 at 22:14 Prochlorperazine (Compazine Inj) 5 mg Q6H PRN IV NAUSEA; Start 01/03/19 at 23:00 Etoposide 125 mg/ Sodium Chloride 500 ml @ 500 mls/hr Q24H IV Last administered on 01/04/19at 01:28; Admin Dose 500 MLS/HR; Start 01/04/19 at 00:30; Stop 01/08/19 at 01:29 Ifosfamide 2 gm/ Sodium Chloride 250 ml @ 250 mls/hr Q24H IV Last administered on 01/04/19at 05:03; Admin Dose 250 MLS/HR; Start 01/04/19 at 02:00; Stop 01/08/19 at 02:59 [place] 2004 mg/ Sodium Chloride 500 ml @ 20.833 mls/ hr Q24H IV Last administered on 01/04/19at 05:13; Admin Dose 20.833 MLS/HR; Start 01/04/19 at 02:15; Stop 01/09/19 at 02:14 Cisplatin 33 mg/ Sodium Chloride 283 ml @ 250 mls/hr Q24H IV Last administered on 01/03/19at 23:14; Admin Dose 250 MLS/HR; Start 7/5/19 at 23:00; Stop 01/08/19 at 00:08 Assessment/Plan Hospital Course (Demo Recall) 1. Pericardial effusion with questionable early tamponade features. Currently, the patient with stable blood pressure, but is tachycardic,pt feels a little better today, but still tachy - his repeat echo with moderate effusion, but early tamponade signs - given these finding, I think that surgical evaluation for pericardial window and possible reresection might be reasonable - will discuss with primary team now. Repeat ECHO with increased effusion - I spoke with CT team - planning for percardicentesis vs pericardial window, possibly Sunday - BP stable - chemo resumed - per DR. Fuller, transfer to higher level of care is also in place 2. Tachycardia consistent with sinus tachycardia at this time, questionable due to pain, fever or actual pericardial effusion, or a combination of all these likely. Stable at 120s. 3. History of mediastinal mass, yolk sac tumor - await path from pleural effusion. NOw chemo resumed. 4. Lower lobe pneumonia - con't anti-bx now. 5. Large pleural effusion, undergoing thoracentesis at this time x 2 already. Feels better with drainage. 6. Leukocytosis, severe. 7. Anemia. 8. Thrombocytopenia plts at 99 now. KHANG PAGE MD Jan 04, 2019 11:29
--- NOTE | 2019-01-04 11:47 | CONS ---
Assessment/Plan Assessment/Plan Hospital Course (Demo Recall) ID PROGRESS NOTE CURRENT ABX: DAY # 6=> Zosyn #6 s/p Azith #3 s/p Vanco IV #5 24H INTERVAL SUMMARY * Plan for CT surgery pericardiocentesis, possible subxiphoid window in the operating room on Sunday01/06/19. * [employer] Supervisor working on TNS to higher level of care * Awake, alert -- pain issues continue -- hypoxic requiring supplemental O2 via NC * s/p LEFT thoracentesis 01/02/19 w/removal 1L * Dr. Naik considering surgical placement of pericardial window for repeat ECHO showing pericardial effusion * Mild tachycardia HR 116, (+)Intermittent fevers and low grade temps -- spike temp yesterday > 101 * POD #-> S/P 12/20/[address] guided mediastinal mass biopsy. 2. No complications occurred. 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 Clinical correlation is advised. * 12/18/18 BCX (-) * QFT neg, HIV neg MICRO * 12/31/18 (-)MRSA NARES * 12/31/18 RESP CX:RESPIRATORY CULTURE Final Organism 1 STAPHYLOCOCCUS AUREUS QUANTITY 1+ Organism 2 NORMAL RESPIRATORY ZOFIA QUANTITY 2+ S AUREUS M.I.C. RX --------- --- CEFAZOLIN S CIPROFLOXACIN <=0.5 S CLINDAMYCIN R DOXYCYCLINE S ERYTHROMYCIN >=8 R LEVOFLOXACIN 0.25 S OXACILLIN 0.5 S PENICILLIN-G >=0.5 R RIFAMPIN <=0.5 S VANCOMYCIN 1 S TRIMETHOPRIM/SULFAMETHOXAZOLE <=10 S * 12/30/18 BCX (-); Urine Cx (-) * 12/30/18 INFLUENZA A & B BY EIA Final INFLU A&B BY EIA INFLUENZA A NEGATIVE (Ref Range Neg) INFLUENZA B NEGATIVE (Ref Range Neg) DIAGNOSTIC IMAGING * 01/02/19 CXR: IMPRESSION:1. Large anterior mediastinal mass is again seen suggesting lymphoma or other lesion. Correlation with prior biopsy results is suggested. 2. Moderate left pleural effusion is again seen with presumed adjacent atelectasis. * 01/01/2019 CT CHEST: IMPRESSION:18.7 cm anterior mediastinal mass. Small right and small to moderate left pleural effusions. Extensive left lower lobe atelectasis. Patchy consolidative opacities in the right upper lobe, suspicious for pneumonia. The right lower lobe nodule seen in the prior CTA is not clearly visualized in this examination. Moderate pericardial effusion. * 12/20/18 CT A-P: IMPRESSION:No evidence of abdominal or pelvic mass or CT evidence for metastatic disease. Trace pleural fluid. No evidence of bowel obstruction or inflammation. Prominent fecal distension of the colon is suggestive for constipation. * 12/20/18 testicular us: 1. Benign cysts in the left epididymis, without concerning features. No evidence of epididymitis. 2. Normal sonographic find ings of the bilateral testicles. No evidence of testicular mass or torsion. PHYSICAL EXAMINATION: GENERAL: VSS, NAD - pain issues HEENT: AT, NC, (+)JVD NECK: Supple, CHEST: Rise symmetrica -- hypoxic on supplemental O2 HEART: Pulse RRR ABDOMEN: Benign EXTREMITIES: Warm, dry SKIN: No rash, no diaphoresis ID ASSESSMENT 18 yo M admit with: 1. 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 Pleural effusion -> s/p Left Thora 01/02/19 w/1L removed 4. Pericardial effusion 5. Seizure disorder Thrombocytosis ABX ALLERGIES: KNDA INVASIVES: PIV (-)MRSA nares CURRENT ABX: DAY # 6=> Zosyn #6 s/p Azith #3 s/p Vanco IV #5 ID RECOMMENDATIONS/PLAN: 1. Appreciate consulting colleague notice to Dr. Ruiz for consideration ABX de-escalation * Joseph reviewed ABX with me yesterday ->Vanco IV DC'd 01/03/19 w/ continuation of Zosyn. * Patient was also placed on AZITH prior by non ID provider (I must have missed this) -> Azith DC'd 01/03/[address] surgery pericardiocentesis, possible subxiphoid window in the operating room on Sunday01/06/19. * [employer] Supervisor working on TNS to higher level of care 3. Leukocytosis driven by multiple etiologies: Sepsis/PNA/MDS/steroids . Consultation Date/Type/Reason Admit Date/Time Dec 30, 2018 at 03:30 Initial Consult Date Requesting Provider: RADHA HEBERT Date/Time of Note DATE: 01/04/19 TIME: 11:41 Exam/Review of Systems Exam Vitals Vital Signs Date Temp Pulse Resp B/P (MAP) Pulse Ox O2 O2 Flow FiO2 Time Delivery Rate 01/04/19 15 10:45 01/04/19 98.3 129 127/86 98 Nasal 2.0 08:14 (100) Cannula 01/02/19 33 21:40 Intake and Output 01/03/19 01/03/19 01/04/19 1515:00 23:00 07:00 IntakeIntake Total 460 ml 983 ml 1433 ml OutputOutput Total 1700 ml 800 ml 3325 ml BalanceBalance -1240 ml 183 ml -1892 ml Results Result Diagram: 01/04/19 0442 01/04/19 0442 Results 24hrs Laboratory Tests Test 01/03/19 13:01 01/04/19 04:42 Vancomycin Level Trough 9.5 L Rapid Plasma Reagin NONREACTIVE Hepatitis B Surface Antigen NEGATIVE Hepatitis B Core Total Antibody NEGATIVE Hepatitis C Antibody NEGATIVE HIV (1&2) Antibody NEGATIVE White Blood Count 19.2 H Red Blood Count 4.15 L Hemoglobin 10.2 L Hematocrit 32.5 L Mean Corpuscular Volume 78.3 Mean Corpuscular Hemoglobin 24.6 L Mean Corpuscular Hemoglobin Concent 31.4 L Red Cell Distribution Width 14.1 Platelet Count 548 H Mean Platelet Volume 8.4 Immature Granulocytes % 0.800 H Neutrophils % 95.0 H Lymphocytes % 3.3 L Monocytes % 0.8 Eosinophils % 0.0 Basophils % 0.1 Nucleated Red Blood Cells % 0.0 Immature Granulocytes # 0.160 H Neutrophils # 18.3 H Lymphocytes # 0.6 L Monocytes # 0.2 L Eosinophils # 0.0 Basophils # 0.0 Nucleated Red Blood Cells # 0.0 Sodium Level 136 Potassium Level 4.2 Chloride Level 102 Carbon Dioxide Level 27 Anion Gap 7 Blood Urea Nitrogen 2 L Creatinine 0.50 L Est Glomerular Filtrat Rate mL/min > 60 Glucose Level 134 Calcium Level 8.3 L Phosphorus Level 4.4 Magnesium Level 2.2 Medications Medication Current Medications IV Flush (NS 3 ml) 3 ml PER PROTOCOL IV ; Start 12/30/18 at 04:00 Ondansetron HCl (Zofran Inj) 4 mg Q6H PRN IV NAUSEA/VOMITING Last administered on 01/02/19 21:05; Admin Dose 4 MG; Start 12/30/18 at 04:00 Acetaminophen (Tylenol Tab) 650 mg Q6H PRN PO .PAIN 1-3 OR TEMP Last administered on 01/03/19 04:13; Admin Dose 650 MG; Start 12/30/18 at 04:00 Docusate Sodium (Colace) 100 mg Q12H PRN PO .CONSTIPATION; Start 12/30/18 at 04:00 Bisacodyl (Dulcolax) 5 mg DAILY PRN PO .CONSTIPATION; Start 12/30/18 at 04:00 Enoxaparin Sodium (Lovenox) 40 mg DAILY SC Last administered on 01/04/19at 10:41; Admin Dose 40 MG; Start 12/30/18 at 09:00 Piperacillin Sod/ Tazobactam Sod 100 ml @ 200 mls/hr Q6 IVPB Last administered on 01/04/19 06:50; Admin Dose 200 MLS/HR; Start 12/30/18 at 06:00 Levalbuterol (Xopenex Neb) 1.25 mg Q4H RESP THERAPY PRN HHN SHORTNESS OF BREATH Last administered on 01/02/19 11:13; Admin Dose 1.25 MG; Start 12/30/18 at 04:00 Levetiracetam (Keppra) 500 mg BID PO Last administered on 01/04/19 09:21; Admin Dose 500 MG; Start 12/30/18 at 09:00 Ipratropium [place] (Atrovent 0.02% (Neb)) 0.5 mg Q4HWA RESP THERAPY HHN Last administered on 01/02/19 21:35; Admin Dose 0.5 MG; Start 12/30/18 at 13:00 Oxycodone/ Acetaminophen (Percocet (5/ 325)) 1 tab Q4H PRN PO MODERATE PAIN LEVEL 4-6; Start 12/31/18 at 12:30; Status Hold Naloxone HCl (Narcan) 0.2 mg Q2M PRN IV RR 8 BREATHS/MIN OR LESS; Start 12/31/18 at 15:00 Hydromorphone HCl (Dilaudid [employer]PER[employer] SUPERVISOR) See protocol, below. Q4PCA IV Last administered on 01/04/19at 10:46; Admin Dose 6 MG; Start 12/31/18 at 15:00 Diphenhydramine HCl (Benadryl) 25 mg Q6H PRN IV Nausea or itching Last administered on 01/04/19 06:19; Admin Dose 25 MG; Start 12/31/18 at 20:30 Promethazine HCl/ Codeine (Phenergan/ Codeine) 5 ml Q4H PRN PO COUGH; Start 01/01/19 at 12:00 Ibuprofen (Motrin) 600 mg Q8 PO Last administered on 01/03/19at 14:42; Admin Dose 600 MG; Start 01/01/19 at 17:00 Colchicine (Colchicine) 0.6 mg DAILY PO Last administered on 01/04/19 09:21; Admin Dose 0.6 MG; Start 01/02/19 at 09:00 Sodium Chloride 1,000 ml @ 100 mls/hr Q10H IV Last administered on 01/03/19 04:16; Admin Dose 100 MLS/HR; Start 01/02/19 at 18:30; Status Hold Lorazepam (Ativan) 0.5 mg Q6H PRN PO ANXIETY Last administered on 01/03/19 14:43; Admin Dose 0.5 MG; Start 01/03/19 at 14:30 Eye Lubricant (Artificial Tears Oph) 2 drop Q6H PRN BOTH EYES DRY EYES; Start 01/03/19 at 16:00 Sodium Chloride 1,000 ml @ 75 mls/hr [id number] IV Last administered on 01/03/19 21:19; Admin Dose 75 MLS/HR; Start 01/03/19 at 21:00; Stop 01/09/19 at 20:59 Aprepitant (Emend) 80 mg Q24H PO ; Start 01/04/19 at 22:00; Stop 01/05/19 at 22:01 Ondansetron HCl 16 mg/ Dexamethasone 20 mg/Dextrose 63 ml @ 252 mls/hr Q24H IV Last administered on 01/03/19at 22:36; Admin Dose 252 MLS/HR; Start 01/03/19 at 22:00; Stop 01/07/19 at 22:14 Prochlorperazine (Compazine Inj) 5 mg Q6H PRN IV NAUSEA; Start 01/03/19 at 23:00 Etoposide 125 mg/ Sodium Chloride 500 ml @ 500 mls/hr Q24H IV Last administered on 01/04/19at 01:28; Admin Dose 500 MLS/HR; Start 01/04/19 at 00:30; Stop 01/08/19 at 01:29 Ifosfamide 2 gm/ Sodium Chloride 250 ml @ 250 mls/hr Q24H IV Last administered on 01/04/19at 05:03; Admin Dose 250 MLS/HR; Start 01/04/19 at 02:00; Stop 01/08/19 at 02:59 [place] 2004 mg/ Sodium Chloride 500 ml @ 20.833 mls/ hr Q24H IV Last administered on 01/04/19at 05:13; Admin Dose 20.833 MLS/HR; Start 01/04/19 at 02:15; Stop 01/09/19 at 02:14 Cisplatin 33 mg/ Sodium Chloride 283 ml @ 250 mls/hr Q24H IV Last administered on 01/03/19at 23:14; Admin Dose 250 MLS/HR; Start 01/03/19 at 23:00; Stop 01/08/19 at 00:08 DELTA TAYLOR NP Jan 04, 2019 11:47
--- NOTE | 2019-01-04 14:52 | CONS ---
Assessment/Plan Assessment/Plan Assessment/Plan (Daily) 18 yo with large anterior mediastinal mass 13.5 x 15.8 x 9.3 cm in size. 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 -Port and echo done and echo was normal and okay to proceed with chemotherapy. -given how large this mass is and concern for airway; chemo was recommended and thus patient initiated VIP Cycle #1 on 01/03/19. -Overall patient doing well thus far and counts are stable. Will need growth factor after completion of chemotherapy. -Previously discussed that this chemotherapy has a risk of causing infertility and sperm banking was discussed however due to his clinical condition and risks and benefits, it was decided that he should proceed to chemotherapy first. Patient consented to chemotherapy. -given that he has deteriorated hdemodynamically, Pulm is looking into possible transfer to tertiary care center, await input from medical case manager -chemotherapy regimen is as follows below: Cisplatin 20 mg/m2 IV per day Days 1 to 5 Etoposide* 75 mg/m2 IV per day Days 1 to 5 Ifosfamide* 1200 mg/m2 per day IV infusion Days 1 to 5 [place] 120 mg/m2 IV Day 1 [place] 1200 mg/m2 per day continuous IV infusion, Days 1 to 5 GCSF 300mcg daily starting day 6-12 -Side effects discussed with patient to include but not limited to nausea, vomiting, cytopenias, increased risk of infection, diarrhea, renal failure, hair loss, and neuropathy. -discussed with pt after 2 cycles chemo, restage. 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 and need to be resected #leukocytosis and thrombocytosis AND FEVERS suspect this is most likely reactive due to underlying malignancy vs pneumonia EMPIRIC ABX PER PRIMARY TEAM # Brain mass causing vasogenic edema -Will need steroids as needed. Thank you for allowing us to participate in the care of this patient. Consultation Date/Type/Reason Admit Date/Time Dec 30, 2018 at 03:30 Initial Consult Date Type of Consult hematology/oncology Requesting Provider: RADHA HEBERT Date/Time of Note DATE: 01/04/19 TIME: 14:45 24 HR Interval Summary Free Text/Dictation Patient was started on chemotherapy last night and so far tolerating VIP chemo well without any issues at this time. Denies any nausea, vomiting, diarrhea or constipation. Denies any increased shortness of breath or chest pain. He is a bit fatigued at this time. Exam/Review of Systems Exam Vitals Vital Signs Date Temp Pulse Resp B/P (MAP) Pulse Ox O2 O2 Flow FiO2 Time Delivery Rate 01/04/19 135 12:00 01/04/19 15 10:45 01/04/19 98.3 127/86 98 Nasal 2.0 08:14 (100) Cannula 01/02/19 33 21:40 Intake and Output 01/03/19 01/03/19 01/04/19 1515:00 23:00 07:00 IntakeIntake Total 460 ml 983 ml 1493.833 ml OutputOutput Total 1700 ml 800 ml 3325 ml BalanceBalance -1240 ml 183 ml -1831.167 ml Constitutional: alert, oriented, well developed Psych: no complaints, nl mood/affect Head: normocephalic, atraumatic Eyes: nl conjunctiva, EOMI, nl lids, nl sclera, PERRL ENMT: nl external ears & nose, nl lips & teeth, nl nasal mucosa & septum Neck: supple, non-tender Respiratory: diminished breath sounds Cardiovascular: regular rate and rhythm Gastrointestinal: soft, nl liver, spleen, non-tender Musculoskeletal: nl extremities to inspection, nl gait and stance Extremities: normal pulses Neurological: VALIDATION LEADER II-XII intact, nl mental status, nl speech, nl strength Skin: nl turgor; No rash or lesions Results Result Diagram: 01/04/192 01/04/192 Results 24hrs Laboratory Tests Test 01/04/19 04:42 White Blood Count 19.2 H Red Blood Count 4.15 L Hemoglobin 10.2 L Hematocrit 32.5 L Mean Corpuscular Volume 78.3 Mean Corpuscular Hemoglobin 24.6 L Mean Corpuscular Hemoglobin Concent 31.4 L Red Cell Distribution Width 14.1 Platelet Count 548 H Mean Platelet Volume 8.4 Immature Granulocytes % 0.800 H Neutrophils % 95.0 H Lymphocytes % 3.3 L Monocytes % 0.8 Eosinophils % 0.0 Basophils % 0.1 Nucleated Red Blood Cells % 0.0 Immature Granulocytes # 0.160 H Neutrophils # 18.3 H Lymphocytes # 0.6 L Monocytes # 0.2 L Eosinophils # 0.0 Basophils # 0.0 Nucleated Red Blood Cells # 0.0 Sodium Level 136 Potassium Level 4.2 Chloride Level 102 Carbon Dioxide Level 27 Anion Gap 7 Blood Urea Nitrogen 2 L Creatinine 0.50 L Est Glomerular Filtrat Rate mL/min > 60 Glucose Level 134 Calcium Level 8.3 L Phosphorus Level 4.4 Magnesium Level 2.2 Medications Medication Current Medications IV Flush (NS 3 ml) 3 ml PER PROTOCOL IV ; Start 12/30/18 at 04:00 Ondansetron HCl (Zofran Inj) 4 mg Q6H PRN IV NAUSEA/VOMITING Last administered on 01/02/19at 21:05; Admin Dose 4 MG; Start 12/30/18 at 04:00 Acetaminophen (Tylenol Tab) 650 mg Q6H PRN PO .PAIN 1-3 OR TEMP Last administered on 01/03/19 04:13; Admin Dose 650 MG; Start 12/30/18 at 04:00 Docusate Sodium (Colace) 100 mg Q12H PRN PO .CONSTIPATION; Start 12/30/18 at 04:00 Bisacodyl (Dulcolax) 5 mg DAILY PRN PO .CONSTIPATION; Start 12/30/18 at 04:00 Enoxaparin Sodium (Lovenox) 40 mg DAILY SC Last administered on 01/04/19at 10:41; Admin Dose 40 MG; Start 12/30/18 at 09:00 Piperacillin Sod/ Tazobactam Sod 100 ml @ 200 mls/hr Q6 IVPB Last administered on 01/04/19at 12:48; Admin Dose 200 MLS/HR; Start 12/30/18 at 06:00 Levalbuterol (Xopenex Neb) 1.25 mg Q4H RESP THERAPY PRN HHN SHORTNESS OF BREATH Last administered on 01/02/19 11:13; Admin Dose 1.25 MG; Start 12/30/18 at 04:00 Levetiracetam (Keppra) 500 mg BID PO Last administered on 01/04/19 09:21; Admin Dose 500 MG; Start 12/30/18 at 09:00 Ipratropium [place] (Atrovent 0.02% (Neb)) 0.5 mg Q4HWA RESP THERAPY HHN Last administered on 01/02/19at 21:35; Admin Dose 0.5 MG; Start 12/30/18 at 13:00 Oxycodone/ Acetaminophen (Percocet (5/ 325)) 1 tab Q4H PRN PO MODERATE PAIN LE RIP 4-6; Start 12/31/18 at 12:30; Status Hold Naloxone HCl (Narcan) 0.2 mg Q2M PRN IV RR 8 BREATHS/MIN OR LESS; Start 12/31/18 at 15:00 Hydromorphone HCl (Dilaudid AIR BRAKE ADJUSTER) See protocol, below. Q4PCA IV Last administered on 01/04/19at 10:46; Admin Dose 6 MG; Start 12/31/18 at 15:00 Diphenhydramine HCl (Benadryl) 25 mg Q6H PRN IV Nausea or itching Last administered on 01/04/19 06:19; Admin Dose 25 MG; Start 12/31/18 at 20:30 Promethazine HCl/ Codeine (Phenergan/ Codeine) 5 ml Q4H PRN PO COUGH; Start 01/01/19 at 12:00 Ibuprofen (Motrin) 600 mg Q8 PO Last administered on 01/04/19at 14:12; Admin Dose 600 MG; Start 01/01/19 at 17:00 Colchicine (Colchicine) 0.6 mg DAILY PO Last administered on 01/04/19 09:21; Admin Dose 0.6 MG; Start 01/02/19 at 09:00 Sodium Chloride 1,000 ml @ 100 mls/hr Q10H IV Last administered on 01/03/19 04:16; Admin Dose 100 MLS/HR; Start 01/02/19 at 18:30; Status Hold Lorazepam (Ativan) 0.5 mg Q6H PRN PO ANXIETY Last administered on 01/03/19at 14:43; Admin Dose 0.5 MG; Start 01/03/19 at 14:30 Eye Lubricant (Artificial Tears Oph) 2 drop Q6H PRN BOTH EYES DRY EYES; Start 01/03/19 at 16:00 Sodium Chloride 1,000 ml @ 75 mls/hr [id number] IV Last administered on 01/03/19at 21:19; Admin Dose 75 MLS/HR; Start 01/03/19 at 21:00; Stop 01/09/19 at 20:59 Aprepitant (Emend) 80 mg Q24H PO ; Start 01/04/19 at 22:00; Stop 01/05/19 at 22:01 Ondansetron HCl 16 mg/ Dexamethasone 20 mg/Dextrose 63 ml @ 252 mls/hr Q24H IV Last administered on 01/03/19at 22:36; Admin Dose 252 MLS/HR; Start 01/03/19 at 22:00; Stop 01/07/19 at 22:14 Prochlorperazine (Compazine Inj) 5 mg Q6H PRN IV NAUSEA; Start 01/03/19 at 23:00 Etoposide 125 mg/ Sodium Chloride 500 ml @ 500 mls/hr Q24H IV Last administered on 01/04/19at 01:28; Admin Dose 500 MLS/HR; Start 01/04/19 at 00:30; Stop 01/08/19 at 01:29 Ifosfamide 2 gm/ Sodium Chloride 250 ml @ 250 mls/hr Q24H IV Last administered on 01/04/19at 05:03; Admin Dose 250 MLS/HR; Start 01/04/19 at 02:00; Stop 01/08/19 at 02:59 [place] 2004 mg/ Sodium Chloride 500 ml @ 20.833 mls/ hr Q24H IV Last administered on 01/04/19at 05:13; Admin Dose 20.833 MLS/HR; Start 01/04/19 at 02:15; Stop 01/09/19 at 02:14 Cisplatin 33 mg/ Sodium Chloride 283 ml @ 250 mls/hr Q24H IV Last administered on 01/03/19at 23:14; Admin Dose 250 MLS/HR; Start 01/03/19 at 23:00; Stop 01/08/19 at 00:08 JORY MOHR DO Jan 04, 2019 14:52
--- NOTE | 2019-01-04 18:44 | PN ---
Date/Time of Note Date/Time of Note DATE: 01/04/19 TIME: 18:40 Assessment/Plan VTE Prophylaxis Risk score (from Nsg)>0 risk: 8 Pharmacological prophylaxis: LMWH Lines/Catheters IV Catheter Type (from Nrsg): portacath Assessment/Plan Hospital Course 1. Large anterior mediastinal mass secondary to yolk sac tumor Oncology has initiated chemotherapy Patient to be sent to a tertiary center for the next week, [facility] is requesting a pericardial drain prior to DC Patient will have sperm banking done 2. Sepsis secondary to pneumonia Continue broad-spectrum antibiotics 3. Anemia of chronic disease Monitor 4. Acute respiratory distress secondary to pneumonia and/or pleural effusions- improved Status post removal of 1 L with improvement in respiratory status Pulmonology following 5. Tachycardia secondary to sepsis and/or pericardial effusion with tamponade Repeat echo shows developing pericardial effusion, CT surgery consultation with Dr. Sanchez appreciated, no indication for pericardial drain at this time but may need one in the next 1 to 2 days Cardiology consultation appreciated 6. Brain mass causing vasogenic edema MRI brain shows stable appearance of 2.4 x 1.1 cm of cortical/cystic lesion in the right temporal lobe with underlying vasogenic edema Prophylaxis: Lovenox Result Diagram: 01/04/19 0442 01/04/19 0442 Results 24hrs Laboratory Tests Test 01/04/19 04:42 White Blood Count 19.2 H Red Blood Count 4.15 L Hemoglobin 10.2 L Hematocrit 32.5 L Mean Corpuscular Volume 78.3 Mean Corpuscular Hemoglobin 24.6 L Mean Corpuscular Hemoglobin Concent 31.4 L Red Cell Distribution Width 14.1 Platelet Count 548 H Mean Platelet Volume 8.4 Immature Granulocytes % 0.800 H Neutrophils % 95.0 H Lymphocytes % 3.3 L Monocytes % 0.8 Eosinophils % 0.0 Basophils % 0.1 Nucleated Red Blood Cells % 0.0 Immature Granulocytes # 0.160 H Neutrophils # 18.3 H Lymphocytes # 0.6 L Monocytes # 0.2 L Eosinophils # 0.0 Basophils # 0.0 Nucleated Red Blood Cells # 0.0 Sodium Level 136 Potassium Level 4.2 Chloride Level 102 Carbon Dioxide Level 27 Anion Gap 7 Blood Urea Nitrogen 2 L Creatinine 0.50 L Est Glomerular Filtrat Rate mL/min > 60 Glucose Level 134 Calcium Level 8.3 L Phosphorus Level 4.4 Magnesium Level 2.2 Subjective 24 Hr Interval Summary Constitutional: no complaints Exam/Review of Systems Exam Vitals Vital Signs Date Temp Pulse Resp B/P (MAP) Pulse Ox O2 O2 Flow FiO2 Time Delivery Rate 01/04/19 17 17:53 01/04/19 97.5 112 108/73 95 Nasal 2.0 17:03 (85) Cannula 01/02/19 33 21:40 Intake and Output 01/03/19 01/03/19 01/04/19 1515:00 23:00 07:00 IntakeIntake Total 460 ml 983 ml 1493.833 ml OutputOutput Total 1700 ml 800 ml 3325 ml BalanceBalance -1240 ml 183 ml -1831.167 ml Constitutional: alert, oriented Respiratory: clear to auscultation Cardiovascular: regular rate and rhythm Gastrointestinal: soft; No distended Musculoskeletal: nl extremities to inspection Results Results 24hrs Laboratory Tests Test 01/04/19 04:42 White Blood Count 19.2 H Red Blood Count 4.15 L Hemoglobin 10.2 L Hematocrit 32.5 L Mean Corpuscular Volume 78.3 Mean Corpuscular Hemoglobin 24.6 L Mean Corpuscular Hemoglobin Concent 31.4 L Red Cell Distribution Width 14.1 Platelet Count 548 H Mean Platelet Volume 8.4 Immature Granulocytes % 0.800 H Neutrophils % 95.0 H Lymphocytes % 3.3 L Monocytes % 0.8 Eosinophils % 0.0 Basophils % 0.1 Nucleated Red Blood Cells % 0.0 Immature Granulocytes # 0.160 H Neutrophils # 18.3 H Lymphocytes # 0.6 L Monocytes # 0.2 L Eosinophils # 0.0 Basophils # 0.0 Nucleated Red Blood Cells # 0.0 Sodium Level 136 Potassium Level 4.2 Chloride Level 102 Carbon Dioxide Level 27 Anion Gap 7 Blood Urea Nitrogen 2 L Creatinine 0.50 L Est Glomerular Filtrat Rate mL/min > 60 Glucose Level 134 Calcium Level 8.3 L Phosphorus Level 4.4 Magnesium Level 2.2 Medications Medication Current Medications IV Flush (NS 3 ml) 3 ml PER PROTOCOL IV ; Start 12/30/18 at 04:00 Ondansetron HCl (Zofran Inj) 4 mg Q6H PRN IV NAUSEA/VOMITING Last administered on 01/02/19at 21:05; Admin Dose 4 MG; Start 12/30/18 at 04:00 Acetaminophen (Tylenol Tab) 650 mg Q6H PRN PO .PAIN 1-3 OR TEMP Last administered on 01/03/19 04:13; Admin Dose 650 MG; Start 12/30/18 at 04:00 Docusate Sodium (Colace) 100 mg Q12H PRN PO .CONSTIPATION; Start 12/30/18 at 04:00 Bisacodyl (Dulcolax) 5 mg DAILY PRN PO .CONSTIPATION; Start 12/30/18 at 04:00 Enoxaparin Sodium (Lovenox) 40 mg DAILY SC Last administered on 01/04/19 10:41; Admin Dose 40 MG; Start 12/30/18 at 09:00 Piperacillin Sod/ Tazobactam Sod 100 ml @ 200 mls/hr Q6 IVPB Last administered on 01/04/19 12:48; Admin Dose 200 MLS/HR; Start 12/30/18 at 06:00 Levalbuterol (Xopenex Neb) 1.25 mg Q4H RESP THERAPY PRN HHN SHORTNESS OF BREATH Last administered on 01/02/19 11:13; Admin Dose 1.25 MG; Start 12/30/18 at 04:00 Levetiracetam (Keppra) 500 mg BID PO Last administered on 01/04/19 09:21; Admin Dose 500 MG; Start 12/30/18 at 09:00 Ipratropium [place] (Atrovent 0.02% (Neb)) 0.5 mg Q4HWA RESP THERAPY HHN Last administered on 01/02/19 21:35; Admin Dose 0.5 MG; Start 12/30/18 at 13:00 Oxycodone/ Acetaminophen (Percocet (5/ 325)) 1 tab Q4H PRN PO MODERATE PAIN LEVEL 4-6; Start 12/31/18 at 12:30; Status Hold Naloxone HCl (Narcan) 0.2 mg Q2M PRN IV RR 8 BREATHS/MIN OR LESS; Start 12/31/18 at 15:00 Hydromorphone HCl (Dilaudid SUPERINTENDENT JOB) See protocol, below. Q4PCA IV Last administered on 01/04/19 10:46; Admin Dose 6 MG; Start 12/31/18 at 15:00 Diphenhydramine HCl (Benadryl) 25 mg Q6H PRN IV Nausea or itching Last administered on 01/04/19 06:19; Admin Dose 25 MG; Start 12/31/18 at 20:30 Promethazine HCl/ Codeine (Phenergan/ Codeine) 5 ml Q4H PRN PO COUGH; Start 01/01/19 at 12:00 Ibuprofen (Motrin) 600 mg Q8 PO Last administered on 01/04/19at 14:12; Admin Dose 600 MG; Start 01/01/19 at 17:00 Colchicine (Colchicine) 0.6 mg DAILY PO Last administered on 01/04/19 09:21; Admin Dose 0.6 MG; Start 01/02/19 at 09:00 Sodium Chloride 1,000 ml @ 100 mls/hr Q10H IV Last administered on 01/03/19 04:16; Admin Dose 100 MLS/HR; Start 01/02/19 at 18:30; Status Hold Lorazepam (Ativan) 0.5 mg Q6H PRN PO ANXIETY Last administered on 01/03/19at 14:43; Admin Dose 0.5 MG; Start 01/03/19 at 14:30 Eye Lubricant (Artificial Tears Oph) 2 drop Q6H PRN BOTH EYES DRY EYES; Start 01/03/19 at 16:00 Sodium Chloride 1,000 ml @ 75 mls/hr [id number] IV Last administered on 01/03/19at 21:19; Admin Dose 75 MLS/HR; Start 01/03/19 at 21:00; Stop 01/09/19 at 20:59 Aprepitant (Emend) 80 mg Q24H PO ; Start 01/04/19 at 22:00; Stop 01/05/19 at 22:01 Ondansetron HCl 16 mg/ Dexamethasone 20 mg/Dextrose 63 ml @ 252 mls/hr Q24H IV Last administered on 01/03/19at 22:36; Admin Dose 252 MLS/HR; Start 01/03/19 at 22:00; Stop 01/07/19 at 22:14 Prochlorperazine (Compazine Inj) 5 mg Q6H PRN IV NAUSEA; Start 01/03/19 at 23:00 Etoposide 125 mg/ Sodium Chloride 500 ml @ 500 mls/hr Q24H IV Last administered on 01/04/19at 01:28; Admin Dose 500 MLS/HR; Start 01/04/19 at 00:30; Stop 01/08/19 at 01:29 Ifosfamide 2 gm/ Sodium Chloride 250 ml @ 250 mls/hr Q24H IV Last administered on 01/04/19at 05:03; Admin Dose 250 MLS/HR; Start 01/04/19 at 02:00; Stop 01/08/19 at 02:59 [place] 2004 mg/ Sodium Chloride 500 ml @ 20.833 mls/ hr Q24H IV Last ad ministered on 01/04/19at 05:13; Admin Dose 20.833 MLS/HR; Start 01/04/19 at 02:15; Stop 01/09/19 at 02:14 Cisplatin 33 mg/ Sodium Chloride 283 ml @ 250 mls/hr Q24H IV Last administered on 01/03/19at 23:14; Admin Dose 250 MLS/HR; Start 01/03/19 at 23:00; Stop 01/08/19 at 00:08 JAMIN INFANTE Jan 04, 2019 18:44
[2019-01-04] MEDS: ONDANSETRON 4 MG INJ IV PRN (19:44)
[2019-01-04] MEDS: PROCHLORPERAZINE 10 MG INJ IV PRN (21:26)
[2019-01-04] MEDS: LEVALBUTEROL (NEB) 1.25 MG/0.5 ML AMP HHN PRN (21:32)
[2019-01-04] MEDS ORDERED: APREPITANT 80 MG CAPSULE PO SCH (22:00)
[2019-01-04] MEDS: ONDANSETRON INJ 16 MG, DEXAMETHASONE 4 MG/ML 20 MG in DEXTROSE 5% 50 ML IV SCH (22:01)
[2019-01-04] MEDS: APREPITANT 80 MG CAPSULE PO SCH (22:23)
[2019-01-04] MEDS ORDERED: METOCLOPRAMIDE 10 MG INJ IV PRN (22:30)
[2019-01-04] MEDS ORDERED: CISPLATIN IV SCH (23:00)
[2019-01-04] MEDS: CISPLATIN IV SCH (23:11)
[2019-01-05] VITALS (34 sets, daily range): BP systolic 97–140; BP diastolic 33–92; PULSE 95–125; RESP 10–32
[2019-01-05] MEDS: SOD CHLORIDE 0.9% IV SCH ×4 (01:53→23:48)
[2019-01-05] MEDS: ETOPOSIDE IV SCH (01:53)
[2019-01-05] MEDS: MESNA IV SCH (05:17)
[2019-01-05] MEDS: IFOSFAMIDE IV SCH (05:47)
[2019-01-05] MEDS: PIPER-TAZO 3.375 GM IV (PMX) 100 ML IVPB SCH ×3 (05:50→17:26)
[2019-01-05] MEDS: IBUPROFEN 600 MG TAB PO SCH ×3 (05:53→22:58)
[2019-01-05] MEDS: COLCHICINE 0.6 MG CAP PO SCH (08:46)
[2019-01-05] MEDS: LEVETIRACETAM 500 MG TAB PO SCH ×2 (08:46→21:08)
[2019-01-05] MEDS: ENOXAPARIN 40 MG/0.4 ML SYG SC SCH (08:51)
--- NOTE | 2019-01-05 08:53 | CONS ---
Consult Date/Type/Reason Admit Date/Time Dec 30, 2018 at 03:30 Initial Consult Date Type of Consult Pulmonary Requesting Provider: RADHA HEBERT Date/Time of Note DATE: 01/05/19 TIME: 08:51 Subjective Continues chemotherapy. Awake alert oriented less respiratory distress decreased tachycardia. Objective Vital Signs Date Temp Pulse Resp B/P (MAP) Pulse Ox O2 O2 Flow FiO2 Time Delivery Rate 01/05/19 Nasal 2.0 08:20 Cannula 01/05/19 12 07:27 01/05/19 113 113/75 96 06:30 (88) 01/05/19 97.6 04:00 01/04/19 96 21:20 Intake and Output 01/04/19 01/04/19 01/05/19 1515:00 23:00 07:00 IntakeIntake Total 1267.497 ml 1977.998 ml 2054.672 ml OutputOutput Total 450 ml 1650 ml 1350 ml BalanceBalance 817.497 ml 327.998 ml 704.672 ml Exam GENERAL: Young gentleman on nasal cannula O2 VITAL SIGNS: per chart NECK: Supple. No JVD or lymphadenopathy. CARDIAC EXAM: S1, S2. Distant heart sounds. CHEST: Diminished air entry bilaterally ABDOMEN: Soft, nontender. No guarding or rebound. EXTREMITIES: No cyanosis, clubbing edema +1 NEUROLOGIC: Generalized weakness. No focal deficits Vent Setting Fraction of Inspired Oxygen pe: 96 Results/Medications Result Diagram: 01/05/19 0435 01/05/19 0435 Results 24 hrs Laboratory Tests Test 01/05/19 04:35 White Blood Count 27.8 #H Red Blood Count 3.96 L Hemoglobin 9.9 L Hematocrit 31.1 L Mean Corpuscular Volume 78.5 Mean Corpuscular Hemoglobin 25.0 L Mean Corpuscular Hemoglobin Concent 31.8 L Red Cell Distribution Width 14.1 Platelet Count 624 H Mean Platelet Volume 8.0 Immature Granulocytes % 1.200 H Neutrophils % Lymphocytes % Monocytes % Eosinophils % Basophils % Nucleated Red Blood Cells % 0.0 Immature Granulocytes # 0.340 H Neutrophils # Lymphocytes # Monocytes # Eosinophils # Basophils # Nucleated Red Blood Cells # Sodium Level 136 Potassium Level 4.4 Chloride Level 101 Carbon Dioxide Level 29 Anion Gap 6 Blood Urea Nitrogen 6 L Creatinine 0.50 L Est Glomerular Filtrat Rate mL/min > 60 Glucose Level 165 Calcium Level 7.9 L Phosphorus Level 3.6 Magnesium Level 2.3 Medications Current Medications IV Flush (NS 3 ml) 3 ml PER PROTOCOL IV ; Start 12/30/18 at 04:00 Ondansetron HCl (Zofran Inj) 4 mg Q6H PRN IV NAUSEA/VOMITING Last administered on 01/04/19 19:44; Admin Dose 4 MG; Start 12/30/18 at 04:00 Acetaminophen (Tylenol Tab) 650 mg Q6H PRN PO .PAIN 1-3 OR TEMP Last administered on 01/03/19 04:13; Admin Dose 650 MG; Start 12/30/18 at 04:00 Docusate Sodium (Colace) 100 mg Q12H PRN PO .CONSTIPATION; Start 12/30/18 at 04:00 Bisacodyl (Dulcolax) 5 mg DAILY PRN PO .CONSTIPATION; Start 12/30/18 at 04:00 Enoxaparin Sodium (Lovenox) 40 mg DAILY SC Last administered on 01/04/19at 10:41; Admin Dose 40 MG; Start 12/30/18 at 09:00 Piperacillin Sod/ Tazobactam Sod 100 ml @ 200 mls/hr Q6 IVPB Last administered on 01/05/19 05:50; Admin Dose 200 MLS/HR; Start 12/30/18 at 06:00 Levalbuterol (Xopenex Neb) 1.25 mg Q4H RESP THERAPY PRN HHN SHORTNESS OF BREATH Last administered on 01/02/19 11:13; Admin Dose 1.25 MG; Start 12/30/18 at 04:00 Levetiracetam (Keppra) 500 mg BID PO Last administered on 01/04/19 21:03; Admin Dose 500 MG; Start 12/30/18 at 09:00 Ipratropium [place] (Atrovent 0.02% (Neb)) 0.5 mg Q4HWA RESP THERAPY HHN Last administered on 01/02/19 21:35; Admin Dose 0.5 MG; Start 12/30/18 at 13:00 Oxycodone/ Acetaminophen (Percocet (5/ 325)) 1 tab Q4H PRN PO MODERATE PAIN LEVEL 4-6; Start 12/31/18 at 12:30; Status Hold Naloxone HCl (Narcan) 0.2 mg Q2M PRN IV RR 8 BREATHS/MIN OR LESS; Start 12/31/18 at 15:00 Hydromorphone HCl (Dilaudid SECTION PLOTTER OPERATOR) See protocol, below. Q4PCA IV Last administ ered on 01/04/19 22:33; Admin Dose 6 MG; Start 12/31/18 at 15:00 Diphenhydramine HCl (Benadryl) 25 mg Q6H PRN IV Nausea or itching Last administered on 01/04/19 06:19; Admin Dose 25 MG; Start 12/31/18 at 20:30 Promethazine HCl/ Codeine (Phenergan/ Codeine) 5 ml Q4H PRN PO COUGH; Start 01/01/19 at 12:00 Ibuprofen (Motrin) 600 mg Q8 PO Last administered on 01/05/19 05:53; Admin Dose 600 MG; Start 01/01/19 at 17:00 Colchicine (Colchicine) 0.6 mg DAILY PO Last administered on 01/04/19 09:21; Admin Dose 0.6 MG; Start 01/02/19 at 09:00 Sodium Chloride 1,000 ml @ 100 mls/hr Q10H IV Last administered on 01/03/19 04:16; Admin Dose 100 MLS/HR; Start 01/02/19 at 18:30; Status Hold Lorazepam (Ativan) 0.5 mg Q6H PRN PO ANXIETY Last administered on 01/03/19 14:43; Admin Dose 0.5 MG; Start 01/03/19 at 14:30 Eye Lubricant (Artificial Tears Oph) 2 drop Q6H PRN BOTH EYES DRY EYES; Start 01/03/19 at 16:00 Sodium Chloride 1,000 ml @ 75 mls/hr [id number] IV Last administered on 01/04/19 19:01; Admin Dose 75 MLS/HR; Start 01/03/19 at 21:00; Stop 01/09/19 at 20:59 Ondansetron HCl 16 mg/ Dexamethasone 20 mg/Dextrose 63 ml @ 252 mls/hr Q24H IV Last administered on 01/04/19 22:01; Admin Dose 252 MLS/HR; Start 01/03/19 at 22:00; Stop 01/07/19 at 22:14 Etoposide 125 mg/ Sodium Chloride 500 ml @ 500 mls/hr Q24H IV Last administered on 01/05/19at 01:53; Admin Dose 500 MLS/HR; Start 01/04/19 at 00:30; Stop 01/08/19 at 01:29 Ifosfamide 2 gm/ Sodium Chloride 250 ml @ 250 mls/hr Q24H IV Last administered on 01/05/19at 05:47; Admin Dose 250 MLS/HR; Start 01/04/19 at 02:00; Stop 01/08/19 at 02:59 [place] 2004 mg/ Sodium Chloride 500 ml @ 20.833 mls/ hr Q24H IV Last administered on 01/05/19at 05:17; Admin Dose 20.833 MLS/HR; Start 01/04/19 at 02:15; Stop 01/09/19 at 02:14 Cisplatin 33 mg/ Sodium Chloride 283 ml @ 250 mls/hr Q24H IV Last administered on 01/04/19at 23:11; Admin Dose 250 MLS/HR; Start 01/03/19 at 23:00; Stop 01/08/19 at 00:08 Prochlorperazine (Compazine Inj) 5 mg Q6H PRN IV NAUSEA Last administered on 01/04/19at 21:26; Admin Dose 5 MG; Start 01/04/19 at 21:30 Aprepitant (Emend) 80 mg Q24H PO Last administered on 01/04/19at 22:23; Admin Dose 80 MG; Start 01/04/19 at 22:30; Stop 01/05/19 at 22:31 Metoclopramide HCl (Reglan) 10 mg ONCE PRN IV NAUSEA; Start 01/04/19 at 22:30; Stop 01/05/19 at 22:29 Assessment/Plan Hospital Course (Demo Recall) IMP: 1. Hypoxemic Respiratory Insufficiency--2/2 large mediastinal yolk sac tumor with associated mainstem bronchial compression, pleural effusions, and post- obstructive pna. 2. 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 Currently on hold pending continued chemotherapy--with associated mainstem bronchial extrinsic compression 3. Left pleural effusion--lymphocytic predominant exudate--awaiting cytology 4. Anemia 5. Tachycardia likely secondary to pericardial effusion with signs of tamponade. Appreciate thoracic surgery evaluation for possible pericardiocentesis currently on hold pending chemotherapy RECS: 1. Titrate FiO2 as tolerated 2. Abx per ID 3. Pleural fluid cytology pending. 4. Cardiothoracic surgery evaluation for pericardial window. Will reevaluate after chemotherapy 5. Continue ICU management 6. Continue chemotherapy per hematology oncology 7. PICC line placement today hopefully. 40 min cc time Possible transfer to tertiary care facility. ANGIE LANDEROS MD, [facility] Jan 05, 2019 08:53
[2019-01-05] MEDS: PROCHLORPERAZINE 10 MG INJ IV PRN (08:55)
[2019-01-05] MEDS: IPRATROPIUM (NEB) 0.5 MG/2.5 ML AMP HHN SCH ×4 (09:36→21:00)
[2019-01-05] MEDS ORDERED: NA PHOSPHATE/BIPHOS 133 ML ENEMA PR PRN (10:00)
--- NOTE | 2019-01-05 10:25 | PN ---
Date/Time of Note Date/Time of Note DATE: 01/05/19 TIME: 10:23 Assessment/Plan VTE Prophylaxis Risk score (from Ns)>0 risk: 8 SCD applied (from Ns): Yes Pharmacological prophylaxis: LMWH Lines/Catheters IV Catheter Type (from [facility]): Peripheral IV Urinary Cath still in place: No Assessment/Plan Assessment/Plan Up tocommode. BP OK. Tachycardic. 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 Pericardiocentesis tomorrow. Result Diagram: 01/05/19 0435 01/05/19 0435 Results 24hrs Laboratory Tests Test 01/05/19 04:35 01/05/19 05:15 White Blood Count 27.8 #H Red Blood Count 3.96 L Hemoglobin 9.9 L Hematocrit 31.1 L Mean Corpuscular Volume 78.5 Mean Corpuscular Hemoglobin 25.0 L Mean Corpuscular Hemoglobin Concent 31.8 L Red Cell Distribution Width 14.1 Platelet Count 624 H Mean Platelet Volume 8.0 Immature Granulocytes % 1.200 H Neutrophils % Segmented Neutrophils % (Manual) 87 H Band Neutrophils % (Manual) 9 Lymphocytes % Lymphocytes % (Manual) 3 L Monocytes % Monocytes % (Manual) 2 Eosinophils % Basophils % Nucleated Red Blood Cells % 0.0 Immature Granulocytes # 0.340 H Neutrophils # Neutrophils # (Manual) 24.9 H Band Neutrophils # 2.5 H Lymphocytes (Manual) 0.8 Lymphocytes # Monocytes # Monocytes # (Manual) 0.5 Eosinophils # Basophils # Nucleated Red Blood Cells # Platelet Estimate INCREASED Polychromasia 1+ Poikilocytosis 3+ Anisocytosis 1+ Microcytosis 1+ Sodium Level 136 Potassium Level 4.4 Chloride Level 101 Carbon Dioxide Level 29 Anion Gap 6 Blood Urea Nitrogen 6 L Creatinine 0.50 L Est Glomerular Filtrat Rate mL/min > 60 Glucose Level 165 Calcium Level 7.9 L Phosphorus Level 3.6 Magnesium Level 2.3 Urine Color STRAW Urine Clarity CLEAR Urine pH 6.0 Urine Specific [place] 1.006 Urine Ketones TRACE A Urine Nitrite NEGATIVE Urine Bilirubin NEGATIVE Urine Urobilinogen NEGATIVE Urine Leukocyte Esterase NEGATIVE Urine Hemoglobin NEGATIVE Urine Glucose 1+ H Urine Total Protein NEGATIVE Exam/Review of Systems Exam Vitals Vital Signs Date Temp Pulse Resp B/P (MAP) Pulse Ox O2 O2 Flow FiO2 Time Delivery Rate 01/05/19 3.0 09:41 01/05/19 93 11 Nasal 99 09:37 Cannula 01/05/19 116/69 95 09:30 (85) 01/05/19 97.5 08:00 Intake and Output 01/04/19 01/04/19 01/05/19 1515:00 23:00 07:00 IntakeIntake Total 1267.497 ml 1977.998 ml 2054.672 ml OutputOutput Total 450 ml 1650 ml 1350 ml BalanceBalance 817.497 ml 327.998 ml 704.672 ml Results Results 24hrs Laboratory Tests Test 01/05/19 04:35 01/05/19 05:15 White Blood Count 27.8 #H Red Blood Count 3.96 L Hemoglobin 9.9 L Hematocrit 31.1 L Mean Corpuscular Volume 78.5 Mean Corpuscular Hemoglobin 25.0 L Mean Corpuscular Hemoglobin Concent 31.8 L Red Cell Distribution Width 14.1 Platelet Count 624 H Mean Platelet Volume 8.0 Immature Granulocytes % 1.200 H Neutrophils % Segmented Neutrophils % (Manual) 87 H Band Neutrophils % (Manual) 9 Lymphocytes % Lymphocytes % (Manual) 3 L Monocytes % Monocytes % (Manual) 2 Eosinophils % Basophils % Nucleated Red Blood Cells % 0.0 Immature Granulocytes # 0.340 H Neutrophils # Neutrophils # (Manual) 24.9 H Band Neutrophils # 2.5 H Lymphocytes (Manual) 0.8 Lymphocytes # Monocytes # Monocytes # (Manual) 0.5 Eosinophils # Basophils # Nucleated Red Blood Cells # Platelet Estimate INCREASED Polychromasia 1+ Poikilocytosis 3+ Anisocytosis 1+ Microcytosis 1+ Sodium Level 136 Potassium Level 4.4 Chloride Level 101 Carbon Dioxide Level 29 Anion Gap 6 Blood Urea Nitrogen 6 L Creatinine 0.50 L Est Glomerular Filtrat Rate mL/min > 60 Glucose Level 165 Calcium Level 7.9 L Phosphorus Level 3.6 Magnesium Level 2.3 Urine Color STRAW Urine Clarity CLEAR Urine pH 6.0 Urine Specific [place] 1.006 Urine Ketones TRACE A Urine Nitrite NEGATIVE Urine Bilirubin NEGATIVE Urine Urobilinogen NEGATIVE Urine Leukocyte Esterase NEGATIVE Urine Hemoglobin NEGATIVE Urine Glucose 1+ H Urine Total Protein NEGATIVE Medications Medication Current Medications IV Flush (NS 3 ml) 3 ml PER PROTOCOL IV ; Start 12/30/18 at 04:00 Ondansetron HCl (Zofran Inj) 4 mg Q6H PRN IV NAUSEA/VOMITING Last administered on 01/04/19 19:44; Admin Dose 4 MG; Start 12/30/18 at 04:00 Acetaminophen (Tylenol Tab) 650 mg Q6H PRN PO .PAIN 1-3 OR TEMP Last administered on 01/03/19 04:13; Admin Dose 650 MG; Start 12/30/18 at 04:00 Docusate Sodium (Colace) 100 mg Q12H PRN PO .CONSTIPATION; Start 12/30/18 at 04:00 Bisacodyl (Dulcolax) 5 mg DAILY PRN PO .CONSTIPATION Last administered on 01/05/19 08:47; Admin Dose 5 MG; Start 12/30/18 at 04:00 Enoxaparin Sodium (Lovenox) 40 mg DAILY SC Last administered on 01/05/19 08:51; Admin Dose 40 MG; Start 12/30/18 at 09:00 Piperacillin Sod/ Tazobactam Sod 100 ml @ 200 mls/hr Q6 IVPB Last administered on 01/05/19 05:50; Admin Dose 200 MLS/HR; Start 12/30/18 at 06:00 Levalbuterol (Xopenex Neb) 1.25 mg Q4H RESP THERAPY PRN HHN SHORTNESS OF BREATH Last administered on 01/02/19 11:13; Admin Dose 1.25 MG; Start 12/30/18 at 04:00 Levetiracetam (Keppra) 500 mg BID PO Last administered on 01/05/19 08:46; Admin Dose 500 MG; Start 12/30/18 at 09:00 Ipratropium [place] (Atrovent 0.02% (Neb)) 0.5 mg Q4HWA RESP THERAPY HHN Last administered on 01/05/19 09:36; Admin Dose 0.5 MG; Start 12/30/18 at 13:00 Oxycodone/ Acetaminophen (Percocet (5/ 325)) 1 tab Q4H PRN PO MODERATE PAIN LEVEL 4-6; Start 12/31/18 at 12:30; Status Hold Naloxone HCl (Narcan) 0.2 mg Q2M PRN IV RR 8 BREATHS/MIN OR LESS; Start 12/31/18 at 15:00 Hydromorphone HCl (Dilaudid SYRUPER) See protocol, below. Q4PCA IV Last administered on 01/04/19 22:33; Admin Dose 6 MG; Start 12/31/18 at 15:00 Diphenhydramine HCl (Benadryl) 25 mg Q6H PRN IV Nausea or itching Last administered on 01/04/19 06:19; Admin Dose 25 MG; Start 12/31/18 at 20:30 Promethazine HCl/ Codeine (Phenergan/ Codeine) 5 ml Q4H PRN PO COUGH; Start 01/01/19 at 12:00 Ibuprofen (Motrin) 600 mg Q8 PO Last administered on 01/05/19 05:53; Admin Dose 600 MG; Start 01/01/19 at 17:00 Colchicine (Colchicine) 0.6 mg DAILY PO Last administered on 01/05/19 08:46; Admin Dose 0.6 MG; Start 01/02/19 at 09:00 Sodium Chloride 1,000 ml @ 100 mls/hr Q10H IV Last administered on 01/03/19 04:16; Admin Dose 100 MLS/HR; Start 01/02/19 at 18:30; Status Hold Lorazepam (Ativan) 0.5 mg Q6H PRN PO ANXIETY Last administered on 01/03/19 14:43; Admin Dose 0.5 MG; Start 01/03/19 at 14:30 Eye Lubricant (Artificial Tears Oph) 2 drop Q6H PRN BOTH EYES DRY EYES; Start 01/03/19 at 16:00 Sodium Chloride 1,000 ml @ 75 mls/hr [id number] IV Last administered on 01/04/19 19:01; Admin Dose 75 MLS/HR; Start 01/03/19 at 21:00; Stop 01/09/19 at 20:59 Ondansetron HCl 16 mg/ Dexamethasone 20 mg/Dextrose 63 ml @ 252 mls/hr Q24H IV Last administered on 01/04/19 22:01; Admin Dose 252 MLS/HR; Start 01/03/19 at 22:00; Stop 01/07/19 at 22:14 Etoposide 125 mg/ Sodium Chloride 500 ml @ 500 mls/hr Q24H IV Last administered on 01/05/19 01:53; Admin Dose 500 MLS/HR; Start 01/04/19 at 00:30; Stop 01/08/19 at 01:29 Ifosfamide 2 gm/ Sodium Chloride 250 ml @ 250 mls/hr Q24H IV Last administered on 01/05/19at 05:47; Admin Dose 250 MLS/HR; Start 01/04/19 at 02:00; Stop 01/08/19 at 02:59 [place] 2004 mg/ Sodium Chloride 500 ml @ 20.833 mls/ hr Q24H IV Last administered on 01/05/19at 05:17; Admin Dose 20.833 MLS/HR; Start 01/04/19 at 02:15; Stop 01/09/19 at 02:14 Cisplatin 33 mg/ Sodium Chloride 283 ml @ 250 mls/hr Q24H IV Last administered on 01/04/19at 23:11; Admin Dose 250 MLS/HR; Start 01/03/19 at 23:00; Stop 01/08/19 at 00:08 Prochlorperazine (Compazine Inj) 5 mg Q6H PRN IV NAUSEA Last administered on 01/05/19at 08:55; Admin Dose 5 MG; Start 01/04/19 at 21:30 Aprepitant (Emend) 80 mg Q24H PO Last administered on 01/04/19at 22:23; Admin Dose 80 MG; Start 01/04/19 at 22:30; Stop 01/05/19 at 22:31 Metoclopramide HCl (Reglan) 10 mg ONCE PRN IV NAUSEA; Start 01/04/19 at 22:30; Stop 01/05/19 at 22:29 Docusate Sodium (Colace) 200 mg BID PO ; Start 01/05/19 at 21:00 Senna (Senokot) 2 tab BID PO ; Start 01/05/19 at 21:00 Sodium Biphosphate/ Sodium Phosphate (Fleet Enema) 133 ml DAILY PRN [place] CONSTIPATION; Start 01/05/19 at 10:00 COURTNEY HERNANDEZ MD Jan 05, 2019 10:25
[2019-01-05] MEDS: SOD CHLORIDE 0.45% 1,000 ML IV SCH (10:43)
--- NOTE | 2019-01-05 11:26 | CONS ---
Assessment/Plan Assessment/Plan Hospital Course (Demo Recall) ID PROGRESS NOTE CURRENT ABX: DAY # 7=> Zosyn #7 s/p Azith #3 s/p Vanco IV #5 24H INTERVAL SUMMARY * RESTING IN BED WITH EYES COVERED TRYING TO SLEEP - CRITICALLY ILL IN ICU - intermittent fevers * Requires supplemental O2, tachycardia persisting * SPUTUM CX growing GNR x2 + Staph => pending * Plan for CT surgery pericardiocentesis, possible subxiphoid window in the operating room on Sunday01/06/19. * Medical Researcher working on TNS to higher level of care * s/p LEFT thoracentesis 01/02/19 w/removal 1L * POD #-> S/P 12/20/[address] guided mediastinal mass biopsy. 2. No complications occurred. 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 Clinical correlation is advised. * 12/18/18 BCX (-) * QFT neg, HIV neg MICRO * * 01/03/19 RESPIRATORY CULTURE Preliminary Organism 1 KLEBSIELLA OXYTOCA QUANTITY 1+ Organism 2 GRAM NEGATIVE FRANCISCA QUANTITY 1+ Organism 3 STAPHYLOCOCCUS AUREUS QUANTITY 2+ KLEB OXYTO M.I.C. RX --------- --- CEFAZOLIN S CEFOTAXIME S CIPROFLOXACIN <=0.25 S GENTAMICIN <=1 S TOBRAMYCIN <=1 S TRIMETHOPRIM/SULFAMETHOXAZOLE <=20 S * 12/31/18 (-)MRSA NARES * 12/31/18 RESP CX:RESPIRATORY CULTURE Final Organism 1 STAPHYLOCOCCUS AUREUS QUANTITY 1+ Organism 2 NORMAL RESPIRATORY ZOFIA QUANTITY 2+ S AUREUS M.I.C. RX --------- --- CEFAZOLIN S CIPROFLOXACIN <=0.5 S CLINDAMYCIN R DOXYCYCLINE S ERYTHROMYCIN >=8 R LEVOFLOXACIN 0.25 S OXACILLIN 0.5 S PENICILLIN-G >=0.5 R RIFAMPIN <=0.5 S VANCOMYCIN 1 S TRIMETHOPRIM/SULFAMETHOXAZOLE <=10 S * 12/30/18 BCX (-); Urine Cx (-) * 12/30/18 INFLUENZA A & B BY EIA Final INFLU A&B BY EIA INFLUENZA A NEGATIVE (Ref Range Neg) INFLUENZA B NEGATIVE (Ref Range Neg) DIAGNOSTIC IMAGING * 01/02/19 CXR: IMPRESSION:1. Large anterior mediastinal mass is again seen suggesting lymphoma or other lesion. Correlation with prior biopsy results is suggested. 2. Moderate left pleural effusion is again seen with presumed adjacent atelectasis. * 01/01/2019 CT CHEST: IMPRESSION:18.7 cm anterior mediastinal mass. Small right and small to moderate left pleural effusions. Extensive left lower lobe atelectasis. Patchy consolidative opacities in the right upper lobe, suspicious for pneumonia. The right lower lobe nodule seen in the prior CTA is not clearly visualized in this examination. Moderate pericardial effusion. * 12/20/18 CT A-P: IMPRESSION:No evidence of abdominal or pelvic mass or CT evidence for metastatic disease. Trace pleural fluid. No evidence of bowel obstruction or inflammation. Prominent fecal distension of the colon is s uggestive for constipation. * 12/20/18 testicular us: 1. Benign cysts in the left epididymis, without concerning features. No evidence of epididymitis. 2. Normal sonographic findings of the bilateral testicles. No evidence of testicular mass or torsion. PHYSICAL EXAMINATION: GENERAL: VSS, NAD - pain issues HEENT: AT, NC, (+)JVD NECK: Supple, CHEST: Rise symmetrica -- hypoxic on supplemental O2 HEART: Pulse RRR ABDOMEN: Benign EXTREMITIES: Warm, dry SKIN: No rash, no diaphoresis ID ASSESSMENT 18 yo M admit with: 1. 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 Pleural effusion -> s/p Left Thora 01/02/19 w/1L removed 4. Pericardial effusion 5. Seizure disorder Thrombocytosis ABX ALLERGIES: KNDA INVASIVES: PIV (-)MRSA nares CURRENT ABX: DAY #7=> Zosyn #7 s/p Azith #3 s/p Vanco IV #5 ID RECOMMENDATIONS/PLAN: 1. Continue Zosyn == SPUTUM CX growing GNR x2 + Staph => pending 2. Plan for CT surgery pericardiocentesis, possible subxiphoid window in the operating room on Sunday01/06/19. * Medical Researcher working on TNS to higher level of care 3. Leukocytosis driven by multiple etiologies: Sepsis/PNA/MDS/steroids . Consultation Date/Type/Reason Admit Date/Time Dec 30, 2018 at 03:30 Initial Consult Date Requesting Provider: RADHA HEBERT Date/Time of Note DATE: 01/05/19 TIME: 11:22 Exam/Review of Systems Exam Vitals Vital Signs Date Temp Pulse Resp B/P (MAP) Pulse Ox O2 O2 Flow FiO2 Time Delivery Rate 01/05/19 3.0 09:41 01/05/19 93 11 Nasal 99 09:37 Cannula 01/05/19 116/69 95 09:30 (85) 01/05/19 97.5 08:00 Intake and Output 01/04/19 01/04/19 01/05/19 1515:00 23:00 07:00 IntakeIntake Total 1267.497 ml 1977.998 ml 2054.672 ml OutputOutput Total 450 ml 1650 ml 1350 ml BalanceBalance 817.497 ml 327.998 ml 704.672 ml Results Result Diagram: 01/05/19 0435 01/05/19 0435 Results 24hrs Laboratory Tests Test 01/05/19 04:35 01/05/19 05:15 White Blood Count 27.8 #H Red Blood Count 3.96 L Hemoglobin 9.9 L Hematocrit 31.1 L Mean Corpuscular Volume 78.5 Mean Corpuscular Hemoglobin 25.0 L Mean Corpuscular Hemoglobin Concent 31.8 L Red Cell Distribution Width 14.1 Platelet Count 624 H Mean Platelet Volume 8.0 Immature Granulocytes % 1.200 H Neutrophils % Segmented Neutrophils % (Manual) 87 H Band Neutrophils % (Manual) 9 Lymphocytes % Lymphocytes % (Manual) 3 L Monocytes % Monocytes % (Manual) 2 Eosinophils % Basophils % Nucleated Red Blood Cells % 0.0 Immature Granulocytes # 0.340 H Neutrophils # Neutrophils # (Manual) 24.9 H Band Neutrophils # 2.5 H Lymphocytes (Manual) 0.8 Lymphocytes # Monocytes # Monocytes # (Manual) 0.5 Eosinophils # Basophils # Nucleated Red Blood Cells # Platelet Estimate INCREASED Polychromasia 1+ Poikilocytosis 3+ Anisocytosis 1+ Microcytosis 1+ Sodium Level 136 Potassium Level 4.4 Chloride Level 101 Carbon Dioxide Level 29 Anion Gap 6 Blood Urea Nitrogen 6 L Creatinine 0.50 L Est Glomerular Filtrat Rate mL/min > 60 Glucose Level 165 Calcium Level 7.9 L Phosphorus Level 3.6 Magnesium Level 2.3 Urine Color STRAW Urine Clarity CLEAR Urine pH 6.0 Urine Specific [place] 1.006 Urine Ketones TRACE A Urine Nitrite NEGATIVE Urine Bilirubin NEGATIVE Urine Urobilinogen NEGATIVE Urine Leukocyte Esterase NEGATIVE Urine Hemoglobin NEGATIVE Urine Glucose 1+ H Urine Total Protein NEGATIVE Medications Medication Current Medications IV Flush (NS 3 ml) 3 ml PER PROTOCOL IV ; Start 12/30/18 at 04:00 Ondansetron HCl (Zofran Inj) 4 mg Q6H PRN IV NAUSEA/VOMITING Last administered on 01/04/19 19:44; Admin Dose 4 MG; Start 12/30/18 at 04:00 Acetaminophen (Tylenol Tab) 650 mg Q6H PRN PO .PAIN 1-3 OR TEMP Last administered on 01/03/19 04:13; Admin Dose 650 MG; Start 12/30/18 at 04:00 Docusate Sodium (Colace) 100 mg Q12H PRN PO .CONSTIPATION; Start 12/30/18 at 04:00 Bisacodyl (Dulcolax) 5 mg DAILY PRN PO .CONSTIPATION Last administered on 08:47; Admin Dose 5 MG; Start 12/30/18 at 04:00 Enoxaparin Sodium (Lovenox) 40 mg DAILY SC Last administered on 01/05/19 08:51; Admin Dose 40 MG; Start 12/30/18 at 09:00 Piperacillin Sod/ Tazobactam Sod 100 ml @ 200 mls/hr Q6 IVPB Last administered on 01/05/19 05:50; Admin Dose 200 MLS/HR; Start 12/30/18 at 06:00 Levalbuterol (Xopenex Neb) 1.25 mg Q4H RESP THERAPY PRN HHN SHORTNESS OF BREATH Last administered on 01/02/19 11:13; Admin Dose 1.25 MG; Start 12/30/18 at 04:00 Levetiracetam (Keppra) 500 mg BID PO Last administered on 01/05/19 08:46; Admin Dose 500 MG; Start 12/30/18 at 09:00 Ipratropium [place] (Atrovent 0.02% (Neb)) 0.5 mg Q4HWA RESP THERAPY HHN Last administered on 01/05/19 09:36; Admin Dose 0.5 MG; Start 12/30/18 at 13:00 Oxycodone/ Acetaminophen (Percocet (5/ 325)) 1 tab Q4H PRN PO MODERATE PAIN LEVEL 4-6; Start 12/31/18 at 12:30; Status Hold Naloxone HCl (Narcan) 0.2 mg Q2M PRN IV RR 8 BREATHS/MIN OR LESS; Start 12/31/18 at 15:00 Hydromorphone HCl (Dilaudid BUSINESS SERVICES COORDINATOR) See protocol, below. Q4PCA IV Last administered on 01/04/19 22:33; Admin Dose 6 MG; Start 12/31/18 at 15:00 Diphenhydramine HCl (Benadryl) 25 mg Q6H PRN IV Nausea or itching Last administered on 01/04/19 06:19; Admin Dose 25 MG; Start 12/31/18 at 20:30 Promethazine HCl/ Codeine (Phenergan/ Codeine) 5 ml Q4H PRN PO COUGH; Start 01/01/19 at 12:00 Ibuprofen (Motrin) 600 mg Q8 PO Last administered on 01/05/19 05:53; Admin Dose 600 MG; Start 01/01/19 at 17:00 Colchicine (Colchicine) 0.6 mg DAILY PO Last administered on 01/05/19 08:46; Admin Dose 0.6 MG; Start 01/02/19 at 09:00 Sodium Chloride 1,000 ml @ 100 mls/hr Q10H IV Last administered on 01/03/19 04:16; Admin Dose 100 MLS/HR; Start 01/02/19 at 18:30; Status Hold Lorazepam (Ativan) 0.5 mg Q6H PRN PO ANXIETY Last administered on 01/03/19 14:43; Admin Dose 0.5 MG; Start 01/03/19 at 14:30 Eye Lubricant (Artificial Tears Oph) 2 drop Q6H PRN BOTH EYES DRY EYES; Start 01/03/19 at 16:00 Sodium Chloride 1,000 ml @ 75 mls/hr [id number] IV Last administered on 01/05/19at 10:43; Admin Dose 75 MLS/HR; Start 01/03/19 at 21:00; Stop 01/09/19 at 20:59 Ondansetron HCl 16 mg/ Dexamethasone 20 mg/Dextrose 63 ml @ 252 mls/hr Q24H IV Last administered on 01/04/19at 22:01; Admin Dose 252 MLS/HR; Start 01/03/19 at 22:00; Stop 01/07/19 at 22:14 Etoposide 125 mg/ Sodium Chloride 500 ml @ 500 mls/hr Q24H IV Last administered on 01/05/19at 01:53; Admin Dose 500 MLS/HR; Start 01/04/19 at 00:30; Stop 01/08/19 at 01:29 Ifosfamide 2 gm/ Sodium Chloride 250 ml @ 250 mls/hr Q24H IV Last administered on 01/05/19at 05:47; Admin Dose 250 MLS/HR; Start 01/04/19 at 02:00; Stop 01/08/19 at 02:59 [place] 2004 mg/ Sodium Chloride 500 ml @ 20.833 mls/ hr Q24H IV Last a dministered on 01/05/19at 05:17; Admin Dose 20.833 MLS/HR; Start 01/04/19 at 02:15; Stop 01/09/19 at 02:14 Cisplatin 33 mg/ Sodium Chloride 283 ml @ 250 mls/hr Q24H IV Last administered on 01/04/19at 23:11; Admin Dose 250 MLS/HR; Start 01/03/19 at 23:00; Stop 01/08/19 at 00:08 Prochlorperazine (Compazine Inj) 5 mg Q6H PRN IV NAUSEA Last administered on 01/05/19at 08:55; Admin Dose 5 MG; Start 01/04/19 at 21:30 Aprepitant (Emend) 80 mg Q24H PO Last administered on 01/04/19at 22:23; Admin Dose 80 MG; Start 01/04/19 at 22:30; Stop 01/05/19 at 22:31 Metoclopramide HCl (Reglan) 10 mg ONCE PRN IV NAUSEA; Start 01/04/19 at 22:30; Stop 01/05/19 at 22:29 Docusate Sodium (Colace) 200 mg BID PO ; Start 01/05/19 at 21:00 Senna (Senokot) 2 tab BID PO ; Start 01/05/19 at 21:00 Sodium Biphosphate/ Sodium Phosphate (Fleet Enema) 133 ml DAILY PRN [place] CONSTIPATION; Start 01/05/19 at 10:00 DELTA TAYLOR NP Jan 05, 2019 11:26
--- NOTE | 2019-01-05 13:01 | PN ---
Date/Time of Note Date/Time of Note DATE: 01/05/19 TIME: 12:59 Assessment/Plan VTE Prophylaxis Risk score (from Ns)>0 risk: 8 SCD applied (from Ns): Yes Pharmacological prophylaxis: LMWH Lines/Catheters IV Catheter Type (from Nrsg): Peripheral IV Urinary Cath still in place: No Assessment/Plan Hospital Course 1. 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 Sepsis secondary to pneumonia Continue broad-spectrum antibiotics 3. Anemia of chronic disease Monitor 4. Acute respiratory distress secondary to pneumonia and/or pleural effusions- improved Status post removal of 1 L with improvement in respiratory status Pulmonology following 5. Tachycardia secondary to sepsis and/or pericardial effusion with tamponade Repeat echo shows developing pericardial effusion, CT surgery consultation with Dr. Sanchez appreciated, plan is for pericardiocentesis tomorrow Cardiology consultation appreciated 6. Brain mass causing vasogenic edema MRI brain shows stable appearance of 2.4 x 1.1 cm of cortical/cystic lesion in the right temporal lobe with underlying vasogenic edema Prophylaxis: Lovenox DC planning: Anticipate DC to [facility] in the next 1 to 2 days Result Diagram: 01/05/19 0435 01/05/19 0435 Results 24hrs Laboratory Tests Test 01/05/19 04:35 01/05/19 05:15 White Blood Count 27.8 #H Red Blood Count 3.96 L Hemoglobin 9.9 L Hematocrit 31.1 L Mean Corpuscular Volume 78.5 Mean Corpuscular Hemoglobin 25.0 L Mean Corpuscular Hemoglobin Concent 31.8 L Red Cell Distribution Width 14.1 Platelet Count 624 H Mean Platelet Volume 8.0 Immature Granulocytes % 1.200 H Neutrophils % Segmented Neutrophils % (Manual) 87 H Band Neutrophils % (Manual) 9 Lymphocytes % Lymphocytes % (Manual) 3 L Monocytes % Monocytes % (Manual) 2 Eosinophils % Basophils % Nucleated Red Blood Cells % 0.0 Immature Granulocytes # 0.340 H Neutrophils # Neutrophils # (Manual) 24.9 H Band Neutrophils # 2.5 H Lymphocytes (Manual) 0.8 Lymphocytes # Monocytes # Monocytes # (Manual) 0.5 Eosinophils # Basophils # Nucleated Red Blood Cells # Platelet Estimate INCREASED Polychromasia 1+ Poikilocytosis 3+ Anisocytosis 1+ Microcytosis 1+ Sodium Level 136 Potassium Level 4.4 Chloride Level 101 Carbon Dioxide Level 29 Anion Gap 6 Blood Urea Nitrogen 6 L Creatinine 0.50 L Est Glomerular Filtrat Rate mL/min > 60 Glucose Level 165 Calcium Level 7.9 L Phosphorus Level 3.6 Magnesium Level 2.3 Urine Color STRAW Urine Clarity CLEAR Urine pH 6.0 Urine Specific [place] 1.006 Urine Ketones TRACE A Urine Nitrite NEGATIVE Urine Bilirubin NEGATIVE Urine Urobilinogen NEGATIVE Urine Leukocyte Esterase NEGATIVE Urine Hemoglobin NEGATIVE Urine Glucose 1+ H Urine Total Protein NEGATIVE Subjective 24 Hr Interval Summary Constitutional: no complaints Exam/Review of Systems Exam Vitals Vital Signs Date Temp Pulse Resp B/P (MAP) Pulse Ox O2 O2 Flow FiO2 Time Delivery Rate 01/05/19 110 12 112/78 96 11:00 (89) 01/05/19 3.0 09:41 01/05/19 Nasal 99 09:37 Cannula 01/05/19 97.5 08:00 Intake and Output 01/04/19 01/04/19 01/05/19 1515:00 23:00 07:00 IntakeIntake Total 1267.497 ml 1977.998 ml 2054.672 ml OutputOutput Total 450 ml 1650 ml 1350 ml BalanceBalance 817.497 ml 327.998 ml 704.672 ml Constitutional: alert, oriented Respiratory: clear to auscultation Cardiovascular: regular rate and rhythm Gastrointestinal: soft; No distended Musculoskeletal: nl extremities to inspection Results Results 24hrs Laboratory Tests Test 01/05/19 04:35 01/05/19 05:15 White Blood Count 27.8 #H Red Blood Count 3.96 L Hemoglobin 9.9 L Hematocrit 31.1 L Mean Corpuscular Volume 78.5 Mean Corpuscular Hemoglobin 25.0 L Mean Corpuscular Hemoglobin Concent 31.8 L Red Cell Distribution Width 14.1 Platelet Count 624 H Mean Platelet Volume 8.0 Immature Granulocytes % 1.200 H Neutrophils % Segmented Neutrophils % (Manual) 87 H Band Neutrophils % (Manual) 9 Lymphocytes % Lymphocytes % (Manual) 3 L Monocytes % Monocytes % (Manual) 2 Eosinophils % Basophils % Nucleated Red Blood Cells % 0.0 Immature Granulocytes # 0.340 H Neutrophils # Neutrophils # (Manual) 24.9 H Band Neutrophils # 2.5 H Lymphocytes (Manual) 0.8 Lymphocytes # Monocytes # Monocytes # (Manual) 0.5 Eosinophils # Basophils # Nucleated Red Blood Cells # Platelet Estimate INCREASED Polychromasia 1+ Poikilocytosis 3+ Anisocytosis 1+ Microcytosis 1+ Sodium Level 136 Potassium Level 4.4 Chloride Level 101 Carbon Dioxide Level 29 Anion Gap 6 Blood Urea Nitrogen 6 L Creatinine 0.50 L Est Glomerular Filtrat Rate mL/min > 60 Glucose Level 165 Calcium Level 7.9 L Phosphorus Level 3.6 Magnesium Level 2.3 Urine Color STRAW Urine Clarity CLEAR Urine pH 6.0 Urine Specific [place] 1.006 Urine Ketones TRACE A Urine Nitrite NEGATIVE Urine Bilirubin NEGATIVE Urine Urobilinogen NEGATIVE Urine Leukocyte Esterase NEGATIVE Urine Hemoglobin NEGATIVE Urine Glucose 1+ H Urine Total Protein NEGATIVE Medications Medication Current Medications IV Flush (NS 3 ml) 3 ml PER PROTOCOL IV ; Start 12/30/18 at 04:00 Ondansetron HCl (Zofran Inj) 4 mg Q6H PRN IV NAUSEA/VOMITING Last administered on 01/04/19 19:44; Admin Dose 4 MG; Start 12/30/18 at 04:00 Acetaminophen (Tylenol Tab) 650 mg Q6H PRN PO .PAIN 1-3 OR TEMP Last administered on 01/03/19 04:13; Admin Dose 650 MG; Start 12/30/18 at 04:00 Docusate Sodium (Colace) 100 mg Q12H PRN PO .CONSTIPATION; Start 12/30/18 at 04:00 Bisacodyl (Dulcolax) 5 mg DAILY PRN PO .CONSTIPATION Last administered on 01/05/19 08:47; Admin Dose 5 MG; Start 12/30/18 at 04:00 Enoxaparin Sodium (Lovenox) 40 mg DAILY SC Last administered on 01/05/19 08:51; Admin Dose 40 MG; Start 12/30/18 at 09:00 Piperacillin Sod/ Tazobactam Sod 100 ml @ 200 mls/hr Q6 IVPB Last administered on 01/05/19 12:38; Admin Dose 200 MLS/HR; Start 12/30/18 at 06:00 Levalbuterol (Xopenex Neb) 1.25 mg Q4H RESP THERAPY PRN HHN SHORTNESS OF BREATH Last administered on 01/02/19 11:13; Admin Dose 1.25 MG; Start 12/30/18 at 04:00 Levetiracetam (Keppra) 500 mg BID PO Last administered on 01/05/19 08:46; Admin Dose 500 MG; Start 12/30/18 at 09:00 Ipratropium [place] (Atrovent 0.02% (Neb)) 0.5 mg Q4HWA RESP THERAPY HHN Last administered on 01/05/19 09:36; Admin Dose 0.5 MG; Start 12/30/18 at 13:00 Oxycodone/ Acetaminophen (Percocet (5/ 325)) 1 tab Q4H PRN PO MODERATE PAIN LEVEL 4-6; Start 12/31/18 at 12:30; Status Hold Naloxone HCl (Narcan) 0.2 mg Q2M PRN IV RR 8 BREATHS/MIN OR LESS; Start 12/31/18 at 15:00 Hydromorphone HCl (Dilaudid WAD LUBRICATOR) See protocol, below. Q4PCA IV Last administered on 01/04/19 22:33; Admin Dose 6 MG; Start 12/31/18 at 15:00 Diphenhydramine HCl (Benadryl) 25 mg Q6H PRN IV Nausea or itching Last administered on 01/04/19 06:19; Admin Dose 25 MG; Start 12/31/18 at 20:30 Promethazine HCl/ Codeine (Phenergan/ Codeine) 5 ml Q4H PRN PO COUGH; Start 01/01/19 at 12:00 Ibuprofen (Motrin) 600 mg Q8 PO Last administered on 01/05/19 05:53; Admin Dose 600 MG; Start 01/01/19 at 17:00 Colchicine (Colchicine) 0.6 mg DAILY PO Last administered on 01/05/19 08:46; Admin Dose 0.6 MG; Start 01/02/19 at 09:00 Sodium Chloride 1,000 ml @ 100 mls/hr Q10H IV Last administered on 01/03/19 04:16; Admin Dose 100 MLS/HR; Start 01/02/19 at 18:30; Status Hold Lorazepam (Ativan) 0.5 mg Q6H PRN PO ANXIETY Last administered on 7/5/19at 14:43; Admin Dose 0.5 MG; Start 01/03/19 at 14:30 Eye Lubricant (Artificial Tears Oph) 2 drop Q6H PRN BOTH EYES DRY EYES; Start 01/03/19 at 16:00 Sodium Chloride 1,000 ml @ 75 mls/hr [id number] IV Last administered on 01/05/19at 10:43; Admin Dose 75 MLS/HR; Start 01/03/19 at 21:00; Stop 01/09/19 at 20:59 Ondansetron HCl 16 mg/ Dexamethasone 20 mg/Dextrose 63 ml @ 252 mls/hr Q24H IV Last administered on 01/04/19at 22:01; Admin Dose 252 MLS/HR; Start 01/03/19 at 22:00; Stop 01/07/19 at 22:14 Etoposide 125 mg/ Sodium Chloride 500 ml @ 500 mls/hr Q24H IV Last administered on 01/05/19at 01:53; Admin Dose 500 MLS/HR; Start 01/04/19 at 00:30; Stop 01/08/19 at 01:29 Ifosfamide 2 gm/ Sodium Chloride 250 ml @ 250 mls/hr Q24H IV Last administered on 01/05/19at 05:47; Admin Dose 250 MLS/HR; Start 01/04/19 at 02:00; Stop 01/08/19 at 02:59 [place] 2004 mg/ Sodium Chloride 500 ml @ 20.833 mls/ hr Q24H IV Last administered on 01/05/19at 05:17; Admin Dose 20.833 MLS/HR; Start 01/04/19 at 02:15; Stop 01/09/19 at 02:14 Cisplatin 33 mg/ Sodium Chloride 283 ml @ 250 mls/hr Q24H IV Last administered on 01/04/19at 23:11; Admin Dose 250 MLS/HR; Start 01/03/19 at 23:00; Stop 01/08/19 at 00:08 Prochlorperazine (Compazine Inj) 5 mg Q6H PRN IV NAUSEA Last administered on 01/05/19at 08:55; Admin Dose 5 MG; Start 01/04/19 at 21:30 Aprepitant (Emend) 80 mg Q24H PO Last administered on 01/04/19at 22:23; Admin Dose 80 MG; Start 01/04/19 at 22:30; Stop 01/05/19 at 22:31 Metoclopramide HCl (Reglan) 10 mg ONCE PRN IV NAUSEA; Start 01/04/19 at 22:30; Stop 01/05/19 at 22:29 Docusate Sodium (Colace) 200 mg BID PO ; Start 01/05/19 at 21:00 Senna (Senokot) 2 tab BID PO ; Start 01/05/19 at 21:00 Sodium Biphosphate/ Sodium Phosphate (Fleet Enema) [address] CONSTIPATION; Start 01/05/19 at 10:00 JAMIN INFANTE Jan 05, 2019 13:01
--- NOTE | 2019-01-05 13:14 | CONS ---
Consult Date/Type/Reason Admit Date/Time Dec 30, 2018 at 03:30 Initial Consult Date Type of Consultation: Pulm/CCM Requesting Provider: RADHA HEBERT Date/Time of Note DATE: 01/05/19 TIME: 13:12 Subjective No acute events - chemo started - plan for pericardial procedure tomorrow - surgical team effort appreciated - will monitor for now. ROS: No fever, no chills, no nausea, no vomiting, no diarrhea/constipation No recent weight changes No chest pain, no PND, no orthopnea - chronic SOB No dizziness, blurred vision No thirst, no heat or cold intolerance Objective Vitals Vital Signs Date Temp Pulse Resp B/P (MAP) Pulse Ox O2 O2 Flow FiO2 Time Delivery Rate 01/05/19 110 12 112/78 96 11:00 (89) 01/05/19 3.0 09:41 01/05/19 Nasal 99 09:37 Cannula 01/05/19 97.5 08:00 Intake and Output 01/04/19 01/04/19 01/05/19 1515:00 23:00 07:00 IntakeIntake Total 1267.497 ml 1977.998 ml 2054.672 ml OutputOutput Total 450 ml 1650 ml 1350 ml BalanceBalance 817.497 ml 327.998 ml 704.672 ml Exam General: WN/WD/NAD, AOx 3 HEENT: Unicetric/atraumatic/EOMI ( follow commands) NECK: JVD elevated, no thyromegaly Lymph: no lymphadenopathy HEART: tach regular with no S3, II/ systolic murmur at apex, + rub LUNGS: Coarse sounds ABD: soft, NT, ND, +BS : Intact Neuro: non focal SKIN: chronic changes EXT: trace edema Results/Medications Result Diagram: 01/05/19 0435 01/05/19 0435 Results 24 hrs Laboratory Tests Test 01/05/19 04:35 01/05/19 05:15 White Blood Count 27.8 #H Red Blood Count 3.96 L Hemoglobin 9.9 L Hematocrit 31.1 L Mean Corpuscular Volume 78.5 Mean Corpuscular Hemoglobin 25.0 L Mean Corpuscular Hemoglobin Concent 31.8 L Red Cell Distribution Width 14.1 Platelet Count 624 H Mean Platelet Volume 8.0 Immature Granulocytes % 1.200 H Neutrophils % Segmented Neutrophils % (Manual) 87 H Band Neutrophils % (Manual) 9 Lymphocytes % Lymphocytes % (Manual) 3 L Monocytes % Monocytes % (Manual) 2 Eosinophils % Basophils % Nucleated Red Blood Cells % 0.0 Immature Granulocytes # 0.340 H Neutrophils # Neutrophils # (Manual) 24.9 H Band Neutrophils # 2.5 H Lymphocytes (Manual) 0.8 Lymphocytes # Monocytes # Monocytes # (Manual) 0.5 Eosinophils # Basophils # Nucleated Red Blood Cells # Platelet Estimate INCREASED Polychromasia 1+ Poikilocytosis 3+ Anisocytosis 1+ Microcytosis 1+ Sodium Level 136 Potassium Level 4.4 Chloride Level 101 Carbon Dioxide Level 29 Anion Gap 6 Blood Urea Nitrogen 6 L Creatinine 0.50 L Est Glomerular Filtrat Rate mL/min > 60 Glucose Level 165 Calcium Level 7.9 L Phosphorus Level 3.6 Magnesium Level 2.3 Urine Color STRAW Urine Clarity CLEAR Urine pH 6.0 Urine Specific [place] 1.006 Urine Ketones TRACE A Urine Nitrite NEGATIVE Urine Bilirubin NEGATIVE Urine Urobilinogen NEGATIVE Urine Leukocyte Esterase NEGATIVE Urine Hemoglobin NEGATIVE Urine Glucose 1+ H Urine Total Protein NEGATIVE Home Meds Reported Medications Levetiracetam* (Keppra*) 500 Mg Tablet, 500 MG PO BID, TAB 12/18/18 Medications Current Medications IV Flush (NS 3 ml) 3 ml PER PROTOCOL IV ; Start 12/30/18 at 04:00 Ondansetron HCl (Zofran Inj) 4 mg Q6H PRN IV NAUSEA/VOMITING Last administered on 01/04/19at 19:44; Admin Dose 4 MG; Start 12/30/18 at 04:00 Acetaminophen (Tylenol Tab) 650 mg Q6H PRN PO .PAIN 1-3 OR TEMP Last administered on 01/03/19at 04:13; Admin Dose 650 MG; Start 12/30/18 at 04:00 Docusate Sodium (Colace) 100 mg Q12H PRN PO .CONSTIPATION; Start 12/30/18 at 04:00 Bisacodyl (Dulcolax) 5 mg DAILY PRN PO .CONSTIPATION Last administered on 01/05/19at 08:47; Admin Dose 5 MG; Start 12/30/18 at 04:00 Enoxaparin Sodium (Lovenox) 40 mg DAILY SC Last administered on 01/05/19at 08:51; Admin Dose 40 MG; Start 12/30/18 at 09:00 Piperacillin Sod/ Tazobactam Sod 100 ml @ 200 mls/hr Q6 IVPB Last administered on 01/05/19 12:38; Admin Dose 200 MLS/HR; Start 12/30/18 at 06:00 Levalbuterol (Xopenex Neb) 1.25 mg Q4H RESP THERAPY PRN HHN SHORTNESS OF BREATH Last administered on 01/02/19 11:13; Admin Dose 1.25 MG; Start 12/30/18 at 04:00 Levetiracetam (Keppra) 500 mg BID PO Last administered on 01/05/19 08:46; Admin Dose 500 MG; Start 12/30/18 at 09:00 Ipratropium [place] (Atrovent 0.02% (Neb)) 0.5 mg Q4HWA RESP THERAPY HHN Last administered on 01/05/19 09:36; Admin Dose 0.5 MG; Start 12/30/18 at 13:00 Oxycodone/ Acetaminophen (Percocet (5/ 325)) 1 tab Q4H PRN PO MODERATE PAIN LEVEL 4-6; Start 12/31/18 at 12:30; Status Hold Naloxone HCl (Narcan) 0.2 mg Q2M PRN IV RR 8 BREATHS/MIN OR LESS; Start 12/31/18 at 15:00 Hydromorphone HCl (Dilaudid TECHNICAL TRAINING COORDINATOR) See protocol, below. Q4PCA IV Last administered on 01/04/19 22:33; Admin Dose 6 MG; Start 12/31/18 at 15:00 Diphenhydramine HCl (Benadryl) 25 mg Q6H PRN IV Nausea or itching Last administered on 01/04/19 06:19; Admin Dose 25 MG; Start 12/31/18 at 20:30 Promethazine HCl/ Codeine (Phenergan/ Codeine) 5 ml Q4H PRN PO COUGH; Start 01/01/19 at 12:00 Ibuprofen (Motrin) 600 mg Q8 PO Last administered on 01/05/19 05:53; Admin Dose 600 MG; Start 01/01/19 at 17:00 Colchicine (Colchicine) 0.6 mg DAILY PO Last administered on 01/05/19 08:46; Admin Dose 0.6 MG; Start 01/02/19 at 09:00 Sodium Chloride 1,000 ml @ 100 mls/hr Q10H IV Last administered on 01/03/19at 04:16; Admin Dose 100 MLS/HR; Start 01/02/19 at 18:30; Status Hold Lorazepam (Ativan) 0.5 mg Q6H PRN PO ANXIETY Last administered on 01/03/19at 14:43; Admin Dose 0.5 MG; Start 01/03/19 at 14:30 Eye Lubricant (Artificial Tears Oph) 2 drop Q6H PRN BOTH EYES DRY EYES; Start 01/03/19 at 16:00 Sodium Chloride 1,000 ml @ 75 mls/hr [id number] IV Last administered on 01/05/19at 10:43; Admin Dose 75 MLS/HR; Start 01/03/19 at 21:00; Stop 01/09/19 at 20:59 Ondansetron HCl 16 mg/ Dexamethasone 20 mg/Dextrose 63 ml @ 252 mls/hr Q24H IV Last administered on 01/04/19at 22:01; Admin Dose 252 MLS/HR; Start 01/03/19 at 22:00; Stop 01/07/19 at 22:14 Etoposide 125 mg/ Sodium Chloride 500 ml @ 500 mls/hr Q24H IV Last administered on 01/05/19at 01:53; Admin Dose 500 MLS/HR; Start 01/04/19 at 00:30; Stop 01/08/19 at 01:29 Ifosfamide 2 gm/ Sodium Chloride 250 ml @ 250 mls/hr Q24H IV Last administered on 01/05/19at 05:47; Admin Dose 250 MLS/HR; Start 01/04/19 at 02:00; Stop 01/08/19 at 02:59 [place] 2004 mg/ Sodium Chloride 500 ml @ 20.833 mls/ hr Q24H IV Last administered on 01/05/19at 05:17; Admin Dose 20.833 MLS/HR; Start 01/04/19 at 02:15; Stop 01/09/19 at 02:14 Cisplatin 33 mg/ Sodium Chloride 283 ml @ 250 mls/hr Q24H IV Last administered on 01/04/19at 23:11; Admin Dose 250 MLS/HR; Start 01/03/19 at 23:00; Stop 01/08/19 at 00:08 Prochlorperazine (Compazine Inj) 5 mg Q6H PRN IV NAUSEA Last administered on 01/05/19at 08:55; Admin Dose 5 MG; Start 01/04/19 at 21:30 Aprepitant (Emend) 80 mg Q24H PO Last administered on 01/04/19at 22:23; Admin Dose 80 MG; Start 01/04/19 at 22:30; Stop 01/05/19 at 22:31 Metoclopramide HCl (Reglan) 10 mg ONCE PRN IV NAUSEA; Start 01/04/19 at 22:30; Stop 01/05/19 at 22:29 Docusate Sodium (Colace) 200 mg BID PO ; Start 01/05/19 at 21:00 Senna (Senokot) 2 tab BID PO ; Start 01/05/19 at 21:00 Sodium Biphosphate/ Sodium Phosphate (Fleet Enema) 133 ml DAILY PRN [place] CONSTIPATION; Start 01/05/19 at 10:00 Assessment/Plan Hospital Course (Demo Recall) 1. Pericardial effusion with questionable early tamponade features. Currently, the patient with stable blood pressure, but is tachycardic,pt feels a little better today, but still tachy - his repeat echo with moderate effusion, but early tamponade signs - given these finding, I think that surgical evaluation for pericardial window and possible reresection might be reasonable - will discuss with primary team now. Repeat ECHO with increased effusion - I spoke with CT team - planning for percardicentesis vs pericardial window, possibly Sunday - BP stable - chemo resumed - per DR. Fuller, transfer to higher level of care is also in place - plan for pericardial procedure tomorrow. 2. Tachycardia consistent with sinus tachycardia at this time, questionable due to pain, fever or actual pericardial effusion, or a combination of all these likely. Stable at 120s. Keep pre-load up. 3. History of mediastinal mass, yolk sac tumor - await path from pleural effusion. Now chemo resumed. Transfer likely post pericardiocentesis., 4. Lower lobe pneumonia - con't anti-bx now. 5. Large pleural effusion, undergoing thoracentesis at this time x 2 already. Feels better with drainage. 6. Leukocytosis, severe. 7. Anemia. 8. Thrombocytopenia plts at 99 now. KHANG PAGE MD Jan 05, 2019 13:14
[2019-01-05] MEDS: HYDROmorphONE 0.2 MG/ML PCA IV SCH (14:20)
[2019-01-05] MEDS: ONDANSETRON 4 MG INJ IV PRN (15:47)
--- NOTE | 2019-01-05 17:22 | CONS ---
Assessment/Plan Assessment/Plan Assessment/Plan (Daily) 18 yo with large anterior mediastinal mass 13.5 x 15.8 x 9.3 cm in size. 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 -Port and echo done and echo was normal and okay to proceed with chemotherapy. -given how large this mass is and concern for airway; chemo was recommended and thus patient initiated VIP Cycle #1 on 01/03/19. -Overall patient doing well thus far and counts are stable. No nausea or vomiting at this time. He is a bit edematous today but still with good urine output. Will need growth factor after completion of chemotherapy. -Previously discussed that this chemotherapy has a risk of causing infertility and sperm banking was discussed however due to his clinical condition and risks and benefits, it was decided that he should proceed to chemotherapy first. Patient consented to chemotherapy. -given that he has deteriorated hdemodynamically, Pulm is looking into possible transfer to tertiary care center, await input from family preservation caseworker -chemotherapy regimen is as follows below: Cisplatin 20 mg/m2 IV per day Days 1 to 5 Etoposide* 75 mg/m2 IV per day Days 1 to 5 Ifosfamide* 1200 mg/m2 per day IV infusion Days 1 to 5 [place] 120 mg/m2 IV Day 1 [place] 1200 mg/m2 per day continuous IV infusion, Days 1 to 5 GCSF 300mcg daily starting day 6-12 -Side effects discussed with patient to include but not limited to nausea, vomiting, cytopenias, increased risk of infection, diarrhea, renal failure, hair loss, and neuropathy. -discussed with pt after 2 cycles chemo, restage. 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 and need to be resected #leukocytosis and thrombocytosis AND FEVERS suspect this is most likely reactive due to underlying malignancy vs pneumonia EMPIRIC ABX PER PRIMARY TEAM # Brain mass causing vasogenic edema -Will need steroids as needed. Thank you for allowing us to participate in the care of this patient. Consultation Date/Type/Reason Admit Date/Time Dec 30, 2018 at 03:30 Initial Consult Date Type of Consult hematology/oncology Requesting Provider: RADHA HEBERT Date/Time of Note DATE: 01/05/19 TIME: 17:20 24 HR Interval Summary Free Text/Dictation Patient states he feels better but still tired and lethargic. He still has tachycardia. His breathing is stable and he is on nasal cannula. Chemotherapy to continue today. Constitutional: no complaints Exam/Review of Systems Exam Vitals Vital Signs Date Temp Pulse Resp B/P (MAP) Pulse Ox O2 O2 Flow FiO2 Time Delivery Rate 01/05/19 107 13 Nasal 3.0 100 16:39 Cannula 01/05/19 98/69 (79) 96 15:00 01/05/19 97.5 12:00 Intake and Output 01/04/19 01/04/19 01/05/19 1414:59 22:59 06:59 IntakeIntake Total 1182.497 ml 2048.831 ml 2229.672 ml OutputOutput Total 450 ml 850 ml 2150 ml BalanceBalance 732.497 ml 1198.831 ml 79.672 ml Constitutional: alert, oriented, well developed Psych: no complaints, nl mood/affect Head: normocephalic, atraumatic Eyes: nl conjunctiva, EOMI, nl lids, nl sclera, PERRL ENMT: nl external ears & nose, nl lips & teeth, nl nasal mucosa & septum Neck: supple, non-tender Respiratory: diminished breath sounds Cardiovascular: other (tacycardic) Gastrointestinal: soft, nl liver, spleen, ascites Musculoskeletal: swelling Extremities: normal pulses Neurological: RIGGER II-XII intact, nl mental status, nl speech, nl strength Skin: nl turgor; No rash or lesions Lymph: nl lymph nodes Results Result Diagram: 01/05/19 0435 01/05/19 0435 Results 24hrs Laboratory Tests Test 01/05/19 04:35 01/05/19 05:15 White Blood Count 27.8 #H Red Blood Count 3.96 L Hemoglobin 9.9 L Hematocrit 31.1 L Mean Corpuscular Volume 78.5 Mean Corpuscular Hemoglobin 25.0 L Mean Corpuscular Hemoglobin Concent 31.8 L Red Cell Distribution Width 14.1 Platelet Count 624 H Mean Platelet Volume 8.0 Immature Granulocytes % 1.200 H Neutrophils % Segmented Neutrophils % (Manual) 87 H Band Neutrophils % (Manual) 9 Lymphocytes % Lymphocytes % (Manual) 3 L Monocytes % Monocytes % (Manual) 2 Eosinophils % Basophils % Nucleated Red Blood Cells % 0.0 Immature Granulocytes # 0.340 H Neutrophils # Neutrophils # (Manual) 24.9 H Band Neutrophils # 2.5 H Lymphocytes (Manual) 0.8 Lymphocytes # Monocytes # Monocytes # (Manual) 0.5 Eosinophils # Basophils # Nucleated Red Blood Cells # Platelet Estimate INCREASED Polychromasia 1+ Poikilocytosis 3+ Anisocytosis 1+ Microcytosis 1+ Sodium Level 136 Potassium Level 4.4 Chloride Level 101 Carbon Dioxide Level 29 Anion Gap 6 Blood Urea Nitrogen 6 L Creatinine 0.50 L Est Glomerular Filtrat Rate mL/min > 60 Glucose Level 165 Calcium Level 7.9 L Phosphorus Level 3.6 Magnesium Level 2.3 Urine Color STRAW Urine Clarity CLEAR Urine pH 6.0 Urine Specific [place] 1.006 Urine Ketones TRACE A Urine Nitrite NEGATIVE Urine Bilirubin NEGATIVE Urine Urobilinogen NEGATIVE Urine Leukocyte Esterase NEGATIVE Urine Hemoglobin NEGATIVE Urine Glucose 1+ H Urine Total Protein NEGATIVE Medications Medication Current Medications IV Flush (NS 3 ml) 3 ml PER PROTOCOL IV ; Start 12/30/18 at 04:00 Ondansetron HCl (Zofran Inj) 4 mg Q6H PRN IV NAUSEA/VOMITING Last administered on 01/05/19at 15:47; Admin Dose 4 MG; Start 12/30/18 at 04:00 Acetaminophen (Tylenol Tab) 650 mg Q6H PRN PO .PAIN 1-3 OR TEMP Last administered on 01/03/19at 04:13; Admin Dose 650 MG; Start 12/30/18 at 04:00 Docusate Sodium (Colace) 100 mg Q12H PRN PO .CONSTIPATION; Start 12/30/18 at 04:00 Bisacodyl (Dulcolax) 5 mg DAILY PRN PO .CONSTIPATION Last administered on at 08:47; Admin Dose 5 MG; Start 12/30/18 at 04:00 Enoxaparin Sodium (Lovenox) 40 mg DAILY SC Last administered on 01/05/19 08:51; Admin Dose 40 MG; Start 12/30/18 at 09:00 Piperacillin Sod/ Tazobactam Sod 100 ml @ 200 mls/hr Q6 IVPB Last administered on 01/05/19 12:38; Admin Dose 200 MLS/HR; Start 12/30/18 at 06:00 Levalbuterol (Xopenex Neb) 1.25 mg Q4H RESP THERAPY PRN HHN SHORTNESS OF BREATH Last administered on 01/02/19 11:13; Admin Dose 1.25 MG; Start 12/30/18 at 04:00 Levetiracetam (Keppra) 500 mg BID PO Last administered on 01/05/19 08:46; Admin Dose 500 MG; Start 12/30/18 at 09:00 Ipratropium [place] (Atrovent 0.02% (Neb)) 0.5 mg Q4HWA RESP THERAPY HHN Last administered on 01/05/19 16:36; Admin Dose 0.5 MG; Start 12/30/18 at 13:00 Oxycodone/ Acetaminophen (Percocet (5/ 325)) 1 tab Q4H PRN PO MODERATE PAIN LEVEL 4-6; Start 12/31/18 at 12:30; Status Hold Naloxone HCl (Narcan) 0.2 mg Q2M PRN IV RR 8 BREATHS/MIN OR LESS; Start 12/31/18 at 15:00 Hydromorphone HCl (Dilaudid PRESSED OR BLOWN GLASS WORKER) See protocol, below. Q4PCA IV Last administered on 01/05/19 14:20; Admin Dose 6 MG; Start 12/31/18 at 15:00 Diphenhydramine HCl (Benadryl) 25 mg Q6H PRN IV Nausea or itching Last administered on 01/04/19 06:19; Admin Dose 25 MG; Start 12/31/18 at 20:30 Promethazine HCl/ Codeine (Phenergan/ Codeine) 5 ml Q4H PRN PO COUGH; Start 01/01/19 at 12:00 Ibuprofen (Motrin) 600 mg Q8 PO Last administered on 01/05/19 05:53; Admin Dose 600 MG; Start 01/01/19 at 17:00 Colchicine (Colchicine) 0.6 mg DAILY PO Last administered on 01/05/19at 08:46; Admin Dose 0.6 MG; Start 01/02/19 at 09:00 Sodium Chloride 1,000 ml @ 100 mls/hr Q10H IV Last administered on 01/03/19at 04:16; Admin Dose 100 MLS/HR; Start 01/02/19 at 18:30; Status Hold Lorazepam (Ativan) 0.5 mg Q6H PRN PO ANXIETY Last administered on 01/03/19at 14:43; Admin Dose 0.5 MG; Start 01/03/19 at 14:30 Eye Lubricant (Artificial Tears Oph) 2 drop Q6H PRN BOTH EYES DRY EYES; Start 01/03/19 at 16:00 Sodium Chloride 1,000 ml @ 75 mls/hr [id number] IV Last administered on 01/05/19at 10:43; Admin Dose 75 MLS/HR; Start 01/03/19 at 21:00; Stop 01/09/19 at 20:59 Ondansetron HCl 16 mg/ Dexamethasone 20 mg/Dextrose 63 ml @ 252 mls/hr Q24H IV Last administered on 01/04/19at 22:01; Admin Dose 252 MLS/HR; Start 01/03/19 at 22:00; Stop 01/07/19 at 22:14 Etoposide 125 mg/ Sodium Chloride 500 ml @ 500 mls/hr Q24H IV Last administered on 01/05/19at 01:53; Admin Dose 500 MLS/HR; Start 01/04/19 at 00:30; Stop 01/08/19 at 01:29 Ifosfamide 2 gm/ Sodium Chloride 250 ml @ 250 mls/hr Q24H IV Last administered on 01/05/19at 05:47; Admin Dose 250 MLS/HR; Start 01/04/19 at 02:00; Stop 01/08/19 at 02:59 Mesna 2004 mg/ Sodium Chloride 500 ml @ 20.833 mls/ hr Q24H IV Last administered on 01/05/19at 05:17; Admin Dose 20.833 MLS/HR; Start 01/04/19 at 02:15; Stop 01/09/19 at 02:14 Cisplatin 33 mg/ Sodium Chloride 283 ml @ 250 mls/hr Q24H IV Last administered on 01/04/19at 23:11; Admin Dose 250 MLS/HR; Start 01/03/19 at 23:00; Stop 01/08/19 at 00:08 Prochlorperazine (Compazine Inj) 5 mg Q6H PRN IV NAUSEA Last administered on 01/05/19at 08:55; Admin Dose 5 MG; Start 01/04/19 at 21:30 Aprepitant (Emend) 80 mg Q24H PO Last administered on 01/04/19at 22:23; Admin Dose 80 MG; Start 01/04/19 at 22:30; Stop 01/05/19 at 22:31 Metoclopramide HCl (Reglan) 10 mg ONCE PRN IV NAUSEA; Start 01/04/19 at 22:30; Stop 01/05/19 at 22:29 Docusate Sodium (Colace) 200 mg BID PO ; Start 01/05/19 at 21:00 Senna (Senokot) 2 tab BID PO ; Start 01/05/19 at 21:00 Sodium Biphosphate/ Sodium Phosphate (Fleet Enema) 133 ml DAILY PRN RI CONSTIPATION; Start 01/05/19 at 10:00 JORY MOHR DO Jan 05, 2019 17:22
[2019-01-05] MEDS: DOCUSATE SODIUM 100 MG CAP PO SCH (21:08)
[2019-01-05] MEDS: SENNA TAB PO SCH (21:08)
[2019-01-05] MEDS: APREPITANT 80 MG CAPSULE PO SCH (22:57)
[2019-01-05] MEDS: ONDANSETRON INJ 16 MG, DEXAMETHASONE 4 MG/ML 20 MG in DEXTROSE 5% 50 ML IV SCH (22:58)
[2019-01-05] MEDS: CISPLATIN IV SCH (23:48)
--- NOTE | 2019-01-05 23:51 | PN ---
Date/Time of Note Date/Time of Note DATE: 01/05/19 TIME: 18:00 Assessment/Plan Lines/Catheters IV Catheter Type: Peripheral IV Assessment/Plan Hospital Course 18-year-old male with history of epilepsy, stable on Keppra, recently discharged after admit 12/18 when diagnosed with large mediastinal yolk sac tumor tumor. Plans for sperm banking followed by chemotherapy. Patient presented with new respiratory symptoms including cough and chest pain. Interval development of left lower lobe atelectasis versus consolidation with initially small pleural effusion. Fevers and tachycardia have been present throughout the prior admission, and continue. At admission, white blood cell count 24.3, hemoglobin 10.7, platelets of 736. LDH and AFP are elevated consistent with his neoplasm. Hospital course: Patient has had ill appearance with tachycardia, fevers, and moderate chest pain, now fairly well controlled on Dilaudid TEXTILE FINISHER and much improved by 01/05. Oral intake poor. Clinically met criteria for severe sepsis initially and placed on Vancomycin, Zosyn, and azithromycin as suggested by ID. Developed O2 requirement, transferred to ICU 12/31 with rapidly enlarging pleural effusions, s/p thoracentesis x 2. Pericardial fluid (moderate) also present. Sputum growing MSSA. Antibiotics reduced to Zosyn alone 01/03. Started chemotherapy 01/03 evening and has actually had improvement in overall appearance with cessation of fevers despite evidence of infiltrates on CXR and developing some peripheral edema. 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 Stable lesion present on brain MRI which may be metastatic? No testicular involvement. He has Mediport in place and chemo (VIP) now ongoing round 1. Current plan is 2 cycles of chemo, restaging, and after 4 cycles restaging and resection of residual mass. Neuro: Seizures: Continue Keppra. Stable. Pain control: Currently receiving TEXTILE FINISHER dilaudid, fairly well controlled. Ibuprofen also on board. Resp: Pleural effusion, s/p thoracentesis x 2 with reportedly 1L each time aspirated. O2 nasal canula. Likely has staph pneumonia, postobstructive due to tumor. Effusion however could be infectious, malignant, or both; seems fairly stable on recent CXR. FEN/GI: Regular diet and brisk intravenous fluids for chemo. Electrolytes stable. Hypoalbuminemia and peripheral edema noted. Consider giving some albumin as volume and protein replacement. CV: Pericardial effusion, no tamponade physiology, seems stable but deemed mode rate. BP stable, tachycardia improved. CT surgeon has agreed to place pericardial drain / possible window 01/06 in preparation for transfer to [facility] ([facility] referral center). PICC line attempted but failed due to UE edema. Heme: VTE prophylaxis: Lovenox. Anemia, thrombocytosis, leukocytosis. See heme/ onc recommendations. ID: Pneumonia, cont Zosyn as per ID. MSSA x 2 detected in sputum along with g bebeto negs incl. Klebsiella. Blood cultures negative to date. No fevers since 01/03 now. Note elevation in WBC now after starting chemo. Renal: good renal function and UOP. Genetic: Tumor analysis so far on needle pathology only. Karyotype for Klinefelter pending. He was unable to donate sperm prior to first round chemo; should still be an option later. Dispo: Accepted at [facility] as [facility] referral center, but they requested pericardial drain which has still not yet occurred. We will continue to follow as [facility] consultants while in hospital. Agree with current management from our very capable adult oncology and hospitalist team. Problems: (1) Nonseminomatous germ cell neoplasm Status: Acute (2) Seizure disorder Status: Chronic (3) Pneumonia Status: Acute Qualifiers: Pneumonia type: due to unspecified organism Laterality: bilateral Lung location: unspecified part of lung Qualified Codes: J18.9 - Pneumonia, unspecified organism (4) Pericardial effusion Status: Acute (5) Pleural effusion Status: Acute Subjective 24 Hr Interval Summary Says he feels "much better today." Chest pain improved. Ate a bit. Says swelling improving also. Constitutional: improved, requiring IVF; No febrile Pain Control: well controlled, mild Skin: no complaints Eyes: no complaints HENT: no complaints Respiratory: cough Cardiovascular: chest pain (now mild) Gastrointestinal: No vomiting Genitourinary: no complaints Neurologic: no complaints Musculoskeletal: swelling (extremities) Objective Vital Signs Vitals Vital Signs Date Temp Pulse Resp B/P (MAP) Pulse Ox O2 O2 Flow FiO2 Time Delivery Rate 01/05/19 119 32 121/67 99 Nasal 23:00 (85) Cannula 01/05/19 2.0 20:43 01/05/19 97.6 20:00 01/05/19 100 16:39 Intake and Output 01/04/19 01/04/19 01/05/19 1515:00 23:00 07:00 IntakeIntake Total 1267.497 ml 1977.998 ml 2154.672 ml OutputOutput Total 450 ml 1650 ml 1350 ml BalanceBalance 817.497 ml 327.998 ml 804.672 ml Exam General: other (Thin and pale, but in better spirits, more engaging. Watching soccer.) Skin: nl Head: NC/AT Eyes: No conjunctivitis ENT: nl nasal mucosa/septum Lymphatic: nl lymph nodes Neck: supple, non-tender Chest: symmetrical Respiratory: decreased BS (as noted), tachypnea, other (Decreased sounds L low er and mid-lung field. Mild decrease R lower); No retractions Cardiovascular: <2 sec cap refill, tachycardic (but improved) Gastrointestinal: soft, ND, NT, +BS Neurological: nl muscle tone, nl speech Musculoskeletal: No nl muscle bulk (decreased) Extremities: warm, well-perfused, production packager <2 sec, edema (pitting edema in arms and legs 2+); No erythema Results Result Diagram: 01/05/195 01/05/19 0435 Results 24 hrs Laboratory Tests Test 01/05/19 04:35 01/05/19 05:15 White Blood Count 27.8 #H Red Blood Count 3.96 L Hemoglobin 9.9 L Hematocrit 31.1 L Mean Corpuscular Volume 78.5 Mean Corpuscular Hemoglobin 25.0 L Mean Corpuscular Hemoglobin Concent 31.8 L Red Cell Distribution Width 14.1 Platelet Count 624 H Mean Platelet Volume 8.0 Immature Granulocytes % 1.200 H Neutrophils % Segmented Neutrophils % (Manual) 87 H Band Neutrophils % (Manual) 9 Lymphocytes % Lymphocytes % (Manual) 3 L Monocytes % Monocytes % (Manual) 2 Eosinophils % Basophils % Nucleated Red Blood Cells % 0.0 Immature Granulocytes # 0.340 H Neutrophils # Neutrophils # (Manual) 24.9 H Band Neutrophils # 2.5 H Lymphocytes (Manual) 0.8 Lymphocytes # Monocytes # Monocytes # (Manual) 0.5 Eosinophils # Basophils # Nucleated Red Blood Cells # Platelet Estimate INCREASED Polychromasia 1+ Poikilocytosis 3+ Anisocytosis 1+ Microcytosis 1+ Sodium Level 136 Potassium Level 4.4 Chloride Level 101 Carbon Dioxide Level 29 Anion Gap 6 Blood Urea Nitrogen 6 L Creatinine 0.50 L Est Glomerular Filtrat Rate mL/min > 60 Glucose Level 165 Calcium Level 7.9 L Phosphorus Level 3.6 Magnesium Level 2.3 Urine Color STRAW Urine Clarity CLEAR Urine pH 6.0 Urine Specific [place] 1.006 Urine Ketones TRACE A Urine Nitrite NEGATIVE Urine Bilirubin NEGATIVE Urine Urobilinogen NEGATIVE Urine Leukocyte Esterase NEGATIVE Urine Hemoglobin NEGATIVE Urine Glucose 1+ H Urine Total Protein NEGATIVE Medications Medications Current Medications IV Flush (NS 3 ml) 3 ml PER PROTOCOL IV ; Start 12/30/18 at 04:00 Ondansetron HCl (Zofran Inj) 4 mg Q6H PRN IV NAUSEA/VOMITING Last administered on 01/05/19 15:47; Admin Dose 4 MG; Start 12/30/18 at 04:00 Acetaminophen (Tylenol Tab) 650 mg Q6H PRN PO .PAIN 1-3 OR TEMP Last admi nistered on 01/03/19 04:13; Admin Dose 650 MG; Start 12/30/18 at 04:00 Docusate Sodium (Colace) 100 mg Q12H PRN PO .CONSTIPATION; Start 12/30/18 at 04:00 Bisacodyl (Dulcolax) 5 mg DAILY PRN PO .CONSTIPATION Last administered on 01/05/19 08:47; Admin Dose 5 MG; Start 12/30/18 at 04:00 Enoxaparin Sodium (Lovenox) 40 mg DAILY SC Last administered on 01/05/19 08:51; Admin Dose 40 MG; Start 12/30/18 at 09:00 Piperacillin Sod/ Tazobactam Sod 100 ml @ 200 mls/hr Q6 IVPB Last administered on 01/05/19 17:26; Admin Dose 200 MLS/HR; Start 12/30/18 at 06:00 Levalbuterol (Xopenex Neb) 1.25 mg Q4H RESP THERAPY PRN HHN SHORTNESS OF BREATH Last administered on 01/02/19 11:13; Admin Dose 1.25 MG; Start 12/30/18 at 04:00 Levetiracetam (Keppra) 500 mg BID PO Last administered on 01/05/19 21:08; Admin Dose 500 MG; Start 12/30/18 at 09:00 Ipratropium [place] (Atrovent 0.02% (Neb)) 0.5 mg Q4HWA RESP THERAPY HHN Last administered on 01/05/19 16:36; Admin Dose 0.5 MG; Start 12/30/18 at 13:00 Oxycodone/ Acetaminophen (Percocet (5/ 325)) 1 tab Q4H PRN PO MODERATE PAIN LEVEL 4-6; Start 12/31/18 at 12:30; Status Hold Naloxone HCl (Narcan) 0.2 mg Q2M PRN IV RR 8 BREATHS/MIN OR LESS; Start 12/31/18 at 15:00 Hydromorphone HCl (Dilaudid TEXTILE FINISHER) See protocol, below. Q4PCA IV Last administered on 01/05/19 14:20; Admin Dose 6 MG; Start 12/31/18 at 15:00 Diphenhydramine HCl (Benadryl) 25 mg Q6H PRN IV Nausea or itching Last administered on 01/04/19 06:19; Admin Dose 25 MG; Start 12/31/18 at 20:30 Promethazine HCl/ Codeine (Phenergan/ Codeine) 5 ml Q4H PRN PO COUGH; Start 01/01/19 at 12:00 Ibuprofen (Motrin) 600 mg Q8 PO Last administered on 01/05/19 22:58; Admin Dose 600 MG; Start 01/01/19 at 17:00 Colchicine (Colchicine) 0.6 mg DAILY PO Last administered on 01/05/19 08:46; Admin Dose 0.6 MG; Start 01/02/19 at 09:00 Sodium Chloride 1,000 ml @ 100 mls/hr Q10H IV Last administered on 01/03/19 04:16; Admin Dose 100 MLS/HR; Start 01/02/19 at 18:30; Status Hold Lorazepam (Ativan) 0.5 mg Q6H PRN PO ANXIETY Last administered on 01/03/19 14:43; Admin Dose 0.5 MG; Start 01/03/19 at 14:30 Eye Lubricant (Artificial Tears Oph) 2 drop Q6H PRN BOTH EYES DRY EYES; Start 01/03/19 at 16:00 Sodium Chloride 1,000 ml @ 75 mls/hr [id number] IV Last administered on 7/7/19at 10:43; Admin Dose 75 MLS/HR; Start 01/03/19 at 21:00; Stop 01/09/19 at 20:59 Ondansetron HCl 16 mg/ Dexamethasone 20 mg/Dextrose 63 ml @ 252 mls/hr Q24H IV Last administered on 01/05/19at 22:58; Admin Dose 252 MLS/HR; Start 01/03/19 at 22:00; Stop 01/07/19 at 22:14 Etoposide 125 mg/ Sodium Chloride 500 ml @ 500 mls/hr Q24H IV Last administere d on 01/05/19at 01:53; Admin Dose 500 MLS/HR; Start 01/04/19 at 00:30; Stop 01/08/19 at 01:29 Ifosfamide 2 gm/ Sodium Chloride 250 ml @ 250 mls/hr Q24H IV Last administered on 01/05/19at 05:47; Admin Dose 250 MLS/HR; Start 01/04/19 at 02:00; Stop 01/08/19 at 02:59 [place] 2004 mg/ Sodium Chloride 500 ml @ 20.833 mls/ hr Q24H IV Last administered on 01/05/19at 05:17; Admin Dose 20.833 MLS/HR; Start 01/04/19 at 02:15; Stop 01/09/19 at 02:14 Cisplatin 33 mg/ Sodium Chloride 283 ml @ 250 mls/hr Q24H IV Last administered on 01/04/19at 23:11; Admin Dose 250 MLS/HR; Start 01/03/19 at 23:00; Stop 01/08/19 at 00:08 Prochlorperazine (Compazine Inj) 5 mg Q6H PRN IV NAUSEA Last administered on 01/05/19 08:55; Admin Dose 5 MG; Start 01/04/19 at 21:30 Docusate Sodium (Colace) 200 mg BID PO Last administered on 01/05/19at 21:08; Admin Dose 200 MG; Start 01/05/19 at 21:00 Senna (Senokot) 2 tab BID PO Last administered on 01/05/19at 21:08; Admin Dose 2 TAB; Start 01/05/19 at 21:00 Sodium Biphosphate/ Sodium Phosphate (Fleet Enema) 133 ml DAILY PRN [place] CONSTIPATION; Start 01/05/19 at 10:00 HEATH KOLB MD Jan 05, 2019 23:39
[2019-01-06] VITALS (26 sets, daily range): BP systolic 97–140; BP diastolic 63–96; PULSE 86–136; RESP 0–32
[2019-01-06] MEDS: PIPER-TAZO 3.375 GM IV (PMX) 100 ML IVPB SCH ×4 (00:06→16:35)
[2019-01-06] MEDS: SOD CHLORIDE 0.45% 1,000 ML IV SCH ×3 (00:07→16:22)
[2019-01-06] MEDS: SOD CHLORIDE 0.9% IV SCH ×4 (01:58→22:55)
[2019-01-06] MEDS: ETOPOSIDE IV SCH (01:58)
[2019-01-06] MEDS: HYDROmorphONE 0.2 MG/ML PCA IV SCH ×2 (03:55→18:33)
[2019-01-06] MEDS: IFOSFAMIDE IV SCH (04:41)
[2019-01-06] MEDS: ONDANSETRON 4 MG INJ IV PRN ×3 (04:46→19:57)
[2019-01-06] MEDS: MESNA IV SCH (04:56)
[2019-01-06] MEDS: IBUPROFEN 600 MG TAB PO SCH ×3 (06:00→22:12)
[2019-01-06] MEDS: PROCHLORPERAZINE 10 MG INJ IV PRN ×2 (06:37→16:20)
[2019-01-06] MEDS: ENOXAPARIN 40 MG/0.4 ML SYG SC SCH (08:27)
[2019-01-06] MEDS: IPRATROPIUM (NEB) 0.5 MG/2.5 ML AMP HHN SCH ×4 (09:00→21:00)
[2019-01-06] MEDS: DOCUSATE SODIUM 100 MG CAP PO SCH ×2 (09:00→20:46)
[2019-01-06] MEDS: COLCHICINE 0.6 MG CAP PO SCH (09:00)
[2019-01-06] MEDS: SENNA TAB PO SCH ×2 (09:00→20:46)
[2019-01-06] MEDS: LEVETIRACETAM 500 MG TAB PO SCH ×2 (09:14→20:46)
--- NOTE | 2019-01-06 09:33 | CONS ---
Assessment/Plan Assessment/Plan Assessment/Plan (Daily) Chest x-ray was reviewed which is showing cardiomegaly. Assessment and recommendations; 1. 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 2. Stable seizure disorder. 3. Possibly superimposed pneumonia, multiple organisms cultured in sputum. Currently on appropriate antimicrobial regimen. Continue current supportive care. Patient scheduled for pericardiocentesis and possibly pericardial window placement today. Consultation Date/Type/Reason Admit Date/Time Dec 30, 2018 at 03:30 Initial Consult Date Type of Consult Pulmonary/critical care Patient condition is fairly stable. Remains awake and alert. Has remained hemodynamically stable. Reason for Consultation General exam; young male, awake alert, currently in no distress. H EENT exam; supple neck, no JVD. No lymphadenopathy. Midline trachea. No thyromegaly. Patient has fair dentition. No neck masses. Chest exam; diminished but clear breath sounds. S1-S2 audible, no murmurs. Regular rhythm. Tachycardic. Abdomen exam; soft, nontender. No organomegaly. Bowel sounds audible. Extremity exam; no peripheral edema clubbing. Pulses 1+. 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 Requesting Provider: RADHA HEBERT Date/Time of Note DATE: 01/06/19 TIME: 09:31 Exam/Review of Systems Exam Vitals Vital Signs Date Temp Pulse Resp B/P (MAP) Pulse Ox O2 O2 Flow FiO2 Time Delivery Rate 01/06/19 2.0 08:00 01/06/19 127 24 133/82 95 Nasal 06:00 (99) Cannula 01/06/19 97.5 04:00 01/05/19 100 16:39 Intake and Output 01/05/19 01/05/19 01/06/19 1515:00 23:00 07:00 IntakeIntake Total 525 ml 1111.96 ml 3321 ml OutputOutput Total 550 ml 3575 ml 3550 ml BalanceBalance -25 ml -2463.04 ml -229 ml Results Result Diagram: 01/06/19 0437 01/06/19 0437 Results 24hrs Laboratory Tests Test 01/06/19 03:55 01/06/19 04:37 01/06/19 04:38 Urine Color COLORLESS Urine Clarity CLEAR Urine pH 7.0 Urine Specific [place] 1.005 Urine Ketones TRACE A Urine Nitrite NEGATIVE Urine Bilirubin NEGATIVE Urine Urobilinogen NEGATIVE Urine Leukocyte Esterase NEGATIVE Urine Hemoglobin NEGATIVE Urine Glucose 1+ H Urine Total Protein NEGATIVE White Blood Count 19.9 #H Red Blood Count 3.67 L Hemoglobin 9.1 L Hematocrit 29.2 L Mean Corpuscular Volume 79.6 Mean Corpuscular Hemoglobin 24.8 L Mean Corpuscular Hemoglobin Concent 31.2 L Red Cell Distribution Width 14.4 Platelet Count 573 H Mean Platelet Volume 7.8 Immature Granulocytes % 1.000 H Neutrophils % 94.6 H Lymphocytes % 2.6 L Monocytes % 1.7 Eosinophils % 0.0 Basophils % 0.1 Nucleated Red Blood Cells % 0.0 Immature Granulocytes # 0.200 H Neutrophils # 18.8 H Lymphocytes # 0.5 L Monocytes # 0.3 Eosinophils # 0.0 Basophils # 0.0 Nucleated Red Blood Cells # 0.0 Sodium Level 138 Potassium Level 4.1 Chloride Level 104 Carbon Dioxide Level 29 Anion Gap 5 Blood Urea Nitrogen 6 L Creatinine 0.51 L Est Glomerular Filtrat Rate mL/min > 60 Glucose Level 133 Uric Acid 2.0 L Calcium Level 7.9 L Magnesium Level 2.4 Albumin 2.3 L Medications Medication Current Medications IV Flush (NS 3 ml) 3 ml PER PROTOCOL IV ; Start 12/30/18 at 04:00 Ondansetron HCl (Zofran Inj) 4 mg Q6H PRN IV NAUSEA/VOMITING Last administered on 01/06/19at 09:18; Admin Dose 4 MG; Start 12/30/18 at 04:00 Acetaminophen (Tylenol Tab) 650 mg Q6H PRN PO .PAIN 1-3 OR TEMP Last administered on 01/03/19at 04:13; Admin Dose 650 MG; Start 12/30/18 at 04:00 Docusate Sodium (Colace) 100 mg Q12H PRN PO .CONSTIPATION; Start 12/30/18 at 04:00 Bisacodyl (Dulcolax) 5 mg DAILY PRN PO .CONSTIPATION Last administered on 01/05/19at 08:47; Admin Dose 5 MG; Start 12/30/18 at 04:00 Enoxaparin Sodium (Lovenox) 40 mg DAILY SC Last administered on 01/05/19at 08:51; Admin Dose 40 MG; Start 12/30/18 at 09:00 Piperacillin Sod/ Tazobactam Sod 100 ml @ 200 mls/hr Q6 IVPB Last administered on 01/06/19 05:16; Admin Dose 200 MLS/HR; Start 12/30/18 at 06:00 Levalbuterol (Xopenex Neb) 1.25 mg Q4H RESP THERAPY PRN HHN SHORTNESS OF BREATH Last administered on 01/02/19 11:13; Admin Dose 1.25 MG; Start 12/30/18 at 04:00 Levetiracetam (Keppra) 500 mg BID PO Last administered on 01/06/19 09:14; Admin Dose 500 MG; Start 12/30/18 at 09:00 Ipratropium [place] (Atrovent 0.02% (Neb)) 0.5 mg Q4HWA RESP THERAPY HHN Last administered on 01/05/19 16:36; Admin Dose 0.5 MG; Start 12/30/18 at 13:00 Oxycodone/ Acetaminophen (Percocet (5/ 325)) 1 tab Q4H PRN PO MODERATE PAIN LEVEL 4-6; Start 12/31/18 at 12:30; Status Hold Naloxone HCl (Narcan) 0.2 mg Q2M PRN IV RR 8 BREATHS/MIN OR LESS; Start 12/31/18 at 15:00 Hydromorphone HCl (Dilaudid [employer]ER) See protocol, below. Q4PCA IV Last administered on 01/06/19 03:55; Admin Dose 6 MG; Start 12/31/18 at 15:00 Diphenhydramine HCl (Benadryl) 25 mg Q6H PRN IV Nausea or itching Last administered on 01/04/19 06:19; Admin Dose 25 MG; Start 12/31/18 at 20:30 Promethazine HCl/ Codeine (Phenergan/ Codeine) 5 ml Q4H PRN PO COUGH; Start 01/01/19 at 12:00 Ibuprofen (Motrin) 600 mg Q8 PO Last administered on 01/05/19 22:58; Admin Dose 600 MG; Start 01/01/19 at 17:00 Colchicine (Colchicine) 0.6 mg DAILY PO Last administered on 01/05/19 08:46; Admin Dose 0.6 MG; Start 01/02/19 at 09:00 Sodium Chloride 1,000 ml @ 100 mls/hr Q10H IV Last administered on 01/03/19at 0 4:16; Admin Dose 100 MLS/HR; Start 01/02/19 at 18:30; Status Hold Lorazepam (Ativan) 0.5 mg Q6H PRN PO ANXIETY Last administered on 01/03/19 14:43; Admin Dose 0.5 MG; Start 01/03/19 at 14:30 Eye Lubricant (Artificial Tears Oph) 2 drop Q6H PRN BOTH EYES DRY EYES; Start 01/03/19 at 16:00 Sodium Chloride 1,000 ml @ 75 mls/hr [id number] IV Last administered on 01/06/19at 00:07; Admin Dose 75 MLS/HR; Start 01/03/19 at 21:00; Stop 01/09/19 at 20:59 Ondansetron HCl 16 mg/ Dexamethasone 20 mg/Dextrose 63 ml @ 252 mls/hr Q24H IV Last administered on 01/05/19at 22:58; Admin Dose 252 MLS/HR; Start 01/03/19 at 22:00; Stop 01/07/19 at 22:14 Etoposide 125 mg/ Sodium Chloride 500 ml @ 500 mls/hr Q24H IV Last a dministered on 01/06/19at 01:58; Admin Dose 500 MLS/HR; Start 01/04/19 at 00:30; Stop 01/08/19 at 01:29 Ifosfamide 2 gm/ Sodium Chloride 250 ml @ 250 mls/hr Q24H IV Last administered on 01/06/19at 04:41; Admin Dose 250 MLS/HR; Start 01/04/19 at 02:00; Stop 01/08/19 at 02:59 [place] 2004 mg/ Sodium Chloride 500 ml @ 20.833 mls/ hr Q24H IV Last administered on 01/06/19at 04:56; Admin Dose 20.833 MLS/HR; Start 01/04/19 at 02:15; Stop 01/09/19 at 02:14 Cisplatin 33 mg/ Sodium Chloride 283 ml @ 250 mls/hr Q24H IV Last administered on 01/05/19at 23:48; Admin Dose 250 MLS/HR; Start 01/03/19 at 23:00; Stop 01/08/19 at 00:08 Prochlorperazine (Compazine Inj) 5 mg Q6H PRN IV NAUSEA Last administered on 01/06/19at 06:37; Admin Dose 5 MG; Start 01/04/19 at 21:30 Docusate Sodium (Colace) 200 mg BID PO Last administered on 01/05/19at 21:08; Admin Dose 200 MG; Start 01/05/19 at 21:00 Senna (Senokot) 2 tab BID PO Last administered on 01/05/19at 21:08; Admin Dose 2 TAB; Start 01/05/19 at 21:00 Sodium Biphosphate/ Sodium Phosphate (Fleet Enema) 133 ml DAILY PRN [place] CONSTIPATION; Start 01/05/19 at 10:00 MICA BLISS Jan 06, 2019 09:33
--- NOTE | 2019-01-06 10:42 | CONS ---
Assessment/Plan Assessment/Plan Hospital Course (Demo Recall) IMPRESSION: 1. Pericardial effusion with questionable early tamponade features. Currently, the patient with stable blood pressure, but is tachycardic, but he is also in respiratory distress, undergoing a thoracentesis and having a high-grade fever at this time; therefore difficult to discern true clinical tamponade. 2. Tachycardia consistent with sinus tachycardia at this time, questionable due to pain, fever or actual pericardial effusion, or a combination of all these likely. 3. History of mediastinal mass, yolk sac tumor. 4. Lower lobe pneumonia. 5. Large pleural effusion, undergoing thoracentesis at this time. 6. Leukocytosis, severe. 7. Anemia. 8. Thrombocytosis Recc:: -ICU -Continue CTX -Continue colchicine/ibuprofen -For ? pericardial window today -Continue abx's and f/u cx data -Continue keppra Consultation Date/Type/Reason Admit Date/Time Dec 30, 2018 at 03:30 Initial Consult Date 01/01/19 Type of Consult Cardiology Reason for Consultation pericardial effusion Requesting Provider: RADHA HEBERT Date/Time of Note DATE: 01/06/19 TIME: 10:29 Exam/Review of Systems Vital Signs Vitals Vital Signs Date Temp Pulse Resp B/P (MAP) Pulse Ox O2 O2 Flow FiO2 Time Delivery Rate 01/06/19 14 09:56 01/06/19 107 126/76 94 09:00 (93) 01/06/19 97.5 Room Air 08:00 01/06/19 2.0 08:00 01/05/19 100 16:39 Intake and Output 01/05/19 01/05/19 01/06/19 1515:00 23:00 07:00 IntakeIntake Total 525 ml 1111.96 ml 3321 ml OutputOutput Total 550 ml 3575 ml 3550 ml BalanceBalance -25 ml -2463.04 ml -229 ml Exam Exam Review of Systems: CONSTITUTIONAL: No fevers, chills. PULMONARY: mild sob CARDIOVASCULAR: No chest pain/palpitations GASTROINTESTINAL: No nausea/vomiting. GENITOURINARY: No hematuria/dysuria. MUSCULOSKELETAL: No myagias/arthalgias. PSYCHIATRIC: The patient denies depression. NEUROLOGIC: No weakness Constitutional: alert Psych: no complaints Head: normocephalic ENMT: mucosa pink and moist Neck: supple, jvd (9 cm water) Respiratory: diminished breath sounds (at bases/B) Cardiovascular: other (tachycardic, regular rhythm) Gastrointestinal: soft, non-tender Musculoskeletal: muscle tone (normal) Extremities: edema (trace at ankles bilateral) Neurological: other (No focal def) Labs Result Diagram: 01/06/19 0437 01/06/19436 Results 24hrs Laboratory Tests Test 01/06/19 03:55 01/06/19 04:37 01/06/19 04:38 Urine Color COLORLESS Urine Clarity CLEAR Urine pH 7.0 Urine Specific [place] 1.005 Urine Ketones TRACE A Urine Nitrite NEGATIVE Urine Bilirubin NEGATIVE Urine Urobilinogen NEGATIVE Urine Leukocyte Esterase NEGATIVE Urine Hemoglobin NEGATIVE Urine Glucose 1+ H Urine Total Protein NEGATIVE White Blood Count 19.9 #H Red Blood Count 3.67 L Hemoglobin 9.1 L Hematocrit 29.2 L Mean Corpuscular Volume 79.6 Mean Corpuscular Hemoglobin 24.8 L Mean Corpuscular Hemoglobin Concent 31.2 L Red Cell Distribution Width 14.4 Platelet Count 573 H Mean Platelet Volume 7.8 Immature Granulocytes % 1.000 H Neutrophils % 94.6 H Lymphocytes % 2.6 L Monocytes % 1.7 Eosinophils % 0.0 Basophils % 0.1 Nucleated Red Blood Cells % 0.0 Immature Granulocytes # 0.200 H Neutrophils # 18.8 H Lymphocytes # 0.5 L Monocytes # 0.3 Eosinophils # 0.0 Basophils # 0.0 Nucleated Red Blood Cells # 0.0 Sodium Level 138 Potassium Level 4.1 Chloride Level 104 Carbon Dioxide Level 29 Anion Gap 5 Blood Urea Nitrogen 6 L Creatinine 0.51 L Est Glomerular Filtrat Rate mL/min > 60 Glucose Level 133 Uric Acid 2.0 L Calcium Level 7.9 L Magnesium Level 2.4 Albumin 2.3 L Medications Medications Current Medications IV Flush (NS 3 ml) 3 ml PER PROTOCOL IV ; Start 12/30/18 at 04:00 Ondansetron HCl (Zofran Inj) 4 mg Q6H PRN IV NAUSEA/VOMITING Last administered on 01/06/19at 09:18; Admin Dose 4 MG; Start 12/30/18 at 04:00 Acetaminophen (Tylenol Tab) 650 mg Q6H PRN PO .PAIN 1-3 OR TEMP Last administered on 01/03/19at 04:13; Admin Dose 650 MG; Start 12/30/18 at 04:00 Docusate Sodium (Colace) 100 mg Q12H PRN PO .CONSTIPATION; Start 12/30/18 at 04:00 Bisacodyl (Dulcolax) 5 mg DAILY PRN PO .CONSTIPATION Last administered on 01/05/19 08:47; Admin Dose 5 MG; Start 12/30/18 at 04:00 Enoxaparin Sodium (Lovenox) 40 mg DAILY SC Last administered on 01/05/19 08:51; Admin Dose 40 MG; Start 12/30/18 at 09:00 Piperacillin Sod/ Tazobactam Sod 100 ml @ 200 mls/hr Q6 IVPB Last administered on 01/06/19 05:16; Admin Dose 200 MLS/HR; Start 12/30/18 at 06:00 Levalbuterol (Xopenex Neb) 1.25 mg Q4H RESP THERAPY PRN HHN SHORTNESS OF BREATH Last administered on 01/02/19 11:13; Admin Dose 1.25 MG; Start 12/30/18 at 04:00 Levetiracetam (Keppra) 500 mg BID PO Last administered on 01/06/19 09:14; Admin Dose 500 MG; Start 12/30/18 at 09:00 Ipratropium [place] (Atrovent 0.02% (Neb)) 0.5 mg Q4HWA RESP THERAPY HHN Last administered on 01/05/19 16:36; Admin Dose 0.5 MG; Start 12/30/18 at 13:00 Oxycodone/ Acetaminophen (Percocet (5/ 325)) 1 tab Q4H PRN PO MODERATE PAIN LEVEL 4-6; Start 12/31/18 at 12:30; Status Hold Naloxone HCl (Narcan) 0.2 mg Q2M PRN IV RR 8 BREATHS/MIN OR LESS; Start 12/31/18 at 15:00 Hydromorphone HCl (Dilaudid DRYWALL STRIPPER) See protocol, below. Q4PCA IV Last administered on 01/06/19 03:55; Admin Dose 6 MG; Start 12/31/18 at 15:00 Diphenhydramine HCl (Benadryl) 25 mg Q6H PRN IV Nausea or itching Last administered on 01/04/19 06:19; Admin Dose 25 MG; Start 12/31/18 at 20:30 Promethazine HCl/ Codeine (Phenergan/ Codeine) 5 ml Q4H PRN PO COUGH; Start 01/01/19 at 12:00 Ibuprofen (Motrin) 600 mg Q8 PO Last administered on 01/05/19 22:58; Admin Dose 600 MG; Start 01/01/19 at 17:00 Colchicine (Colchicine) 0.6 mg DAILY PO Last administered on 01/05/19 08:46; Admin Dose 0.6 MG; Start 01/02/19 at 09:00 Sodium Chloride 1,000 ml @ 100 mls/hr Q10H IV Last administered on 01/03/19 04:16; Admin Dose 100 MLS/HR; Start 01/02/19 at 18:30; Status Hold Lorazepam (Ativan) 0.5 mg Q6H PRN PO ANXIETY Last administered on 01/03/19 14:43; Admin Dose 0.5 MG; Start 01/03/19 at 14:30 Eye Lubricant (Artificial Tears Oph) 2 drop Q6H PRN BOTH EYES DRY EYES; Start 01/03/19 at 16:00 Sodium Chloride 1,000 ml @ 75 mls/hr [id number] IV Last administered on 01/06/19 00:07; Admin Dose 75 MLS/HR; Start 01/03/19 at 21:00; Stop 01/09/19 at 20:59 Ondansetron HCl 16 mg/ Dexamethasone 20 mg/Dextrose 63 ml @ 252 mls/hr Q24H IV Last administered on 01/05/19 22:58; Admin Dose 252 MLS/HR; Start 01/03/19 at 22:00; Stop 01/07/19 at 22:14 Etoposide 125 mg/ Sodium Chloride 500 ml @ 500 mls/hr Q24H IV Last administered on 01/06/19 01:58; Admin Dose 500 MLS/HR; Start 01/04/19 at 00:30; Stop 01/08/19 at 01:29 Ifosfamide 2 gm/ Sodium Chloride 250 ml @ 250 mls/hr Q24H IV Last administered on 01/06/19 04:41; Admin Dose 250 MLS/HR; Start 01/04/19 at 02:00; Stop 01/08/19 at 02:59 [place] 2004 mg/ Sodium Chloride 500 ml @ 20.833 mls/ hr Q24H IV Last administered on 01/06/19 04:56; Admin Dose 20.833 MLS/HR; Start 01/04/19 at 02:15; Stop 01/09/19 at 02:14 Cisplatin 33 mg/ Sodium Chloride 283 ml @ 250 mls/hr Q24H IV Last administered on 01/05/19at 23:48; Admin Dose 250 MLS/HR; Start 01/03/19 at 23:00; Stop 01/08/19 at 00:08 Prochlorperazine (Compazine Inj) 5 mg Q6H PRN IV NAUSEA Last administered on 01/06/19at 06:37; Admin Dose 5 MG; Start 01/04/19 at 21:30 Docusate Sodium (Colace) 200 mg BID PO Last administered on 01/05/19at 21:08; Admin Dose 200 MG; Start 01/05/19 at 21:00 Senna (Senokot) 2 tab BID PO Last administered on 01/05/19at 21:08; Admin Dose 2 TAB; Start 01/05/19 at 21:00 Sodium Biphosphate/ Sodium Phosphate (Fleet Enema) 133 ml DAILY PRN [place] CONSTIPATION; Start 01/05/19 at 10:00 TOM CARLSON Jan 06, 2019 10:39
--- NOTE | 2019-01-06 10:58 | PREAC ---
Date/Time of Note Date/Time of Note DATE: 01/06/19 TIME: 10:54 Anesthesia Eval and Record Evaluation Time Pre-Procedure Interview DATE: 01/06/19 TIME: 10:54 Age 18 Sex male NPO: 8 hrs Preoperative diagnosis Pericardial effusion Planned procedure Pericardiocentesis vs Subxyphoid window Past Medical History Past Medical History: Includes Renal: SERENA Surgery & Anesthesia Issues No known issue Meds Anticoagulation: No Beta [place] within 24 hr: No Reason Beta [place] not given: Pt. not on B-[place] Reported Medications Levetiracetam* (Keppra*) 500 Mg Tablet, 500 MG PO BID, TAB 12/18/18 Current Medications IV Flush (NS 3 ml) 3 ml PER PROTOCOL IV ; Start 12/30/18 at 04:00 Ondansetron HCl (Zofran Inj) 4 mg Q6H PRN IV NAUSEA/VOMITING Last administered on 01/06/19at 09:18; Admin Dose 4 MG; Start 12/30/18 at 04:00 Acetaminophen (Tylenol Tab) 650 mg Q6H PRN PO .PAIN 1-3 OR TEMP Last administered on 01/03/19at 04:13; Admin Dose 650 MG; Start 12/30/18 at 04:00 Docusate Sodium (Colace) 100 mg Q12H PRN PO .CONSTIPATION; Start 12/30/18 at 04:00 Bisacodyl (Dulcolax) 5 mg DAILY PRN PO .CONSTIPATION Last administered on at 08:47; Admin Dose 5 MG; Start 12/30/18 at 04:00 Enoxaparin Sodium (Lovenox) 40 mg DAILY SC Last administered on 01/05/19at 08:51; Admin Dose 40 MG; Start 12/30/18 at 09:00 Piperacillin Sod/ Tazobactam Sod 100 ml @ 200 mls/hr Q6 IVPB Last administered on 01/06/19at 05:16; Admin Dose 200 MLS/HR; Start 12/30/18 at 06:00 Levalbuterol (Xopenex Neb) 1.25 mg Q4H RESP THERAPY PRN HHN SHORTNESS OF BREATH Last administered on 01/02/19at 11:13; Admin Dose 1.25 MG; Start 12/30/18 at 04:00 Levetiracetam (Keppra) 500 mg BID PO Last administered on 01/06/19 09:14; Admin Dose 500 MG; Start 12/30/18 at 09:00 Ipratropium [place] (Atrovent 0.02% (Neb)) 0.5 mg Q4HWA RESP THERAPY HHN Last administered on 01/05/19 16:36; Admin Dose 0.5 MG; Start 12/30/18 at 13:00 Oxycodone/ Acetaminophen (Percocet (5/ 325)) 1 tab Q4H PRN PO MODERATE PAIN LEVEL 4-6; Start 12/31/18 at 12:30; Status Hold Naloxone HCl (Narcan) 0.2 mg Q2M PRN IV RR 8 BREATHS/MIN OR LESS; Start 12/31/18 at 15:00 Hydromorphone HCl (Dilaudid [place]) See protocol, below. Q4PCA IV Last administered on 01/06/19 03:55; Admin Dose 6 MG; Start 12/31/18 at 15:00 Diphenhydramine HCl (Benadryl) 25 mg Q6H PRN IV Nausea or itching Last administered on 01/04/19 06:19; Admin Dose 25 MG; Start 12/31/18 at 20:30 Promethazine HCl/ Codeine (Phenergan/ Codeine) 5 ml Q4H PRN PO COUGH; Start 01/01/19 at 12:00 Ibuprofen (Motrin) 600 mg Q8 PO Last administered on 01/05/19 22:58; Admin Dose 600 MG; Start 01/01/19 at 17:00 Colchicine (Colchicine) 0.6 mg DAILY PO Last administered on 01/05/19 08:46; Admin Dose 0.6 MG; Start 01/02/19 at 09:00 Sodium Chloride 1,000 ml @ 100 mls/hr Q10H IV Last administered on 01/03/19 04:16; Admin Dose 100 MLS/HR; Start 01/02/19 at 18:30; Status Hold Lorazepam (Ativan) 0.5 mg Q6H PRN PO ANXIETY Last administered on 01/03/19 14:43; Admin Dose 0.5 MG; Start 01/03/19 at 14:30 Eye Lubricant (Artificial Tears Oph) 2 drop Q6H PRN BOTH EYES DRY EYES; Start 01/03/19 at 16:00 Sodium Chloride 1,000 ml @ 75 mls/hr [id number] IV Last administered on 01/06/19at 00:07; Admin Dose 75 MLS/HR; Start 01/03/19 at 21:00; Stop 01/09/19 at 20:59 Ondansetron HCl 16 mg/ Dexamethasone 20 mg/Dextrose 63 ml @ 252 mls/hr Q24H IV Last administered on 01/05/19 22:58; Admin Dose 252 MLS/HR; Start 01/03/19 at 22:00; Stop 01/07/19 at 22:14 Etoposide 125 mg/ Sodium Chloride 500 ml @ 500 mls/hr Q24H IV Last administered on 01/06/19 01:58; Admin Dose 500 MLS/HR; Start 01/04/19 at 00:30; Stop 01/08/19 at 01:29 Ifosfamide 2 gm/ Sodium Chloride 250 ml @ 250 mls/hr Q24H IV Last administered on 01/06/19 04:41; Admin Dose 250 MLS/HR; Start 01/04/19 at 02:00; Stop 01/08/19 at 02:59 [place] 2004 mg/ Sodium Chloride 500 ml @ 20.833 mls/ hr Q24H IV Last administered on 01/06/19 04:56; Admin Dose 20.833 MLS/HR; Start 01/04/19 at 02:15; Stop 01/09/19 at 02:14 Cisplatin 33 mg/ Sodium Chloride 283 ml @ 250 mls/hr Q24H IV Last administered on 01/05/19 23:48; Admin Dose 250 MLS/HR; Start 01/03/19 at 23:00; Stop 01/08/19 at 00:08 Prochlorperazine (Compazine Inj) 5 mg Q6H PRN IV NAUSEA Last administered on 01/06/19 06:37; Admin Dose 5 MG; Start 01/04/19 at 21:30 Docusate Sodium (Colace) 200 mg BID PO Last administered on 01/05/19 21:08; Admin Dose 200 MG; Start 01/05/19 at 21:00 Senna (Senokot) 2 tab BID PO Last administered on 7/7/19at 21:08; Admin Dose 2 TAB; Start 01/05/19 at 21:00 Sodium Biphosphate/ Sodium Phosphate (Fleet Enema) [address] CONSTIPATION; Start 01/05/19 at 10:00 Meds reviewed: Yes Allergies Coded Allergies: No Known Allergy (Unverified , 12/18/18) Allergies Reviewed: Yes Labs/Studies Labs Reviewed: Reviewed by anesthesiologist Result Diagram: 01/06/19 0437 01/06/19436 Laboratory Tests 01/06/19 04:37 test: N/A Studies: ECG Pre-procedure Exam Last vitals Vital Signs Date Temp Pulse Resp B/P (MAP) Pulse Ox O2 O2 Flow FiO2 Time Delivery Rate 01/06/19 14 09:56 01/06/19 107 126/76 94 09:00 (93) 01/06/19 97.5 Room Air 08:00 01/06/19 2.0 08:00 01/05/19 100 16:39 Airway: Adequate mouth opening Mallampati: Mallampati II Teeth: Normal Lung: Normal Heart: Normal ASA Physical Status ASA physical status: 3 Emergency: None Planned Anesthetic General/MAC: ETT, A Line, CVP Planned Pain Management Parenteral pain med Pre-operative Attestations Prior to commencing anesthesia and surgery, the patient was re-evaluated, there was verification of: *The patient's identity *The results of appropriate recent lab work and preoperative vital signs *The above evaluation not changing prior to induction *Anesthetic plan, risk benefits, alternative and complications discussed with patient/family; questions answered; patient/family understands, accepts and wishes to proceed. DEVANTE CHAUDHARY MD Jan 06, 2019 10:58
[2019-01-06] MEDS ORDERED: LIDOCAINE 1% (MPF) 30 ML INJ ONE (11:53)
--- NOTE | 2019-01-06 12:03 | CONS ---
Assessment/Plan Assessment/Plan Hospital Course (Demo Recall) ID PROGRESS NOTE CURRENT ABX: DAY # 8=> Zosyn # s/p Azith #3 s/p Vanco IV #5 24H INTERVAL SUMMARY * Patient seen in hallway ACLS transport to OR earlier this am --- TO OR FOR PERICARDIAL WINDOW * REMAINS CRITICALLY ILL - intermittent fevers * Requires supplemental O2, tachycardia persisting * SPUTUM CX RESULTED RESPIRATORY CULTURE Final Organism 1 KLEBSIELLA OXYTOCA QUANTITY 1+ Organism 2 STAPHYLOCOCCUS AUREUS QUANTITY 2+ * Equipment Application Specialist working on TNS to higher level of care * s/p LEFT thoracentesis 01/02/19 w/removal 1L * POD #-> S/P 12/20/[address] guided mediastinal mass biopsy. 2. No complications occurred. 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 Clinical correlation is advised. * 12/18/18 BCX (-) * QFT neg, HIV neg MICRO * * 01/03/19 RESPIRATORY CULTURE RESPIRATORY CULTURE Final Organism 1 KLEBSIELLA OXYTOCA QUANTITY 1+ Organism 2 STAPHYLOCOCCUS AUREUS QUANTITY 2+ Organism 3 NORMAL RESPIRATORY ZOFIA QUANTITY 3+ KLEB OXYTO S AUREUS M.I.C. RX M.I.C. RX --------- --- --------- --- CEFAZOLIN S S CEFOTAXIME S CIPROFLOXACIN <=0.25 S <=0.5 S CLINDAMYCIN R DOXYCYCLINE S ERYTHROMYCIN >=8 R GENTAMICIN <=1 S LEVOFLOXACIN <=0.12 S 0.25 S OXACILLIN 0.5 S PENICILLIN-G >=0.5 R RIFAMPIN <=0.5 S VANCOMYCIN 1 S TOBRAMYCIN <=1 S TRIMETHOPRIM/SULFAMETHOXAZOLE <=20 S <=10 S * 12/31/18 (-)MRSA NARES * 12/31/18 RESP CX:RESPIRATORY CULTURE Final Organism 1 STAPHYLOCOCCUS AUREUS QUANTITY 1+ Organism 2 NORMAL RESPIRATORY ZOFIA QUANTITY 2+ S AUREUS M.I.C. RX --------- --- CEFAZOLIN S CIPROFLOXACIN <=0.5 S CLINDAMYCIN R DOXYCYCLINE S ERYTHROMYCIN >=8 R LEVOFLOXACIN 0.25 S OXACILLIN 0.5 S PENICILLIN-G >=0.5 R RIFAMPIN <=0.5 S VANCOMYCIN 1 S TRIMETHOPRIM/SULFAMETHOXAZOLE <=10 S * 12/30/18 BCX (-); Urine Cx (-) * 12/30/18 INFLUENZA A & B BY EIA Final INFLU A&B BY EIA INFLUENZA A NEGATIVE (Ref Range Neg) INFLUENZA B NEGATIVE (Ref Range Neg) DIAGNOSTIC IMAGING * 01/02/19 CXR: IMPRESSION:1. Large anterior mediastinal mass is again seen suggesting lymphoma or other lesion. Correlation with prior biopsy results is suggested. 2. Moderate left pleural effusion is again seen with presumed adjacent atelectasis. * 01/01/2019 CT CHEST: IMPRESSION:18.7 cm anterior mediastinal mass. Small right and small to moderate left pleural effusions. Extensive left lower lobe atel ectasis. Patchy consolidative opacities in the right upper lobe, suspicious for pneumonia. The right lower lobe nodule seen in the prior CTA is not clearly visualized in this examination. Moderate pericardial effusion. * 12/20/18 CT A-P: IMPRESSION:No evidence of abdominal or pelvic mass or CT evidence for metastatic disease. Trace pleural fluid. No evidence of bowel obstruction or inflammation. Prominent fecal distension of the colon is suggestive for constipation. * 12/20/18 testicular us: 1. Benign cysts in the left epididymis, without concerning features. No evidence of epididymitis. 2. Normal sonographic findings of the bilateral testicles. No evidence of testicular mass or torsion. PHYSICAL EXAMINATION: GENERAL: VSS, NAD - pain issues HEENT: AT, NC, (+)JVD NECK: Supple, CHEST: Rise symmetrica -- hypoxic on supplemental O2 HEART: Pulse RRR ABDOMEN: Benign EXTREMITIES: Warm, dry SKIN: No rash, no diaphoresis ID ASSESSMENT 18 yo M admit with: 1. 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 Pleural effusion -> s/p Left Thora 01/02/19 w/1L removed 4. Pericardial effusion 5. Seizure disorder Thrombocytosis ABX ALLERGIES: KNDA INVASIVES: PIV (-)MRSA nares CURRENT ABX: DAY #8=> Zosyn #8 s/p Azith #3 s/p Vanco IV #5 ID RECOMMENDATIONS/PLAN: 1. He has completed 8 days o Zosyn -- PNA pathogens sensitive to CEFTRIAXONE * OFF FLOOR NOW TO OR =>Consider De-escalating ABX tomorrow to Ceftriaxone 2. Leukocytosis driven by multiple etiologies: Sepsis/PNA/MDS/steroids . Consultation Date/Type/Reason Admit Date/Time Dec 30, 2018 at 03:30 Initial Consult Date Requesting Provider: RADHA HEBERT Date/Time of Note DATE: 01/06/19 TIME: 11:59 Exam/Review of Systems Exam Vitals Vital Signs Date Temp Pulse Resp B/P (MAP) Pulse Ox O2 O2 Flow FiO2 Time Delivery Rate 01/06/19 14 09:56 01/06/19 107 126/76 94 09:00 (93) 01/06/19 97.5 Room Air 08:00 01/06/19 2.0 08:00 01/05/19 100 16:39 Intake and Output 01/05/19 01/05/19 01/06/19 1515:00 23:00 07:00 IntakeIntake Total 525 ml 1111.96 ml 3396 ml OutputOutput Total 550 ml 3575 ml 3550 ml BalanceBalance -25 ml -2463.04 ml -154 ml Results Result Diagram: 01/06/19 0437 01/06/19 1048 Results 24hrs Laboratory Tests Test 01/06/19 03:55 01/06/19 04:37 01/06/19 04:38 01/06/19 10:48 Urine Color COLORLESS Urine Clarity CLEAR Urine pH 7.0 Urine Specific [place] 1.005 Urine Ketones TRACE A Urine Nitrite NEGATIVE Urine Bilirubin NEGATIVE Urine Urobilinogen NEGATIVE Urine Leukocyte Esterase NEGATIVE Urine Hemoglobin NEGATIVE Urine Glucose 1+ H Urine Total Protein NEGATIVE White Blood Count 19.9 #H Red Blood Count 3.67 L Hemoglobin 9.1 L Hematocrit 29.2 L Mean Corpuscular Volume 79.6 Mean Corpuscular 24.8 L Hemoglobin Mean Corpuscular 31.2 L Hemoglobin Concent Red Cell Distribution 14.4 Width Platelet Count 573 H Mean Platelet Volume 7.8 Immature Granulocytes % 1.000 H Neutrophils % 94.6 H Lymphocytes % 2.6 L Monocytes % 1.7 Eosinophils % 0.0 Basophils % 0.1 Nucleated Red Blood 0.0 Cells % Immature Granulocytes # 0.200 H Neutrophils # 18.8 H Lymphocytes # 0.5 L Monocytes # 0.3 Eosinophils # 0.0 Basophils # 0.0 Nucleated Red Blood 0.0 Cells # Sodium Level 138 136 Potassium Level 4.1 4.0 Chloride Level 104 101 Carbon Dioxide Level 29 31 Anion Gap 5 4 L Blood Urea Nitrogen 6 L 8 Creatinine 0.51 L 0.48 L Est Glomerular Filtrat > 60 > 60 Rate mL/min Glucose Level 133 124 Uric Acid 2.0 L Calcium Level 7.9 L 8.0 L Magnesium Level 2.4 Albumin 2.3 L 2.5 L Phosphorus Level 3.1 Total Bilirubin 0.4 Direct Bilirubin 0.00 Indirect Bilirubin 0.4 Aspartate Amino 34 Transf (AST/SGOT) Alanine 23 Aminotransferase (ALT/SG PT) Alkaline Phosphatase 62 Total Protein 5.8 L Globulin 3.30 H Albumin/Globulin Ratio 0.75 Medications Medication Current Medications IV Flush (NS 3 ml) 3 ml PER PROTOCOL IV ; Start 12/30/18 at 04:00 Ondansetron HCl (Zofran Inj) 4 mg Q6H PRN IV NAUSEA/VOMITING Last administered on 01/06/19at 09:18; Admin Dose 4 MG; Start 12/30/18 at 04:00 Acetaminophen (Tylenol Tab) 650 mg Q6H PRN PO .PAIN 1-3 OR TEMP Last administered on 01/03/19at 04:13; Admin Dose 650 MG; Start 12/30/18 at 04:00 Docusate Sodium (Colace) 100 mg Q12H PRN PO .CONSTIPATION; Start 12/30/18 at 04:00 Bisacodyl (Dulcolax) 5 mg DAILY PRN PO .CONSTIPATION Last administered on 01/05/19at 08:47; Admin Dose 5 MG; Start 12/30/18 at 04:00 Enoxaparin Sodium (Lovenox) 40 mg DAILY SC Last administered on 01/05/19 08:51; Admin Dose 40 MG; Start 12/30/18 at 09:00 Piperacillin Sod/ Tazobactam Sod 100 ml @ 200 mls/hr Q6 IVPB Last administered on 01/06/19 05:16; Admin Dose 200 MLS/HR; Start 12/30/18 at 06:00 Levalbuterol (Xopenex Neb) 1.25 mg Q4H RESP THERAPY PRN HHN SHORTNESS OF BREATH Last administered on 01/02/19 11:13; Admin Dose 1.25 MG; Start 12/30/18 at 04:00 Levetiracetam (Keppra) 500 mg BID PO Last administered on 01/06/19 09:14; Admin Dose 500 MG; Start 12/30/18 at 09:00 Ipratropium [place] (Atrovent 0.02% (Neb)) 0.5 mg Q4HWA RESP THERAPY HHN Last administered on 01/05/19 16:36; Admin Dose 0.5 MG; Start 12/30/18 at 13:00 Oxycodone/ Acetaminophen (Percocet (5/ 325)) 1 tab Q4H PRN PO MODERATE PAIN LEVEL 4-6; Start 12/31/18 at 12:30; Status Hold Naloxone HCl (Narcan) 0.2 mg Q2M PRN IV RR 8 BREATHS/MIN OR LESS; Start 12/31/18 at 15:00 Hydromorphone HCl (Dilaudid JUVENILE JUSTICE OFFICER) See protocol, below. Q4PCA IV Last administered on 01/06/19 03:55; Admin Dose 6 MG; Start 12/31/18 at 15:00 Diphenhydramine HCl (Benadryl) 25 mg Q6H PRN IV Nausea or itching Last administered on 01/04/19 06:19; Admin Dose 25 MG; Start 12/31/18 at 20:30 Promethazine HCl/ Codeine (Phenergan/ Codeine) 5 ml Q4H PRN PO COUGH; Start 01/01/19 at 12:00 Ibuprofen (Motrin) 600 mg Q8 PO Last administered on 01/05/19 22:58; Admin Dose 600 MG; Start 01/01/19 at 17:00 Colchicine (Colchicine) 0.6 mg DAILY PO Last administered on 01/05/19at 08:46; Admin Dose 0.6 MG; Start 01/02/19 at 09:00 Sodium Chloride 1,000 ml @ 100 mls/hr Q10H IV Last administered on 01/03/19at 04:16; Admin Dose 100 MLS/HR; Start 01/02/19 at 18:30; Status Hold Lorazepam (Ativan) 0.5 mg Q6H PRN PO ANXIETY Last administered on 01/03/19at 14:43; Admin Dose 0.5 MG; Start 01/03/19 at 14:30 Eye Lubricant (Artificial Tears Oph) 2 drop Q6H PRN BOTH EYES DRY EYES; Start 01/03/19 at 16:00 Sodium Chloride 1,000 ml @ 75 mls/hr [id number] IV Last administered on 01/06/19at 00:07; Admin Dose 75 MLS/HR; Start 01/03/19 at 21:00; Stop 01/09/19 at 20:59 Ondansetron HCl 16 mg/ Dexamethasone 20 mg/Dextrose 63 ml @ 252 mls/hr Q24H IV Last administered on 01/05/19at 22:58; Admin Dose 252 MLS/HR; Start 01/03/19 at 22:00; Stop 01/07/19 at 22:14 Etoposide 125 mg/ Sodium Chloride 500 ml @ 500 mls/hr Q24H IV Last administered on 01/06/19at 01:58; Admin Dose 500 MLS/HR; Start 01/04/19 at 00:30; Stop 01/08/19 at 01:29 Ifosfamide 2 gm/ Sodium Chloride 250 ml @ 250 mls/hr Q24H IV Last administered on 01/06/19at 04:41; Admin Dose 250 MLS/HR; Start 01/04/19 at 02:00; Stop 01/08/19 at 02:59 [place] 2004 mg/ Sodium Chloride 500 ml @ 20.833 mls/ hr Q24H IV Last administered on 01/06/19 04:56; Admin Dose 20.833 MLS/HR; Start 01/04/19 at 02:15; Stop 01/09/19 at 02:14 Cisplatin 33 mg/ Sodium Chloride 283 ml @ 250 mls/hr Q24H IV Last administered on 01/05/19at 23:48; Admin Dose 250 MLS/HR; Start 01/03/19 at 23:00; Stop 01/08/19 at 00:08 Prochlorperazine (Compazine Inj) 5 mg Q6H PRN IV NAUSEA Last administered on 01/06/19at 06:37; Admin Dose 5 MG; Start 01/04/19 at 21:30 Docusate Sodium (Colace) 200 mg BID PO Last administered on 01/05/19at 21:08; Admin Dose 200 MG; Start 01/05/19 at 21:00 Senna (Senokot) 2 tab BID PO Last administered on 01/05/19at 21:08; Admin Dose 2 TAB; Start 01/05/19 at 21:00 Sodium Biphosphate/ Sodium Phosphate (Fleet Enema) 133 ml DAILY PRN [place] CONSTIPATION; Start 01/05/19 at 10:00 DELTA TAYLOR NP Jan 06, 2019 12:03
[2019-01-06] MEDS ORDERED: METOPROLOL 5 MG INJ ONE (12:05)
[2019-01-06] MEDS ORDERED: MIDAZOLAM 1 MG/ML 2 ML INJ ONE ×2 (12:07→12:25)
[2019-01-06] MEDS ORDERED: FENTAnyl 50 MCG/ML VIAL ONE (12:07)
[2019-01-06] MEDS ORDERED: KETAMINE (50 MG/ML) 10 ML VIAL ONE (12:10)
--- NOTE | 2019-01-06 12:38 | SIPON ---
Date/Time of Note Date/Time of Note DATE: 01/06/19 TIME: 12:37 Operative Report Preoperative Diagnosis pericardial effusion with early tamponade Postoperative Diagnosis same Operation/Procedure Performed pericardiocentesis Surgeon see signature line [employer] assistant manager none Anesthesia: MAC Estimated blood loss: none Transfusion Required none Specimen 200cc serous pericardial fluid Grafts/Implants none Complications none NAHOMY LAWSON MD Jan 06, 2019 12:38
--- NOTE | 2019-01-06 13:32 | CONS ---
Assessment/Plan Assessment/Plan Hospital Course (Demo Recall) Hospital Course (Demo Recall) 18 yo with large anterior mediastinal mass 13.5 x 15.8 x 9.3 cm in size. 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 Stable appearance of 2.4 x 1.1 cm of cortical/cystic lesion in the right temporal lobe with underlying vasogenic edema, again most suggestive of DNET, with other etiologies not excluded. -started VIP on sunday - CARRIES RISK OF STERILITY SO HE WILL NEED SPERM BANKING, was unable to do prior to chemo as he was hemodynamically unstable and we needed to start chemo LOBITO. this regimen does carry a risk of sterility but given patient's tenuous status, pt understands this and has consented to chemo as above today is day 3 of chemo chemo: Cisplatin 20 mg/m2 IV per day Days 1 to 5 Etoposide* 75 mg/m2 IV per day Days 1 to 5 Ifosfamide* 1200 mg/m2 per day IV infusion Days 1 to 5 [place] 120 mg/m2 IV Day 1 [place] 1200 mg/m2 per day continuous IV infusion, Days 1 to 5 GCSF 300mcg daily starting day 6-12 discussed with pt after 2 cycles chemo, restage. 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 and need to be resected [facility] #leukocytosis and thrombocytosis AND FEVERS suspect this is most likely reactive due to underlying malignancy vs pneumonia EMPIRIC ABX PER PRIMARY TEAM Consultation Date/Type/Reason Admit Date/Time Dec 30, 2018 at 03:30 Initial Consult Date Requesting Provider: RADHA HEBERT Date/Time of Note DATE: 01/06/19 TIME: 13:30 24 HR Interval Summary Free Text/Dictation just back from surgery, still groggy post procedure no nausea/vomiting pain at presents Exam/Review of Systems Exam Vitals Vital Signs Date Temp Pulse Resp B/P (MAP) Pulse Ox O2 O2 Flow FiO2 Time Delivery Rate 01/06/19 3.0 12:40 01/06/19 110 16 112/68 94 11:20 (83) 01/06/19 97.5 Room Air 08:00 01/05/19 100 16:39 Intake and Output 01/05/19 01/05/19 01/06/19 1515:00 23:00 07:00 IntakeIntake Total 525 ml 1111.96 ml 3396 ml OutputOutput Total 550 ml 3575 ml 3550 ml BalanceBalance -25 ml -2463.04 ml -154 ml Constitutional: frail Psych: confusion Results Result Diagram: 01/06/19 0437 01/06/19 1048 Results 24hrs Laboratory Tests Test 01/06/19 03:55 01/06/19 04:37 01/06/19 04:38 01/06/19 10:48 Urine Color COLORLESS Urine Clarity CLEAR Urine pH 7.0 Urine Specific [place] 1.005 Urine Ketones TRACE A Urine Nitrite NEGATIVE Urine Bilirubin NEGATIVE Urine Urobilinogen NEGATIVE Urine Leukocyte Esterase NEGATIVE Urine Hemoglobin NEGATIVE Urine Glucose 1+ H Urine Total Protein NEGATIVE White Blood Count 19.9 #H Red Blood Count 3.67 L Hemoglobin 9.1 L Hematocrit 29.2 L Mean Corpuscular Volume 79.6 Mean Corpuscular 24.8 L Hemoglobin Mean Corpuscular 31.2 L Hemoglobin Concent Red Cell Distribution 14.4 Width Platelet Count 573 H Mean Platelet Volume 7.8 Immature Granulocytes % 1.000 H Neutrophils % 94.6 H Lymphocytes % 2.6 L Monocytes % 1.7 Eosinophils % 0.0 Basophils % 0.1 Nucleated Red Blood 0.0 Cells % Immature Granulocytes # 0.200 H Neutrophils # 18.8 H Lymphocytes # 0.5 L Monocytes # 0.3 Eosinophils # 0.0 Basophils # 0.0 Nucleated Red Blood 0.0 Cells # Sodium Level 138 136 Potassium Level 4.1 4.0 Chloride Level 104 101 Carbon Dioxide Level 29 31 Anion Gap 5 4 L Blood Urea Nitrogen 6 L 8 Creatinine 0.51 L 0.48 L Est Glomerular Filtrat > 60 > 60 Rate mL/min Glucose Level 133 124 Uric Acid 2.0 L Calcium Level 7.9 L 8.0 L Magnesium Level 2.4 Albumin 2.3 L 2.5 L Phosphorus Level 3.1 Total Bilirubin 0.4 Direct Bilirubin 0.00 Indirect Bilirubin 0.4 Aspartate Amino 34 Transf (AST/SGOT) Alanine 23 Aminotransferase (ALT/SG PT) Alkaline Phosphatase 62 Total Protein 5.8 L Globulin 3.30 H Albumin/Globulin Ratio 0.75 Medications Medication Current Medications IV Flush (NS 3 ml) 3 ml PER PROTOCOL IV ; Start 12/30/18 at 04:00 Ondansetron HCl (Zofran Inj) 4 mg Q6H PRN IV NAUSEA/VOMITING Last administered on 01/06/19 09:18; Admin Dose 4 MG; Start 12/30/18 at 04:00 Acetaminophen (Tylenol Tab) 650 mg Q6H PRN PO .PAIN 1-3 OR TEMP Last administered on 01/03/19 04:13; Admin Dose 650 MG; Start 12/30/18 at 04:00 Docusate Sodium (Colace) 100 mg Q12H PRN PO .CONSTIPATION; Start 12/30/18 at 04:00 Bisacodyl (Dulcolax) 5 mg DAILY PRN PO .CONSTIPATION Last administered on 01/05/19 08:47; Admin Dose 5 MG; Start 12/30/18 at 04:00 Enoxaparin Sodium (Lovenox) 40 mg DAILY SC Last administered on 01/05/19 08:51; Admin Dose 40 MG; Start 12/30/18 at 09:00 Piperacillin Sod/ Tazobactam Sod 100 ml @ 200 mls/hr Q6 IVPB Last administered on 01/06/19 05:16; Admin Dose 200 MLS/HR; Start 12/30/18 at 06:00 Levalbuterol (Xopenex Neb) 1.25 mg Q4H RESP THERAPY PRN HHN SHORTNESS OF BREATH Last administered on 01/02/19 11:13; Admin Dose 1.25 MG; Start 12/30/18 at 04:00 Levetiracetam (Keppra) 500 mg BID PO Last administered on 01/06/19 09:14; Admin Dose 500 MG; Start 12/30/18 at 09:00 Ipratropium [place] (Atrovent 0.02% (Neb)) 0.5 mg Q4HWA RESP THERAPY HHN Last administered on 01/05/19 16:36; Admin Dose 0.5 MG; Start 12/30/18 at 13:00 Oxycodone/ Acetaminophen (Percocet (5/ 325)) 1 tab Q4H PRN PO MODERATE PAIN LEVEL 4-6; Start 12/31/18 at 12:30; Status Hold Naloxone HCl (Narcan) 0.2 mg Q2M PRN IV RR 8 BREATHS/MIN OR LESS; Start 12/31/18 at 15:00 Hydromorphone HCl (Dilaudid [employer]O CARE CENTER MANAGER) See protocol, below. Q4PCA IV Last administered on 01/06/19 03:55; Admin Dose 6 MG; Start 12/31/18 at 15:00 Diphenhydramine HCl (Benadryl) 25 mg Q6H PRN IV Nausea or itching Last administered on 01/04/19 06:19; Admin Dose 25 MG; Start 12/31/18 at 20:30 Promethazine HCl/ Codeine (Phenergan/ Codeine) 5 ml Q4H PRN PO COUGH; Start 01/01/19 at 12:00 Ibuprofen (Motrin) 600 mg Q8 PO Last administered on 01/05/19at 22:58; Admin Dose 600 MG; Start 01/01/19 at 17:00 Colchicine (Colchicine) 0.6 mg DAILY PO Last administered on 01/05/19 08:46; Admin Dose 0.6 MG; Start 01/02/19 at 09:00 Sodium Chloride 1,000 ml @ 100 mls/hr Q10H IV Last administered on 01/03/19 04:16; Admin Dose 100 MLS/HR; Start 01/02/19 at 18:30; Status Hold Lorazepam (Ativan) 0.5 mg Q6H PRN PO ANXIETY Last administered on 01/03/19 14:43; Admin Dose 0.5 MG; Start 01/03/19 at 14:30 Eye Lubricant (Artificial Tears Oph) 2 drop Q6H PRN BOTH EYES DRY EYES; Start 01/03/19 at 16:00 Sodium Chloride 1,000 ml @ 75 mls/hr [id number] IV Last administered on 01/06/19 00:07; Admin Dose 75 MLS/HR; Start 01/03/19 at 21:00; Stop 01/09/19 at 20:59 Ondansetron HCl 16 mg/ Dexamethasone 20 mg/Dextrose 63 ml @ 252 mls/hr Q24H IV Last administered on 01/05/19at 22:58; Admin Dose 252 MLS/HR; Start 01/03/19 at 22:00; Stop 01/07/19 at 22:14 Etoposide 125 mg/ Sodium Chloride 500 ml @ 500 mls/hr Q24H IV Last administered on 01/06/19at 01:58; Admin Dose 500 MLS/HR; Start 01/04/19 at 00:30; Stop 01/08/19 at 01:29 Ifosfamide 2 gm/ Sodium Chloride 250 ml @ 250 mls/hr Q24H IV Last administered on 01/06/19at 04:41; Admin Dose 250 MLS/HR; Start 01/04/19 at 02:00; Stop 01/08/19 at 02:59 [place] 2004 mg/ Sodium Chloride 500 ml @ 20.833 mls/ hr Q24H IV Last administered on 01/06/19at 04:56; Admin Dose 20.833 MLS/HR; Start 01/04/19 at 02:15; Stop 01/09/19 at 02:14 Cisplatin 33 mg/ Sodium Chloride 283 ml @ 250 mls/hr Q24H IV Last administered on 01/05/19at 23:48; Admin Dose 250 MLS/HR; Start 01/03/19 at 23:00; Stop 01/08/19 at 00:08 Prochlorperazine (Compazine Inj) 5 mg Q6H PRN IV NAUSEA Last administered on 01/06/19at 06:37; Admin Dose 5 MG; Start 01/04/19 at 21:30 Docusate Sodium (Colace) 200 mg BID PO Last administered on 01/05/19at 21:08; Admin Dose 200 MG; Start 01/05/19 at 21:00 Senna (Senokot) 2 tab BID PO Last administered on 01/05/19at 21:08; Admin Dose 2 TAB; Start 01/05/19 at 21:00 Sodium Biphosphate/ Sodium Phosphate (Fleet Enema) 133 ml DAILY PRN [place]ST[place]; Start 01/05/19 at 10:00 JESÚS SPICER Jan 06, 2019 13:32
--- NOTE | 2019-01-06 13:35 | OPR ---
DATE OF OPERATION: 01/06/2019 PREOPERATIVE DIAGNOSIS: Mediastinal yolk sac tumor, large pericardial effusion with early tamponade. POSTOPERATIVE DIAGNOSIS: Mediastinal yolk sac tumor, large pericardial effusion with early tamponade . PROCEDURE: Pericardiocentesis. SURGEON: Nahomy Lawson MD. TYPE OF ANESTHESIA: A 1% lidocaine with IV sedation. FINDINGS: 200 mL of serous fluid was removed. INDICATION: The patient is a 18-year-old male, who was diagnosed with a yolk sac mediastinal tumor a nd echocardiogram showed a moderate to large pericardial effusion with early tamponade. We are asked to see him for pericardiocentesis versus possible window. Risks, benefits and alternatives were exp lained to the patient. His mother and father, who understood and consented. DESCRIPTION OF PROCEDURE: The patient was brought to the operating room and placed in supine positio n. He was given some IV sedation and IV antibiotics. His subxiphoid region was prepped and draped i n usual sterile fashion. A 1% lidocaine was injected in the subxiphoid region. The needle was inser jose elias in the subxiphoid region towards the left shoulder. We aspirated as we kept going deeper and the n eventually started aspirating serous fluid. We then placed a wire through the needle. Needle was removed. We then did serial dilatation and then placed a pericardiocentesis catheter through the nee dle. The needle was removed. We then aspirated 200 mL of serous fluid. We connected to a bag and s ecured it using a nylon suture. The patient tolerated the procedure. He was taken back to the ICU i n stable condition. Dictated By: NAHOMY LAWSON MD [place] Conf#: [id number] DID#: [id number] CC: RADHA HEBERT MD; ALEX SANTANA MD; JAMNI INFANTE MD;*End*
--- NOTE | 2019-01-06 13:43 | PAC ---
Date/Time of Note Date/Time of Note DATE: 01/06/19 TIME: 13:43 Post-Anesthesia Notes Post-Anesthesia Note Last documented vital signs Vital Signs Date Temp Pulse Resp B/P (MAP) Pulse Ox O2 O2 Flow FiO2 Time Delivery Rate 01/06/19 98.7 13:28 01/06/19 3.0 12:40 01/06/19 110 16 112/68 94 11:20 (83) 01/06/19 Room Air 08:00 01/05/19 100 16:39 Activity: WNL Respiratory function: WNL Cardiovascular function: WNL Mental status: Baseline Pain reasonably controlled: Yes Hydration appropriate: Yes Nausea/Vomiting absent: Yes Comments BP:112/67, P:98, Spo2:100%, T:98,8 DEVANTE CHAUDHARY MD Jan 06, 2019 13:43
--- NOTE | 2019-01-06 18:07 | PN ---
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 Transfer attempts underway Seizures with brain lesion: - Known history of epilepsy for which we will continue keppra - ? malingancy. SIRS: - Continue empiric abx per ID. Not clear to me if infection present Continue attempts at transfer to tertiary center Result Diagram: 01/06/19 0437 01/06/19 1048 Results 24hrs Laboratory Tests Test 01/06/19 03:55 01/06/19 04:37 01/06/19 04:38 01/06/19 10:48 Urine Color COLORLESS Urine Clarity CLEAR Urine pH 7.0 Urine Specific [place] 1.005 Urine Ketones TRACE A Urine Nitrite NEGATIVE Urine Bilirubin NEGATIVE Urine Urobilinogen NEGATIVE Urine Leukocyte Esterase NEGATIVE Urine Hemoglobin NEGATIVE Urine Glucose 1+ H Urine Total Protein NEGATIVE White Blood Count 19.9 #H Red Blood Count 3.67 L Hemoglobin 9.1 L Hematocrit 29.2 L Mean Corpuscular Volume 79.6 Mean Corpuscular 24.8 L Hemoglobin Mean Corpuscular 31.2 L Hemoglobin Concent Red Cell Distribution 14.4 Width Platelet Count 573 H Mean Platelet Volume 7.8 Immature Granulocytes % 1.000 H Neutrophils % 94.6 H Lymphocytes % 2.6 L Monocytes % 1.7 Eosinophils % 0.0 Basophils % 0.1 Nucleated Red Blood 0.0 Cells % Immature Granulocytes # 0.200 H Neutrophils # 18.8 H Lymphocytes # 0.5 L Monocytes # 0.3 Eosinophils # 0.0 Basophils # 0.0 Nucleated Red Blood 0.0 Cells # Sodium Level 138 136 Potassium Level 4.1 4.0 Chloride Level 104 101 Carbon Dioxide Level 29 31 Anion Gap 5 4 L Blood Urea Nitrogen 6 L 8 Creatinine 0.51 L 0.48 L Est Glomerular Filtrat > 60 > 60 Rate mL/min Glucose Level 133 124 Uric Acid 2.0 L Calcium Level 7.9 L 8.0 L Magnesium Level 2.4 Albumin 2.3 L 2.5 L Phosphorus Level 3.1 Total Bilirubin 0.4 Direct Bilirubin 0.00 Indirect Bilirubin 0.4 Aspartate Amino 34 Transf (AST/SGOT) Alanine 23 Aminotransferase (ALT/SG PT) Alkaline Phosphatase 62 Total Protein 5.8 L Globulin 3.30 H Albumin/Globulin Ratio 0.75 Subjective 24 Hr Interval Summary Free Text/Dictation Not accepted to [facility] transfer as [facility] Pericardiocentesis performed today Exam/Review of Systems Exam Vitals Vital Signs Date Temp Pulse Resp B/P (MAP) Pulse Ox O2 O2 Flow FiO2 Time Delivery Rate 01/06/19 31 17:39 01/06/19 125 119/80 98 17:00 (93) 01/06/19 97.6 Nasal 4.0 16:00 Cannula 01/05/19 100 16:39 Intake and Output 01/05/19 01/05/19 01/06/19 1515:00 23:00 07:00 IntakeIntake Total 525 ml 1111.96 ml 3396 ml OutputOutput Total 550 ml 3575 ml 3550 ml BalanceBalance -25 ml -2463.04 ml -154 ml Constitutional: alert, oriented, well developed Psych: no complaints, nl mood/affect Head: normocephalic, atraumatic Eyes: nl conjunctiva, EOMI, nl lids, nl sclera, PERRL ENMT: nl external ears & nose, nl lips & teeth, nl nasal mucosa & septum Neck: supple, non-tender Respiratory: clear to auscultation, normal air movement Cardiovascular: regular rate and rhythm, nl pulses Gastrointestinal: soft, nl liver, spleen, non-tender Musculoskeletal: nl extremities to inspection, nl gait and stance Extremities: normal pulses Neurological: AFTER SCHOOL COUNSELOR II-XII intact, nl mental status, nl speech, nl strength Skin: nl turgor; No rash or lesions Lymph: nl lymph nodes Results Results 24hrs Laboratory Tests Test 01/06/19 03:55 01/06/19 04:37 01/06/19 04:38 01/06/19 10:48 Urine Color COLORLESS Urine Clarity CLEAR Urine pH 7.0 Urine Specific [place] 1.005 Urine Ketones TRACE A Urine Nitrite NEGATIVE Urine Bilirubin NEGATIVE Urine Urobilinogen NEGATIVE Urine Leukocyte Esterase NEGATIVE Urine Hemoglobin NEGATIVE Urine Glucose 1+ H Urine Total Protein NEGATIVE White Blood Count 19.9 #H Red Blood Count 3.67 L Hemoglobin 9.1 L Hematocrit 29.2 L Mean Corpuscular Volume 79.6 Mean Corpuscular 24.8 L Hemoglobin Mean Corpuscular 31.2 L Hemoglobin Concent Red Cell Distribution 14.4 Width Platelet Count 573 H Mean Platelet Volume 7.8 Immature Granulocytes % 1.000 H Neutrophils % 94.6 H Lymphocytes % 2.6 L Monocytes % 1.7 Eosinophils % 0.0 Basophils % 0.1 Nucleated Red Blood 0.0 Cells % Immature Granulocytes # 0.200 H Neutrophils # 18.8 H Lymphocytes # 0.5 L Monocytes # 0.3 Eosinophils # 0.0 Basophils # 0.0 Nucleated Red Blood 0.0 Cells # Sodium Level 138 136 Potassium Level 4.1 4.0 Chloride Level 104 101 Carbon Dioxide Level 29 31 Anion Gap 5 4 L Blood Urea Nitrogen 6 L 8 Creatinine 0.51 L 0.48 L Est Glomerular Filtrat > 60 > 60 Rate mL/min Glucose Level 133 124 Uric Acid 2.0 L Calcium Level 7.9 L 8.0 L Magnesium Level 2.4 Albumin 2.3 L 2.5 L Phosphorus Level 3.1 Total Bilirubin 0.4 Direct Bilirubin 0.00 Indirect Bilirubin 0.4 Aspartate Amino 34 Transf (AST/SGOT) Alanine 23 Aminotransferase (ALT/SG PT) Alkaline Phosphatase 62 Total Protein 5.8 L Globulin 3.30 H Albumin/Globulin Ratio 0.75 Medications Medication Current Medications IV Flush (NS 3 ml) 3 ml PER PROTOCOL IV ; Start 12/30/18 at 04:00 Ondansetron HCl (Zofran Inj) 4 mg Q6H PRN IV NAUSEA/VOMITING Last administered on 01/06/19at 09:18; Admin Dose 4 MG; Start 12/30/18 at 04:00 Acetaminophen (Tylenol Tab) 650 mg Q6H PRN PO .PAIN 1-3 OR TEMP Last administered on 01/03/19at 04:13; Admin Dose 650 MG; Start 12/30/18 at 04:00 Docusate Sodium (Colace) 100 mg Q12H PRN PO .CONSTIPATION; Start 12/30/18 at 04:00 Bisacodyl (Dulcolax) 5 mg DAILY PRN PO .CONSTIPATION Last administered on 01/05/19 08:47; Admin Dose 5 MG; Start 12/30/18 at 04:00 Enoxaparin Sodium (Lovenox) 40 mg DAILY SC Last administered on 01/05/19 08:51; Admin Dose 40 MG; Start 12/30/18 at 09:00 Piperacillin Sod/ Tazobactam Sod 100 ml @ 200 mls/hr Q6 IVPB Last administered on 01/06/19 16:35; Admin Dose 200 MLS/HR; Start 12/30/18 at 06:00 Levalbuterol (Xopenex Neb) 1.25 mg Q4H RESP THERAPY PRN HHN SHORTNESS OF BREATH Last administered on 01/02/19 11:13; Admin Dose 1.25 MG; Start 12/30/18 at 04:00 Levetiracetam (Keppra) 500 mg BID PO Last administered on 01/06/19 09:14; Admin Dose 500 MG; Start 12/30/18 at 09:00 Ipratropium [place] (Atrovent 0.02% (Neb)) 0.5 mg Q4HWA RESP THERAPY HHN Last administered on 01/05/19 16:36; Admin Dose 0.5 MG; Start 12/30/18 at 13:00 Oxycodone/ Acetaminophen (Percocet (5/ 325)) 1 tab Q4H PRN PO MODERATE PAIN LEVEL 4-6; Start 12/31/18 at 12:30; Status Hold Naloxone HCl (Narcan) 0.2 mg Q2M PRN IV RR 8 BREATHS/MIN OR LESS; Start 12/31/18 at 15:00 Hydromorphone HCl (Dilaudid LABORATORY MECHANIC HELPER) See protocol, below. Q4PCA IV Last administered on 01/06/19 03:55; Admin Dose 6 MG; Start 12/31/18 at 15:00 Diphenhydramine HCl (Benadryl) 25 mg Q6H PRN IV Nausea or itching Last administered on 01/04/19 06:19; Admin Dose 25 MG; Start 12/31/18 at 20:30 Promethazine HCl/ Codeine (Phenergan/ Codeine) 5 ml Q4H PRN PO COUGH; Start 01/01/19 at 12:00 Ibuprofen (Motrin) 600 mg Q8 PO Last administered on 01/05/19 22:58; Admin Dose 600 MG; Start 01/01/19 at 17:00 Colchicine (Colchicine) 0.6 mg DAILY PO Last administered on 01/05/19 08:46; Admin Dose 0.6 MG; Start 01/02/19 at 09:00 Sodium Chloride 1,000 ml @ 100 mls/hr Q10H IV Last administered on 01/03/19 04:16; Admin Dose 100 MLS/HR; Start 01/02/19 at 18:30; Status Hold Lorazepam (Ativan) 0.5 mg Q6H PRN PO ANXIETY Last administered on 01/03/19 14:43; Admin Dose 0.5 MG; Start 01/03/19 at 14:30 Eye Lubricant (Artificial Tears Oph) 2 drop Q6H PRN BOTH EYES DRY EYES; Start 01/03/19 at 16:00 Sodium Chloride 1,000 ml @ 75 mls/hr [id number] IV Last administered on 01/06/19 16:22; Admin Dose 75 MLS/HR; Start 01/03/19 at 21:00; Stop 01/09/19 at 20:59 Ondansetron HCl 16 mg/ Dexamethasone 20 mg/Dextrose 63 ml @ 252 mls/hr Q24H IV Last administered on 01/05/19 22:58; Admin Dose 252 MLS/HR; Start 01/03/19 at 22:00; Stop 01/07/19 at 22:14 Etoposide 125 mg/ Sodium Chloride 500 ml @ 500 mls/hr Q24H IV Last administered on 01/06/19 01:58; Admin Dose 500 MLS/HR; Start 01/04/19 at 00:30; Stop 01/08/19 at 01:29 Ifosfamide 2 gm/ Sodium Chloride 250 ml @ 250 mls/hr Q24H IV Last administered on 01/06/19 04:41; Admin Dose 250 MLS/HR; Start 01/04/19 at 02:00; Stop 01/08/19 at 02:59 [place] 2004 mg/ Sodium Chloride 500 ml @ 20.833 mls/ hr Q24H IV Last administered on 01/06/19 04:56; Admin Dose 20.833 MLS/HR; Start 01/04/19 at 02:15; Stop 01/09/19 at 02:14 Cisplatin 33 mg/ Sodium Chloride 283 ml @ 250 mls/hr Q24H IV Last administered on 01/05/19at 23:48; Admin Dose 250 MLS/HR; Start 01/03/19 at 23:00; Stop 01/08/19 at 00:08 Prochlorperazine (Compazine Inj) 5 mg Q6H PRN IV NAUSEA Last administered on 01/06/19at 16:20; Admin Dose 5 MG; Start 01/04/19 at 21:30 Docusate Sodium (Colace) 200 mg BID PO Last administered on 01/05/19at 21:08; Admin Dose 200 MG; Start 01/05/19 at 21:00 Senna (Senokot) 2 tab BID PO Last administered on 01/05/19at 21:08; Admin Dose 2 TAB; Start 01/05/19 at 21:00 Sodium Biphosphate/ Sodium Phosphate (Fleet Enema) 133 ml DAILY PRN [place] CONSTIPA TION; Start 01/05/19 at 10:00 BERRY AMBROSE MD Jan 06, 2019 18:07
[2019-01-06] MEDS: ONDANSETRON INJ 16 MG, DEXAMETHASONE 4 MG/ML 20 MG in DEXTROSE 5% 50 ML IV SCH (21:55)
[2019-01-06] MEDS: CISPLATIN IV SCH (22:55)
[2019-01-07] VITALS (27 sets, daily range): BP systolic 85–123; BP diastolic 26–99; PULSE 113–170; RESP 2–35
[2019-01-07] MEDS: PIPER-TAZO 3.375 GM IV (PMX) 100 ML IVPB SCH ×5 (00:16→20:56)
[2019-01-07] MEDS: SOD CHLORIDE 0.9% IV SCH ×4 (00:39→22:35)
[2019-01-07] MEDS: ETOPOSIDE IV SCH (00:39)
[2019-01-07] MEDS: IFOSFAMIDE IV SCH (02:31)
[2019-01-07] MEDS: ONDANSETRON 4 MG INJ IV PRN ×2 (02:48→09:43)
[2019-01-07] MEDS: IBUPROFEN 600 MG TAB PO SCH ×3 (05:40→14:59)
[2019-01-07] MEDS: PROCHLORPERAZINE 10 MG INJ IV PRN ×2 (07:17→15:03)
[2019-01-07] MEDS: LEVETIRACETAM 500 MG TAB PO SCH ×2 (07:18→20:56)
[2019-01-07] MEDS: HYDROmorphONE 0.2 MG/ML PCA IV SCH (07:39)
[2019-01-07] MEDS: DOCUSATE SODIUM 100 MG CAP PO SCH ×2 (07:55→20:56)
[2019-01-07] MEDS: SENNA TAB PO SCH ×2 (07:55→20:56)
[2019-01-07] MEDS: COLCHICINE 0.6 MG CAP PO SCH (07:55)
[2019-01-07] MEDS: IPRATROPIUM (NEB) 0.5 MG/2.5 ML AMP HHN SCH ×4 (09:00→20:56)
[2019-01-07] MEDS: MESNA IV SCH (09:17)
--- NOTE | 2019-01-07 09:22 | CONS ---
Assessment/Plan Assessment/Plan Assessment/Plan (Daily) Assessment and recommendations; 1. 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 Status post pericardiocentesis yesterday. 2. Persistent leukocytosis, possibly from underlying malignancy. 3. Stable seizure disorder. Continue current supportive care. Patient can be transferred to telemetry unit. Further recommendations per oncologist. Consultation Date/Type/Reason Admit Date/Time Dec 30, 2018 at 03:30 Initial Consult Date Type of Consult Pulmonary/critical care Patient condition is fairly stable. Remains awake and alert. Has remained hemodynamically stable. Requesting Provider: RADHA HEBERT Date/Time of Note DATE: 01/07/19 TIME: : 24 HR Interval Summary Free Text/Dictation Patient's condition is stable. Underwent pericardiocentesis yesterday. Patient denies any shortness of breath, at rest. Any chest pain, coughing, wheezing or any sputum production. General exam; young male, awake alert, currently in no distress. Exam/Review of Systems Exam Vitals Vital Signs Date Temp Pulse Resp B/P (MAP) Pulse Ox O2 O2 Flow FiO2 Time Delivery Rate 01/07/19 118 08:00 01/07/19 18 07:45 01/07/19 123/96 97 Nasal 2.0 06:00 (105) Cannula 01/07/19 98.0 04:00 01/05/19 100 16:39 Intake and Output 01/06/19 01/06/19 01/07/19 1515:00 23:00 07:00 IntakeIntake Total 975 ml 643 ml 1263 ml OutputOutput Total 1430 ml 2400 ml 3100 ml BalanceBalance -455 ml -1757 ml -1837 ml Exam H EENT exam; supple neck, positive JVD. No lymphadenopathy. Midline trachea. No thyromegaly. Pharynx is clear. Patient has fair dentition. No neck masses. Pupils are midsize bilaterally. Chest exam; diminished but clear breath sounds. S1-S2 audible, no murmurs. Regular rhythm. Dressing applied over sternum. Abdomen exam; soft, nontender. No organomegaly. Bowel sounds are audible. Extremity exam; no peripheral edema clubbing. TRACK REPAIR LABORER exam; no focal deficit. Results Result Diagram: 01/07/19 0430 01/07/19 0430 Results 24hrs Laboratory Tests Test 01/06/19 10:48 01/07/19 04:30 01/07/19 05:00 Sodium Level 136 136 Potassium Level 4.0 4.0 Chloride Level 101 99 Carbon Dioxide Level 31 30 Anion Gap 4 L 7 Blood Urea Nitrogen 8 9 Creatinine 0.48 L 0.56 L Est Glomerular Filtrat Rate mL/min > 60 > 60 Glucose Level 124 130 Calcium Level 8.0 L 8.2 L Phosphorus Level 3.1 Total Bilirubin 0.4 Direct Bilirubin 0.00 Indirect Bilirubin 0.4 Aspartate Amino Transf (AST/SGOT) 34 Alanine Aminotransferase (ALT/SGPT) 23 Alkaline Phosphatase 62 Total Protein 5.8 L Albumin 2.5 L Globulin 3.30 H Albumin/Globulin Ratio 0.75 White Blood Count 18.6 H Red Blood Count 3.89 L Hemoglobin 9.6 L Hematocrit 31.1 L Mean Corpuscular Volume 79.9 Mean Corpuscular Hemoglobin 24.7 L Mean Corpuscular Hemoglobin Concent 30.9 L Red Cell Distribution Width 14.5 Platelet Count 589 H Mean Platelet Volume 7.7 Immature Granulocytes % 1.300 H Neutrophils % 95.3 H Lymphocytes % 2.4 L Monocytes % 0.9 Eosinophils % 0.0 Basophils % 0.1 Nucleated Red Blood Cells % 0.0 Immature Granulocytes # 0.250 H Neutrophils # 17.7 H Lymphocytes # 0.5 L Monocytes # 0.2 L Eosinophils # 0.0 Basophils # 0.0 Nucleated Red Blood Cells # 0.0 Magnesium Level 2.2 Urine Color YELLOW Urine Clarity CLEAR Urine pH 6.0 Urine Specific [place] 1.010 Urine Ketones 1+ H Urine Nitrite NEGATIVE Urine Bilirubin NEGATIVE Urine Urobilinogen NEGATIVE Urine Leukocyte Esterase NEGATIVE Urine Hemoglobin NEGATIVE Urine Glucose 1+ H Urine Total Protein NEGATIVE Medications Medication Current Medications IV Flush (NS 3 ml) 3 ml PER PROTOCOL IV ; Start 12/30/18 at 04:00 Ondansetron HCl (Zofran Inj) 4 mg Q6H PRN IV NAUSEA/VOMITING Last administered on 01/07/19at 02:48; Admin Dose 4 MG; Start 12/30/18 at 04:00 Acetaminophen (Tylenol Tab) 650 mg Q6H PRN PO .PAIN 1-3 OR TEMP Last administered on 01/03/19at 04:13; Admin Dose 650 MG; Start 12/30/18 at 04:00 Docusate Sodium (Colace) 100 mg Q12H PRN PO .CONSTIPATION; Start 12/30/18 at 04:00 Bisacodyl (Dulcolax) 5 mg DAILY PRN PO .CONSTIPATION Last administered on 01/05/19 08:47; Admin Dose 5 MG; Start 12/30/18 at 04:00 Enoxaparin Sodium (Lovenox) 40 mg DAILY SC Last administered on 01/05/19 08:51; Admin Dose 40 MG; Start 12/30/18 at 09:00 Piperacillin Sod/ Tazobactam Sod 100 ml @ 200 mls/hr Q6 IVPB Last administered on 01/07/19 05:40; Admin Dose 200 MLS/HR; Start 12/30/18 at 06:00 Levalbuterol (Xopenex Neb) 1.25 mg Q4H RESP THERAPY PRN HHN SHORTNESS OF BREATH Last administered on 01/02/19 11:13; Admin Dose 1.25 MG; Start 12/30/18 at 04:00 Levetiracetam (Keppra) 500 mg BID PO Last administered on 01/07/19 07:18; Admin Dose 500 MG; Start 12/30/18 at 09:00 Ipratropium [place] (Atrovent 0.02% (Neb)) 0.5 mg Q4HWA RESP THERAPY HHN Last administered on 01/05/19 16:36; Admin Dose 0.5 MG; Start 12/30/18 at 13:00 Oxycodone/ Acetaminophen (Percocet (5/ 325)) 1 tab Q4H PRN PO MODERATE PAIN LEVEL 4-6; Start 12/31/18 at 12:30; Status Hold Naloxone HCl (Narcan) 0.2 mg Q2M PRN IV RR 8 BREATHS/MIN OR LESS; Start 12/31/18 at 15:00 Hydromorphone HCl (Dilaudid HOSPITALITY RECRUITER) See protocol, below. Q4PCA IV Last administered on 01/07/19 07:39; Admin Dose 6 MG; Start 12/31/18 at 15:00 Diphenhydramine HCl (Benadryl) 25 mg Q6H PRN IV Nausea or itching Last administered on 7/6/19at 06:19; Admin Dose 25 MG; Start 12/31/18 at 20:30 Promethazine HCl/ Codeine (Phenergan/ Codeine) 5 ml Q4H PRN PO COUGH; Start 01/01/19 at 12:00 Ibuprofen (Motrin) 600 mg Q8 PO Last administered on 01/07/19 05:40; Admin Dose 600 MG; Start 01/01/19 at 17:00 Colchicine (Colchicine) 0.6 mg DAILY PO Last administered on 01/05/19 08:46; Admin Dose 0.6 MG; Start 01/02/19 at 09:00 Sodium Chloride 1,000 ml @ 100 mls/hr Q10H IV Last administered on 01/03/19 04:16; Admin Dose 100 MLS/HR; Start 01/02/19 at 18:30; Status Hold Lorazepam (Ativan) 0.5 mg Q6H PRN PO ANXIETY Last administered on 01/03/19 14:43; Admin Dose 0.5 MG; Start 01/03/19 at 14:30 Eye Lubricant (Artificial Tears Oph) 2 drop Q6H PRN BOTH EYES DRY EYES; Start 01/03/19 at 16:00 Ondansetron HCl 16 mg/ Dexamethasone 20 mg/Dextrose 63 ml @ 252 mls/hr Q24H IV Last administered on 01/06/19 21:55; Admin Dose 252 MLS/HR; Start 01/03/19 at 22:00; Stop 01/07/19 at 22:14 Etoposide 125 mg/ Sodium Chloride 500 ml @ 500 mls/hr Q24H IV Last administered on 01/07/19at 00:39; Admin Dose 500 MLS/HR; Start 01/04/19 at 00:30; Stop 01/08/19 at 01:29 Ifosfamide 2 gm/ Sodium Chloride 250 ml @ 250 mls/hr Q24H IV Last administered on 01/07/19 02:31; Admin Dose 250 MLS/HR; Start 01/04/19 at 02:00; Stop 01/08/19 at 02:59 [place] 2004 mg/ Sodium Chloride 500 ml @ 20.833 mls/ hr Q24H IV Last administered on 01/06/19 04:56; Admin Dose 20.833 MLS/HR; Start 01/04/19 at 02:15; Stop 01/09/19 at 02:14 Cisplatin 33 mg/ Sodium Chloride 283 ml @ 250 mls/hr Q24H IV Last administered on 01/06/19 22:55; Admin Dose 250 MLS/HR; Start 01/03/19 at 23:00; Stop 01/08/19 at 00:08 Prochlorperazine (Compazine Inj) 5 mg Q6H PRN IV NAUSEA Last administered on 01/07/19 07:17; Admin Dose 5 MG; Start 01/04/19 at 21:30 Docusate Sodium (Colace) 200 mg BID PO Last administered on 01/06/19at 20:46; Admin Dose 200 MG; Start 01/05/19 at 21:00 Senna (Senokot) 2 tab BID PO Last administered on 01/06/19at 20:46; Admin Dose 2 TAB; Start 01/05/19 at 21:00 Sodium Biphosphate/ Sodium Phosphate (Fleet Enema) 133 ml DAILY PRN [place] CONSTIPATION; Start 01/05/19 at 10:00 MICA BLISS Jan 07, 2019 09:22
[2019-01-07] MEDS: ENOXAPARIN 40 MG/0.4 ML SYG SC SCH (09:25)
--- NOTE | 2019-01-07 10:26 | CONS ---
Consult Date/Type/Reason Admit Date/Time Dec 30, 2018 at 03:30 Initial Consult Date Type of Consultation: Pulm/CCM Requesting Provider: RADHA HEBERT Date/Time of Note DATE: 01/07/19 TIME: 10:24 Subjective No acute events - pt s/p pericardial drain - still with high output 350 cc - awaiting transfer to higher level of care. ROS: No fever, no chills, no nausea, no vomiting, no diarrhea/constipation No recent weight changes No chest pain, no PND, no orthopnea - mild SOB, better overall No dizziness, blurred vision No thirst, no heat or cold intolerance Objective Vitals Vital Signs Date Temp Pulse Resp B/P (MAP) Pulse Ox O2 O2 Flow FiO2 Time Delivery Rate 01/07/19 119 17 114/78 94 10:00 (90) 01/07/19 97.6 Nasal 2.0 08:00 Cannula 01/05/19 100 16:39 Intake and Output 01/06/19 01/06/19 01/07/19 1515:00 23:00 07:00 IntakeIntake Total 975 ml 643 ml 1363 ml OutputOutput Total 1430 ml 2400 ml 3100 ml BalanceBalance -455 ml -1757 ml -1737 ml Exam General: WN/WD/NAD, AOx 3 HEENT: Unicetric/atraumatic/EOMI (follow commands) NECK: JVD elevated, no thyromegaly Lymph: no lymphadenopathy HEART: regular with no S3, II/ systolic murmur at apex - drain in place LUNGS: Coarse sounds ABD: soft, NT, ND, +BS : Intact Neuro: non focal SKIN: chronic changes EXT: trace edema Results/Medications Result Diagram: 01/07/1942901/07/19429 Results 24 hrs Laboratory Tests Test 01/06/19 10:48 01/07/19 04:30 01/07/19 05:00 Sodium Level 136 136 Potassium Level 4.0 4.0 Chloride Level 101 99 Carbon Dioxide Level 31 30 Anion Gap 4 L 7 Blood Urea Nitrogen 8 9 Creatinine 0.48 L 0.56 L Est Glomerular Filtrat Rate mL/min > 60 > 60 Glucose Level 124 130 Calcium Level 8.0 L 8.2 L Phosphorus Level 3.1 Total Bilirubin 0.4 Direct Bilirubin 0.00 Indirect Bilirubin 0.4 Aspartate Amino Transf (AST/SGOT) 34 Alanine Aminotransferase (ALT/SGPT) 23 Alkaline Phosphatase 62 Total Protein 5.8 L Albumin 2.5 L Globulin 3.30 H Albumin/Globulin Ratio 0.75 White Blood Count 18.6 H Red Blood Count 3.89 L Hemoglobin 9.6 L Hematocrit 31.1 L Mean Corpuscular Volume 79.9 Mean Corpuscular Hemoglobin 24.7 L Mean Corpuscular Hemoglobin Concent 30.9 L Red Cell Distribution Width 14.5 Platelet Count 589 H Mean Platelet Volume 7.7 Immature Granulocytes % 1.300 H Neutrophils % 95.3 H Lymphocytes % 2.4 L Monocytes % 0.9 Eosinophils % 0.0 Basophils % 0.1 Nucleated Red Blood Cells % 0.0 Immature Granulocytes # 0.250 H Neutrophils # 17.7 H Lymphocytes # 0.5 L Monocytes # 0.2 L Eosinophils # 0.0 Basophils # 0.0 Nucleated Red Blood Cells # 0.0 Magnesium Level 2.2 Urine Color YELLOW Urine Clarity CLEAR Urine pH 6.0 Urine Specific [place] 1.010 Urine Ketones 1+ H Urine Nitrite NEGATIVE Urine Bilirubin NEGATIVE Urine Urobilinogen NEGATIVE Urine Leukocyte Esterase NEGATIVE Urine Hemoglobin NEGATIVE Urine Glucose 1+ H Urine Total Protein NEGATIVE Home Meds Reported Medications Levetiracetam* (Keppra*) 500 Mg Tablet, 500 MG PO BID, TAB 12/18/18 Medications Current Medications IV Flush (NS 3 ml) 3 ml PER PROTOCOL IV ; Start 12/30/18 at 04:00 Ondansetron HCl (Zofran Inj) 4 mg Q6H PRN IV NAUSEA/VOMITING Last administered on 01/07/19at 09:43; Admin Dose 4 MG; Start 12/30/18 at 04:00 Acetaminophen (Tylenol Tab) 650 mg Q6H PRN PO .PAIN 1-3 OR TEMP Last administered on 01/03/19at 04:13; Admin Dose 650 MG; Start 12/30/18 at 04:00 Docusate Sodium (Colace) 100 mg Q12H PRN PO .CONSTIPATION; Start 12/30/18 at 04:00 Bisacodyl (Dulcolax) 5 mg DAILY PRN PO .CONSTIPATION Last administered on 01/05/19at 08:47; Admin Dose 5 MG; Start 12/30/18 at 04:00 Enoxaparin Sodium (Lovenox) 40 mg DAILY SC Last administered on 01/07/19 09:25; Admin Dose 40 MG; Start 12/30/18 at 09:00 Piperacillin Sod/ Tazobactam Sod 100 ml @ 200 mls/hr Q6 IVPB Last administered on 01/07/19 05:40; Admin Dose 200 MLS/HR; Start 12/30/18 at 06:00 Levalbuterol (Xopenex Neb) 1.25 mg Q4H RESP THERAPY PRN HHN SHORTNESS OF BREATH Last administered on 01/02/19 11:13; Admin Dose 1.25 MG; Start 12/30/18 at 04:00 Levetiracetam (Keppra) 500 mg BID PO Last administered on 01/07/19 07:18; Admin Dose 500 MG; Start 12/30/18 at 09:00 Ipratropium [place] (Atrovent 0.02% (Neb)) 0.5 mg Q4HWA RESP THERAPY HHN Last administered on 01/05/19 16:36; Admin Dose 0.5 MG; Start 12/30/18 at 13:00 Oxycodone/ Acetaminophen (Percocet (5/ 325)) 1 tab Q4H PRN PO MODERATE PAIN LEVEL 4-6; Start 12/31/18 at 12:30; Status Hold Naloxone HCl (Narcan) 0.2 mg Q2M PRN IV RR 8 BREATHS/MIN OR LESS; Start 12/31/18 at 15:00 Hydromorphone HCl (Dilaudid [place]) See protocol, below. Q4PCA IV Last administered on 01/07/19 07:39; Admin Dose 6 MG; Start 12/31/18 at 15:00 Diphenhydramine HCl (Benadryl) 25 mg Q6H PRN IV Nausea or itching Last administered on 01/04/19 06:19; Admin Dose 25 MG; Start 12/31/18 at 20:30 Promethazine HCl/ Codeine (Phenergan/ Codeine) 5 ml Q4H PRN PO COUGH; Start 01/01/19 at 12:00 Ibuprofen (Motrin) 600 mg Q8 PO Last administered on 01/07/19 05:40; Admin Dose 600 MG; Start 01/01/19 at 17:00 Colchicine (Colchicine) 0.6 mg DAILY PO Last administered on 01/05/19at 08:46; Admin Dose 0.6 MG; Start 01/02/19 at 09:00 Sodium Chloride 1,000 ml @ 100 mls/hr Q10H IV Last administered on 01/03/19at 04:16; Admin Dose 100 MLS/HR; Start 01/02/19 at 18:30; Status Hold Lorazepam (Ativan) 0.5 mg Q6H PRN PO ANXIETY Last administered on 01/03/19at 14:43; Admin Dose 0.5 MG; Start 01/03/19 at 14:30 Eye Lubricant (Artificial Tears Oph) 2 drop Q6H PRN BOTH EYES DRY EYES; Start 01/03/19 at 16:00 Ondansetron HCl 16 mg/ Dexamethasone 20 mg/Dextrose 63 ml @ 252 mls/hr Q24H IV Last administered on 01/06/19at 21:55; Admin Dose 252 MLS/HR; Start 01/03/19 at 22:00; Stop 01/07/19 at 22:14 Etoposide 125 mg/ Sodium Chloride 500 ml @ 500 mls/hr Q24H IV Last administered on 01/07/19at 00:39; Admin Dose 500 MLS/HR; Start 01/04/19 at 00:30; Stop 01/08/19 at 01:29 Ifosfamide 2 gm/ Sodium Chloride 250 ml @ 250 mls/hr Q24H IV Last administered on 01/07/19at 02:31; Admin Dose 250 MLS/HR; Start 01/04/19 at 02:00; Stop 01/08/19 at 02:59 [place] 2004 mg/ Sodium Chloride 500 ml @ 20.833 mls/ hr Q24H IV Last administered on 01/07/19at 09:17; Admin Dose 20.833 MLS/HR; Start 01/04/19 at 02:15; Stop 01/09/19 at 02:14 Cisplatin 33 mg/ Sodium Chloride 283 ml @ 250 mls/hr Q24H IV Last administered on 01/06/19at 22:55; Admin Dose 250 MLS/HR; Start 01/03/19 at 23:00; Stop 01/08/19 at 00:08 Prochlorperazine (Compazine Inj) 5 mg Q6H PRN IV NAUSEA Last administered on 01/07/19at 07:17; Admin Dose 5 MG; Start 01/04/19 at 21:30 Docusate Sodium (Colace) 200 mg BID PO Last administered on 01/06/19at 20:46; Admin Dose 200 MG; Start 01/05/19 at 21:00 Senna (Senokot) 2 tab BID PO Last administered on 01/06/19at 20:46; Admin Dose 2 TAB; Start 01/05/19 at 21:00 Sodium Biphosphate/ Sodium Phosphate (Fleet Enema) 133 ml DAILY PRN [place] CONSTIPATION; Start 01/05/19 at 10:00 Assessment/Plan Hospital Course (Demo Recall) 1. Pericardial effusion with questionable early tamponade feature - s/p surgical drain now - feels better overall - con't chemo 2. Tachycardia consistent with sinus tachycardia at this time, questionable due to pain, fever or actual pericardial effusion, or a combination of all these likely. Stable HR now at 110s. 3. History of mediastinal mass, yolk sac tumor - await path from pleural effusion. Now chemo resumed. Awaiting transfer to higher level of care. 4. Lower lobe pneumonia - con't anti-bx now. On Rx. 5. Large pleural effusion, undergoing thoracentesis at this time x 2 already. Feels better with drainage. 6. Leukocytosis, severe. 7. Anemia. 8. Thrombocytopenia plts at 99 now. KHANG PAGE MD Jan 07, 2019 10:26
--- NOTE | 2019-01-07 12:36 | CONS ---
Assessment/Plan Assessment/Plan Hospital Course (Demo Recall) No acute events overnight. Patient is sleeping, looks comfortable, no fevers WBC 18.6 H&H 9.6 and 31.1 platelets 589 neutrophils 95.3 BUN 9 creatinine 0.56 Microbiology: Respiratory culture grew Klebsiella oxytoca and staph aureus, oxacillin sensitive Indwelling: Right subclavian Port-A-Cath, sternal pigtail Physical examination: Well-developed wasted young man who is in no di stress. Head atraumatic normocephalic sclera nonicteric. Neck is supple. Chest rise symmetrical breath sounds diminished. Heart: S1-S2, tachycardic. Abdomen soft bowel sounds present. Extremities without cyanosis edema. Assessment: 1. Sepsis on admission 2. Healthcare associated pneumonia, likely postobstructive 3. Recently diagnosed yolk sac tumor, in chemo 4. Large pericardial effusion, status post pericardiocentesis 01/06/19 5. History of seizure 6. Ongoing tachycardia Plan: Remains unchanged, continue present care and antibiotics, follow oncology recommendations, patient is in chemotherapy now. Overall condition guarded. Pending discharge to tertiary care facility. Pericardial fluid for culture. Consultation Date/Type/Reason Admit Date/Time Dec 30, 2018 at 03:30 Initial Consult Date Type of Consult id Requesting Provider: RADHA HEBERT Date/Time of Note DATE: 01/07/19 TIME: 12:32 Exam/Review of Systems Exam Vitals Vital Signs Date Temp Pulse Resp B/P (MAP) Pulse Ox O2 O2 Flow FiO2 Time Delivery Rate 01/07/19 124 19 110/80 94 Nasal 2.0 12:00 (90) Cannula 01/07/19 97.6 08:00 01/05/19 100 16:39 Intake and Output 01/06/19 01/06/19 01/07/19 1515:00 23:00 07:00 IntakeIntake Total 975 ml 643 ml 1363 ml OutputOutput Total 1430 ml 2400 ml 3100 ml BalanceBalance -455 ml -1757 ml -1737 ml Results Result Diagram: 01/07/19 0430 01/07/19 0430 Results 24hrs Laboratory Tests Test 01/07/19 04:30 01/07/19 05:00 White Blood Count 18.6 H Red Blood Count 3.89 L Hemoglobin 9.6 L Hematocrit 31.1 L Mean Corpuscular Volume 79.9 Mean Corpuscular Hemoglobin 24.7 L Mean Corpuscular Hemoglobin Concent 30.9 L Red Cell Distribution Width 14.5 Platelet Count 589 H Mean Platelet Volume 7.7 Immature Granulocytes % 1.300 H Neutrophils % 95.3 H Lymphocytes % 2.4 L Monocytes % 0.9 Eosinophils % 0.0 Basophils % 0.1 Nucleated Red Blood Cells % 0.0 Immature Granulocytes # 0.250 H Neutrophils # 17.7 H Lymphocytes # 0.5 L Monocytes # 0.2 L Eosinophils # 0.0 Basophils # 0.0 Nucleated Red Blood Cells # 0.0 Sodium Level 136 Potassium Level 4.0 Chloride Level 99 Carbon Dioxide Level 30 Anion Gap 7 Blood Urea Nitrogen 9 Creatinine 0.56 L Est Glomerular Filtrat Rate mL/min > 60 Glucose Level 130 Calcium Level 8.2 L Magnesium Level 2.2 Urine Color YELLOW Urine Clarity CLEAR Urine pH 6.0 Urine Specific [place] 1.010 Urine Ketones 1+ H Urine Nitrite NEGATIVE Urine Bilirubin NEGATIVE Urine Urobilinogen NEGATIVE Urine Leukocyte Esterase NEGATIVE Urine Hemoglobin NEGATIVE Urine Glucose 1+ H Urine Total Protein NEGATIVE Medications Medication Current Medications IV Flush (NS 3 ml) 3 ml PER PROTOCOL IV ; Start 12/30/18 at 04:00 Ondansetron HCl (Zofran Inj) 4 mg Q6H PRN IV NAUSEA/VOMITING Last administered on 01/07/19at 09:43; Admin Dose 4 MG; Start 12/30/18 at 04:00 Acetaminophen (Tylenol Tab) 650 mg Q6H PRN PO .PAIN 1-3 OR TEMP Last administered on 01/03/19at 04:13; Admin Dose 650 MG; Start 12/30/18 at 04:00 Docusate Sodium (Colace) 100 mg Q12H PRN PO .CONSTIPATION; Start 12/30/18 at 04:00 Bisacodyl (Dulcolax) 5 mg DAILY PRN PO .CONSTIPATION Last administered on 01/05/19at 08:47; Admin Dose 5 MG; Start 12/30/18 at 04:00 Enoxaparin Sodium (Lovenox) 40 mg DAILY SC Last administered on 01/07/19 09:25; Admin Dose 40 MG; Start 12/30/18 at 09:00 Piperacillin Sod/ Tazobactam Sod 100 ml @ 200 mls/hr Q6 IVPB Last administered on 01/07/19 11:25; Admin Dose 200 MLS/HR; Start 12/30/18 at 06:00 Levalbuterol (Xopenex Neb) 1.25 mg Q4H RESP THERAPY PRN HHN SHORTNESS OF BREATH Last administered on 01/02/19 11:13; Admin Dose 1.25 MG; Start 12/30/18 at 04:00 Levetiracetam (Keppra) 500 mg BID PO Last administered on 01/07/19 07:18; Admin Dose 500 MG; Start 12/30/18 at 09:00 Ipratropium [place] (Atrovent 0.02% (Neb)) 0.5 mg Q4HWA RESP THERAPY HHN Last administered on 01/05/19 16:36; Admin Dose 0.5 MG; Start 12/30/18 at 13:00 Oxycodone/ Acetaminophen (Percocet (5/ 325)) 1 tab Q4H PRN PO MODERATE PAIN LEVEL 4-6; Start 12/31/18 at 12:30; Status Hold Naloxone HCl (Narcan) 0.2 mg Q2M PRN IV RR 8 BREATHS/MIN OR LESS; Start 12/31/18 at 15:00 Hydromorphone HCl (Dilaudid [place]) See protocol, below. Q4PCA IV Last administered on 01/07/19 07:39; Admin Dose 6 MG; Start 12/31/18 at 15:00 Diphenhydramine HCl (Benadryl) 25 mg Q6H PRN IV Nausea or itching Last administered on 01/04/19 06:19; Admin Dose 25 MG; Start 12/31/18 at 20:30 Promethazine HCl/ Codeine (Phenergan/ Codeine) 5 ml Q4H PRN PO COUGH; Start 01/01/19 at 12:00 Ibuprofen (Motrin) 600 mg Q8 PO Last administered on 01/07/19 05:40; Admin Dose 600 MG; Start 01/01/19 at 17:00 Colchicine (Colchicine) 0.6 mg DAILY PO Last administered on 01/05/19 08:46; Admin Dose 0.6 MG; Start 01/02/19 at 09:00 Sodium Chloride 1,000 ml @ 100 mls/hr Q10H IV Last administered on 01/03/19 04:16; Admin Dose 100 MLS/HR; Start 01/02/19 at 18:30; Status Hold Lorazepam (Ativan) 0.5 mg Q6H PRN PO ANXIETY Last administered on 01/03/19 14:43; Admin Dose 0.5 MG; Start 01/03/19 at 14:30 Eye Lubricant (Artificial Tears Oph) 2 drop Q6H PRN BOTH EYES DRY EYES; Start 01/03/19 at 16:00 Ondansetron HCl 16 mg/ Dexamethasone 20 mg/Dextrose 63 ml @ 252 mls/hr Q24H IV Last administered on 01/06/19 21:55; Admin Dose 252 MLS/HR; Start 01/03/19 at 22:00; Stop 01/07/19 at 22:14 Etoposide 125 mg/ Sodium Chloride 500 ml @ 500 mls/hr Q24H IV Last administered on 01/07/19 00:39; Admin Dose 500 MLS/HR; Start 01/04/19 at 00:30; Stop 01/08/19 at 01:29 Ifosfamide 2 gm/ Sodium Chloride 250 ml @ 250 mls/hr Q24H IV Last administered on 01/07/19 02:31; Admin Dose 250 MLS/HR; Start 01/04/19 at 02:00; Stop 01/08/19 at 02:59 [place] 2004 mg/ Sodium Chloride 500 ml @ 20.833 mls/ hr Q24H IV Last administered on 01/07/19 09:17; Admin Dose 20.833 MLS/HR; Start 01/04/19 at 02:15; Stop 01/09/19 at 02:14 Cisplatin 33 mg/ Sodium Chloride 283 ml @ 250 mls/hr Q24H IV Last administered on 01/06/19 22:55; Admin Dose 250 MLS/HR; Start 01/03/19 at 23:00; Stop 01/08/19 at 00:08 Prochlorperazine (Compazine Inj) 5 mg Q6H PRN IV NAUSEA Last administered on 01/07/19 07:17; Admin Dose 5 MG; Start 01/04/19 at 21:30 Docusate Sodium (Colace) 200 mg BID PO Last administered on 7/8/19at 20:46; Admin Dose 200 MG; Start 01/05/19 at 21:00 Senna (Senokot) 2 tab BID PO Last administered on 01/06/19 20:46; Admin Dose 2 TAB; Start 01/05/19 at 21:00 Sodium Biphosphate/ Sodium Phosphate (Fleet Enema) 133 ml DAILY PRN [place] CON STIPATION; Start 01/05/19 at 10:00 COSTA ZAZUETA NP Jan 07, 2019 12:36
[2019-01-07] MEDS ORDERED: CEFTRIAXONE 1 GM/50 ML (PMX) 50 ML IVPB SCH (13:00)
--- NOTE | 2019-01-07 14:14 | CONS ---
Assessment/Plan Assessment/Plan Hospital Course (Demo Recall) 18 yo with large anterior mediastinal mass 13.5 x 15.8 x 9.3 cm in size. 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 Stable appearance of 2.4 x 1.1 cm of cortical/cystic lesion in the right temporal lobe with underlying vasogenic edema, again most suggestive of DNET, with other etiologies not excluded. -started VIP on sunday - CARRIES RISK OF STERILITY SO HE WILL NEED SPERM BANKING, was unable to do prior to chemo as he was hemodynamically unstable and we needed to start chemo LOBITO. this regimen does carry a risk of sterility but given patient's tenuous status, pt understands this and has consented to chemo as above today is day 4 of chemo chemo: Cisplatin 20 mg/m2 IV per day Days 1 to 5 Etoposide* 75 mg/m2 IV per day Days 1 to 5 Ifosfamide* 1200 mg/m2 per day IV infusion Days 1 to 5 [place] 120 mg/m2 IV Day 1 [place] 1200 mg/m2 per day continuous IV infusion, Days 1 to 5 GCSF 300mcg daily starting day 6-12 discussed with pt after 2 cycles chemo, restage. 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 and need to be resected [facility] #Pericardial effusion -s/p pericardial drain -management per cardiology #leukocytosis and thrombocytosis AND FEVERS suspect this is most likely reactive due to underlying malignancy vs pneumonia EMPIRIC ABX PER PRIMARY TEAM Consultation Date/Type/Reason Admit Date/Time Dec 30, 2018 at 03:30 Initial Consult Date December 30 Type of Consult oncology Reason for Consultation germ cell tumor Requesting Provider: RADHA HEBERT Date/Time of Note DATE: 01/07/19 TIME: 14:12 24 HR Interval Summary Free Text/Dictation pt is s/p pericardiocentesis. drained 350cc overnight. to complete chemotherapy this evening. currently on [place] Subjective hx not possible: pt critical status Constitutional: improved, diaphoresis, poor po Exam/Review of Systems Exam Vitals Vital Signs Date Temp Pulse Resp B/P (MAP) Pulse Ox O2 O2 Flow FiO2 Time Delivery Rate 01/07/19 23 13:30 01/07/19 129 111/95 98 13:00 (100) 01/07/19 Nasal 2.0 12:00 Cannula 01/07/19 97.6 08:00 01/05/19 100 16:39 Intake and Output 01/06/19 01/06/19 01/07/19 1515:00 23:00 07:00 IntakeIntake Total 975 ml 643 ml 1363 ml OutputOutput Total 1430 ml 2400 ml 3100 ml BalanceBalance -455 ml -1757 ml -1737 ml Constitutional: alert, well developed, distress, frail Psych: anxiety, depression Head: normocephalic Eyes: nl conjunctiva ENMT: nl external ears & nose Neck: supple Respiratory: crackles/rales, diminished breath sounds, intercostal retraction, labored breathing Cardiovascular: other (pericardial drain in place) Gastrointestinal: soft Musculoskeletal: nl extremities to inspection Results Result Diagram: 01/07/19 0430 01/07/19 0430 Results 24hrs Laboratory Tests Test 01/07/19 04:30 01/07/19 05:00 01/07/19 11:30 White Blood Count 18.6 H Red Blood Count 3.89 L Hemoglobin 9.6 L Hematocrit 31.1 L Mean Corpuscular Volume 79.9 Mean Corpuscular Hemoglobin 24.7 L Mean Corpuscular Hemoglobin Concent 30.9 L Red Cell Distribution Width 14.5 Platelet Count 589 H Mean Platelet Volume 7.7 Immature Granulocytes % 1.300 H Neutrophils % 95.3 H Lymphocytes % 2.4 L Monocytes % 0.9 Eosinophils % 0.0 Basophils % 0.1 Nucleated Red Blood Cells % 0.0 Immature Granulocytes # 0.250 H Neutrophils # 17.7 H Lymphocytes # 0.5 L Monocytes # 0.2 L Eosinophils # 0.0 Basophils # 0.0 Nucleated Red Blood Cells # 0.0 Sodium Level 136 Potassium Level 4.0 Chloride Level 99 Carbon Dioxide Level 30 Anion Gap 7 Blood Urea Nitrogen 9 Creatinine 0.56 L Est Glomerular Filtrat Rate mL/min > 60 Glucose Level 130 Calcium Level 8.2 L Magnesium Level 2.2 Urine Color YELLOW Urine Clarity CLEAR Urine pH 6.0 Urine Specific [place] 1.010 Urine Ketones 1+ H Urine Nitrite NEGATIVE Urine Bilirubin NEGATIVE Urine Urobilinogen NEGATIVE Urine Leukocyte Esterase NEGATIVE Urine Hemoglobin NEGATIVE Urine Glucose 1+ H Urine Total Protein NEGATIVE Body Fluid Type PERICARDIAL Body Fluid Volume 80.0 Body Fluid Color YELLOW Body Fluid Appearance SLIGHTLY CLOUDY Body Fluid WBC 1995 Body Fluid RBC (Auto) 2000 Body Fluid Polynuclear WBCs (%) 95.0 Body Fluid Mononuclear Cells % Auto 5.0 Medications Medication Current Medications IV Flush (NS 3 ml) 3 ml PER PROTOCOL IV ; Start 12/30/18 at 04:00 Ondansetron HCl (Zofran Inj) 4 mg Q6H PRN IV NAUSEA/VOMITING Last administered on 01/07/19 09:43; Admin Dose 4 MG; Start 12/30/18 at 04:00 Acetaminophen (Tylenol Tab) 650 mg Q6H PRN PO .PAIN 1-3 OR TEMP Last administer ed on 01/03/19 04:13; Admin Dose 650 MG; Start 12/30/18 at 04:00 Docusate Sodium (Colace) 100 mg Q12H PRN PO .CONSTIPATION; Start 12/30/18 at 04:00 Bisacodyl (Dulcolax) 5 mg DAILY PRN PO .CONSTIPATION Last administered on 01/05/19 08:47; Admin Dose 5 MG; Start 12/30/18 at 04:00 Enoxaparin Sodium (Lovenox) 40 mg DAILY SC Last administered on 01/07/19 09:25; Admin Dose 40 MG; Start 12/30/18 at 09:00 Levalbuterol (Xopenex Neb) 1.25 mg Q4H RESP THERAPY PRN HHN SHORTNESS OF BREATH Last administered on 01/02/19 11:13; Admin Dose 1.25 MG; Start 12/30/18 at 04:00 Levetiracetam (Keppra) 500 mg BID PO Last administered on 01/07/19 07:18; Admin Dose 500 MG; Start 12/30/18 at 09:00 Ipratropium [place] (Atrovent 0.02% (Neb)) 0.5 mg Q4HWA RESP THERAPY HHN Last administered on 01/05/19 16:36; Admin Dose 0.5 MG; Start 12/30/18 at 13:00 Oxycodone/ Acetaminophen (Percocet (5/ 325)) 1 tab Q4H PRN PO MODERATE PAIN LEVEL 4-6; Start 12/31/18 at 12:30; Status Hold Naloxone HCl (Narcan) 0.2 mg Q2M PRN IV RR 8 BREATHS/MIN OR LESS; Start 12/31/18 at 15:00 Diphenhydramine HCl (Benadryl) 25 mg Q6H PRN IV Nausea or itching Last administered on 01/04/19 06:19; Admin Dose 25 MG; Start 12/31/18 at 20:30 Promethazine HCl/ Codeine (Phenergan/ Codeine) 5 ml Q4H PRN PO COUGH; Start 01/01/19 at 12:00 Ibuprofen (Motrin) 600 mg Q8 PO Last administered on 01/07/19 05:40; Admin Dose 600 MG; Start 01/01/19 at 17:00 Colchicine (Colchicine) 0.6 mg DAILY PO Last administered on 01/05/19 08:46; Admin Dose 0.6 MG; Start 01/02/19 at 09:00 Sodium Chloride 1,000 ml @ 100 mls/hr Q10H IV Last administered on 01/03/19 04:16; Admin Dose 100 MLS/HR; Start 01/02/19 at 18:30; Status Hold Lorazepam (Ativan) 0.5 mg Q6H PRN PO ANXIETY Last administered on 01/03/19 14:43; Admin Dose 0.5 MG; Start 01/03/19 at 14:30 Eye Lubricant (Artificial Tears Oph) 2 drop Q6H PRN BOTH EYES DRY EYES; Start 01/03/19 at 16:00 Ondansetron HCl 16 mg/ Dexamethasone 20 mg/Dextrose 63 ml @ 252 mls/hr Q24H IV Last administered on 01/06/19 21:55; Admin Dose 252 MLS/HR; Start 01/03/19 at 22:00; Stop 01/07/19 at 22:14 Etoposide 125 mg/ Sodium Chloride 500 ml @ 500 mls/hr Q24H IV Last administered on 01/07/19 00:39; Admin Dose 500 MLS/HR; Start 01/04/19 at 00:30; Stop 01/08/19 at 01:29 Ifosfamide 2 gm/ Sodium Chloride 250 ml @ 250 mls/hr Q24H IV Last administered on 01/07/19at 02:31; Admin Dose 250 MLS/HR; Start 01/04/19 at 02:00; Stop 01/08/19 at 02:59 [place] 2004 mg/ Sodium Chloride 500 ml @ 20.833 mls/ hr Q24H IV Last administered on 01/07/19at 09:17; Admin Dose 20.833 MLS/HR; Start 01/04/19 at 02:15; Stop 01/09/19 at 02:14 Cisplatin 33 mg/ Sodium Chloride 283 ml @ 250 mls/hr Q24H IV Last administered on 01/06/19at 22:55; Admin Dose 250 MLS/HR; Start 01/03/19 at 23:00; Stop 01/08/19 at 00:08 Prochlorperazine (Compazine Inj) 5 mg Q6H PRN IV NAUSEA Last administered on 01/07/19at 07:17; Admin Dose 5 MG; Start 01/04/19 at 21:30 Docusate Sodium (Colace) 200 mg BID PO Last administered on 01/06/19 20:46; Admin Dose 200 MG; Start 01/05/19 at 21:00 Senna (Senokot) 2 tab BID PO Last administered on 01/06/19 20:46; Admin Dose 2 TAB; Start 01/05/19 at 21:00 Sodium Biphosphate/ Sodium Phosphate (Fleet Enema) 133 ml DAILY PRN [place] CONSTIPATION; Start 01/05/19 at 10:00 Ceftriaxone Sodium 50 ml @ 100 mls/hr Q24H IVPB Last administered on 01/07/19 13:24; Admin Dose 100 MLS/HR; Start 01/07/19 at 13:00 Hydromorphone HCl (Dilaudid [facility] [employer]) See protocol, below. Q4PCA IV ; Start 01/07/19 at 13:30 IVY HOSKINS M.D. Jan 07, 2019 14:14
[2019-01-07] MEDS: ACETAMINOPHEN 325 MG TAB PO PRN (15:01)
--- NOTE | 2019-01-07 17:03 | PN ---
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 Transfer attempts underway - Colchicine and ibuprofen per cardiology Seizures with brain lesion: - Known history of epilepsy for which we will continue keppra - ? malingancy. SIRS: - Continue empiric abx per ID. Not clear to me if infection present. I suspet these are noninfectious fevers. They do not respond to NSAID Continue attempts at transfer to tertiary center Result Diagram: 01/07/19 0430 01/07/19 0430 Results 24hrs Laboratory Tests Test 01/07/19 04:30 01/07/19 05:00 01/07/19 11:30 White Blood Count 18.6 H Red Blood Count 3.89 L Hemoglobin 9.6 L Hematocrit 31.1 L Mean Corpuscular Volume 79.9 Mean Corpuscular Hemoglobin 24.7 L Mean Corpuscular Hemoglobin Concent 30.9 L Red Cell Distribution Width 14.5 Platelet Count 589 H Mean Platelet Volume 7.7 Immature Granulocytes % 1.300 H Neutrophils % 95.3 H Lymphocytes % 2.4 L Monocytes % 0.9 Eosinophils % 0.0 Basophils % 0.1 Nucleated Red Blood Cells % 0.0 Immature Granulocytes # 0.250 H Neutrophils # 17.7 H Lymphocytes # 0.5 L Monocytes # 0.2 L Eosinophils # 0.0 Basophils # 0.0 Nucleated Red Blood Cells # 0.0 Sodium Level 136 Potassium Level 4.0 Chloride Level 99 Carbon Dioxide Level 30 Anion Gap 7 Blood Urea Nitrogen 9 Creatinine 0.56 L Est Glomerular Filtrat Rate mL/min > 60 Glucose Level 130 Calcium Level 8.2 L Magnesium Level 2.2 Urine Color YELLOW Urine Clarity CLEAR Urine pH 6.0 Urine Specific [place] 1.010 Urine Ketones 1+ H Urine Nitrite NEGATIVE Urine Bilirubin NEGATIVE Urine Urobilinogen NEGATIVE Urine Leukocyte Esterase NEGATIVE Urine Hemoglobin NEGATIVE Urine Glucose 1+ H Urine Total Protein NEGATIVE Body Fluid Type PERICARDIAL Body Fluid Volume 80.0 Body Fluid Color YELLOW Body Fluid Appearance SLIGHTLY CLOUDY Body Fluid WBC 1994 Body Fluid RBC (Auto) 1999 Body Fluid Polynuclear WBCs (%) 95.0 Body Fluid Mononuclear Cells % Auto 5.0 Subjective 24 Hr Interval Summary Free Text/Dictation Somnulent today, 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 Exam/Review of Systems Exam Vitals Vital Signs Date Temp Pulse Resp B/P (MAP) Pulse Ox O2 O2 Flow FiO2 Time Delivery Rate 01/07/19 100.7 149 30 101/76 95 Nasal 2.0 16:00 (84) Cannula 01/05/19 100 16:39 Intake and Output 01/06/19 01/06/19 01/07/19 1515:00 23:00 07:00 IntakeIntake Total 975 ml 643 ml 1363 ml OutputOutput Total 1430 ml 2400 ml 3100 ml BalanceBalance -455 ml -1757 ml -1737 ml Results Results 24hrs Laboratory Tests Test 01/07/19 04:30 01/07/19 05:00 01/07/19 11:30 White Blood Count 18.6 H Red Blood Count 3.89 L Hemoglobin 9.6 L Hematocrit 31.1 L Mean Corpuscular Volume 79.9 Mean Corpuscular Hemoglobin 24.7 L Mean Corpuscular Hemoglobin Concent 30.9 L Red Cell Distribution Width 14.5 Platelet Count 589 H Mean Platelet Volume 7.7 Immature Granulocytes % 1.300 H Neutrophils % 95.3 H Lymphocytes % 2.4 L Monocytes % 0.9 Eosinophils % 0.0 Basophils % 0.1 Nucleated Red Blood Cells % 0.0 Immature Granulocytes # 0.250 H Neutrophils # 17.7 H Lymphocytes # 0.5 L Monocytes # 0.2 L Eosinophils # 0.0 Basophils # 0.0 Nucleated Red Blood Cells # 0.0 Sodium Level 136 Potassium Level 4.0 Chloride Level 99 Carbon Dioxide Level 30 Anion Gap 7 Blood Urea Nitrogen 9 Creatinine 0.56 L Est Glomerular Filtrat Rate mL/min > 60 Glucose Level 130 Calcium Level 8.2 L Magnesium Level 2.2 Urine Color YELLOW Urine Clarity CLEAR Urine pH 6.0 Urine Specific [place] 1.010 Urine Ketones 1+ H Urine Nitrite NEGATIVE Urine Bilirubin NEGATIVE Urine Urobilinogen NEGATIVE Urine Leukocyte Esterase NEGATIVE Urine Hemoglobin NEGATIVE Urine Glucose 1+ H Urine Total Protein NEGATIVE Body Fluid Type PERICARDIAL Body Fluid Volume 80.0 Body Fluid Color YELLOW Body Fluid Appearance SLIGHTLY CLOUDY Body Fluid WBC 1995 Body Fluid RBC (Auto) 2000 Body Fluid Polynuclear WBCs (%) 95.0 Body Fluid Mononuclear Cells % Auto 5.0 Medications Medication Current Medications IV Flush (NS 3 ml) 3 ml PER PROTOCOL IV ; Start 12/30/18 at 04:00 Ondansetron HCl (Zofran Inj) 4 mg Q6H PRN IV NAUSEA/VOMITING Last administered on 01/07/19 09:43; Admin Dose 4 MG; Start 12/30/18 at 04:00 Acetaminophen (Tylenol Tab) 650 mg Q6H PRN PO .PAIN 1-3 OR TEMP Last administered on 01/07/19 15:01; Admin Dose 650 MG; Start 12/30/18 at 04:00 Docusate Sodium (Colace) 100 mg Q12H PRN PO .CONSTIPATION; Start 12/30/18 at 04:00 Bisacodyl (Dulcolax) 5 mg DAILY PRN PO .CONSTIPATION Last administered on 01/05/19 08:47; Admin Dose 5 MG; Start 12/30/18 at 04:00 Enoxaparin Sodium (Lovenox) 40 mg DAILY SC Last administered on 01/07/19 09:25; Admin Dose 40 MG; Start 12/30/18 at 09:00 Levalbuterol (Xopenex Neb) 1.25 mg Q4H RESP THERAPY PRN HHN SHORTNESS OF BREATH Last administered on 01/02/19 11:13; Admin Dose 1.25 MG; Start 12/30/18 at 04:00 Levetiracetam (Keppra) 500 mg BID PO Last administered on 01/07/19 07:18; Admin Dose 500 MG; Start 12/30/18 at 09:00 Ipratropium [place] (Atrovent 0.02% (Neb)) 0.5 mg Q4HWA RESP THERAPY HHN Last administered on 01/05/19 16:36; Admin Dose 0.5 MG; Start 12/30/18 at 13:00 Oxycodone/ Acetaminophen (Percocet (5/ 325)) 1 tab Q4H PRN PO MODERATE PAIN LEVEL 4-6; Start 12/31/18 at 12:30; Status Hold Naloxone HCl (Narcan) 0.2 mg Q2M PRN IV RR 8 BREATHS/MIN OR LESS; Start 12/31/18 at 15:00 Diphenhydramine HCl (Benadryl) 25 mg Q6H PRN IV Nausea or itching Last administered on 01/04/19at 06:19; Admin Dose 25 MG; Start 12/31/18 at 20:30 Promethazine HCl/ Codeine (Phenergan/ Codeine) 5 ml Q4H PRN PO COUGH; Start 01/01/19 at 12:00 Ibuprofen (Motrin) 600 mg Q8 PO Last administered on 01/07/19at 14:59; Admin Dose 600 MG; Start 01/01/19 at 17:00 Colchicine (Colchicine) 0.6 mg DAILY PO Last administered on 01/05/19at 08:46; Admin Dose 0.6 MG; Start 01/02/19 at 09:00 Sodium Chloride 1,000 ml @ 100 mls/hr Q10H IV Last administered on 01/03/19at 04:16; Admin Dose 100 MLS/HR; Start 01/02/19 at 18:30; Status Hold Lorazepam (Ativan) 0.5 mg Q6H PRN PO ANXIETY Last administered on 01/03/19at 14:43; Admin Dose 0.5 MG; Start 01/03/19 at 14:30 Eye Lubricant (Artificial Tears Oph) 2 drop Q6H PRN BOTH EYES DRY EYES; Start 01/03/19 at 16:00 Ondansetron HCl 16 mg/ Dexamethasone 20 mg/Dextrose 63 ml @ 252 mls/hr Q24H IV Last administered on 01/06/19at 21:55; Admin Dose 252 MLS/HR; Start 01/03/19 at 22:00; Stop 01/07/19 at 22:14 Etoposide 125 mg/ Sodium Chloride 500 ml @ 500 mls/hr Q24H IV Last administered on 01/07/19at 00:39; Admin Dose 500 MLS/HR; Start 01/04/19 at 00:30; Stop 01/08/19 at 01:29 Ifosfamide 2 gm/ Sodium Chloride 250 ml @ 250 mls/hr Q24H IV Last administered on 01/07/19 02:31; Admin Dose 250 MLS/HR; Start 01/04/19 at 02:00; Stop 01/08/19 at 02:59 [place] 2004 mg/ Sodium Chloride 500 ml @ 20.833 mls/ hr Q24H IV Last administered on 01/07/19at 09:17; Admin Dose 20.833 MLS/HR; Start 01/04/19 at 02:15; Stop 01/09/19 at 02:14 Cisplatin 33 mg/ Sodium Chloride 283 ml @ 250 mls/hr Q24H IV Last administered on 01/06/19at 22:55; Admin Dose 250 MLS/HR; Start 01/03/19 at 23:00; Stop 01/08/19 at 00:08 Prochlorperazine (Compazine Inj) 5 mg Q6H PRN IV NAUSEA Last administered on at 15:03; Admin Dose 5 MG; Start 01/04/19 at 21:30 Docusate Sodium (Colace) 200 mg BID PO Last administered on 01/06/19at 20:46; Admin Dose 200 MG; Start 01/05/19 at 21:00 Senna (Senokot) 2 tab BID PO Last administered on 01/06/19at 20:46; Admin Dose 2 TAB; Start 01/05/19 at 21:00 Sodium Biphosphate/ Sodium Phosphate (Fleet Enema) 133 ml DAILY PRN [place] CONSTIPATION; Start 01/05/19 at 10:00 Hydromorphone HCl (Dilaudid TOUR LEADER) See protocol, below. Q4PCA IV ; Start 01/07/19 at 13:30 Piperacillin Sod/ Tazobactam Sod 100 ml @ 200 mls/hr Q6 IVPB Last administered on 01/07/19at 15:15; Admin Dose 200 MLS/HR; Start 01/07/19 at 15:00 BERRY AMBROSE MD Jan 07, 2019 17:03
[2019-01-07] MEDS: ONDANSETRON INJ 16 MG, DEXAMETHASONE 4 MG/ML 20 MG in DEXTROSE 5% 50 ML IV SCH (21:30)
[2019-01-07] MEDS: CISPLATIN IV SCH (22:35)
[2019-01-08] VITALS (26 sets, daily range): BP systolic 83–137; BP diastolic 35–98; PULSE 111–157; RESP 15–48
[2019-01-08] MEDS: PIPER-TAZO 3.375 GM IV (PMX) 100 ML IVPB SCH ×4 (00:28→18:30)
[2019-01-08] MEDS: SOD CHLORIDE 0.9% IV SCH ×3 (00:32→08:44)
[2019-01-08] MEDS: ETOPOSIDE IV SCH (00:32)
[2019-01-08] MEDS: IFOSFAMIDE IV SCH (03:27)
[2019-01-08] MEDS: PROCHLORPERAZINE 10 MG INJ IV PRN ×2 (03:55→21:08)
[2019-01-08] MEDS: HYDROmorphONE 0.2 MG/ML PCA IV SCH (05:32)
[2019-01-08] MEDS: IBUPROFEN 600 MG TAB PO SCH ×3 (06:05→21:13)
--- NOTE | 2019-01-08 06:23 | PN ---
Date/Time of Note Date/Time of Note DATE: 01/08/19 TIME: 06:22 Assessment/Plan Lines/Catheters IV Catheter Type (from Nrs): Central [place]opes in Place (from Nrsg): No Assessment/Plan Assessment/Plan decreased pericardial drainage. leave for now. awaiting transfer to higher level of care Exam/Review of Systems Vital Signs Vitals Vital Signs Date Temp Pulse Resp B/P (MAP) Pulse Ox O2 O2 Flow FiO2 Time Delivery Rate 01/08/19 05:12 01/08/19 130 119/69 98 Nasal 3.0 05:00 (86) Cannula 01/08/19 98.2 04:04 01/05/19 100 16:39 Intake and Output 01/07/19 01/07/19 01/08/19 1515:00 23:00 07:00 IntakeIntake Total 710 ml 163 ml 1133 ml OutputOutput Total 3380 ml 2550 ml 2870 ml BalanceBalance -2670 ml -2387 ml -1737 ml Results Result Diagram: 01/08/19 0525 01/08/19 0525 NAHOMY LAWSON MD Jan 08, 2019 06:23
[2019-01-08] MEDS: MESNA IV SCH (08:44)
[2019-01-08] MEDS: DOCUSATE SODIUM 100 MG CAP PO SCH ×2 (09:00→20:59)
[2019-01-08] MEDS: SENNA TAB PO SCH ×2 (09:00→20:59)
[2019-01-08] MEDS: LEVETIRACETAM 500 MG TAB PO SCH ×2 (09:04→20:48)
[2019-01-08] MEDS: COLCHICINE 0.6 MG CAP PO SCH (09:04)
--- NOTE | 2019-01-08 09:09 | CONS ---
Assessment/Plan Assessment/Plan Assessment/Plan (Daily) Assessment and recommendations; 1. 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 Clinically improving. 2. Persistent leukocytosis. Continue current supportive care. Patient awaiting transfer to tertiary care center. Prognosis is guarded. Consultation Date/Type/Reason Admit Date/Time Dec 30, 2018 at 03:30 Initial Consult Date Type of Consult Pulmonary/critical care Patient condition is fairly stable. Remains awake and alert. Has remained hemodynamically stable. Requesting Provider: RADHA HEBERT Date/Time of Note DATE: 01/08/19 TIME: 09:07 24 HR Interval Summary Free Text/Dictation Patient's condition is stable. Has remained hemodynamically stable. Denies any chest pain, shortness of breath at rest. General exam; young male, awake alert, currently in no distress. Exam/Review of Systems Exam Vitals Vital Signs Date Temp Pulse Resp B/P (MAP) Pulse Ox O2 O2 Flow FiO2 Time Delivery Rate 01/08/19 119 08:00 01/08/19 18 07:19 01/08/19 107/62 99 Nasal 3.0 06:00 (77) Cannula 01/08/19 98.2 04:04 01/05/19 100 16:39 Intake and Output 01/07/19 01/07/19 01/08/19 1414:59 22:59 06:59 IntakeIntake Total 680 ml 193 ml 1233 ml OutputOutput Total 2780 ml 3150 ml 4070 ml BalanceBalance -2100 ml -2957 ml -2837 ml Exam H ENT exam; supple neck, no JVD. No lymphadenopathy. Midline trachea. No thyromegaly. No neck masses. Patient has good dentition. Chest exam; diminished breath sounds bilaterally. S1-S2 audible, no murmurs. Regular rhythm. Pericardial drain in place. Abdomen exam; soft, nondistended. No organomegaly. Bowel sounds audible. Extremity exam; no peripheral edema clubbing. 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 Results Result Diagram: 01/08/19 0525 01/08/19 0525 Results 24hrs Laboratory Tests Test 01/07/19 11:30 01/08/19 05:25 Body Fluid Type PERICARDIAL Body Fluid Volume 80.0 Body Fluid Color YELLOW Body Fluid Appearance SLIGHTLY CLOUDY Body Fluid WBC 1995 Body Fluid RBC (Auto) 1999 Body Fluid Polynuclear WBCs (%) 95.0 Body Fluid Mononuclear Cells % Auto 5.0 White Blood Count 21.5 H Red Blood Count 3.97 L Hemoglobin 10.0 L Hematocrit 31.3 L Mean Corpuscular Volume 78.8 Mean Corpuscular Hemoglobin 25.2 L Mean Corpuscular Hemoglobin Concent 31.9 L Red Cell Distribution Width 14.1 Platelet Count 507 H Mean Platelet Volume 7.5 Immature Granulocytes % 1.500 H Neutrophils % 94.8 H Lymphocytes % 3.3 L Monocytes % 0.3 Eosinophils % 0.0 Basophils % 0.1 Nucleated Red Blood Cells % 0.0 Immature Granulocytes # 0.330 H Neutrophils # 20.4 H Lymphocytes # 0.7 L Monocytes # 0.1 L Eosinophils # 0.0 Basophils # 0.0 Nucleated Red Blood Cells # 0.0 Sodium Level 135 Potassium Level 4.0 Chloride Level 100 Carbon Dioxide Level 28 Anion Gap 7 Blood Urea Nitrogen 10 Creatinine 0.60 L Est Glomerular Filtrat Rate mL/min > 60 Glucose Level 127 Calcium Level 8.2 L Medications Medication Current Medications IV Flush (NS 3 ml) 3 ml PER PROTOCOL IV ; Start 12/30/18 at 04:00 Ondansetron HCl (Zofran Inj) 4 mg Q6H PRN IV NAUSEA/VOMITING Last administered on 01/07/19at 09:43; Admin Dose 4 MG; Start 12/30/18 at 04:00 Acetaminophen (Tylenol Tab) 650 mg Q6H PRN PO .PAIN 1-3 OR TEMP Last adm inistered on 01/07/19at 15:01; Admin Dose 650 MG; Start 12/30/18 at 04:00 Docusate Sodium (Colace) 100 mg Q12H PRN PO .CONSTIPATION; Start 12/30/18 at 04:00 Bisacodyl (Dulcolax) 5 mg DAILY PRN PO .CONSTIPATION Last administered on 01/05/19at 08:47; Admin Dose 5 MG; Start 12/30/18 at 04:00 Enoxaparin Sodium (Lovenox) 40 mg DAILY SC Last administered on 01/07/19at 09:25; Admin Dose 40 MG; Start 12/30/18 at 09:00 Levalbuterol (Xopenex Neb) 1.25 mg Q4H RESP THERAPY PRN HHN SHORTNESS OF BREATH Last administered on 01/02/19 11:13; Admin Dose 1.25 MG; Start 12/30/18 at 04:00 Levetiracetam (Keppra) 500 mg BID PO Last administered on 01/07/19 20:56; Admin Dose 500 MG; Start 12/30/18 at 09:00 Ipratropium [place] (Atrovent 0.02% (Neb)) 0.5 mg Q4HWA RESP THERAPY HHN Last administered on 01/05/19 16:36; Admin Dose 0.5 MG; Start 12/30/18 at 13:00 Oxycodone/ Acetaminophen (Percocet (5/ 325)) 1 tab Q4H PRN PO MODERATE PAIN LEVEL 4-6; Start 12/31/18 at 12:30; Status Hold Naloxone HCl (Narcan) 0.2 mg Q2M PRN IV RR 8 BREATHS/MIN OR LESS; Start 12/31/18 at 15:00 Promethazine HCl/ Codeine (Phenergan/ Codeine) 5 ml Q4H PRN PO COUGH; Start 01/01/19 at 12:00 Ibuprofen (Motrin) 600 mg Q8 PO Last administered on 01/08/19 06:05; Admin Dose 600 MG; Start 01/01/19 at 17:00 Colchicine (Colchicine) 0.6 mg DAILY PO Last administered on 01/05/19 08:46; Admin Dose 0.6 MG; Start 01/02/19 at 09:00 Sodium Chloride 1,000 ml @ 100 mls/hr Q10H IV Last administered on 01/03/19 04:16; Admin Dose 100 MLS/HR; Start 01/02/19 at 18:30; Status Hold Eye Lubricant (Artificial Tears Oph) 2 drop Q6H PRN BOTH EYES DRY EYES; Start 01/03/19 at 16:00 [place] 2004 mg/ Sodium Chloride 500 ml @ 20.833 mls/ hr Q24H IV Last administ ered on 01/08/19 08:44; Admin Dose 20.833 MLS/HR; Start 01/04/19 at 02:15; Stop 01/09/19 at 02:14 Prochlorperazine (Compazine Inj) 5 mg Q6H PRN IV NAUSEA Last administered on 01/08/19 03:55; Admin Dose 5 MG; Start 01/04/19 at 21:30 Docusate Sodium (Colace) 200 mg BID PO Last administered on 01/07/19 20:56; Admin Dose 200 MG; Start 01/05/19 at 21:00 Senna (Senokot) 2 tab BID PO Last administered on 01/07/19 20:56; Admin Dose 2 TAB; Start 01/05/19 at 21:00 Sodium Biphosphate/ Sodium Phosphate (Fleet Enema) 133 ml DAILY PRN [place] CONSTIPATION; Start 01/05/19 at 10:00 Hydromorphone HCl (Dilaudid TEST BAKER) See protocol, below. Q4PCA IV Last administered on 01/08/19 05:32; Admin Dose 6 MG; Start 01/07/19 at 13:30 Piperacillin Sod/ Tazobactam Sod 100 ml @ 200 mls/hr Q6 IVPB Last administered on 01/08/19 05:11; Admin Dose 200 MLS/HR; Start 01/07/19 at 15:00 MICA BLISS Jan 08, 2019 09:08
[2019-01-08] MEDS: ONDANSETRON 4 MG INJ IV PRN ×2 (09:11→13:36)
[2019-01-08] MEDS: ENOXAPARIN 40 MG/0.4 ML SYG SC SCH (09:18)
[2019-01-08] MEDS ORDERED: IPRATROPIUM (NEB) 0.5 MG/2.5 ML AMP HHN PRN (10:00)
--- NOTE | 2019-01-08 10:13 | CONS ---
Assessment/Plan Assessment/Plan Hospital Course (Demo Recall) IMPRESSION: 1. Pericardial effusion with questionable early tamponade features. Currently, the patient with stable blood pressure, but is tachycardic, but he is also in respiratory distress, undergoing a thoracentesis and having a high-grade fever at this time; therefore difficult to discern true clinical tamponade.- now post- op s/p placement of pigtail pericardial catheter 2. Tachycardia consistent with sinus tachycardia at this time, questionable due to pain, fever or actual pericardial effusion, or a combination of all these likely.-ongoing 3. History of mediastinal mass, yolk sac tumor. 4. Lower lobe pneumonia. 5. Large pleural effusion, undergoing thoracentesis at this time. 6. Leukocytosis, severe. 7. Anemia. 8. Thrombocytosis Recc:: -ICU -Continue CTX -Continue ibuprofen -will d/c colchicine -Follow pericardial draihage and BP/HR closely -Continue abx's and f/u cx data -Continue keppra -awaiting transfer for higher level of care for treatment of tumor Consultation Date/Type/Reason Admit Date/Time Dec 30, 2018 at 03:30 Initial Consult Date 01/01/19 Type of Consult Cardiology Reason for Consultation pericardial effusion/tachycardia Requesting Provider: RADHA HEBERT Date/Time of Note DATE: 01/08/19 TIME: 10:10 Exam/Review of Systems Vital Signs Vitals Vital Signs Date Temp Pulse Resp B/P (MAP) Pulse Ox O2 O2 Flow FiO2 Time Delivery Rate 01/08/19 119 08:00 01/08/19 18 07:19 01/08/19 107/62 99 Nasal 3.0 06:00 (77) Cannula 01/08/19 98.2 04:04 01/05/19 100 16:39 Intake and Output 01/07/19 01/07/19 01/08/19 1414:59 22:59 06:59 IntakeIntake Total 680 ml 193 ml 1233 ml OutputOutput Total 2780 ml 3150 ml 4070 ml BalanceBalance -2100 ml -2957 ml -2837 ml Exam Exam Review of Systems: CONSTITUTIONAL: No fevers, chills. PULMONARY: mild sob CARDIOVASCULAR: No chest pain/palpitations GASTROINTESTINAL: No nausea/vomiting. GENITOURINARY: No hematuria/dysuria. MUSCULOSKELETAL: No myagias/arthalgias. PSYCHIATRIC: The patient denies depression. NEUROLOGIC: No weakness Constitutional: alert Psych: no complaints ENMT: mucosa pink and moist Neck: supple, jvd (9 cm water) Respiratory: diminished breath sounds (at bases/B) Cardiovascular: other (tachycardic, regular rhythm) Gastrointestinal: soft, non-tender Musculoskeletal: muscle tone (normal) Extremities: edema (none) Labs Result Diagram: 01/08/1952401/08/19 05 Results 24hrs Laboratory Tests Test 01/07/19 11:30 01/08/19 05:25 Body Fluid Type PERICARDIAL Body Fluid Volume 80.0 Body Fluid Color YELLOW Body Fluid Appearance SLIGHTLY CLOUDY Body Fluid WBC 1995 Body Fluid RBC (Auto) 2000 Body Fluid Polynuclear WBCs (%) 95.0 Body Fluid Mononuclear Cells % Auto 5.0 White Blood Count 21.5 H Red Blood Count 3.97 L Hemoglobin 10.0 L Hematocrit 31.3 L Mean Corpuscular Volume 78.8 Mean Corpuscular Hemoglobin 25.2 L Mean Corpuscular Hemoglobin Concent 31.9 L Red Cell Distribution Width 14.1 Platelet Count 507 H Mean Platelet Volume 7.5 Immature Granulocytes % 1.500 H Neutrophils % 94.8 H Lymphocytes % 3.3 L Monocytes % 0.3 Eosinophils % 0.0 Basophils % 0.1 Nucleated Red Blood Cells % 0.0 Immature Granulocytes # 0.330 H Neutrophils # 20.4 H Lymphocytes # 0.7 L Monocytes # 0.1 L Eosinophils # 0.0 Basophils # 0.0 Nucleated Red Blood Cells # 0.0 Sodium Level 135 Potassium Level 4.0 Chloride Level 100 Carbon Dioxide Level 28 Anion Gap 7 Blood Urea Nitrogen 10 Creatinine 0.60 L Est Glomerular Filtrat Rate mL/min > 60 Glucose Level 127 Calcium Level 8.2 L Medications Medications Current Medications IV Flush (NS 3 ml) 3 ml PER PROTOCOL IV ; Start 12/30/18 at 04:00 Ondansetron HCl (Zofran Inj) 4 mg Q6H PRN IV NAUSEA/VOMITING Last administered on 01/08/19at 09:11; Admin Dose 4 MG; Start 12/30/18 at 04:00 Acetaminophen (Tylenol Tab) 650 mg Q6H PRN PO .PAIN 1-3 OR TEMP Last ad ministered on 01/07/19at 15:01; Admin Dose 650 MG; Start 12/30/18 at 04:00 Docusate Sodium (Colace) 100 mg Q12H PRN PO .CONSTIPATION; Start 12/30/18 at 04:00 Bisacodyl (Dulcolax) 5 mg DAILY PRN PO .CONSTIPATION Last administered on 01/05/19 08:47; Admin Dose 5 MG; Start 12/30/18 at 04:00 Enoxaparin Sodium (Lovenox) 40 mg DAILY SC Last administered on 01/08/19 09:18; Admin Dose 40 MG; Start 12/30/18 at 09:00 Levalbuterol (Xopenex Neb) 1.25 mg Q4H RESP THERAPY PRN HHN SHORTNESS OF BREATH Last administered on 01/02/19 11:13; Admin Dose 1.25 MG; Start 12/30/18 at 04:00 Levetiracetam (Keppra) 500 mg BID PO Last administered on 01/08/19 09:04; Admin Dose 500 MG; Start 12/30/18 at 09:00 Oxycodone/ Acetaminophen (Percocet (5/ 325)) 1 tab Q4H PRN PO MODERATE PAIN LEVEL 4-6; Start 12/31/18 at 12:30; Status Hold Naloxone HCl (Narcan) 0.2 mg Q2M PRN IV RR 8 BREATHS/MIN OR LESS; Start 12/31/18 at 15:00 Promethazine HCl/ Codeine (Phenergan/ Codeine) 5 ml Q4H PRN PO COUGH; Start 01/01/19 at 12:00 Ibuprofen (Motrin) 600 mg Q8 PO Last administered on 01/08/19 06:05; Admin Dose 600 MG; Start 01/01/19 at 17:00 Colchicine (Colchicine) 0.6 mg DAILY PO Last administered on 01/08/19 09:04; Admin Dose 0.6 MG; Start 01/02/19 at 09:00 Sodium Chloride 1,000 ml @ 100 mls/hr Q10H IV Last administered on 01/03/19 04:16; Admin Dose 100 MLS/HR; Start 01/02/19 at 18:30; Status Hold Eye Lubricant (Artificial Tears Oph) 2 drop Q6H PRN BOTH EYES DRY EYES; Start 01/03/19 at 16:00 [place] 2004 mg/ Sodium Chloride 500 ml @ 20.833 mls/ hr Q24H IV Last administered on 01/08/19at 08:44; Admin Dose 20.833 MLS/HR; Start 01/04/19 at 02:15; Stop 01/09/19 at 02:14 Prochlorperazine (Compazine Inj) 5 mg Q6H PRN IV NAUSEA Last administered on 01/08/19at 03:55; Admin Dose 5 MG; Start 01/04/19 at 21:30 Docusate Sodium (Colace) 200 mg BID PO Last administered on 01/07/19 20:56; Admin Dose 200 MG; Start 01/05/19 at 21:00 Senna (Senokot) 2 tab BID PO Last administered on 01/07/19 20:56; Admin Dose 2 TAB; Start 01/05/19 at 21:00 Sodium Biphosphate/ Sodium Phosphate (Fleet Enema) 133 ml DAILY PRN [place] CONSTIPATION; Start 01/05/19 at 10:00 Hydromorphone HCl (Dilaudid RN PRODUCTION) See protocol, below. Q4PCA IV Last administered on 01/08/19at 05:32; Admin Dose 6 MG; Start 01/07/19 at 13:30 Piperacillin Sod/ Tazobactam Sod 100 ml @ 200 mls/hr Q6 IVPB Last administered on 01/08/19at 05:11; Admin Dose 200 MLS/HR; Start 01/07/19 at 15:00 Ipratropium [place] (Atrovent 0.02% (Neb)) 0.5 mg Q6H RESP THERAPY PRN HHN SHORTNESS OF BREATH; Start 01/08/19 at 10:00 TOM CARLSON Jan 08, 2019 10:13
--- NOTE | 2019-01-08 12:23 | CONS ---
Assessment/Plan Assessment/Plan Hospital Course (Demo Recall) Patient is awake looks comfortable afebrile status post fever of 101 yesterday. WBC today 21.5 platelets 547 neutrophils 94.8 BUN 10 creatinine 0.60 Abx: Zosyn Microbiology: Respiratory culture grew Klebsiella oxytoca and staph aureus, oxacillin sensitive Indwelling: Right subclavian Port-A-Cath, RIJ TLC, sternal pigtail Physical examination: Well-developed wasted young man who is in no distress. Head atraumatic normocephalic sclera nonicteric. Neck is supple. Chest rise symmetrical breath sounds diminished. Heart: S1-S2, tachycardic. Abdomen soft bowel sounds present. Extremities without cyanosis edema. Assessment: 1. Sepsis with ongoing fevers 2. Healthcare associated pneumonia, likely postobstructive 3. Recently diagnosed yolk sac tumor, on chemo 4. Large pericardial effusion, status post pericardiocentesis 01/06/19 5. History of seizure 6. Ongoing tachycardia Plan: Remains unchanged, continue present care and antibiotics, follow repeat cultures yesterday, cardiothoracic surgery and oncology recommendations. Pending transfer to tertiary care facility Consultation Date/Type/Reason Admit Date/Time Dec 30, 2018 at 03:30 Initial Consult Date Type of Consult id Requesting Provider: RADHA HEBERT Date/Time of Note DATE: 01/08/19 TIME: 12:22 Exam/Review of Systems Exam Vitals Vital Signs Date Temp Pulse Resp B/P (MAP) Pulse Ox O2 O2 Flow FiO2 Time Delivery Rate 01/08/19 111 15 103/35 99 Nasal 2.0 09:00 (57) Cannula 01/08/19 98.0 08:00 01/05/19 100 16:39 Intake and Output 01/07/19 01/07/19 01/08/19 1515:00 23:00 07:00 IntakeIntake Total 710 ml 163 ml 1233 ml OutputOutput Total 3380 ml 2550 ml 4070 ml BalanceBalance -2670 ml -2387 ml -2837 ml Results Result Diagram: 01/08/19 0525 01/08/19 0525 Results 24hrs Laboratory Tests Test 01/08/19 05:25 White Blood Count 21.5 H Red Blood Count 3.97 L Hemoglobin 10.0 L Hematocrit 31.3 L Mean Corpuscular Volume 78.8 Mean Corpuscular Hemoglobin 25.2 L Mean Corpuscular Hemoglobin Concent 31.9 L Red Cell Distribution Width 14.1 Platelet Count 507 H Mean Platelet Volume 7.5 Immature Granulocytes % 1.500 H Neutrophils % 94.8 H Lymphocytes % 3.3 L Monocytes % 0.3 Eosinophils % 0.0 Basophils % 0.1 Nucleated Red Blood Cells % 0.0 Immature Granulocytes # 0.330 H Neutrophils # 20.4 H Lymphocytes # 0.7 L Monocytes # 0.1 L Eosinophils # 0.0 Basophils # 0.0 Nucleated Red Blood Cells # 0.0 Sodium Level 135 Potassium Level 4.0 Chloride Level 100 Carbon Dioxide Level 28 Anion Gap 7 Blood Urea Nitrogen 10 Creatinine 0.60 L Est Glomerular Filtrat Rate mL/min > 60 Glucose Level 127 Calcium Level 8.2 L Medications Medication Current Medications IV Flush (NS 3 ml) 3 ml PER PROTOCOL IV ; Start 12/30/18 at 04:00 Ondansetron HCl (Zofran Inj) 4 mg Q6H PRN IV NAUSEA/VOMITING Last administered on 01/08/19 09:11; Admin Dose 4 MG; Start 12/30/18 at 04:00 Acetaminophen (Tylenol Tab) 650 mg Q6H PRN PO .PAIN 1-3 OR TEMP Last administered on 01/07/19 15:01; Admin Dose 650 MG; Start 12/30/18 at 04:00 Docusate Sodium (Colace) 100 mg Q12H PRN PO .CONSTIPATION; Start 12/30/18 at 04:00 Bisacodyl (Dulcolax) 5 mg DAILY PRN PO .CONSTIPATION Last administered on 01/05/19 08:47; Admin Dose 5 MG; Start 12/30/18 at 04:00 Enoxaparin Sodium (Lovenox) 40 mg DAILY SC Last administered on 01/08/19 09:18; Admin Dose 40 MG; Start 12/30/18 at 09:00 Levalbuterol (Xopenex Neb) 1.25 mg Q4H RESP THERAPY PRN HHN SHORTNESS OF BREATH Last administered on 01/02/19 11:13; Admin Dose 1.25 MG; Start 12/30/18 at 04:00 Levetiracetam (Keppra) 500 mg BID PO Last administered on 7/10/19at 09:04; Admin Dose 500 MG; Start 12/30/18 at 09:00 Oxycodone/ Acetaminophen (Percocet (5/ 325)) 1 tab Q4H PRN PO MODERATE PAIN LEVEL 4-6; Start 12/31/18 at 12:30; Status Hold Naloxone HCl (Narcan) 0.2 mg Q2M PRN IV RR 8 BREATHS/MIN OR LESS; Start 12/31/18 at 15:00 Promethazine HCl/ Codeine (Phenergan/ Codeine) 5 ml Q4H PRN PO COUGH; Start 01/01/19 at 12:00 Ibuprofen (Motrin) 600 mg Q8 PO Last administered on 01/08/19 06:05; Admin Dose 600 MG; Start 01/01/19 at 17:00 Sodium Chloride 1,000 ml @ 100 mls/hr Q10H IV Last administered on 01/03/19 04:16; Admin Dose 100 MLS/HR; Start 01/02/19 at 18:30; Status Hold Eye Lubricant (Artificial Tears Oph) 2 drop Q6H PRN BOTH EYES DRY EYES; Start 01/03/19 at 16:00 [place] 2004 mg/ Sodium Chloride 500 ml @ 20.833 mls/ hr Q24H IV Last administered on 01/08/19 08:44; Admin Dose 20.833 MLS/HR; Start 01/04/19 at 02:15; Stop 01/09/19 at 02:14 Prochlorperazine (Compazine Inj) 5 mg Q6H PRN IV NAUSEA Last administered on 01/08/19 03:55; Admin Dose 5 MG; Start 01/04/19 at 21:30 Docusate Sodium (Colace) 200 mg BID PO Last administered on 01/07/19 20:56; Admin Dose 200 MG; Start 01/05/19 at 21:00 Senna (Senokot) 2 tab BID PO Last administered on 01/07/19 20:56; Admin Dose 2 TAB; Start 01/05/19 at 21:00 Sodium Biphosphate/ Sodium Phosphate (Fleet Enema) 133 ml DAILY PRN [place] CONSTIPATION; Start 01/05/19 at 10:00 Hydromorphone HCl (Dilaudid LEAD ETL DEVELOPER) See protocol, below. Q4PCA IV Last administered on 7/10/19at 05:32; Admin Dose 6 MG; Start 01/07/19 at 13:30 Piperacillin Sod/ Tazobactam Sod 100 ml @ 200 mls/hr Q6 IVPB Last administered on 01/08/19at 05:11; Admin Dose 200 MLS/HR; Start 01/07/19 at 15:00 Ipratropium [place] (Atrovent 0.02% (Neb)) 0.5 mg Q6H RESP THERAPY PRN HHN SHORTNESS OF BREATH; Start 01/08/19 at 10:00 COSTA ZAZUETA NP Jan 08, 2019 12:23
[2019-01-08] MEDS ORDERED: LIDOCAINE 1% (MPF) 5 ML VIAL SC ONE (13:30)
--- NOTE | 2019-01-08 13:46 | CONS ---
Assessment/Plan Assessment/Plan Hospital Course (Demo Recall) Hospital Course (Demo Recall) 18 yo with large anterior mediastinal mass 13.5 x 15.8 x 9.3 cm in size. -CT AP and US testicular showed no lesions, AFP 15594 -LDH 1334, CEA 5.2, Bhcg 2.4 biopsy of this mass c/w yolk sac tumor #yolk sac tumor there is no standardized staging for yolk sac tumor unfortunately these are more aggressive types of non seminomatous germ cell tumors -MRI brain: No significant interval change compared to 10/24/2018. Stable appearance of 2.4 x 1.1 cm of cortical/cystic lesion in the right temporal lobe with underlying vasogenic edema, again most suggestive of DNET -started VIP on 01/04/19: today is day 5 out of 5 -CARRIES RISK OF STERILITY SO HE WILL NEED SPERM BANKING, was unable to do prior to chemo as he was hemodynamically unstable and we needed to start chemo LOBITO. this regimen does carry a risk of sterility but given patient's tenuous status, pt understands this and has consented to chemo as above today is day 5 of chemo chemo: Cisplatin 20 mg/m2 IV per day Days 1 to 5 Etoposide* 75 mg/m2 IV per day Days 1 to 5 Ifosfamide* 1200 mg/m2 per day IV infusion Days 1 to 5 [place] 120 mg/m2 IV Day 1 [place] 1200 mg/m2 per day continuous IV infusion, Days 1 to 5 GCSF 300mcg daily starting day 6-12 discussed with pt after 2 cycles chemo, restage. 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 and need to be resected I SPOKE TO DR RANDALL THE ONCOLOGIST AT [facility] AND PT HAS BEEN ACCEPTED FOR TRANSFER, BED SHOULD BE AVAILABLE TOMORROW #leukocytosis and thrombocytosis AND FEVERS -has hospital acquired PNA, sputum cultures showing suspect this is most likely reactive due to underlying malignancy vs pneumonia EMPIRIC ABX PER PRIMARY TEAM #pericardial effusion/possible early tamponnade s/p placement of pigtail pericardial catheter cardiology following Consultation Date/Type/Reason Admit Date/Time Dec 30, 2018 at 03:30 Initial Consult Date Requesting Provider: RADHA HEBERT Date/Time of Note DATE: 01/08/19 TIME: 13:44 24 HR Interval Summary Free Text/Dictation patient getting PICC line Exam/Review of Systems Exam Vitals Vital Signs Date Temp Pulse Resp B/P (MAP) Pulse Ox O2 O2 Flow FiO2 Time Delivery Rate 01/08/19 137 12:00 01/08/19 15 103/35 99 Nasal 2.0 09:00 (57) Cannula 01/08/19 98.0 08:00 01/05/19 100 16:39 Intake and Output 01/07/19 01/07/19 01/08/19 1515:00 23:00 07:00 IntakeIntake Total 710 ml 163 ml 1233 ml OutputOutput Total 3380 ml 2550 ml 4070 ml BalanceBalance -2670 ml -2387 ml -2837 ml Results Result Diagram: 01/08/19 0525 01/08/19 0525 Results 24hrs Laboratory Tests Test 01/08/19 05:25 White Blood Count 21.5 H Red Blood Count 3.97 L Hemoglobin 10.0 L Hematocrit 31.3 L Mean Corpuscular Volume 78.8 Mean Corpuscular Hemoglobin 25.2 L Mean Corpuscular Hemoglobin Concent 31.9 L Red Cell Distribution Width 14.1 Platelet Count 507 H Mean Platelet Volume 7.5 Immature Granulocytes % 1.500 H Neutrophils % 94.8 H Lymphocytes % 3.3 L Monocytes % 0.3 Eosinophils % 0.0 Basophils % 0.1 Nucleated Red Blood Cells % 0.0 Immature Granulocytes # 0.330 H Neutrophils # 20.4 H Lymphocytes # 0.7 L Monocytes # 0.1 L Eosinophils # 0.0 Basophils # 0.0 Nucleated Red Blood Cells # 0.0 Sodium Level 135 Potassium Level 4.0 Chloride Level 100 Carbon Dioxide Level 28 Anion Gap 7 Blood Urea Nitrogen 10 Creatinine 0.60 L Est Glomerular Filtrat Rate mL/min > 60 Glucose Level 127 Calcium Level 8.2 L Medications Medication Current Medications IV Flush (NS 3 ml) 3 ml PER PROTOCOL IV ; Start 12/30/18 at 04:00 Ondansetron HCl (Zofran Inj) 4 mg Q6H PRN IV NAUSEA/VOMITING Last administered on 01/08/19at 09:11; Admin Dose 4 MG; Start 12/30/18 at 04:00 Acetaminophen (Tylenol Tab) 650 mg Q6H PRN PO .PAIN 1-3 OR TEMP Last administered on 01/07/19 15:01; Admin Dose 650 MG; Start 12/30/18 at 04:00 Docusate Sodium (Colace) 100 mg Q12H PRN PO .CONSTIPATION; Start 12/30/18 at 04:00 Bisacodyl (Dulcolax) 5 mg DAILY PRN PO .CONSTIPATION Last administered on 01/05/19 08:47; Admin Dose 5 MG; Start 12/30/18 at 04:00 Enoxaparin Sodium (Lovenox) 40 mg DAILY SC Last administered on 01/08/19 09:18; Admin Dose 40 MG; Start 12/30/18 at 09:00 Levalbuterol (Xopenex Neb) 1.25 mg Q4H RESP THERAPY PRN HHN SHORTNESS OF BREATH Last administered on 01/02/19at 11:13; Admin Dose 1.25 MG; Start 12/30/18 at 04:00 Levetiracetam (Keppra) 500 mg BID PO Last administered on 01/08/19at 09:04; Adm in Dose 500 MG; Start 12/30/18 at 09:00 Oxycodone/ Acetaminophen (Percocet (5/ 325)) 1 tab Q4H PRN PO MODERATE PAIN LEVEL 4-6; Start 12/31/18 at 12:30; Status Hold Naloxone HCl (Narcan) 0.2 mg Q2M PRN IV RR 8 BREATHS/MIN OR LESS; Start 12/31/18 at 15:00 Promethazine HCl/ Codeine (Phenergan/ Codeine) 5 ml Q4H PRN PO COUGH; Start 01/01/19 at 12:00 Ibuprofen (Motrin) 600 mg Q8 PO Last administered on 01/08/19 06:05; Admin Dose 600 MG; Start 01/01/19 at 17:00 Sodium Chloride 1,000 ml @ 100 mls/hr Q10H IV Last administered on 01/03/19at 04:16; Admin Dose 100 MLS/HR; Start 01/02/19 at 18:30; Status Hold Eye Lubricant (Artificial Tears Oph) 2 drop Q6H PRN BOTH EYES DRY EYES; Start 01/03/19 at 16:00 [place] 2004 mg/ Sodium Chloride 500 ml @ 20.833 mls/ hr Q24H IV Last administered on 01/08/19 08:44; Admin Dose 20.833 MLS/HR; Start 01/04/19 at 02:15; Stop 01/09/19 at 02:14 Prochlorperazine (Compazine Inj) 5 mg Q6H PRN IV NAUSEA Last administered on 01/08/19 03:55; Admin Dose 5 MG; Start 01/04/19 at 21:30 Docusate Sodium (Colace) 200 mg BID PO Last administered on 01/07/19 20:56; Admin Dose 200 MG; Start 01/05/19 at 21:00 Senna (Senokot) 2 tab BID PO Last administered on 01/07/19 20:56; Admin Dose 2 TAB; Start 01/05/19 at 21:00 Sodium Biphosphate/ Sodium Phosphate (Fleet Enema) 133 ml DAILY PRN [place] CONSTIPATION; Start 01/05/19 at 10:00 Hydromorphone HCl (Dilaudid COAL MINE INSPECTOR) See protocol, below. Q4PCA IV Last administered on 01/08/19 05:32; Admin Dose 6 MG; Start 01/07/19 at 13:30 Piperacillin Sod/ Tazobactam Sod 100 ml @ 200 mls/hr Q6 IVPB Last administered on 01/08/19 05:11; Admin Dose 200 MLS/HR; Start 01/07/19 at 15:00 Ipratropium [place] (Atrovent 0.02% (Neb)) 0.5 mg Q6H RESP THERAPY PRN HHN SHORTNESS OF BREATH; Start 01/08/19 at 10:00 JESÚS SPICER Jan 08, 2019 13:46
[2019-01-08] MEDS ORDERED: DIGOXIN 500 MCG INJ IV ONE (14:30)
--- NOTE | 2019-01-08 14:57 | DS ---
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 In ED was started on antibiotics for pneumonia. Yolk sac tumor: - Started on chemotherapy via port as an inpatinet givne concern for airway compromise from the tumor. - Management per Dionisio Smith/Fei Percaridal effusion with early tamponade features; - s/p pericardiocentesis here with drainage of pericardial fluid - Will require srugical debulking of tumor. 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 malingancy. SIRS: - Continue empiric abx per ID. Not clear to me if infection present. I suspet these are noninfectious fevers. They do not respond to NSAID Being transferred to [facility] for continued skilled nursing Meds Reported Medications Levetiracetam* (Keppra*) 500 Mg Tablet, 500 MG PO BID, TAB 12/18/18 Primary Care Provider Viral Ramirez MD Pending Labs Laboratory Tests Test 01/08/19 05:25 White Blood Count 21.5 10^3/ul (4.8-10.8) Red Blood Count 3.97 10^6/ul (4.70-6.10) Hemoglobin 10.0 g/dl (14.0-18.0) Hematocrit 31.3 % (42.0-52.0) Mean Corpuscular Volume 78.8 fl (72.0-104.0) Mean Corpuscular Hemoglobin 25.2 pg (29.0-33.0) Mean Corpuscular Hemoglobin Concent 31.9 g/dl (32.0-37.0) Red Cell Distribution Width 14.1 % (11.5-14.5) Platelet Count 507 10^3/UL (140-415) Mean Platelet Volume 7.5 fl (7.4-10.4) Immature Granulocytes % 1.500 % (0.001-0.429) Neutrophils % 94.8 % (30.0-74.0) Lymphocytes % 3.3 % (18.0-55.0) Monocytes % 0.3 % (0.0-13.0) Eosinophils % 0.0 % (0.0-7.0) Basophils % 0.1 % (0.0-2.0) Nucleated Red Blood Cells % 0.0 /100WBC (0.0-0.0) Immature Granulocytes # 0.330 10^3/ul (0.0-0.031) Neutrophils # 20.4 10^3/ul (1.6-7.5) Lymphocytes # 0.7 10^3/ul (0.8-2.9) Monocytes # 0.1 10^3/ul (0.3-0.9) Eosinophils # 0.0 10^3/ul (0.0-0.5) Basophils # 0.0 10^3/ul (0.0-0.1) Nucleated Red Blood Cells # 0.0 10^3/ul (0.0-0.0) Sodium Level 135 mmol/L (135-144) Potassium Level 4.0 mmol/L (3.5-5.1) Chloride Level 100 mmol/L (97-110) Carbon Dioxide Level 28 mmol/L (21-31) Anion Gap 7 (5-13) Blood Urea Nitrogen 10 mg/dl (7-20) Creatinine 0.60 mg/dl (0.61-1.24) Est Glomerular Filtrat Rate mL/min > 60 mL/min (>60) Glucose Level 127 mg/dl (70-220) Calcium Level 8.2 mg/dl (8.4-10.2) BERRY AMBROSE MD Jan 08, 2019 14:57
[2019-01-08] MEDS ORDERED: SOD CHLORIDE 0.9% 500 ML IV ONE (16:00)
--- NOTE | 2019-01-08 16:15 | RADRPT ---
Echocardiogram Report Patient Name: Carlene WATSON ID: [id number] : 2000 (18y 7m)Study Date: 01/06/2019 1:33:08 PM Gender: MAccession #: [id number] Tech: Minoo Red RDCS Location: 115 Ref.Physician: NAHOMY LAWSON Height(Cm): BSA: Weight(Kg): Quality: AdequateOrder Physician: NAHOMY LAWSON Account #: Procedures: Echocardiographic Report: Transthoracic echocardiogram with complete 2D, M-Mode, and doppler examination. Indications: Pericardial Effusion. Findings: Left Ventricle: Normal left ventricular systolic function. Normal left ventricular cavity size. Left ventricular wall thickness upper limits of normal. Ejection fraction is visually estimated at 55 %. Right Ventricle: Normal right ventricular systolic function. Mild enlargement of right ventricle. Left Atrium: The left atrium is normal in size. Right Atrium: There is mild enlargement of right atrium. Mitral Valve: Normal appearance and function of the mitral valve with trace physiologic regurgitation. Aortic Valve: Aortic cusps appear mildly calcified. Tricuspid Valve: Normal appearance and function of the tricuspid valve with trace physiologic regurgitation. Pericardium: Trivial pericardial effusion. Pleural effusion seen. IVC: Normal size and normal respiratory collapse consistent with normal right atrial pressure. Conclusions: Normal left ventricular systolic function. Normal left ventricular cavity size. Left ventricular wall thickness upper limits of normal. Ejection fraction is visually estimated at 55 %. Normal appearance and function of the mitral valve with trace physiologic regurgitation. Normal appearance and function of the tricuspid valve with trace physiologic regurgitation. Trivial pericardial effusion. Pleural effusion seen. Electronically Signed By: Sheldon Barrera 2019-01-08 16:14:05 PDT
[2019-01-09] VITALS (23 sets, daily range): BP systolic 90–132; BP diastolic 58–104; PULSE 113–157; RESP 7–30
[2019-01-09] MEDS: PIPER-TAZO 3.375 GM IV (PMX) 100 ML IVPB SCH ×4 (00:27→19:03)
[2019-01-09] MEDS: ACETAMINOPHEN 325 MG TAB PO PRN (04:51)
[2019-01-09] MEDS: IBUPROFEN 600 MG TAB PO SCH ×3 (06:05→21:25)
[2019-01-09] MEDS: LEVETIRACETAM 500 MG TAB PO SCH ×2 (08:39→21:25)
[2019-01-09] MEDS: ONDANSETRON 4 MG INJ IV PRN ×3 (08:39→21:31)
[2019-01-09] MEDS: ENOXAPARIN 40 MG/0.4 ML SYG SC SCH (08:42)
[2019-01-09] MEDS: SENNA TAB PO SCH ×2 (08:43→21:25)
[2019-01-09] MEDS: DOCUSATE SODIUM 100 MG CAP PO SCH ×2 (08:43→21:24)
--- NOTE | 2019-01-09 09:17 | CONS ---
Assessment/Plan Assessment/Plan Assessment/Plan (Daily) Assessment and recommendations; 1. 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 Status post pericardiocentesis. 2. Persistent leukocytosis. Patient currently on empiric Zosyn. 3. History of stable seizure disorder. Continue current supportive care. Patient awaiting transfer to tertiary care center. Consultation Date/Type/Reason Admit Date/Time Dec 30, 2018 at 03:30 Initial Consult Date Type of Consult Pulmonary/critical care Patient condition is fairly stable. Remains awake and alert. Has remained hemodynamically stable. Requesting Provider: RADHA HEBERT Date/Time of Note DATE: 01/09/19 TIME: 09:15 24 HR Interval Summary Free Text/Dictation Patient's condition is stable. Denies any shortness of breath at rest. General exam; young male, awake alert, currently in no distress. Exam/Review of Systems Exam Vitals Vital Signs Date Temp Pulse Resp B/P (MAP) Pulse Ox O2 O2 Flow FiO2 Time Delivery Rate 01/09/19 117 08:00 01/09/19 99.4 06:50 01/09/19 29 113/74 97 Nasal 2.0 06:00 (87) Cannula 01/05/19 100 16:39 Intake and Output 01/08/19 01/08/19 01/09/19 1515:00 23:00 07:00 IntakeIntake Total 374.8 ml 766.4 ml 555.6 ml OutputOutput Total 1705 ml 1550 ml 703 ml BalanceBalance -1330.2 ml -783.6 ml -147.4 ml Exam HEENT exam; supple neck, no JVD. No lymphadenopathy. Midline trachea. No thyromegaly. Patient has fair dentition. No neck masses. Chest exam; diminished but clear breath sounds. S1-S2 audible, no murmurs. Regular rhythm. MediPort in right chest wall. Abdomen exam; soft, nontender. No organomegaly. Bowel sounds are audible. Extremity exam; no peripheral edema. LEAD RETAIL SALES ASSOCIATE exam; no focal deficit. Results Result Diagram: 01/09/19 0435 01/09/19 0435 Results 24hrs Laboratory Tests Test 01/09/19 04:35 White Blood Count 21.8 H Red Blood Count 4.13 L Hemoglobin 10.1 L Hematocrit 31.9 L Mean Corpuscular Volume 77.2 Mean Corpuscular Hemoglobin 24.5 L Mean Corpuscular Hemoglobin Concent 31.7 L Red Cell Distribution Width 14.2 Platelet Count 490 H Mean Platelet Volume 7.8 Immature Granulocytes % 3.000 H Neutrophils % 91.6 H Lymphocytes % 4.9 L Monocytes % 0.3 Eosinophils % 0.0 Basophils % 0.2 Nucleated Red Blood Cells % 0.0 Immature Granulocytes # 0.650 H Neutrophils # 20.0 H Lymphocytes # 1.1 Monocytes # 0.1 L Eosinophils # 0.0 Basophils # 0.1 Nucleated Red Blood Cells # 0.0 Sodium Level 133 L Potassium Level 3.5 Chloride Level 99 Carbon Dioxide Level 24 Anion Gap 10 Blood Urea Nitrogen 11 Creatinine 0.65 Est Glomerular Filtrat Rate mL/min > 60 Glucose Level 122 Calcium Level 8.1 L Medications Medication Current Medications IV Flush (NS 3 ml) 3 ml PER PROTOCOL IV ; Start 12/30/18 at 04:00 Ondansetron HCl (Zofran Inj) 4 mg Q6H PRN IV NAUSEA/VOMITING Last administered on 01/09/19at 08:39; Admin Dose 4 MG; Start 12/30/18 at 04:00 Acetaminophen (Tylenol Tab) 650 mg Q6H PRN PO .PAIN 1-3 OR TEMP Last administered on 01/09/19at 04:51; Admin Dose 650 MG; Start 12/30/18 at 04:00 Docusate Sodium (Colace) 100 mg Q12H PRN PO .CONSTIPATION; Start 12/30/18 at 04:00 Bisacodyl (Dulcolax) 5 mg DAILY PRN PO .CONSTIPATION Last administered on 9at 08:47; Admin Dose 5 MG; Start 12/30/18 at 04:00 Enoxaparin Sodium (Lovenox) 40 mg DAILY SC Last administered on 01/09/19 08:42; Admin Dose 40 MG; Start 12/30/18 at 09:00 Levalbuterol (Xopenex Neb) 1.25 mg Q4H RESP THERAPY PRN HHN SHORTNESS OF BREATH Last administered on 01/02/19 11:13; Admin Dose 1.25 MG; Start 12/30/18 at 04:00 Levetiracetam (Keppra) 500 mg BID PO Last administered on 01/09/19 08:39; Admin Dose 500 MG; Start 12/30/18 at 09:00 Oxycodone/ Acetaminophen (Percocet (5/ 325)) 1 tab Q4H PRN PO MODERATE PAIN LEVEL 4-6; Start 12/31/18 at 12:30; Status Hold Naloxone HCl (Narcan) 0.2 mg Q2M PRN IV RR 8 BREATHS/MIN OR LESS; Start 12/31/18 at 15:00 Promethazine HCl/ Codeine (Phenergan/ Codeine) 5 ml Q4H PRN PO COUGH; Start 01/01/19 at 12:00 Ibuprofen (Motrin) 600 mg Q8 PO Last administered on 01/09/19 06:05; Admin Dose 600 MG; Start 01/01/19 at 17:00 Sodium Chloride 1,000 ml @ 100 mls/hr Q10H IV Last administered on 01/03/19 04:16; Admin Dose 100 MLS/HR; Start 01/02/19 at 18:30; Status Hold Eye Lubricant (Artificial Tears Oph) 2 drop Q6H PRN BOTH EYES DRY EYES; Start 01/03/19 at 16:00 Prochlorperazine (Compazine Inj) 5 mg Q6H PRN IV NAUSEA Last administered on 01/08/19 21:08; Admin Dose 5 MG; Start 01/04/19 at 21:30 Docusate Sodium (Colace) 200 mg BID PO Last administered on 01/07/19 20:56; Admin Dose 200 MG; Start 01/05/19 at 21:00 Senna (Senokot) 2 tab BID PO Last administered on 01/07/19 20:56; Admin Dose 2 TAB; Start 01/05/19 at 21:00 Sodium Biphosphate/ Sodium Phosphate (Fleet Enema) 133 ml DAILY PRN [place] CONSTIPATION; Start 01/05/19 at 10:00 Hydromorphone HCl (Dilaudid VERTICAL LATHE OPERATOR) See protocol, below. Q4PCA IV Last administered on 01/08/19 05:32; Admin Dose 6 MG; Start 01/07/19 at 13:30 Piperacillin Sod/ Tazobactam Sod 100 ml @ 200 mls/hr Q6 IVPB Last administered on 01/09/19 06:05; Admin Dose 200 MLS/HR; Start 01/07/19 at 15:00 Ipratropium [place] (Atrovent 0.02% (Neb)) 0.5 mg Q6H RESP THERAPY PRN HHN SHORTNESS OF BREATH; Start 01/08/19 at 10:00 IV Flush (NS 10 ml) 10 ml PRN PRN IV Maintain Line Patency; Start 01/08/19 at 18:30 MICA BLISS Jan 09, 2019 09:17
--- NOTE | 2019-01-09 11:42 | CONS ---
Assessment/Plan Assessment/Plan Hospital Course (Demo Recall) 18 yo with large anterior mediastinal mass 13.5 x 15.8 x 9.3 cm in size. 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 Stable appearance of 2.4 x 1.1 cm of cortical/cystic lesion in the right temporal lobe with underlying vasogenic edema, again most suggestive of DNET -started VIP on 01/04/19: today is day 5 out of 5 -CARRIES RISK OF STERILITY SO HE WILL NEED SPERM BANKING, was unable to do prior to chemo as he was hemodynamically unstable and we needed to start chemo LOBITO. this regimen does carry a risk of sterility but given patient's tenuous status, pt understands this and has consented to chemo completed chemo on 01/08/19: chemo: Cisplatin 20 mg/m2 IV per day Days 1 to 5 Etoposide* 75 mg/m2 IV per day Days 1 to 5 Ifosfamide* 1200 mg/m2 per day IV infusion Days 1 to 5 [place] 120 mg/m2 IV Day 1 [place] 1200 mg/m2 per day continuous IV infusion, Days 1 to 5 GCSF 300mcg daily starting day 6-12 ( being held at this point as pt has leukocytosis, will start if ANC <1500) discussed with pt after 2 cycles chemo, restage. 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 AND PT HAS BEEN ACCEPTED FOR TRANSFER #leukocytosis and thrombocytosis -has hospital acquired PNA, sputum cultures showing: --Respiratory culture grew Klebsiella oxytoca and staph aureus, oxacillin sensitive On Zosyn - I suspect the leukocytosis and thrombocytosis could in part be tumor related #pericardial effusion/possible early tamponnade s/p placement of pigtail pericardial catheter cardiology following #h/o seizure [facility], we do not have the records but pt had brought in MRI brain from September 2018 and it was given to our radiology dept for comparison to MRI done during this admission Consultation Date/Type/Reason Admit Date/Time Dec 30, 2018 at 03:30 Initial Consult Date Requesting Provider: RADHA HEBERT Date/Time of Note DATE: 01/09/19 TIME: 11:38 24 HR Interval Summary Subjective hx not possible: pt critical status Constitutional: improved Exam/Review of Systems Exam Vitals Vital Signs Date Temp Pulse Resp B/P (MAP) Pulse Ox O2 O2 Flow FiO2 Time Delivery Rate 01/09/19 113 15 103/64 98 Nasal 2.0 10:00 (77) Cannula 01/09/19 97.8 08:00 01/05/19 100 16:39 Intake and Output 01/08/19 01/08/19 01/09/19 1414:59 22:59 06:59 IntakeIntake Total 354.0 ml 766.4 ml 576.4 ml OutputOutput Total 1705 ml 1550 ml 703 ml BalanceBalance -1351.0 ml -783.6 ml -126.6 ml Constitutional: frail Psych: anxiety Head: normocephalic, atraumatic Eyes: nl sclera Neck: supple, non-tender Respiratory: diminished breath sounds Gastrointestinal: soft, nl liver, spleen, non-tender Results Result Diagram: 01/09/19 0435 01/09/19 0435 Results 24hrs Laboratory Tests Test 01/09/19 04:35 White Blood Count 21.8 H Red Blood Count 4.13 L Hemoglobin 10.1 L Hematocrit 31.9 L Mean Corpuscular Volume 77.2 Mean Corpuscular Hemoglobin 24.5 L Mean Corpuscular Hemoglobin Concent 31.7 L Red Cell Distribution Width 14.2 Platelet Count 490 H Mean Platelet Volume 7.8 Immature Granulocytes % 3.000 H Neutrophils % 91.6 H Lymphocytes % 4.9 L Monocytes % 0.3 Eosinophils % 0.0 Basophils % 0.2 Nucleated Red Blood Cells % 0.0 Immature Granulocytes # 0.650 H Neutrophils # 20.0 H Lymphocytes # 1.1 Monocytes # 0.1 L Eosinophils # 0.0 Basophils # 0.1 Nucleated Red Blood Cells # 0.0 Sodium Level 133 L Potassium Level 3.5 Chloride Level 99 Carbon Dioxide Level 24 Anion Gap 10 Blood Urea Nitrogen 11 Creatinine 0.65 Est Glomerular Filtrat Rate mL/min > 60 Glucose Level 122 Calcium Level 8.1 L Medications Medication Current Medications IV Flush (NS 3 ml) 3 ml PER PROTOCOL IV ; Start 12/30/18 at 04:00 Ondansetron HCl (Zofran Inj) 4 mg Q6H PRN IV NAUSEA/VOMITING Last administered on 01/09/19at 08:39; Admin Dose 4 MG; Start 12/30/18 at 04:00 Acetaminophen (Tylenol Tab) 650 mg Q6H PRN PO .PAIN 1-3 OR TEMP Last administered on 01/09/19at 04:51; Admin Dose 650 MG; Start 12/30/18 at 04:00 Docusate Sodium (Colace) 100 mg Q12H PRN PO .CONSTIPATION; Start 12/30/18 at 04:00 Bisacodyl (Dulcolax) 5 mg DAILY PRN PO .CONSTIPATION Last administered on 01/05/19at 08:47; Admin Dose 5 MG; Start 12/30/18 at 04:00 Enoxaparin Sodium (Lovenox) 40 mg DAILY SC Last administered on 01/09/19at 08:42; Admin Dose 40 MG; Start 12/30/18 at 09:00 Levalbuterol (Xopenex Neb) 1.25 mg Q4H RESP THERAPY PRN HHN SHORTNESS OF BREATH Last administered on 01/02/19at 11:13; Admin Dose 1.25 MG; Start 12/30/18 at 04:00 Levetiracetam (Keppra) 500 mg BID PO Last administered on 01/09/19at 08:39; Admin Dose 500 MG; Start 12/30/18 at 09:00 Oxycodone/ Acetaminophen (Percocet (5/ 325)) 1 tab Q4H PRN PO MODERATE PAIN LEVEL 4-6; Start 12/31/18 at 12:30; Status Hold Naloxone HCl (Narcan) 0.2 mg Q2M PRN IV RR 8 BREATHS/MIN OR LESS; Start 12/31/18 at 15:00 Promethazine HCl/ Codeine (Phenergan/ Codeine) 5 ml Q4H PRN PO COUGH; Start 01/01/19 at 12:00 Ibuprofen (Motrin) 600 mg Q8 PO Last administered on 01/09/19 06:05; Admin Dose 600 MG; Start 01/01/19 at 17:00 Sodium Chloride 1,000 ml @ 100 mls/hr Q10H IV Last administered on 01/03/19 04:16; Admin Dose 100 MLS/HR; Start 01/02/19 at 18:30; Status Hold Eye Lubricant (Artificial Tears Oph) 2 drop Q6H PRN BOTH EYES DRY EYES; Start 01/03/19 at 16:00 Prochlorperazine (Compazine Inj) 5 mg Q6H PRN IV NAUSEA Last administered on 01/08/19 21:08; Admin Dose 5 MG; Start 01/04/19 at 21:30 Docusate Sodium (Colace) 200 mg BID PO Last administered on 01/07/19 20:56; Admin Dose 200 MG; Start 01/05/19 at 21:00 Senna (Senokot) 2 tab BID PO Last administered on 01/07/19 20:56; Admin Dose 2 TAB; Start 01/05/19 at 21:00 Sodium Biphosphate/ Sodium Phosphate (Fleet Enema) 133 ml DAILY PRN [place] CONSTIPATION; Start 01/05/19 at 10:00 Hydromorphone HCl (Dilaudid PROGRAM HOST) See protocol, below. Q4PCA IV Last administered on 01/08/19 05:32; Admin Dose 6 MG; Start 01/07/19 at 13:30 Piperacillin Sod/ Tazobactam Sod 100 ml @ 200 mls/hr Q6 IVPB Last administered on 01/09/19 06:05; Admin Dose 200 MLS/HR; Start 01/07/19 at 15:00 Ipratropium [place] (Atrovent 0.02% (Neb)) 0.5 mg Q6H RESP THERAPY PRN HHN SHORTNESS OF BREATH; Start 01/08/19 at 10:00 IV Flush (NS 10 ml) 10 ml PRN PRN IV Maintain Line Patency; Start 01/08/19 at 18:30 JESÚS SPICER Jan 09, 2019 11:42
--- NOTE | 2019-01-09 12:03 | CONS ---
Assessment/Plan Assessment/Plan Hospital Course (Demo Recall) IMPRESSION: 1. Pericardial effusion with questionable early tamponade features. Currently, the patient with stable blood pressure, but is tachycardic, but he is also in respiratory distress, undergoing a thoracentesis and having a high-grade fever at this time; therefore difficult to discern true clinical tamponade.- now post- op s/p placement of pigtail pericardial catheter with f/u echo intially revealing no ongoing significant effusion but still have small amount of drainage 2. Tachycardia consistent with sinus tachycardia at this time, questionable due to pain, fever or actual pericardial effusion, or a combination of all these likely.-ongoing 3. History of mediastinal mass, yolk sac tumor. 4. Lower lobe pneumonia. 5. Large pleural effusion, undergoing thoracentesis at this time. 6. Leukocytosis, severe. 7. Anemia. 8. Thrombocytosis Recc:: -ICU -Continue CTX -Continue ibuprofen -Follow pericardial drainage and BP/HR closely -Continue abx's and f/u cx data -Continue keppra -awaiting transfer for higher level of care for treatment of tumor -will f/u repeat echo done yesterday evening to reasess for development of recurrence of effusion Consultation Date/Type/Reason Admit Date/Time Dec 30, 2018 at 03:30 Initial Consult Date 01/01/19 Type of Consult Cardiology Reason for Consultation pericardial effusion Requesting Provider: RADHA HEBERT Date/Time of Note DATE: 01/09/19 TIME: 11:57 Exam/Review of Systems Vital Signs Vitals Vital Signs Date Temp Pulse Resp B/P (MAP) Pulse Ox O2 O2 Flow FiO2 Time Delivery Rate 01/09/19 113 15 103/64 98 Nasal 2.0 10:00 (77) Cannula 01/09/19 97.8 08:00 01/05/19 100 16:39 Intake and Output 01/08/19 01/08/19 01/09/19 1515:00 23:00 07:00 IntakeIntake Total 374.8 ml 766.4 ml 555.6 ml OutputOutput Total 1705 ml 1550 ml 763 ml BalanceBalance -1330.2 ml -783.6 ml -207.4 ml Exam Exam Review of Systems: CONSTITUTIONAL: No fevers, chills. PULMONARY: No sob CARDIOVASCULAR:Tachycardia GASTROINTESTINAL: No nausea/vomiting. GENITOURINARY: No hematuria/dysuria. MUSCULOSKELETAL: No myagias/arthalgias. PSYCHIATRIC: The patient denies depression. NEUROLOGIC: No weakness Constitutional: alert Psych: no complaints Head: normocephalic ENMT: mucosa pink and moist Neck: supple, jvd (9 cm wster) Respiratory: diminished breath sounds (at bases/B) Cardiovascular: regular rate and rhythm, other (tachycardic, regular rhythm) Gastrointestinal: soft, non-tender Musculoskeletal: muscle tone Extremities: edema (none) Neurological: other (No focal deficits) Labs Result Diagram: 01/09/1943401/09/19434 Results 24hrs Laboratory Tests Test 01/09/19 04:35 White Blood Count 21.8 H Red Blood Count 4.13 L Hemoglobin 10.1 L Hematocrit 31.9 L Mean Corpuscular Volume 77.2 Mean Corpuscular Hemoglobin 24.5 L Mean Corpuscular Hemoglobin Concent 31.7 L Red Cell Distribution Width 14.2 Platelet Count 490 H Mean Platelet Volume 7.8 Immature Granulocytes % 3.000 H Neutrophils % 91.6 H Lymphocytes % 4.9 L Monocytes % 0.3 Eosinophils % 0.0 Basophils % 0.2 Nucleated Red Blood Cells % 0.0 Immature Granulocytes # 0.650 H Neutrophils # 20.0 H Lymphocytes # 1.1 Monocytes # 0.1 L Eosinophils # 0.0 Basophils # 0.1 Nucleated Red Blood Cells # 0.0 Sodium Level 133 L Potassium Level 3.5 Chloride Level 99 Carbon Dioxide Level 24 Anion Gap 10 Blood Urea Nitrogen 11 Creatinine 0.65 Est Glomerular Filtrat Rate mL/min > 60 Glucose Level 122 Calcium Level 8.1 L Medications Medications Current Medications IV Flush (NS 3 ml) 3 ml PER PROTOCOL IV ; Start 12/30/18 at 04:00 Ondansetron HCl (Zofran Inj) 4 mg Q6H PRN IV NAUSEA/VOMITING Last administered on 01/09/19at 08:39; Admin Dose 4 MG; Start 12/30/18 at 04:00 Acetaminophen (Tylenol Tab) 650 mg Q6H PRN PO .PAIN 1-3 OR TEMP Last administered on 01/09/19at 04:51; Admin Dose 650 MG; Start 12/30/18 at 04:00 Docusate Sodium (Colace) 100 mg Q12H PRN PO .CONSTIPATION; Start 12/30/18 at 04:00 Bisacodyl (Dulcolax) 5 mg DAILY PRN PO .CONSTIPATION Last administered on 01/05/19 08:47; Admin Dose 5 MG; Start 12/30/18 at 04:00 Enoxaparin Sodium (Lovenox) 40 mg DAILY SC Last administered on 01/09/19 08:42; Admin Dose 40 MG; Start 12/30/18 at 09:00 Levalbuterol (Xopenex Neb) 1.25 mg Q4H RESP THERAPY PRN HHN SHORTNESS OF BREATH Last administered on 01/02/19 11:13; Admin Dose 1.25 MG; Start 12/30/18 at 04:00 Levetiracetam (Keppra) 500 mg BID PO Last administered on 01/09/19 08:39; Admin Dose 500 MG; Start 12/30/18 at 09:00 Oxycodone/ Acetaminophen (Percocet (5/ 325)) 1 tab Q4H PRN PO MODERATE PAIN LEVEL 4-6; Start 12/31/18 at 12:30; Status Hold Naloxone HCl (Narcan) 0.2 mg Q2M PRN IV RR 8 BREATHS/MIN OR LESS; Start 12/31/18 at 15:00 Promethazine HCl/ Codeine (Phenergan/ Codeine) 5 ml Q4H PRN PO COUGH; Start 01/01/19 at 12:00 Ibuprofen (Motrin) 600 mg Q8 PO Last administered on 01/09/19at 06:05; Admin Dose 600 MG; Start 01/01/19 at 17:00 Sodium Chloride 1,000 ml @ 100 mls/hr Q10H IV Last administered on 01/03/19 04:16; Admin Dose 100 MLS/HR; Start 01/02/19 at 18:30; Status Hold Eye Lubricant (Artificial Tears Oph) 2 drop Q6H PRN BOTH EYES DRY EYES; Start 01/03/19 at 16:00 Prochlorperazine (Compazine Inj) 5 mg Q6H PRN IV NAUSEA Last administered on 01/08/19 21:08; Admin Dose 5 MG; Start 01/04/19 at 21:30 Docusate Sodium (Colace) 200 mg BID PO Last administered on 7/9/19at 20:56; Admin Dose 200 MG; Start 01/05/19 at 21:00 Senna (Senokot) 2 tab BID PO Last administered on 01/07/19at 20:56; Admin Dose 2 TAB; Start 01/05/19 at 21:00 Sodium Biphosphate/ Sodium Phosphate (Fleet Enema) 133 ml DAILY PRN [place] CONSTIPATION; Start 01/05/19 at 10:00 Hydromorphone HCl (Dilaudid DYNAMO TENDER) See protocol, below. Q4PCA IV Last admi nistered on 01/08/19at 05:32; Admin Dose 6 MG; Start 01/07/19 at 13:30 Piperacillin Sod/ Tazobactam Sod 100 ml @ 200 mls/hr Q6 IVPB Last administered on 01/09/19at 06:05; Admin Dose 200 MLS/HR; Start 01/07/19 at 15:00 Ipratropium [place] (Atrovent 0.02% (Neb)) 0.5 mg Q6H RESP THERAPY PRN HHN SHORTNESS OF BREATH; Start 01/08/19 at 10:00 IV Flush (NS 10 ml) 10 ml PRN PRN IV Maintain Line Patency; Start 01/08/19 at 18:30 TOM CARLSON Jan 09, 2019 12:03
--- NOTE | 2019-01-09 13:49 | CONS ---
Assessment/Plan Assessment/Plan Hospital Course (Demo Recall) No acute events overnight patient is awake looks comfortable no fevers this morning WBC 21.8 platelets 498 H&H 10.1 and 31.9 neutrophils 91.6 BUN 11 creatinine 0.65 Pericardial fluid cultures negative repeat blood cultures negative Abx: Zosyn Microbiology: Respiratory culture grew Klebsiella oxytoca and staph aureus, oxacillin sensitive Indwelling: Right subclavian Port-A-Cath, PICC, sternal pigtail Physical examination: Well-developed wasted young man who is in no distress. Head atraumatic normocephalic sclera nonicteric. Neck is supple. Chest rise symmetrical breath sounds diminished. Heart: S1-S2, tachycardic. Abdomen soft bowel sounds present. Extremities without cyanosis edema. Assessment: 1. Sepsis 2. Healthcare associated pneumonia, likely postobstructive 3. Recently diagnosed yolk sac tumor, on chemo 4. Large pericardial effusion, status post pericardiocentesis 01/06/19 5. History of seizure 6. Ongoing tachycardia Plan: Remains unchanged, continue present care and antibiotics, pending transfer to tertiary care facility Consultation Date/Type/Reason Admit Date/Time Dec 30, 2018 at 03:30 Initial Consult Date Type of Consult id Requesting Provider: RADHA HEBERT Date/Time of Note DATE: 01/09/19 TIME: 13:49 Exam/Review of Systems Exam Vitals Vital Signs Date Temp Pulse Resp B/P (MAP) Pulse Ox O2 O2 Flow FiO2 Time Delivery Rate 01/09/19 130 12:00 01/09/19 15 103/64 98 Nasal 2.0 10:00 (77) Cannula 01/09/19 97.8 08:00 01/05/19 100 16:39 Intake and Output 01/08/19 01/08/19 01/09/19 1515:00 23:00 07:00 IntakeIntake Total 374.8 ml 766.4 ml 555.6 ml OutputOutput Total 1705 ml 1550 ml 763 ml BalanceBalance -1330.2 ml -783.6 ml -207.4 ml Results Result Diagram: 01/09/19 0435 01/09/19 0435 Results 24hrs Laboratory Tests Test 01/09/19 04:35 01/09/19 12:53 White Blood Count 21.8 H Red Blood Count 4.13 L Hemoglobin 10.1 L Hematocrit 31.9 L Mean Corpuscular Volume 77.2 Mean Corpuscular Hemoglobin 24.5 L Mean Corpuscular Hemoglobin Concent 31.7 L Red Cell Distribution Width 14.2 Platelet Count 490 H Mean Platelet Volume 7.8 Immature Granulocytes % 3.000 H Neutrophils % 91.6 H Lymphocytes % 4.9 L Monocytes % 0.3 Eosinophils % 0.0 Basophils % 0.2 Nucleated Red Blood Cells % 0.0 Immature Granulocytes # 0.650 H Neutrophils # 20.0 H Lymphocytes # 1.1 Monocytes # 0.1 L Eosinophils # 0.0 Basophils # 0.1 Nucleated Red Blood Cells # 0.0 Sodium Level 133 L Potassium Level 3.5 Chloride Level 99 Carbon Dioxide Level 24 Anion Gap 10 Blood Urea Nitrogen 11 Creatinine 0.65 Est Glomerular Filtrat Rate mL/min > 60 Glucose Level 122 Calcium Level 8.1 L Iron Level 115 Total Iron Binding Capacity 170 L Percent Iron Saturation 68 H Medications Medication Current Medications IV Flush (NS 3 ml) 3 ml PER PROTOCOL IV ; Start 12/30/18 at 04:00 Ondansetron HCl (Zofran Inj) 4 mg Q6H PRN IV NAUSEA/VOMITING Last administered on 01/09/19 08:39; Admin Dose 4 MG; Start 12/30/18 at 04:00 Acetaminophen (Tylenol Tab) 650 mg Q6H PRN PO .PAIN 1-3 OR TEMP Last administered on 01/09/19 04:51; Admin Dose 650 MG; Start 12/30/18 at 04:00 Docusate Sodium (Colace) 100 mg Q12H PRN PO .CONSTIPATION; Start 12/30/18 at 04:00 Bisacodyl (Dulcolax) 5 mg DAILY PRN PO .CONSTIPATION Last administered on 01/05/19 08:47; Admin Dose 5 MG; Start 12/30/18 at 04:00 Enoxaparin Sodium (Lovenox) 40 mg DAILY SC Last administered on 01/09/19 08:4 2; Admin Dose 40 MG; Start 12/30/18 at 09:00 Levalbuterol (Xopenex Neb) 1.25 mg Q4H RESP THERAPY PRN HHN SHORTNESS OF BREATH Last administered on 01/02/19 11:13; Admin Dose 1.25 MG; Start 12/30/18 at 04:00 Levetiracetam (Keppra) 500 mg BID PO Last administered on 01/09/19at 08:39; Admin Dose 500 MG; Start 12/30/18 at 09:00 Oxycodone/ Acetaminophen (Percocet (5/ 325)) 1 tab Q4H PRN PO MODERATE PAIN LEVEL 4-6; Start 12/31/18 at 12:30; Status Hold Naloxone HCl (Narcan) 0.2 mg Q2M PRN IV RR 8 BREATHS/MIN OR LESS; Start 12/31/18 at 15:00 Promethazine HCl/ Codeine (Phenergan/ Codeine) 5 ml Q4H PRN PO COUGH; Start 01/01/19 at 12:00 Ibuprofen (Motrin) 600 mg Q8 PO Last administered on 01/09/19at 06:05; Admin Dose 600 MG; Start 01/01/19 at 17:00 Sodium Chloride 1,000 ml @ 100 mls/hr Q10H IV Last administered on 01/03/19at 04:16; Admin Dose 100 MLS/HR; Start 01/02/19 at 18:30; Status Hold Eye Lubricant (Artificial Tears Oph) 2 drop Q6H PRN BOTH EYES DRY EYES; Start 01/03/19 at 16:00 Prochlorperazine (Compazine Inj) 5 mg Q6H PRN IV NAUSEA Last administered on 01/08/19at 21:08; Admin Dose 5 MG; Start 01/04/19 at 21:30 Docusate Sodium (Colace) 200 mg BID PO Last administered on 01/07/19at 20:56; Ad min Dose 200 MG; Start 01/05/19 at 21:00 Senna (Senokot) 2 tab BID PO Last administered on 01/07/19 20:56; Admin Dose 2 TAB; Start 01/05/19 at 21:00 Sodium Biphosphate/ Sodium Phosphate (Fleet Enema) 133 ml DAILY PRN OR CONSTIPATION; Start 01/05/19 at 10:00 Hydromorphone HCl (Dilaudid DIESEL LOCOMOTIVE ENGINEER) See protocol, below. Q4PCA IV Last administered on 01/08/19at 05:32; Admin Dose 6 MG; Start 01/07/19 at 13:30 Piperacillin Sod/ Tazobactam Sod 100 ml @ 200 mls/hr Q6 IVPB Last administered on 01/09/19at 12:18; Admin Dose 200 MLS/HR; Start 01/07/19 at 15:00 Ipratropium [place] (Atrovent 0.02% (Neb)) 0.5 mg Q6H RESP THERAPY PRN HHN SHORTNESS OF BREATH; Start 01/08/19 at 10:00 IV Flush (NS 10 ml) 10 ml PRN PRN IV Maintain Line Patency; Start 01/08/19 at 18:30 COSTA [employer] ACCOUNTANT Jan 09, 2019 13:49
--- NOTE | 2019-01-09 19:10 | RADRPT ---
Echocardiogram Report Patient Name: Carlene WATSON ID: [id number] : 2000 (18y 7m)Study Date: 01/08/2019 5:01:43 PM Gender: MAccession #: [id number] Tech: Hernna Red [facility] Location: [address] Ref.Physician: TOM BARRERA Height(Cm): BSA: Weight(Kg): Quality: AdequateOrder Physician: TOM BARRERA Account #: Procedures: Echocardiographic Report: Transthoracic echocardiogram examination. Indications: Eval. Pericardial Effusion. Findings: Left Ventricle: Normal left ventricular cavity size. Normal left ventricular systolic function. Mild concentric left ventricular hypertrophy. The left ventricular ejection fraction is visually estimated at 60 %. Right Ventricle: Mild enlargement of right ventricle. Left Atrium: The left atrium is normal in size and appearance. Right Atrium: Mild RA enlargement (40mm-45mm). Mitral Valve: Mitral valve leaflet appear mildly thickened. Mild mitral annular calcification. Trivial mitral regurgitation. Aortic Valve: Normal trileaflet aortic valve structure. Tricuspid Valve: Normal appearance and function of the tricuspid valve with trace physiologic regurgitation. Pericardium: Small pericardial effusion. Bilateral pleural effusion seen. IVC: Normal inferior vena cava appearance and respiratory collapse. Conclusions: Normal left ventricular cavity size. Normal left ventricular systolic function. Mild concentric left ventricular hypertrophy. The left ventricular ejection fraction is visually estimated at 60 %. Mild enlargement of right ventricle. Mild RA enlargement (40mm-45mm). Normal appearance and function of the tricuspid valve with trace physiologic regurgitation. Small pericardial effusion. Bilateral pleural effusion seen. Normal inferior vena cava appearance and respiratory collapse. Mitral valve leaflet appear mildly thickened. Mild mitral annular calcification. Trivial mitral regurgitation. Electronically Signed By: Tom Barrera 2019-01-09 19:10:15 PDT
[2019-01-09] MEDS: METOPROLOL 5 MG INJ IV PRN (19:58)
[2019-01-09] MEDS: HYDROmorphONE 0.2 MG/ML PCA IV SCH (20:29)
[2019-01-10] VITALS (21 sets, daily range): BP systolic 80–121; BP diastolic 51–81; PULSE 115–147; RESP 17–29
[2019-01-10] MEDS: PIPER-TAZO 3.375 GM IV (PMX) 100 ML IVPB SCH ×4 (00:22→17:08)
[2019-01-10] MEDS: IBUPROFEN 600 MG TAB PO SCH ×3 (06:00→21:21)
[2019-01-10] MEDS: ONDANSETRON 4 MG INJ IV PRN ×2 (06:56→17:07)
[2019-01-10] MEDS: METOPROLOL 5 MG INJ IV PRN ×2 (07:01→21:21)
[2019-01-10] MEDS: LEVETIRACETAM 500 MG TAB PO SCH ×2 (08:36→21:21)
[2019-01-10] MEDS: ACETAMINOPHEN 325 MG TAB PO PRN (08:52)
[2019-01-10] MEDS: ENOXAPARIN 40 MG/0.4 ML SYG SC SCH (09:00)
[2019-01-10] MEDS: DOCUSATE SODIUM 100 MG CAP PO SCH ×2 (10:36→21:21)
[2019-01-10] MEDS: SENNA TAB PO SCH ×2 (10:36→21:21)
--- NOTE | 2019-01-10 10:39 | CONS ---
Assessment/Plan Assessment/Plan Hospital Course (Demo Recall) IMPRESSION: 1. Pericardial effusion with questionable early tamponade features. Currently, the patient with stable blood pressure, but is tachycardic, but he is also in respiratory distress, undergoing a thoracentesis and having a high-grade fever at this time; therefore difficult to discern true clinical tamponade.- now post- op s/p placement of pigtail pericardial catheter with echo done 01/08 revealing small effusion. Pigtail still draining small amount 50cc overnight 2. Tachycardia consistent with sinus tachycardia at this time, questionable due to pain, fever or actual pericardial effusion, or a combination of all these likely.-ongoing 3. History of mediastinal mass, yolk sac tumor. 4. Lower lobe pneumonia. 5. Large pleural effusion, undergoing thoracentesis at this time. 6. Leukocytosis, severe. 7. Anemia. 8. Thrombocytosis 9. fevers 10. Hypotension-borderline Recc:: -ICU -Continue CTX started here -Continue ibuprofen and will consider resuming colchicine -Follow pericardial drainage and BP/HR closely -Continue abx's and f/u cx data -Continue keppra -awaiting transfer for higher level of care for treatment of tumor -treat fevers Consultation Date/Type/Reason Admit Date/Time Dec 30, 2018 at 03:30 Initial Consult Date 01/01/19 Type of Consult Cardiology Reason for Consultation pericardial effusion Requesting Provider: RADHA HEBERT Date/Time of Note DATE: 01/10/19 TIME: 10:34 Exam/Review of Systems Vital Signs Vitals Vital Signs Date Temp Pulse Resp B/P (MAP) Pulse Ox O2 O2 Flow FiO2 Time Delivery Rate 01/10/19 100.1 08:52 01/10/19 138 19 102/64 99 Room Air 08:00 (77) Nasal Cannula 01/10/19 2.0 07:00 Intake and Output 01/09/19 01/09/19 01/10/19 1515:00 23:00 07:00 IntakeIntake Total 300 ml 160 ml 100 ml OutputOutput Total 1780 ml 1100 ml 1800 ml BalanceBalance -1480 ml -940 ml -1700 ml Exam Exam Review of Systems: CONSTITUTIONAL: fevers PULMONARY: mild sob CARDIOVASCULAR: No chest pain/palpitations GASTROINTESTINAL: No nausea/vomiting. GENITOURINARY: No hematuria/dysuria. MUSCULOSKELETAL: No myagias/arthalgias. PSYCHIATRIC: The patient denies depression. NEUROLOGIC: No weakness Constitutional: alert Psych: no complaints Head: normocephalic ENMT: mucosa pink and moist Neck: supple, jvd (9 cm water) Respiratory: diminished breath sounds (at bases/B) Cardiovascular: other (tcahycardic, regular rhythm) Gastrointestinal: soft, non-tender Musculoskeletal: muscle weakness (mild generalized) Extremities: edema (none) Neurological: other (No focal deficits) Labs Result Diagram: 01/09/1943401/09/19434 Results 24hrs Laboratory Tests Test 01/09/19 12:53 Uric Acid 1.7 L Iron Level 115 Total Iron Binding Capacity 170 L Percent Iron Saturation 68 H Ferritin 1510.0 H Alpha Fetoprotein 07859.00 H Vitamin B12 Level 976 H Medications Medications Current Medications IV Flush (NS 3 ml) 3 ml PER PROTOCOL IV ; Start 12/30/18 at 04:00 Ondansetron HCl (Zofran Inj) 4 mg Q6H PRN IV NAUSEA/VOMITING Last administered on 01/10/19at 06:56; Admin Dose 4 MG; Start 12/30/18 at 04:00 Acetaminophen (Tylenol Tab) 650 mg Q6H PRN PO .PAIN 1-3 OR TEMP Last administered on 01/10/19at 08:52; Admin Dose 650 MG; Start 12/30/18 at 04:00 Docusate Sodium (Colace) 100 mg Q12H PRN PO .CONSTIPATION; Start 12/30/18 at 04:00 Bisacodyl (Dulcolax) 5 mg DAILY PRN PO .CONSTIPATION Last administered on 01/05/19at 08:47; Admin Dose 5 MG; Start 12/30/18 at 04:00 Enoxaparin Sodium (Lovenox) 40 mg DAILY SC Last administered on 01/09/19at 08:42; Admin Dose 40 MG; Start 12/30/18 at 09:00 Levalbuterol (Xopenex Neb) 1.25 mg Q4H RESP THERAPY PRN HHN SHORTNESS OF BREATH Last administered on 01/02/19at 11:13; Admin Dose 1.25 MG; Start 12/30/18 at 04:00 Levetiracetam (Keppra) 500 mg BID PO Last administered on 01/10/19 08:36; Admin Dose 500 MG; Start 12/30/18 at 09:00 Oxycodone/ Acetaminophen (Percocet (5/ 325)) 1 tab Q4H PRN PO MODERATE PAIN LEVEL 4-6; Start 12/31/18 at 12:30; Status Hold Naloxone HCl (Narcan) 0.2 mg Q2M PRN IV RR 8 BREATHS/MIN OR LESS; Start 12/31/18 at 15:00 Promethazine HCl/ Codeine (Phenergan/ Codeine) 5 ml Q4H PRN PO COUGH; Start 01/01/19 at 12:00 Ibuprofen (Motrin) 600 mg Q8 PO Last administered on 01/09/19 21:25; Admin Dose 600 MG; Start 01/01/19 at 17:00 Sodium Chloride 1,000 ml @ 100 mls/hr Q10H IV Last administered on 01/03/19 04:16; Admin Dose 100 MLS/HR; Start 01/02/19 at 18:30; Status Hold Eye Lubricant (Artificial Tears Oph) 2 drop Q6H PRN BOTH EYES DRY EYES; Start 01/03/19 at 16:00 Prochlorperazine (Compazine Inj) 5 mg Q6H PRN IV NAUSEA Last administered on 01/08/19 21:08; Admin Dose 5 MG; Start 01/04/19 at 21:30 Docusate Sodium (Colace) 200 mg BID PO Last administered on 01/09/19 21:24; Admin Dose 200 MG; Start 01/05/19 at 21:00 Senna (Senokot) 2 tab BID PO Last administered on 01/09/19 21:25; Admin Dose 2 TAB; Start 01/05/19 at 21:00 Sodium Biphosphate/ Sodium Phosphate (Fleet Enema) 133 ml DAILY PRN [place] CONSTIPATION; Start 01/05/19 at 10:00 Hydromorphone HCl (Dilaudid LACE AND TEXTILES RESTORER) See protocol, below. Q4PCA IV Last administered on 01/09/19 20:29; Admin Dose 6 MG; Start 01/07/19 at 13:30 Piperacillin Sod/ Tazobactam Sod 100 ml @ 200 mls/hr Q6 IVPB Last administered on 01/10/19 06:50; Admin Dose 200 MLS/HR; Start 01/07/19 at 15:00 Ipratropium [place] (Atrovent 0.02% (Neb)) 0.5 mg Q6H RESP THERAPY PRN HHN SHORTNESS OF BREATH; Start 01/08/19 at 10:00 IV Flush (NS 10 ml) 10 ml PRN PRN IV Maintain Line Patency; Start 01/08/19 at 18:30 Metoprolol Tartrate (Lopressor) 5 mg Q4H PRN IV HR>110 Hold SBP<100 Last administered on 01/10/19at 07:01; Admin Dose 5 MG; Start 01/09/19 at 19:00 TOM CARLSON Jan 10, 2019 10:39
--- NOTE | 2019-01-10 11:13 | CONS ---
Consult Date/Type/Reason Admit Date/Time Dec 30, 2018 at 03:30 Initial Consult Date Type of Consult Pulmonary Requesting Provider: RADHA HEBERT Date/Time of Note DATE: 01/10/19 TIME: 11:11 Subjective Remains tachycardic and febrile this morning. Chest x-ray shows probable increasing left pleural effusion. Objective Vital Signs Date Temp Pulse Resp B/P (MAP) Pulse Ox O2 O2 Flow FiO2 Time Delivery Rate 01/10/19 97.5 09:37 01/10/19 138 19 102/64 99 Room Air 08:00 (77) Nasal Cannula 01/10/19 2.0 07:00 Intake and Output 01/09/19 01/09/19 01/10/19 1515:00 23:00 07:00 IntakeIntake Total 300 ml 160 ml 100 ml OutputOutput Total 1780 ml 1100 ml 1800 ml BalanceBalance -1480 ml -940 ml -1700 ml Exam GENERAL: Young gentleman on nasal cannula O2 tachycardic VITAL SIGNS: per chart NECK: Supple. No JVD or lymphadenopathy. CARDIAC EXAM: S1, S2. No added sounds or murmurs. CHEST: Diminished air entry bilaterally left side worse than right ABDOMEN: Soft, nontender. No guarding or rebound. EXTREMITIES: No cyanosis, clubbing or edema. NEUROLOGIC: Generalized weakness. No focal deficits. Vent Setting Fraction of Inspired Oxygen pe: 100 Results/Medications Result Diagram: 01/09/195 01/09/19434 Results 24 hrs Laboratory Tests Test 01/09/19 12:53 Uric Acid 1.7 L Iron Level 115 Total Iron Binding Capacity 170 L Percent Iron Saturation 68 H Ferritin 1510.0 H Alpha Fetoprotein 77058.00 H Vitamin B12 Level 976 H Medications Current Medications IV Flush (NS 3 ml) 3 ml PER PROTOCOL IV ; Start 12/30/18 at 04:00 Ondansetron HCl (Zofran Inj) 4 mg Q6H PRN IV NAUSEA/VOMITING Last administered on 01/10/19at 06:56; Admin Dose 4 MG; Start 12/30/18 at 04:00 Acetaminophen (Tylenol Tab) 650 mg Q6H PRN PO .PAIN 1-3 OR TEMP Last administered on 01/10/19at 08:52; Admin Dose 650 MG; Start 12/30/18 at 04:00 Docusate Sodium (Colace) 100 mg Q12H PRN PO .CONSTIPATION; Start 12/30/18 at 04:00 Bisacodyl (Dulcolax) 5 mg DAILY PRN PO .CONSTIPATION Last administered on 01/05/19 08:47; Admin Dose 5 MG; Start 12/30/18 at 04:00 Enoxaparin Sodium (Lovenox) 40 mg DAILY SC Last administered on 01/09/19 08:42; Admin Dose 40 MG; Start 12/30/18 at 09:00 Levalbuterol (Xopenex Neb) 1.25 mg Q4H RESP THERAPY PRN HHN SHORTNESS OF BREATH Last administered on 01/02/19 11:13; Admin Dose 1.25 MG; Start 12/30/18 at 04:00 Levetiracetam (Keppra) 500 mg BID PO Last administered on 01/10/19 08:36; Admin Dose 500 MG; Start 12/30/18 at 09:00 Oxycodone/ Acetaminophen (Percocet (5/ 325)) 1 tab Q4H PRN PO MODERATE PAIN LEVEL 4-6; Start 12/31/18 at 12:30; Status Hold Naloxone HCl (Narcan) 0.2 mg Q2M PRN IV RR 8 BREATHS/MIN OR LESS; Start 12/31/18 at 15:00 Promethazine HCl/ Codeine (Phenergan/ Codeine) 5 ml Q4H PRN PO COUGH; Start 01/01/19 at 12:00 Ibuprofen (Motrin) 600 mg Q8 PO Last administered on 01/09/19at 21:25; Admin Dose 600 MG; Start 01/01/19 at 17:00 Sodium Chloride 1,000 ml @ 100 mls/hr Q10H IV Last administered on 01/03/19 04:16; Admin Dose 100 MLS/HR; Start 01/02/19 at 18:30; Status Hold Eye Lubricant (Artificial Tears Oph) 2 drop Q6H PRN BOTH EYES DRY EYES; Start 01/03/19 at 16:00 Prochlorperazine (Compazine Inj) 5 mg Q6H PRN IV NAUSEA Last administered on 01/08/19 21:08; Admin Dose 5 MG; Start 01/04/19 at 21:30 Docusate Sodium (Colace) 200 mg BID PO Last administered on 01/10/19at 10:36; Admin Dose 200 MG; Start 01/05/19 at 21:00 Senna (Senokot) 2 tab BID PO Last administered on 01/10/19at 10:36; Admin Dose 2 TAB; Start 01/05/19 at 21:00 Sodium Biphosphate/ Sodium Phosphate (Fleet Enema) 133 ml DAILY PRN [place] CONSTIPATION; Start 01/05/19 at 10:00 Hydromorphone HCl (Dilaudid TICKET MACHINE OPERATOR) See protocol, below. Q4PCA IV Last administered on 01/09/19at 20:29; Admin Dose 6 MG; Start 01/07/19 at 13:30 Piperacillin Sod/ Tazobactam Sod 100 ml @ 200 mls/hr Q6 IVPB Last administered on 01/10/19at 06:50; Admin Dose 200 MLS/HR; Start 01/07/19 at 15:00 Ipratropium [place] (Atrovent 0.02% (Neb)) 0.5 mg Q6H RESP THERAPY PRN HHN SHORTNESS OF BREATH; Start 01/08/19 at 10:00 IV Flush (NS 10 ml) 10 ml PRN PRN IV Maintain Line Patency; Start 01/08/19 at 18:30 Metoprolol Tartrate (Lopressor) 5 mg Q4H PRN IV HR>110 Hold SBP<100 Last administered on 01/10/19at 07:01; Admin Dose 5 MG; Start 01/09/19 at 19:00 Colchicine (Colchicine) 0.6 mg DAILY PO ; Start 01/10/19 at 13:00 Assessment/Plan Hospital Course (Demo Recall) IMP: 1. Hypoxemic Respiratory Insufficiency--2/2 large mediastinal yolk sac tumor with associated mainstem bronchial compression, pleural effusions, and post- obstructive pna. 2. 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 Status post chemotherapy 3. Left pleural effusion--lymphocytic predominant exudate repeat thoracentesis 4. Anemia 5. Tachycardia multifactorial likely secondary to fever pleural effusion and me diastinal mass RECS: 1. Titrate FiO2 as tolerated 2. Abx per ID 3. Repeat thoracentesis left lung 4. Continue pericardial drainage 5. Continue heme-onc recommendations 6. Continue ICU management 40 min cc time Possible transfer to tertiary care facility. ANGIE LANDEROS MD, [facility] Jan 10, 2019 11:13
[2019-01-10] MEDS: COLCHICINE 0.6 MG CAP PO SCH (12:14)
--- NOTE | 2019-01-10 14:39 | CONS ---
Assessment/Plan Assessment/Plan Hospital Course (Demo Recall) No acute events patient is awake looks comfortable no fevers Pericardial fluid cultures negative repeat blood cultures negative Abx: Zosyn Microbiology: Respiratory culture grew Klebsiella oxytoca and staph aureus, oxacillin sensitive Indwelling: Right subclavian Port-A-Cath, PICC, sternal pigtail Physical examination: Well-developed wasted young man who is in no distress. Head atraumatic normocephalic sclera nonicteric. Neck is supple. Chest rise symmetrical breath sounds diminished. Heart: S1-S2, tachycardic. Abdomen soft bowel sounds present. Extremities without cyanosis edema. Assessment: 1. Sepsis 2. Healthcare associated pneumonia, likely postobstructive 3. Recently diagnosed yolk sac tumor, on chemo 4. Large pericardial effusion, status post pericardiocentesis 01/06/19 5. History of seizure 6. Ongoing tachycardia Plan: Remains unchanged, continue present care and antibiotics, plan for repeat thoracentesis Consultation Date/Type/Reason Admit Date/Time Dec 30, 2018 at 03:30 Initial Consult Date Type of Consult id Requesting Provider: RADHA HEBERT Date/Time of Note DATE: 01/10/19 TIME: 14:38 Exam/Review of Systems Exam Vitals Vital Signs Date Temp Pulse Resp B/P (MAP) Pulse Ox O2 O2 Flow FiO2 Time Delivery Rate 01/10/19 122 98/62 (74) 99 14:00 01/10/19 17 Room Air 13:00 01/10/19 98.0 12:00 01/10/19 2.0 07:00 Intake and Output 01/09/19 01/09/19 01/10/19 1515:00 23:00 07:00 IntakeIntake Total 300 ml 160 ml 100 ml OutputOutput Total 1780 ml 1100 ml 1800 ml BalanceBalance -1480 ml -940 ml -1700 ml Results Result Diagram: 01/09/195 01/09/19434 Medications Medication Current Medications IV Flush (NS 3 ml) 3 ml PER PROTOCOL IV ; Start 12/30/18 at 04:00 Ondansetron HCl (Zofran Inj) 4 mg Q6H PRN IV NAUSEA/VOMITING Last administered on 01/10/19at 06:56; Admin Dose 4 MG; Start 12/30/18 at 04:00 Acetaminophen (Tylenol Tab) 650 mg Q6H PRN PO .PAIN 1-3 OR TEMP Last administered on 01/10/19 08:52; Admin Dose 650 MG; Start 12/30/18 at 04:00 Docusate Sodium (Colace) 100 mg Q12H PRN PO .CONSTIPATION; Start 12/30/18 at 04 :00 Bisacodyl (Dulcolax) 5 mg DAILY PRN PO .CONSTIPATION Last administered on 01/05/19 08:47; Admin Dose 5 MG; Start 12/30/18 at 04:00 Enoxaparin Sodium (Lovenox) 40 mg DAILY SC Last administered on 01/09/19 08:42; Admin Dose 40 MG; Start 12/30/18 at 09:00 Levalbuterol (Xopenex Neb) 1.25 mg Q4H RESP THERAPY PRN HHN SHORTNESS OF BREATH Last administered on 01/02/19 11:13; Admin Dose 1.25 MG; Start 12/30/18 at 04:00 Levetiracetam (Keppra) 500 mg BID PO Last administered on 01/10/19 08:36; Admin Dose 500 MG; Start 12/30/18 at 09:00 Oxycodone/ Acetaminophen (Percocet (5/ 325)) 1 tab Q4H PRN PO MODERATE PAIN LEVEL 4-6; Start 12/31/18 at 12:30; Status Hold Naloxone HCl (Narcan) 0.2 mg Q2M PRN IV RR 8 BREATHS/MIN OR LESS; Start 12/31/18 at 15:00 Promethazine HCl/ Codeine (Phenergan/ Codeine) 5 ml Q4H PRN PO COUGH; Start 01/01/19 at 12:00 Ibuprofen (Motrin) 600 mg Q8 PO Last administered on 01/10/19 14:34; Admin Dose 600 MG; Start 01/01/19 at 17:00 Sodium Chloride 1,000 ml @ 100 mls/hr Q10H IV Last administered on 01/03/19 04:16; Admin Dose 100 MLS/HR; Start 01/02/19 at 18:30; Status Hold Eye Lubricant (Artificial Tears Oph) 2 drop Q6H PRN BOTH EYES DRY EYES; Start 01/03/19 at 16:00 Prochlorperazine (Compazine Inj) 5 mg Q6H PRN IV NAUSEA Last administered on 01/08/19 21:08; Admin Dose 5 MG; Start 01/04/19 at 21:30 Docusate Sodium (Colace) 200 mg BID PO Last administered on 01/10/19 10:36; Admin Dose 200 MG; Start 01/05/19 at 21:00 Senna (Senokot) 2 tab BID PO Last administered on 01/10/19 10:36; Admin Dose 2 TAB; Start 01/05/19 at 21:00 Sodium Biphosphate/ Sodium Phosphate (Fleet Enema) 133 ml DAILY PRN [place] CONSTIPATION; Start 01/05/19 at 10:00 Hydromorphone HCl (Dilaudid CHILD DAY CARE CENTER WORKER) See protocol, below. Q4PCA IV Last administered on 01/09/19 20:29; Admin Dose 6 MG; Start 01/07/19 at 13:30 Piperacillin Sod/ Tazobactam Sod 100 ml @ 200 mls/hr Q6 IVPB Last administered on 01/10/19 12:14; Admin Dose 200 MLS/HR; Start 01/07/19 at 15:00 Ipratropium [place] (Atrovent 0.02% (Neb)) 0.5 mg Q6H RESP THERAPY PRN HHN SHORTNESS OF BREATH; Start 01/08/19 at 10:00 IV Flush (NS 10 ml) 10 ml PRN PRN IV Maintain Line Patency; Start 01/08/19 at 18:30 Metoprolol Tartrate (Lopressor) 5 mg Q4H PRN IV HR>110 Hold SBP<100 Last administered on 01/10/19 07:01; Admin Dose 5 MG; Start 01/09/19 at 19:00 Colchicine (Colchicine) 0.6 mg DAILY PO Last administered on 01/10/19 12:14; Admin Dose 0.6 MG; Start 01/10/19 at 13:00 COSTA ZAZUETA NP Jan 10, 2019 14:39
--- NOTE | 2019-01-10 16:09 | PN ---
Date/Time of Note Date/Time of Note DATE: 01/10/19 TIME: 16:09 Assessment/Plan VTE Prophylaxis Risk score (from Nsg)>0 risk: 3 SCD applied (from Nsg): Yes Pharmacological prophylaxis: heparin Lines/Catheters IV Catheter Type (from Nrsg): PICC Line Central line still needed: Yes Urinary Cath still in place: No Assessment/Plan Hospital Course 18 yo male with newly diagnosed yolk sac tumor of mediastinum who presented with fever and SOB. In ED was started on antibiotics for pneumonia. Yolk sac tumor: - Started on chemotherapy via port as an inpatinet givne concern for airway compromise from the tumor. - Management per Drs Luis/Fei Percaridal effusion with early tamponade features; - s/p pericardiocentesis here with drainage of pericardial fluid - Will require srugical debulking of tumor. 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 malingancy. SIRS: - Continue empiric abx per ID. Not clear to me if infection present. I suspet these are noninfectious fevers. They do not respond to NSAID Being transferred to [facility] for continued care Result Diagram: 01/09/19 0435 01/09/19 0435 Subjective 24 Hr Interval Summary Free Text/Dictation Pain is controlled he feels well Continues to await a bed at [facility] Exam/Review of Systems Exam Vitals Vital Signs Date Temp Pulse Resp B/P (MAP) Pulse Ox O2 O2 Flow FiO2 Time Delivery Rate 01/10/19 122 98/62 (74) 99 14:00 01/10/19 17 Room Air 13:00 01/10/19 98.0 12:00 01/10/19 2.0 07:00 Intake and Output 01/09/19 01/09/19 01/10/19 1414:59 22:59 06:59 IntakeIntake Total 300 ml 160 ml 100 ml OutputOutput Total 860 ml 2080 ml 1800 ml BalanceBalance -560 ml -1920 ml -1700 ml Constitutional: alert, oriented, well developed Psych: no complaints, nl mood/affect Head: normocephalic, atraumatic Eyes: nl conjunctiva, EOMI, nl lids, nl sclera, PERRL ENMT: nl external ears & nose, nl lips & teeth, nl nasal mucosa & septum Neck: supple, non-tender Respiratory: clear to auscultation, normal air movement Cardiovascular: regular rate and rhythm, nl pulses Gastrointestinal: soft, nl liver, spleen, non-tender Musculoskeletal: nl extremities to inspection, nl gait and stance Extremities: normal pulses Neurological: RN IMMUNOLOGY II-XII intact, nl mental status, nl speech, nl strength Skin: nl turgor; No rash or lesions Lymph: nl lymph nodes Medications Medication Current Medications IV Flush (NS 3 ml) 3 ml PER PROTOCOL IV ; Start 12/30/18 at 04:00 Ondansetron HCl (Zofran Inj) 4 mg Q6H PRN IV NAUSEA/VOMITING Last administered on 01/10/19 06:56; Admin Dose 4 MG; Start 12/30/18 at 04:00 Acetaminophen (Tylenol Tab) 650 mg Q6H PRN PO .PAIN 1-3 OR TEMP Last administered on 01/10/19 08:52; Admin Dose 650 MG; Start 12/30/18 at 04:00 Docusate Sodium (Colace) 100 mg Q12H PRN PO .CONSTIPATION; Start 12/30/18 at 04:00 Bisacodyl (Dulcolax) 5 mg DAILY PRN PO .CONSTIPATION Last administered on 01/05/19 08:47; Admin Dose 5 MG; Start 12/30/18 at 04:00 Enoxaparin Sodium (Lovenox) 40 mg DAILY SC Last administered on 01/09/19 08:42; Admin Dose 40 MG; Start 12/30/18 at 09:00 Levalbuterol (Xopenex Neb) 1.25 mg Q4H RESP THERAPY PRN HHN SHORTNESS OF BREATH Last administered on 01/02/19 11:13; Admin Dose 1.25 MG; Start 12/30/18 at 04:00 Levetiracetam (Keppra) 500 mg BID PO Last administered on 01/10/19 08:36; Admin Dose 500 MG; Start 12/30/18 at 09:00 Oxycodone/ Acetaminophen (Percocet (5/ 325)) 1 tab Q4H PRN PO MODERATE PAIN LEVEL 4-6; Start 12/31/18 at 12:30; Status Hold Naloxone HCl (Narcan) 0.2 mg Q2M PRN IV RR 8 BREATHS/MIN OR LESS; Start 12/31/18 at 15:00 Promethazine HCl/ Codeine (Phenergan/ Codeine) 5 ml Q4H PRN PO COUGH; Start 01/01/19 at 12:00 Ibuprofen (Motrin) 600 mg Q8 PO Last administered on 01/10/19 14:34; Admin Dose 600 MG; Start 01/01/19 at 17:00 Sodium Chloride 1,000 ml @ 100 mls/hr Q10H IV Last administered on 01/03/19 04:16; Admin Dose 100 MLS/HR; Start 01/02/19 at 18:30; Status Hold Eye Lubricant (Artificial Tears Oph) 2 drop Q6H PRN BOTH EYES DRY EYES; Start 01/03/19 at 16:00 Prochlorperazine (Compazine Inj) 5 mg Q6H PRN IV NAUSEA Last administered on 01/08/19 21:08; Admin Dose 5 MG; Start 01/04/19 at 21:30 Docusate Sodium (Colace) 200 mg BID PO Last administered on 01/10/19 10:36; Admin Dose 200 MG; Start 01/05/19 at 21:00 Senna (Senokot) 2 tab BID PO Last administered on 01/10/19 10:36; Admin Dose 2 TAB; Start 01/05/19 at 21:00 Sodium Biphosphate/ Sodium Phosphate (Fleet Enema) 133 ml DAILY PRN [place] CONSTIPATION; Start 01/05/19 at 10:00 Hydromorphone HCl (Dilaudid DIRECTOR CLOUD TRANSFORMATION) See protocol, below. Q4PCA IV Last administered on 01/09/19at 20:29; Admin Dose 6 MG; Start 01/07/19 at 13:30 Piperacillin Sod/ Tazobactam Sod 100 ml @ 200 mls/hr Q6 IVPB Last administered on 01/10/19 12:14; Admin Dose 200 MLS/HR; Start 01/07/19 at 15:00 Ipratropium [place] (Atrovent 0.02% (Neb)) 0.5 mg Q6H RESP THERAPY PRN HHN SHORTNESS OF BREATH; Start 01/08/19 at 10:00 IV Flush (NS 10 ml) 10 ml PRN PRN IV Maintain Line Patency; Start 01/08/19 at 18:30 Metoprolol Tartrate (Lopressor) 5 mg Q4H PRN IV HR>110 Hold SBP<100 Last administered on 01/10/19at 07:01; Admin Dose 5 MG; Start 01/09/19 at 19:00 Colchicine (Colchicine) 0.6 mg DAILY PO Last administered on 01/10/19at 12:14; Admin Dose 0.6 MG; Start 01/10/19 at 13:00 BERRY AMBROSE MD Jan 10, 2019 16:09
--- NOTE | 2019-01-10 16:13 | CONS ---
Assessment/Plan Assessment/Plan Hospital Course (Demo Recall) 18 yo with large anterior mediastinal mass 13.5 x 15.8 x 9.3 cm in size. 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 Stable appearance of 2.4 x 1.1 cm of cortical/cystic lesion in the right temporal lobe with underlying vasogenic edema, again most suggestive of DNET -started VIP on 01/04/19: today is day 5 out of 5 -CARRIES RISK OF STERILITY SO HE WILL NEED SPERM BANKING, was unable to do prior to chemo as he was hemodynamically unstable and we needed to start chemo LOBITO. this regimen does carry a risk of sterility but given patient's tenuous status, pt understands this and has consented to chemo monitor daily uric acid completed chemo on 01/08/19: chemo: Cisplatin 20 mg/m2 IV per day Days 1 to 5 Etoposide* 75 mg/m2 IV per day Days 1 to 5 Ifosfamide* 1200 mg/m2 per day IV infusion Days 1 to 5 Mes[place] 120 mg/m2 IV Day 1 Mes[place] 1200 mg/m2 per day continuous IV infusion, Days 1 to 5 GCSF 300mcg daily starting day 6-12 ( being held at this point as pt has leukocytosis, will start if ANC <1500) discussed with pt after 2 cycles chemo, restage. 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 AND PT HAS BEEN ACCEPTED FOR TRANSFER #leukocytosis and thrombocytosis -has hospital acquired PNA, sputum cultures showing: --Respiratory culture grew Klebsiella oxytoca and staph aureus, oxacillin sensitive On Zosyn - I suspect the leukocytosis and thrombocytosis could in part be tumor related #pericardial effusion/possible early tamponnade s/p placement of pigtail pericardial catheter cardiology following #h/o seizure [facility], we do not have [facility] records but pt had brought in MRI brain from September 2018 and it was given to our radiolog y dept for comparison to MRI done during this admission Consultation Date/Type/Reason Admit Date/Time Dec 30, 2018 at 03:30 Initial Consult Date Requesting Provider: RADHA HEBERT Date/Time of Note DATE: 01/10/19 TIME: 16:12 24 HR Interval Summary Free Text/Dictation some pain at site of drain Exam/Review of Systems Exam Vitals Vital Signs Date Temp Pulse Resp B/P (MAP) Pulse Ox O2 O2 Flow FiO2 Time Delivery Rate 01/10/19 122 98/62 (74) 99 14:00 01/10/19 17 Room Air 13:00 01/10/19 98.0 12:00 01/10/19 2.0 07:00 Intake and Output 01/09/19 01/09/19 01/10/19 1515:00 23:00 07:00 IntakeIntake Total 300 ml 160 ml 100 ml OutputOutput Total 1780 ml 1100 ml 1800 ml BalanceBalance -1480 ml -940 ml -1700 ml Constitutional: frail Psych: no complaints, nl mood/affect Head: normocephalic, atraumatic Gastrointestinal: soft, nl liver, spleen, non-tender Musculoskeletal: nl extremities to inspection, nl gait and stance Results Result Diagram: 01/09/19 0435 01/09/19434 Medications Medication Current Medications IV Flush (NS 3 ml) 3 ml PER PROTOCOL IV ; Start 12/30/18 at 04:00 Ondansetron HCl (Zofran Inj) 4 mg Q6H PRN IV NAUSEA/VOMITING Last administered on 01/10/19at 06:56; Admin Dose 4 MG; Start 12/30/18 at 04:00 Acetaminophen (Tylenol Tab) 650 mg Q6H PRN PO .PAIN 1-3 OR TEMP Last administered on 01/10/19at 08:52; Admin Dose 650 MG; Start 12/30/18 at 04:00 Docusate Sodium (Colace) 100 mg Q12H PRN PO .CONSTIPATION; Start 12/30/18 at 04:00 Bisacodyl (Dulcolax) 5 mg DAILY PRN PO .CONSTIPATION Last administered on 01/05/19 08:47; Admin Dose 5 MG; Start 12/30/18 at 04:00 Enoxaparin Sodium (Lovenox) 40 mg DAILY SC Last administered on 01/09/19 08:42; Admin Dose 40 MG; Start 12/30/18 at 09:00 Levalbuterol (Xopenex Neb) 1.25 mg Q4H RESP THERAPY PRN HHN SHORTNESS OF BREATH Last administered on 01/02/19 11:13; Admin Dose 1.25 MG; Start 12/30/18 at 04:00 Levetiracetam (Keppra) 500 mg BID PO Last administered on 01/10/19 08:36; Admin Dose 500 MG; Start 12/30/18 at 09:00 Oxycodone/ Acetaminophen (Percocet (5/ 325)) 1 tab Q4H PRN PO MODERATE PAIN LEVEL 4-6; Start 12/31/18 at 12:30; Status Hold Naloxone HCl (Narcan) 0.2 mg Q2M PRN IV RR 8 BREATHS/MIN OR LESS; Start 12/31/18 at 15:00 Promethazine HCl/ Codeine (Phenergan/ Codeine) 5 ml Q4H PRN PO COUGH; Start 01/01/19 at 12:00 Ibuprofen (Motrin) 600 mg Q8 PO Last administered on 01/10/19 14:34; Admin D ose 600 MG; Start 01/01/19 at 17:00 Sodium Chloride 1,000 ml @ 100 mls/hr Q10H IV Last administered on 01/03/19 04:16; Admin Dose 100 MLS/HR; Start 01/02/19 at 18:30; Status Hold Eye Lubricant (Artificial Tears Oph) 2 drop Q6H PRN BOTH EYES DRY EYES; Start 01/03/19 at 16:00 Prochlorperazine (Compazine Inj) 5 mg Q6H PRN IV NAUSEA Last administered on 01/08/19 21:08; Admin Dose 5 MG; Start 01/04/19 at 21:30 Docusate Sodium (Colace) 200 mg BID PO Last administered on 01/10/19 10:36; Admin Dose 200 MG; Start 01/05/19 at 21:00 Senna (Senokot) 2 tab BID PO Last administered on 01/10/19 10:36; Admin Dose 2 TAB; Start 01/05/19 at 21:00 Sodium Biphosphate/ Sodium Phosphate (Fleet Enema) 133 ml DAILY PRN [place] CONSTIPATION; Start 01/05/19 at 10:00 Hydromorphone HCl (Dilaudid RHIA) See protocol, below. Q4PCA IV Last administered on 01/09/19at 20:29; Admin Dose 6 MG; Start 01/07/19 at 13:30 Piperacillin Sod/ Tazobactam Sod 100 ml @ 200 mls/hr Q6 IVPB Last administered on 01/10/19 12:14; Admin Dose 200 MLS/HR; Start 01/07/19 at 15:00 Ipratropium [place] (Atrovent 0.02% (Neb)) 0.5 mg Q6H RESP THERAPY PRN HHN SHORTNESS OF BREATH; Start 01/08/19 at 10:00 IV Flush (NS 10 ml) 10 ml PRN PRN IV Maintain Line Patency; Start 01/08/19 at 18:30 Metoprolol Tartrate (Lopressor) 5 mg Q4H PRN IV HR>110 Hold SBP<100 Last administered on 01/10/19 07:01; Admin Dose 5 MG; Start 01/09/19 at 19:00 Colchicine (Colchicine) 0.6 mg DAILY PO Last administered on 01/10/19 12:14; Admin Dose 0.6 MG; Start 01/10/19 at 13:00 JESÚS SPICER Jan 10, 2019 16:13
[2019-01-10] MEDS ORDERED: LIDOCAINE 1% (MPF) 5 ML VIAL ONE (16:38)
[2019-01-10] MEDS: HYDROmorphONE 0.2 MG/ML PCA IV SCH (16:58)
[2019-01-11] VITALS (19 sets, daily range): BP systolic 70–136; BP diastolic 46–64; PULSE 118–151; RESP 15–34
[2019-01-11] MEDS: PIPER-TAZO 3.375 GM IV (PMX) 100 ML IVPB SCH ×3 (00:05→11:56)
[2019-01-11] MEDS: ONDANSETRON 4 MG INJ IV PRN ×2 (04:24→17:00)
[2019-01-11] MEDS: METOPROLOL 5 MG INJ IV PRN (04:25)
[2019-01-11] MEDS: IBUPROFEN 600 MG TAB PO SCH ×2 (06:17→15:24)
[2019-01-11] MEDS: PROCHLORPERAZINE 10 MG INJ IV PRN (08:40)
[2019-01-11] MEDS: SENNA TAB PO SCH (09:59)
[2019-01-11] MEDS: COLCHICINE 0.6 MG CAP PO SCH (09:59)
[2019-01-11] MEDS: DOCUSATE SODIUM 100 MG CAP PO SCH (09:59)
[2019-01-11] MEDS: LEVETIRACETAM 500 MG TAB PO SCH (09:59)
[2019-01-11] MEDS: ENOXAPARIN 40 MG/0.4 ML SYG SC SCH (10:02)
--- NOTE | 2019-01-11 13:14 | CONS ---
Assessment/Plan Assessment/Plan Hospital Course (Demo Recall) IMPRESSION: 1. Pericardial effusion with questionable early tamponade features. Currently, the patient with stable blood pressure, but is tachycardic, but he is also in respiratory distress, undergoing a thoracentesis and having a high-grade fever at this time; therefore difficult to discern true clinical tamponade.- now post- op s/p placement of pigtail pericardial catheter with echo done 01/08 revealing small effusion. Pigtail still draining small amount 25cc overnight 2. Tachycardia consistent with sinus tachycardia at this time, questionable due to pain, fever or actual pericardial effusion, or a combination of all these likely.-ongoing 3. History of mediastinal mass, yolk sac tumor. 4. Lower lobe pneumonia. 5. Large pleural effusion, undergoing thoracentesis at this time, now s/p repeat thoracentesis 6. Leukocytosis, severe. 7. Anemia. 8. Thrombocytosis 9. fevers 10. Hypotension-borderline and labile with BP currently improved. Recc:: -ICU -Continue CTX started here -Continue ibuprofen/colchicine -Follow pericardial drainage and BP/HR closely -Continue abx's and f/u cx data -Continue keppra -awaiting transfer for higher level of care for treatment of tumor with possible transfer today -treat fevers Consultation Date/Type/Reason Admit Date/Time Dec 30, 2018 at 03:30 Initial Consult Date 01/01/19 Type of Consult Cardiology Reason for Consultation tachycardia Requesting Provider: RADHA HEBERT Date/Time of Note DATE: 01/11/19 TIME: 13:12 Exam/Review of Systems Vital Signs Vitals Vital Signs Date Temp Pulse Resp B/P (MAP) Pulse Ox O2 O2 Flow FiO2 Time Delivery Rate 01/11/19 126 15 92/57 (69) 99 Room Air 09:00 01/11/19 98.8 08:00 01/10/19 2.0 07:00 Intake and Output 01/10/19 01/10/19 01/11/19 1515:00 23:00 07:00 IntakeIntake Total 650 ml 310 ml 260 ml OutputOutput Total 3360 ml 0 ml 1300 ml BalanceBalance -2710 ml 310 ml -1040 ml Exam Exam Review of Systems: CONSTITUTIONAL: No fevers, chills. PULMONARY: mild sob CARDIOVASCULAR: No chest pain/palpitations GASTROINTESTINAL: No nausea/vomiting. GENITOURINARY: No hematuria/dysuria. MUSCULOSKELETAL: No myagias/arthalgias. PSYCHIATRIC: The patient denies depression. NEUROLOGIC: No weakness Constitutional: other (sleeping, arousable) Psych: no complaints Head: normocephalic ENMT: mucosa pink and moist Neck: supple, jvd (9 cm water) Respiratory: diminished breath sounds (at bases/B) Cardiovascular: other (tachycardic, regular rhythm) Gastrointestinal: soft, non-tender Musculoskeletal: muscle tone (normal) Extremities: edema (none) Neurological: other (No focal deficits) Labs Result Diagram: 01/11/19 0420 01/11/19 0420 Results 24hrs Laboratory Tests Test 01/10/19 16:00 01/11/19 04:20 Body Fluid Type THORACENTESIS FLUID Body Fluid Volume 700.0 Body Fluid Color ORANGE Body Fluid Appearance TURBID Body Fluid WBC 1798 Body Fluid RBC (Auto) 76440 Body Fluid Polynuclear WBCs (%) 86.8 Body Fluid Mononuclear Cells % Auto 13.2 Body Fluid Glucose 99 Body Fluid Total Protein 2.9 Body Fluid Lactate Dehydrogenase 4582 White Blood Count 8.7 # Red Blood Count 3.44 L Hemoglobin 8.5 L Hematocrit 26.2 L Mean Corpuscular Volume 76.2 Mean Corpuscular Hemoglobin 24.7 L Mean Corpuscular Hemoglobin Concent 32.4 Red Cell Distribution Width 13.9 Platelet Count 274 # Mean Platelet Volume 8.1 Immature Granulocytes % 7.800 H Neutrophils % Segmented Neutrophils % (Manual) 81 H Band Neutrophils % (Manual) 1 Lymphocytes % Lymphocytes % (Manual) 14 L Monocytes % Eosinophils % Eosinophils % (Manual) 4 Basophils % Nucleated Red Blood Cells % 0.0 Immature Granulocytes # 0.680 H Neutrophils # Neutrophils # (Manual) 7.0 Band Neutrophils # 0.0 Lymphocytes (Manual) 1.2 Lymphocytes # Monocytes # Eosinophils # Basophils # Nucleated Red Blood Cells # White Cell Morphology Comment @See below Platelet Estimate NORMAL Giant Platelets 1 H Poikilocytosis 1+ Anisocytosis 1+ Microcytosis 1+ Ovalocytes 1+ Red Cell Morphology Comment @See below Sodium Level 130 L Potassium Level 3.9 Chloride Level 97 Carbon Dioxide Level 27 Anion Gap 6 Blood Urea Nitrogen 11 Creatinine 0.61 Est Glomerular Filtrat Rate mL/min > 60 Glucose Level 114 Calcium Level 7.8 L Phosphorus Level 2.6 Magnesium Level 2.1 Medications Medications Current Medications IV Flush (NS 3 ml) 3 ml PER PROTOCOL IV ; Start 12/30/18 at 04:00 Ondansetron HCl (Zofran Inj) 4 mg Q6H PRN IV NAUSEA/VOMITING Last administered on 01/11/19 04:24; Admin Dose 4 MG; Start 12/30/18 at 04:00 Acetaminophen (Tylenol Tab) 650 mg Q6H PRN PO .PAIN 1-3 OR TEMP Last administered on 01/10/19 08:52; Admin Dose 650 MG; Start 12/30/18 at 04:00 Docusate Sodium (Colace) 100 mg Q12H PRN PO .CONSTIPATION; Start 12/30/18 at 04:00 Bisacodyl (Dulcolax) 5 mg DAILY PRN PO .CONSTIPATION Last administered on 01/05/19 08:47; Admin Dose 5 MG; Start 12/30/18 at 04:00 Enoxaparin Sodium (Lovenox) 40 mg DAILY SC Last administered on 01/11/19at 10:02; Admin Dose 40 MG; Start 12/30/18 at 09:00 Levalbuterol (Xopenex Neb) 1.25 mg Q4H RESP THERAPY PRN HHN SHORTNESS OF BREATH Last administered on 01/02/19 11:13; Admin Dose 1.25 MG; Start 12/30/18 at 04:00 Levetiracetam (Keppra) 500 mg BID PO Last administered on 01/11/19 09:59; Admin Dose 500 MG; Start 12/30/18 at 09:00 Oxycodone/ Acetaminophen (Percocet (5/ 325)) 1 tab Q4H PRN PO MODERATE PAIN LEVEL 4-6; Start 12/31/18 at 12:30; Status Hold Naloxone HCl (Narcan) 0.2 mg Q2M PRN IV RR 8 BREATHS/MIN OR LESS; Start 12/31/18 at 15:00 Promethazine HCl/ Codeine (Phenergan/ Codeine) 5 ml Q4H PRN PO COUGH; Start 01/01/19 at 12:00 Ibuprofen (Motrin) 600 mg Q8 PO Last administered on 01/11/19 06:17; Admin Dose 600 MG; Start 01/01/19 at 17:00 Sodium Chloride 1,000 ml @ 100 mls/hr Q10H IV Last administered on 01/03/19 04:16; Admin Dose 100 MLS/HR; Start 01/02/19 at 18:30; Status Hold Eye Lubricant (Artificial Tears Oph) 2 drop Q6H PRN BOTH EYES DRY EYES; Start 01/03/19 at 16:00 Prochlorperazine (Compazine Inj) 5 mg Q6H PRN IV NAUSEA Last administered on 01/11/19 08:40; Admin Dose 5 MG; Start 01/04/19 at 21:30 Docusate Sodium (Colace) 200 mg BID PO Last administered on 01/11/19 09:59; Admin Dose 200 MG; Start 01/05/19 at 21:00 Senna (Senokot) 2 tab BID PO Last administered on 01/11/19 09:59; Admin Dose 2 TAB; Start 01/05/19 at 21:00 Sodium Biphosphate/ Sodium Phosphate (Fleet Enema) 133 ml DAILY PRN SC CONSTIPATION; Start 01/05/19 at 10:00 Hydromorphone HCl (Dilaudid PLAN COORDINATOR) See protocol, below. Q4PCA IV Last administered on 01/10/19 16:58; Admin Dose 0.2 MG; Start 01/07/19 at 13:30 Piperacillin Sod/ Tazobactam Sod 100 ml @ 200 mls/hr Q6 IVPB Last administered on 01/11/19 11:56; Admin Dose 200 MLS/HR; Start 01/07/19 at 15:00 Ipratropium [place] (Atrovent 0.02% (Neb)) 0.5 mg Q6H RESP THERAPY PRN HHN SHORTNESS OF BREATH; Start 01/08/19 at 10:00 IV Flush (NS 10 ml) 10 ml PRN PRN IV Maintain Line Patency; Start 01/08/19 at 18:30 Metoprolol Tartrate (Lopressor) 5 mg Q4H PRN IV HR>110 Hold SBP<100 Last administered on 01/11/19 04:25; Admin Dose 5 MG; Start 01/09/19 at 19:00 Colchicine (Colchicine) 0.6 mg DAILY PO Last administered on 01/11/19 09:59; Admin Dose 0.6 MG; Start 01/10/19 at 13:00 TOM CARLSON Jan 11, 2019 13:14
--- NOTE | 2019-01-11 13:54 | PN ---
DATE: 01/11/2019 SUBJECTIVE: Chart reviewed. Events noted. The patient is scheduled for transfer to [facility] to day. Currently on room air saturating 99%. PHYSICAL EXAMINATION: VITAL SIGNS: Blood pressure 92/57, pulse 126, respirations 15, temperature 98.8. HEENT: Pupils are equal and react to light. NECK: Supple, no JVD noted, no cervical adenopathy noted. LUNGS: Decreased breath sounds at the bases. CARDIOVASCULAR: S1, S2. Tachycardic. ABDOMEN: Soft, nontender. No masses noted. EXTREMITIES: No clubbing or cyanosis noted. NEUROLOGIC: No changes. LABORATORY DATA: WBC 8.7, hemoglobin 8.5, hematocrit 26.2, platelets 274. Sodium 130, potassium 3.9 , chloride 97, CO2 27, BUN 11, creatinine 0.61, glucose 114. IMPRESSION: 1. Status post acute hypoxemic respiratory failure, now stable on room air. 2. Anterior mediastinal tumor p.o. cell of cell type, status post chemotherapy. 3. Tumor compressing upon mainstem bronchial compression. 4. Status post thoracentesis. 5. Likely post-obstructive pneumonia. 6. Left pleural effusion. 7. Anemia. 8. Tachycardia. PLAN: 1. Continue current treatment. 2. Plans for transfer to [facility] noted. 3. Discussed with the staff. Dictated By: MONIK OLSEN MD, MA/[place] Conf#: [id number] DID#: [id number] CC: JAMIN INFANTE MD; RADHA HEBERT MD; ALEX SANTANA MD;*End*
--- NOTE | 2019-01-11 14:01 | CONS ---
Assessment/Plan Assessment/Plan Hospital Course (Demo Recall) No acute events patient is sleeping looks comfortable afebrile WBC today 8.7 platelets 274 BUN 11 creatinine 0.61 Chest x-ray yesterday revealed decreased left basilar atelectasis and small eff usion, patient is status post thoracentesis yesterday Pericardial fluid cultures negative repeat blood cultures negative Abx: Zosyn Microbiology: Respiratory culture grew Klebsiella oxytoca and staph aureus, oxacillin sensitive Indwelling: Right subclavian Port-A-Cath, PICC, sternal pigtail Physical examination: Well-developed wasted young man who is in no distress. Head atraumatic normocephalic sclera nonicteric. Neck is supple. Chest rise symmetrical breath sounds diminished. Heart: S1-S2, tachycardic. Abdomen soft bowel sounds present. Extremities without cyanosis edema. Assessment: 1. Sepsis 2. Healthcare associated pneumonia, likely postobstructive 3. Recently diagnosed yolk sac tumor, on chemo 4. Large pericardial effusion, status post pericardiocentesis 01/06/19 5. History of seizure 6. Ongoing tachycardia Plan: Remains unchanged, continue present care and antibiotics, pending transfer to tertiary care facility Consultation Date/Type/Reason Admit Date/Time Dec 30, 2018 at 03:30 Initial Consult Date Type of Consult id Requesting Provider: RADHA HEBERT Date/Time of Note DATE: 01/11/19 TIME: 14:01 Exam/Review of Systems Exam Vitals Vital Signs Date Temp Pulse Resp B/P (MAP) Pulse Ox O2 O2 Flow FiO2 Time Delivery Rate 01/11/19 134 20 136/59 100 Room Air 13:00 (84) 01/11/19 99.1 12:00 01/10/19 2.0 07:00 Intake and Output 01/10/19 01/10/19 01/11/19 1515:00 23:00 07:00 IntakeIntake Total 650 ml 310 ml 260 ml OutputOutput Total 3360 ml 0 ml 1300 ml BalanceBalance -2710 ml 310 ml -1040 ml Results Result Diagram: 01/11/19 0420 01/11/19 0420 Results 24hrs Laboratory Tests Test 01/10/19 16:00 01/11/19 04:20 Body Fluid Type THORACENTESIS FLUID Body Fluid Volume 700.0 Body Fluid Color ORANGE Body Fluid Appearance TURBID Body Fluid WBC 1798 Body Fluid RBC (Auto) 22863 Body Fluid Polynuclear WBCs (%) 86.8 Body Fluid Mononuclear Cells % Auto 13.2 Body Fluid Glucose 99 Body Fluid Total Protein 2.9 Body Fluid Lactate Dehydrogenase 4582 White Blood Count 8.7 # Red Blood Count 3.44 L Hemoglobin 8.5 L Hematocrit 26.2 L Mean Corpuscular Volume 76.2 Mean Corpuscular Hemoglobin 24.7 L Mean Corpuscular Hemoglobin Concent 32.4 Red Cell Distribution Width 13.9 Platelet Count 274 # Mean Platelet Volume 8.1 Immature Granulocytes % 7.800 H Neutrophils % Segmented Neutrophils % (Manual) 81 H Band Neutrophils % (Manual) 1 Lymphocytes % Lymphocytes % (Manual) 14 L Monocytes % Eosinophils % Eosinophils % (Manual) 4 Basophils % Nucleated Red Blood Cells % 0.0 Immature Granulocytes # 0.680 H Neutrophils # Neutrophils # (Manual) 7.0 Band Neutrophils # 0.0 Lymphocytes (Manual) 1.2 Lymphocytes # Monocytes # Eosinophils # Basophils # Nucleated Red Blood Cells # White Cell Morphology Comment @See below Platelet Estimate NORMAL Giant Platelets 1 H Poikilocytosis 1+ Anisocytosis 1+ Microcytosis 1+ Ovalocytes 1+ Red Cell Morphology Comment @See below Sodium Level 130 L Potassium Level 3.9 Chloride Level 97 Carbon Dioxide Level 27 Anion Gap 6 Blood Urea Nitrogen 11 Creatinine 0.61 Est Glomerular Filtrat Rate mL/min > 60 Glucose Level 114 Calcium Level 7.8 L Phosphorus Level 2.6 Magnesium Level 2.1 Medications Medication Current Medications IV Flush (NS 3 ml) 3 ml PER PROTOCOL IV ; Start 12/30/18 at 04:00 Ondansetron HCl (Zofran Inj) 4 mg Q6H PRN IV NAUSEA/VOMITING Last administered on 01/11/19at 04:24; Admin Dose 4 MG; Start 12/30/18 at 04:00 Acetaminophen (Tylenol Tab) 650 mg Q6H PRN PO .PAIN 1-3 OR TEMP Last administered on 01/10/19at 08:52; Admin Dose 650 MG; Start 12/30/18 at 04:00 Docusate Sodium (Colace) 100 mg Q12H PRN PO .CONSTIPATION; Start 12/30/18 at 04:00 Bisacodyl (Dulcolax) 5 mg DAILY PRN PO .CONSTIPATION Last administered on 01/05/19at 08:47; Admin Dose 5 MG; Start 12/30/18 at 04:00 Enoxaparin Sodium (Lovenox) 40 mg DAILY SC Last administered on 01/11/19 10:02; Admin Dose 40 MG; Start 12/30/18 at 09:00 Levalbuterol (Xopenex Neb) 1.25 mg Q4H RESP THERAPY PRN HHN SHORTNESS OF BREATH Last administered on 01/02/19 11:13; Admin Dose 1.25 MG; Start 12/30/18 at 04:00 Levetiracetam (Keppra) 500 mg BID PO Last administered on 01/11/19 09:59; Admin Dose 500 MG; Start 12/30/18 at 09:00 Oxycodone/ Acetaminophen (Percocet (5/ 325)) 1 tab Q4H PRN PO MODERATE PAIN LEVEL 4-6; Start 12/31/18 at 12:30; Status Hold Naloxone HCl (Narcan) 0.2 mg Q2M PRN IV RR 8 BREATHS/MIN OR LESS; Start 12/31/18 at 15:00 Promethazine HCl/ Codeine (Phenergan/ Codeine) 5 ml Q4H PRN PO COUGH; Start 01/01/19 at 12:00 Ibuprofen (Motrin) 600 mg Q8 PO Last administered on 01/11/19 06:17; Admin Dose 600 MG; Start 01/01/19 at 17:00 Sodium Chloride 1,000 ml @ 100 mls/hr Q10H IV Last administered on 01/03/19 04:16; Admin Dose 100 MLS/HR; Start 01/02/19 at 18:30; Status Hold Eye Lubricant (Artificial Tears Oph) 2 drop Q6H PRN BOTH EYES DRY EYES; Start 01/03/19 at 16:00 Prochlorperazine (Compazine Inj) 5 mg Q6H PRN IV NAUSEA Last administered on 01/11/19 08:40; Admin Dose 5 MG; Start 01/04/19 at 21:30 Docusate Sodium (Colace) 200 mg BID PO Last administered on 01/11/19 09:59; Admin Dose 200 MG; Start 01/05/19 at 21:00 Senna (Senokot) 2 tab BID PO Last administered on 7/13/19at 09:59; Admin Dose 2 TAB; Start 01/05/19 at 21:00 Sodium Biphosphate/ Sodium Phosphate (Fleet Enema) 133 ml DAILY PRN [place] CONSTIPATION; Start 01/05/19 at 10:00 Hydromorphone HCl (Dilaudid BRIAR CUTTER) See protocol, below. Q4PCA IV Last administered on 01/10/19at 16:58; Admin Dose 0.2 MG; Start 01/07/19 at 13:30 Piperacillin Sod/ Tazobactam Sod 100 ml @ 200 mls/hr Q6 IVPB Last administered on 01/11/19 11:56; Admin Dose 200 MLS/HR; Start 01/07/19 at 15:00 Ipratropium [place] (Atrovent 0.02% (Neb)) 0.5 mg Q6H RESP THERAPY PRN HHN SHORTNESS OF BREATH; Start 01/08/19 at 10:00 IV Flush (NS 10 ml) 10 ml PRN PRN IV Maintain Line Patency; Start 01/08/19 at 18:30 Metoprolol Tartrate (Lopressor) 5 mg Q4H PRN IV HR>110 Hold SBP<100 Last administered on 01/11/19at 04:25; Admin Dose 5 MG; Start 01/09/19 at 19:00 Colchicine (Colchicine) 0.6 mg DAILY PO Last administered on 01/11/19at 09:59; Admin Dose 0.6 MG; Start 01/10/19 at 13:00 COSTA ZAZUETA NP Jan 11, 2019 14:01
[2019-01-11] MEDS ORDERED: HYDROmorphONE 1 MG/ML SYG IV ONE ×2 (15:47→15:48)
== END 2019-01-11 16:12 | disposition short-term general hospital (02) | DRG 871 ==
LOC: E/R 01:43 → TEL 03:30 → ICU 12-31 15:34
PROVIDERS: ADMIT Family Medicine; ATTEND Internal Medicine
PROC: 0W9B3ZX Drainage of Left Pleural Cavity, Percutaneous Approach, Diagnostic (ICD-10-PCS; 2019-01-01)
PROC: 0W9B3ZX Drainage of Left Pleural Cavity, Percutaneous Approach, Diagnostic (ICD-10-PCS; 2019-01-02)
PROC: 0W9D30Z Drainage of Pericardial Cavity with Drainage Device, Percutaneous Approach (ICD-10-PCS; principal; 2019-01-06 11:00)
PROC: 0W9B3ZX Drainage of Left Pleural Cavity, Percutaneous Approach, Diagnostic (ICD-10-PCS; 2019-01-10)
DX: A41.9 Sepsis, unspecified organism (principal); J18.9 Pneumonia, unspecified organism; E43 Unspecified severe protein-calorie malnutrition; G93.6 Cerebral edema; C38.1 Malignant neoplasm of anterior mediastinum; C79.82 Secondary malignant neoplasm of genital organs; J90 Pleural effusion, not elsewhere classified; I31.3 Pericardial effusion (noninflammatory); I31.4 Cardiac tamponade; C62.90 Malignant neoplasm of unspecified testis, unspecified whether descended or undescended; R65.20 Severe sepsis without septic shock; R54 Age-related physical debility; R00.0 Tachycardia, unspecified; G40.909 Epilepsy, unspecified, not intractable, without status epilepticus; D50.9 Iron deficiency anemia, unspecified; F41.9 Anxiety disorder, unspecified; F32.9 Major depressive disorder, single episode, unspecified; D63.8 Anemia in other chronic diseases classified elsewhere; Y95 Nosocomial condition; R09.02 Hypoxemia; D69.6 Thrombocytopenia, unspecified; D49.6 Neoplasm of unspecified behavior of brain; R06.03 Acute respiratory distress
CPT/HCPCS: 32555; 36415; 36569; 36600; 70552; 71045; 71046; 71250; 76937; 76942; 80048; 80053; 80202; 81003; 82040; 82105; 82607; 82728; 82803; 82945; 83540; 83605; 83615; 83690; 83735; 84100; 84145; 84157; 84443; 84484; 84560; 85025; 85049; 85610; 85670; 85730; 86140; 86592; 86644; 86703; 86704; 86706; 86788; 86789; 86803; 86850; 86900; 86901; 87070; 87081; 87086; 87102; 87116; 87205; 87340; 87400; 87449; 87536; 87591; 88104; 88261; 88305; 88341; 88342; 89051; 93005; 93306; 93308; 94640; 94644; 94664; 96374; 96375; J9181; J9209; J0456; J0696; J0780; J1100; J1170; J1200; J1650; J2250; J2405; J2543; J3010; J3370; J7030; J7040; J7050; J7120